=== PATIENT | female | born 1940 | race Caucasian/White ===

== ENCOUNTER 2018-05-20 06:10 | Day surgery (SDC) | payer OTHER, MEDICARE ==
[2018-05-19 15:10] VITALS: BMI 34.3
[2018-05-20] MEDS ORDERED: SUCCINYLCHOLINE CHLORIDE 200 MG/10 ML VIAL ONE (07:24)
[2018-05-20] MEDS ORDERED: PROPOFOL 20 ML ONE (07:24)
[2018-05-20] MEDS ORDERED: ceFAZolin SODIUM 1 GM VIAL ONE (07:25)
[2018-05-20] MEDS ORDERED: DEXAMETHASONE SOD PHOSPHATE 4 MG/1 ML VIAL ONE (07:25)
[2018-05-20] MEDS ORDERED: LIDOCAINE HCL/PF 2% SDV 5ML VIAL ONE (07:25)
[2018-05-20] MEDS ORDERED: SODIUM CHLORIDE 0.9% P/F 10 ML VIAL IJ ONE (07:25)
[2018-05-20] MEDS ORDERED: ROPIVACAINE HCL 0.5% 30ML VIAL ONE (07:29)
[2018-05-20] MEDS ORDERED: MIDAZOLAM HCL 2 MG/2 ML SINGLE DOSE VIAL ONE ×2 (07:31)
--- NOTE | 2018-05-20 08:10 | HP ---
Satellite [facility] - Chief Complaint Chief Complaint: left shoulder pain History of Present Illness: left shoulder impingement, RTC tear History Source: Patient Limitations to Obtaining History: No Limitations - Past Medical History Allergies/Adverse Reactions: Allergies Allergy/AdvReac Type Severity Reaction Status Date / Time No Known Allergies Allergy Verified 05/19/18 15:10 - Current Medications Current Medications: Home Medications Medication Instructions Recorded Amlodipine Besylate [Norvasc -] 10 mg PO DAILY 05/19/18 Aspirin [Aspirin EC] 81 mg PO DAILY 05/19/18 Azilsartan Medoxomil [Edarbi] 80 mg PO DAILY 05/19/18 Budesonide/Formeterol Fumarate 1 inh PO BID 05/19/18 [SYMBICORT 160/4.5mcg -] Chlorthalidone 25 mg PO DAILY 05/19/18 Ezetimibe [Zetia] 10 mg PO DAILY 05/19/18 Levothyroxine [Synthroid -] 88 mcg PO DAILY 05/19/18 Metformin HCl [Metformin HCl ER] 500 mg PO BID 05/19/18 Satellite Physical Exam - Physical Examination Vital Signs: Vital Signs Period Temp Pulse Resp BP Sys/Serrano Pulse Ox Last 24 Hr 98.5 F 78 18 143/63 99 General Appearance: Well Nourished ENT: Clear Lung: Clear to auscultation Heart: Regular rate & rhythm Breasts: Soft Abdomen: Soft Extremities: No edema Satellite Impression/Plan - Impression/Plan Impression: left shoulder pain, impingement, RTC tear Operative Procedure: left shoulder arthroscopy, subacromial decompression, RTC repair Date to be Performed: 05/20/18
[2018-05-20] MEDS ORDERED: ceFAZolin SODIUM 1 GM VIAL IVPB ONE (08:25)
[2018-05-20] MEDS ORDERED: ePHEDrine SULFATE 50 MG/1 ML AMPULE ONE (08:26)
[2018-05-20] MEDS ORDERED: KETOROLAC TROMETHAMINE 30 MG/1 ML VIAL ONE (08:38)
[2018-05-20] MEDS ORDERED: ONDANSETRON 4 MG/2 ML VIAL IVPUSH PRN (08:56)
[2018-05-20] MEDS ORDERED: PROMETHAZINE HCL 25 MG/1 ML VIAL IVPB PRN (08:56)
[2018-05-20] MEDS ORDERED: oxyCODONE HCL 5 MG TABLET PO PRN (08:56)
[2018-05-20] MEDS ORDERED: LACTATED RINGERS SOLUTION 1,000 ML IV SCH (09:00)
--- NOTE | 2018-05-20 09:10 | OP ---
Operative Note - Note: Operative Date: 05/20/18 Pre-Operative Diagnosis: left shoulder impingement, RTC tear, adhesive capsulitis Operation: left shoulder arthroscopy, subacromial decompression, distal clavicle excision, RTC debridement, manipulation under anesthesia Post-Operative Diagnosis: Same as Pre-op Surgeon: Nasir Sarmiento Md Allergy Immunology: Lincoln Mallory Anesthesiologist/CUSTOMS AGENT: Ayad Rodriguez Anesthesia: General, Local Specimens Removed: shavings Estimated Blood Loss (mls): 20 Drains, Volume Out (mls): 0 Blood Volume Replaced (mls): 0 Fluid Volume Replaced (mls): 700 Operative Report Dictated: Yes
--- NOTE | 2018-05-20 11:46 | OP ---
DATE OF OPERATION: DATE OF DICTATION: 05/20/2018 PREOPERATIVE DIAGNOSIS: Left shoulder impingement syndrome, adhesive capsulitis, and rotator cuff tear. POSTOPERATIVE DIAGNOSIS: Left shoulder impingement syndrome, adhesive capsulitis, and rotator cuff tear. PROCEDURE: Left shoulder arthroscopy, subacromial decompression, manipulation under anesthesia, and rotator cuff debridement. DRAINS: None. COMPLICATIONS: None. SPECIMEN: Shavings. BLOOD LOSS: Minimal. BLOOD GIVEN: None. FLUID REPLACEMENT: 700 mL. INDICATIONS: This patient is a 77-year-old female with a preoperative diagnosis of significant left shoulder pain, rotator cuff tear, impingement syndrome, and adhesive capsulitis. After extensive preoperative discussions, the patient has elected to undergo this procedure. She understands that the rotator cuff may not be fixable. PROCEDURE: The patient was brought to the operating room. Peripheral IV placed and IV sedation given. Two grams of IV Ancef was given. A left interscalene block was performed. LMA anesthesia was induced. The patient was placed in the beach-chair position with ample padding throughout. Manipulation under anesthesia was done. At one point, I was clearly able to pop through some constricting scar tissue and range of motion improved to full. The left upper extremity was then prepped and draped in a sterile fashion. The bony landmarks marked out with a marking pen. A posterior portal was established. A diagnostic glenohumeral arthroscopy was performed. The patient had no rotator cuff whatsoever. We searched for it extensively and there was none. The patient had a completely bald head. There was a lot of synovitis. The labrum looked frayed, but otherwise not torn. Next, our attention turned to the subacromial space. A lateral portal was established with a spinal needle under direct visualization. A Green cannula was introduced into the subacromial space and the ArthroCare wand used to do a bursectomy/extensive debridement/soft tissue subacromial decompression. Next, we photographed a very large, very sharp subacromial spur and a moderate-sized subclavicular spur. Using a combination of the 5.5-mm oval jerry in forward and then in reverse to fine tune it, as well as the shaver, a bony subacromial decompression was done. I then took off the distal clavicle. I then took off the subclavicular spur on the undersurface of the distal clavicle. It was then fine tuned in reverse and then finished with the shaver. The area was copiously irrigated and washed out. All instrumentation removed. Photographs taken. The top of the rotator cuff was directly visualized through full range of motion of the shoulder and there was no rotator cuff whatsoever; there was nothing to repair. The rotator cuff was debrided with a shaver. Its insertion off the humeral head had some frayed portions. This was debrided. All instrumentation, excess saline, and debris was removed. The arthroscopy portals were closed with 3-0 nylon sutures. The area was then washed, and dried, covered with Aquacel dressing, and the patient was placed into a regular sling. Extubated. Total operative time was about 45 minutes. Brought to the ambulatory recovery room in stable condition. NORIS TRENT M.D. [id number]
[2018-05-20 12:53] VITALS: BP 144/62; PULSE 80; TEMP 97.3
--- NOTE | 2018-05-22 18:25 | PATH ---
Surgical Pathology Report Patient Name: LINK HEATH [facility]. Rec. #: [id number] /Age/Gender: 1940 (Age: 77) / F Account: [id number] Location: [facility] SURGICAL Taken: 05/20/2018 Received: 05/20/2018 Reported: 05/22/2018 Physicians: Nasir Sarmiento M.D. Specimen(s) Received SHAVINGS LEFT SHOULDER Clinical History Left shoulder tear Final Diagnosis SHOULDER SHAVINGS, LEFT, ARTHROSCOPY: FRAGMENTS OF BENIGN CARTILAGE, DENSE FIBROCONNECTIVE TISSUE, ADIPOSE TISSUE, SKELETAL MUSCLE, FIBROSYNOVIAL TISSUE WITH PROMINENT LYMPHOPLASMACYTIC (CHRONIC) INFLAMMATORY INFILTRATE AND REACTIVE SYNOVIAL HYPERPLASIA. Comment: Although these findings are non-specific, dense lymphoplasmacytic infiltrate involving synovium with reactive synovial hyperplasia may be seen in association with rheumatoid arthritis. Correlation with clinical/radiologic and serologic findings is suggested Electronically Signed Avelina Correa M.D. Gross Description Received in formalin, labeled "left shoulder shaving," is a 5.5 x 4.0 x 0.6 cm. aggregate of branch-yellow soft tissue fragments. A account executive sales representative portion is submitted in one cassette. 05/21/201805/21/2018
== END 2018-05-20 12:40 | disposition home or self-care (01) ==
LOC: JASU-SURG 06:10
PROVIDERS: ATTEND Orthopaedic Surgery
PROC: 0LQ24ZZ Repair Left Shoulder Tendon, Percutaneous Endoscopic Approach (ICD-10-PCS; 2018-05-20)
PROC: 0RNK4ZZ Release Left Shoulder Joint, Percutaneous Endoscopic Approach (ICD-10-PCS; principal; 2018-05-20 08:00)
DX: M75.42 Impingement syndrome of left shoulder (principal); M65.812 Other synovitis and tenosynovitis, left shoulder; M75.02 Adhesive capsulitis of left shoulder; M75.102 Unspecified rotator cuff tear or rupture of left shoulder, not specified as traumatic; I10 Essential (primary) hypertension; E11.9 Type 2 diabetes mellitus without complications; Z79.84 Long term (current) use of oral hypoglycemic drugs
CPT/HCPCS: 82962; 88304-TC; 94760

== ENCOUNTER 2020-01-31 12:15 | Emergency (ER) | payer OTHER, MEDICARE ==
[2020-01-31 12:41] VITALS: PULSE 75; TEMP 98.1; BMI 34.5
[2020-01-31 12:59] VITALS: BP 146/44
--- OUTSIDE RECORDS SUMMARY | 2020-01-31 13:16 | XMS ---
:1940 Author Organization [facility] Care Team Providers Name Role Phone Francisco MENDEZ Unavailable Unavailable Reda, Anam F MD Unavailable Unavailable Reda, F MD Unavailable Unavailable Reda, F MD Unavailable Unavailable Reda, F MD Unavailable Unavailable Reda, F MD Unavailable Unavailable Reda, F MD Unavailable Unavailable Reda, F MD Unavailable Unavailable Reda, F MD Unavailable Unavailable Reda, F MD Unavailable Unavailable Reda, F MD Unavailable Unavailable Reda, F MD Unavailable Unavailable Reda, F MD Unavailable Unavailable Reda, F MD Unavailable Unavailable Reda, F MD Unavailable Unavailable Reda, F MD Unavailable Unavailable Reda, F MD Unavailable Unavailable Reda, F MD Unavailable Unavailable Reda, F MD Unavailable Unavailable Reda, F MD Unavailable Unavailable Reda, F MD Unavailable Unavailable Reda, F MD Unavailable Unavailable Reda, F MD Unavailable Unavailable Re-disclosure Warning The records that you are about to access may contain information from federally- assisted alcohol or drug abuse programs. If such information is present, then the following federally mandated warning applies: This information has been disclosed to you from records protected by federal confidentiality rules (42 CFR part 2). The federal rules prohibit you from making any further disclosure of this information unless further disclosure is expressly permitted by the written consent of the person to whom it pertains or as otherwise permitted by 42 CFR part 2. A general authorization for the release of medical or other information is NOT sufficient for this purpose. The Federal rules restrict any use of the information to criminally investigate or prosecute any alcohol or drug abuse patient.The records that you are about to access may contain highly sensitive health information, the redisclosure of which is protected by Article 27-F of the [facility] Public Health law. If you continue you may haveaccess to information: Regarding HIV / AIDS; Provided by facilities licensed or operated by the [facility] Office of Mental Health; or Provided by the [facility] Office for People With Developmental Disabilities. If such information is present, then the following [facility] mandated warning applies: This information has been disclosed to you from confidential records which are protected by state law. State law prohibits you from making any further disclosure of this information without the specific written consent of the person to whom it pertains, or as otherwise permitted by law. Any unauthorized further disclosure in violation of state law may result in a fine or alf sentence or both. A general authorization for the release of medical or other information is NOT sufficient authorization for further disclosure. Encounters Encounter Providers Location Date Indications Data Source(s ) Attender: Anam 01/27/2020 [facility] (Winnie Mendoza MD 12:00:00 AM [place] [facility] Office Attender: Anam Mendoza MD 01/27/2020 12:00:00 AM EDT [facility] ([facility]) Office Attender: Anam Mendoza MD 01/27/2020 12:00:00 AM EDT [facility] ([facility]) Office Attender: Anam Mendoza MD 01/27/2020 12:00:00 AM EDT [facility] ([facility]) Office Attender: Anam Mendoza MD 01/27/2020 12:00:00 AM EDT [facility] ([facility]) Office Attender: Anam Mendoza MD 01/27/2020 12:00:00 AM EDT [facility] ([facility]) Office Attender: Anam Mendoza MD 01/27/2020 12:00:00 AM EDT [facility] ([facility]) Office Attender: Anam Mendoza MD 01/27/2020 12:00:00 AM EDT [facility] ([facility]) Office Attender: Anam Mendoza MD 01/27/2020 12:00:00 AM EDT [facility] ([facility]) Office Attender: Anam Mendoza MD 01/27/2020 12:00:00 AM EDT [facility] ([facility]) Office Attender: Anam Mendoza MD 01/27/2020 12:00:00 AM EDT [facility] ([facility]) Office Attender: Anam Mendoza MD 01/27/2020 12:00:00 AM EDT [facility] ([facility]) Office Attender: Anam Mendoza MD 01/27/2020 12:00:00 AM EDT [facility] ([facility]) Office Attender: Anam Mendoza MD 01/27/2020 12:00:00 AM EDT [facility] ([facility]) Office Attender: Anam Mendoza MD 12/27/2019 12:00:00 AM EDT [facility] ([facility]) Office Attender: Anam Mendoza MD 12/27/2019 12:00:00 AM EDT [facility] ([facility]) Office Attender: Anam Mendoza MD 12/27/2019 12:00:00 AM EDT [facility] ([facility]) Office Attender: Anam Mendoza MD 12/27/2019 12:00:00 AM EDT [facility] ([facility]) Office Attender: nAam Mendoza MD 12/27/2019 12:00:00 AM EDT [facility] ([facility]) Office Attender: Anam Mendoza MD 12/27/2019 12:00:00 AM EDT [facility] ([facility]) Office Attender: Anam Mendoza MD 12/27/2019 12:00:00 AM EDT [facility] ([facility]) Office Attender: Anam Mendoza MD 10/07/2019 12:00:00 AM EDT [facility] ([facility]) Office Attender: Anam Mendoza MD 10/07/2019 12:00:00 AM EDT [facility] ([facility]) Office Attender: Anam Mendoza MD 10/07/2019 12:00:00 AM EDT [facility] ([facility]) Office Attender: Anam Mendoza MD 10/07/2019 12:00:00 AM EDT [facility] ([facility]) Office Attender: Anam Mendoza MD 10/07/2019 12:00:00 AM EDT [facility] ([facility]) Office Attender: Anam Mendoza MD 10/07/2019 12:00:00 AM EDT [facility] ([facility]) Office Attender: Anam Mendoza MD 10/07/2019 12:00:00 AM EDT [facility] ([facility]) Office Attender: Anam Mendoza MD 10/01/2019 12:00:00 AM EDT [facility] ([facility]) Office Attender: Anam Mendoza MD 10/01/2019 12:00:00 AM EDT MED[facility] ([facility]) Office Attender: Anam Mendoza MD 10/01/2019 12:00:00 AM EDT MED[facility] ([facility]) Office Attender: Anam Mendoza MD 10/01/2019 12:00:00 AM EDT [facility] ([facility]) Office Attender: Anam Mendoza MD 10/01/2019 12:00:00 AM EDT [facility] ([facility]) Office Attender: Anam Mendoza MD 10/01/2019 12:00:00 AM EDT [facility] ([facility]) Office Attender: Anam Mendoza MD 10/01/2019 12:00:00 AM EDT [facility] ([facility]) Office Attender: Anam Mendoza MD 09/16/2019 12:00:00 AM EDT MED[facility] ([facility]) Office Attender: Anam Mendoza MD 09/16/2019 12:00:00 AM EDT [facility] ([facility]) Office Attender: Anam Mendoza MD 09/16/2019 12:00:00 AM EDT [facility] ([facility] Office Attender: Anam Mendoza MD 09/16/2019 12:00:00 AM EDT [facility] ([facility] Office Attender: Anam Mendoza MD 09/16/2019 12:00:00 AM EDT [facility] ([facility] Office Attender: Anam Mendoza MD 09/16/2019 12:00:00 AM EDT [facility] ([facility] Office Attender: Anam Mendoza MD 09/16/2019 12:00:00 AM EDT [facility] ([facility] Office Attender: Anam Mendoza MD 09/16/2019 12:00:00 AM EDT [facility] ([facility] Office Outpatient Attender: Francisco Rodríguez 06/07/2019 10:53:00 AM [facility] MORALESRAdmitter: Francisco Lance [facility] CARMENRReferrer: Francisco TORRES Outpatient Attender: Anam Rodríguez 01/14/2019 01:07:00 PM [facility] MDAdmitter: Anam Mendoza [facility] MDReferrer: Anam Mendoza MD Immunizations Vaccine Date Status Description Data Source(s) IIV3. This is one of 01/27/2020 completed [facility] ([facility] two codes replacing 12:00:00 AM EDT [facility] CVX 15, which is being [facility]) retired. IIV3. This is one of 01/27/2020 completed [facility] ([facility] two codes replacing 12:00:00 AM EDT [facility] CVX 15, which is being [facility]) retired. Medications Medication Brand Start Product Dose Route Administrative Pharmacy [facility] Indications Reaction Description Data Name Date Form Instructions Instructions Source(s) ezetimibe EZETIM // TABLET 90 complet EZETIM ANGEL [facility] 10 MG Oral ANGEL:34 2019 ed (Felix diaz Tablet 9556 12:00: [facility] EZETIMIBE:3 00 AM r [id number] EDT [facility]) ezetimibe EZETIM // TABLET 90 complet EZETIM ANGEL [facility] 10 MG Oral ANGEL:34 2019 ed (Felix diaz Tablet 9556 12:00: [facility] EZETIMIBE:3 00 AM r [id number] EDT [facility]) ezetimibe EZETIM // TABLET 90 complet EZETIM ANGEL [facility] 10 MG Oral ANGEL:34 2019 ed (Felix diaz Tablet 9556 12:00: [facility] EZETIMIBE:3 00 AM r [id number] EDT [facility]) ezetimibe EZETIM 09/30/ TABLET 90 complet EZETIM ANGEL [facility] 10 MG Oral ANGEL:34 2019 ed (Felix diza Tablet 9556 12:00: [facility] EZETIMIBE:3 00 AM r [id number] EDT [facility]) ezetimibe EZETIM 09/30/ TABLET 90 complet EZETIM ANGEL [facility] 10 MG Oral ANGEL:34 2019 ed (Felix diaz Tablet 9556 12:00: [facility] EZETIMIBE:3 00 AM r [id number] EDT [facility]) ACCU-CHEK complet ACCU-CHEK [facility] ACTIVE IN 2020 ed ACTIVE IN ([place] VITRO 12:00: VITRO STRIP [facility] heste STRIP: 00 AM r EDT [facility]) ACCU-CHEK complet ACCU-CHEK [facility] ACTIVE IN 2020 ed ACTIVE IN ([place] VITRO 12:00: VITRO STRIP [facility]ste STRIP: 00 AM r EDT [facility]) ACCU-CHEK complet ACCU-CHEK [facility] FASTCLIX 2020 ed FASTCLIX (Felix rn LANCET KIT 12:00: LANCET KIT W [place] W/LANCET(S) 00 AM W/LANCET(S) r : EDT [facility] FLUTICASONE 08/18/ SPRAY 3 complet FLUTICA SONE [facility] NASAL:[id number] 2019 ed NASAL (Felix rn 07 12:00: [place] 00 AM r EDT [facility]) LANCETS complet LANCETS MEDG EN ULTRA FINE 2019 ed ULTRA FINE ([place] MISCELLANEO 12:00: MISCELLANEO U [facility] US SINGLE 00 AM S SINGLE r USE, EDT USE, [facility]) TRI-BEVELED TRI-BEVELED : LANCETS complet LANCETS MEDG EN ULTRA FINE 2019 ed ULTRA FINE ([place] MISCELLANEO 12:00: MISCELLANEO U [facility] SINGLE 00 AM S SINGLE r USE, EDT USE, [facility]) TRI-BEVELED TRI-BEVELED : ACCU-CHEK complet ACCU-CHEK MED[facility] ACTIVE IN 2019 ed ACTIVE IN ([place] VITRO 12:00: VITRO STRIP [facility] heste STRIP: 00 AM r EDT [facility]) ACCU-CHEK complet ACCU-CHEK MED[facility] FASTCLIX 2019 ed FASTCLIX (Felix LANCET KIT 12:00: LANCET KIT [place] W/LANCET(S) 00 AM W/LANCET(S) r : EDT [facility]) FLUTICASONE 08/18/ SPRAY 3 complet FLUTICA SONE [facility] NASAL:2019 ed NASAL (Felix rn 07 12:00: [place] 00 AM r EDT [facility]) ACCU-CHEK complet ACCU-CHEK [facility] FASTCLIX 2019 ed [facility] 12:00: LANCET KIT [place] W/LANCET(S) 00 AM W/LANCET(S) r : EDT [facility]ph[facility]) LANCETS complet LANCETS MEDG EN ULTRA FINE 2019 ed ULTRA FINE ([place] MISCELLANEO 12:00: MISCELLANEO U [facility] SINGLE 00 AM S SINGLE r USE, EDT USE, [facility]) TRI-BEVELED TRI-BEVELED : FLUTICASONE 08/18/ SPRAY 3 complet FLUTICA SONE [facility] NASAL:2019 ed NASAL (Felix rn 07 12:00: [place] 00 AM r EDT [facility]) ACCU-CHEK complet ACCU-CHEK MED[facility] FASTCLIX 2019 ed FASTCLIX (Felix diaz LANCET KIT 12:00: LANCET KIT [place] W/LANCET(S) 00 AM W/LANCET(S) r : EDT [facility]) ACCU-CHEK complet ACCU-CHEK MED[facility] ACTIVE IN 2019 ed ACTIVE IN ([place] VITRO 12:00: VITRO STRIP [facility] heste STRIP: 00 AM r EDT [facility]) FLUTICASONE 3 complet FLUTICA SONE [facility] NASAL:[id number] 2019 ed NASAL (Felix rn 07 12:00: [place] 00 AM r EDT [facility]) LANCETS complet LANCETS MEDG EN ULTRA FINE 2019 ed ULTRA FINE ([place] MISCELLANEO 12:00: [facility]O [facility] AM S SINGLE r USE, EDT USE, [facility]) TRI-BEVELED TRI-BEVELED : LANCETS complet LANCETS MEDG EN ULTRA FINE 2019 ed ULTRA FINE ([place] MISCELLANEO 12:00: MISCELLANEO U [place] US SINGLE 00 AM S SINGLE r USE, EDT USE, [facility]) TRI-BEVELED TRI-BEVELED : ACCU-CHEK complet ACCU-CHEK MED[facility] FASTCLIX 2019 ed FASTCLIX (Felix diaz LANCET KIT 12:00: LANCET KIT [place] W/LANCET(S) 00 AM W/LANCET(S) r : EDT [facility]) ACCU-CHEK complet ACCU-CHEK MED[facility] FASTCLIX 2019 ed FASTCLIX (Felix diaz LANCET KIT 12:00: LANCET KIT [place] W/LANCET(S) 00 AM W/LANCET(S) r : EDT [facility]ph[facility]) LANCETS complet LANCETS MEDG EN ULTRA FINE 2019 ed ULTRA FINE ([place] MISCELLANEO 12:00: [facility]O [facility] S SINGLE r USE, EDT USE, [facility]) TRI-BEVELED TRI-BEVELED : FLUTICASONE 08/18/ SPRAY 3 complet FLUTICA SONE [facility] NASAL:[id number] 2019 ed NASAL ([place] rn 07 12:00: [place] 00 AM r EDT [facility]) ACCU-CHEK complet ACCU-CHEK [facility] ACTIVE IN 2020 ed ACTIVE IN ([place] VITRO 12:00: VITRO STRIP [place] STRIP: 00 AM r EDT [facility]) FLUTICASONE 08/18/ SPRAY 3 complet FLUTICA SONE [facility] NASAL:[id number] 2019 ed NASAL ([place] rn 07 12:00: [place] 00 AM r EDT [facility]) ACCU-CHEK complet ACCU-CHEK [facility] ACTIVE IN 2019 ed ACTIVE IN ([place] VITRO 12:00: VITRO STRIP [place] STRIP: 00 AM r EDT [facility]) Cholecalcif VITAMI 10/25/ CAPSULE 30 complet VIT DEVI D3 MED[facility] pravin 1000 N 2019 ed ([facility] Oral D3:245 12:00: [place] enrique Capsule 500 00 AM r VITAMIN EDT Nephrology D3:[id number] [facility]) Cholecalcif VITAMI 10/25/ CAPSULE 30 complet VIT DEVI D3 MED[facility] pravin 1000 N 2019 ed ([facility] Oral D3:245 12:00: [place] en[place] Capsule 500 00 AM r VITAMIN EDT [facility] D3:[id number] [facility]) Cholecalcif VITAMI 10/25/ CAPSULE 30 complet VIT DEVI D3 MED[facility] pravin 1000 N 2019 ed ([facility] Oral D3:245 12:00: [place] Capsule 500 00 AM r VITAMIN EDT [facility] D3:[id number] [facility]) Cholecalcif VITAMI 10/25/ CAPSULE 30 complet VIT DEVI D3 MED[facility] pravin 1000 N 2019 ed ([facility] Oral D3:245 12:00: [place] Capsule 500 00 AM r VITAMIN EDT [facility] D3:[id number] [facility]) Cholecalcif VITAMI 10/25/ CAPSULE 30 complet VIT DEVI D3 MED[facility] pravin 1000 N 2019 ed ([facility] Oral D3:245 12:00: [place] en[place] Capsule 500 00 AM r VITAMIN EDT [facility] D3:[id number] PLL) Cholecalcif VITAMI 10// CAPSULE 30 complet VIT DEVI D3 [facility] pravin 1000 N 2019 ed ([facility] Oral D3:245 12:00: [place] enrique Capsule 500 00 AM r VITAMIN EDT [facility] D3:[id number] [facility]) Insurance Providers Payer name Policy type Policy ID Covered Covered green party's Policy P gilda / Coverage green party ID relationship to [place] Inf ormation type [place] [employer] [id number] [place] [id number] CARE [employer]IONS NEWR[place] [id number] SP [id number] HEALTHCARE ([place]ARE[place] [id number] PART B [facility] [id number] 1 [id number] [employer] NEWRY [id number] SP [id number] HEALTHCARE (MEDICARE) [facility] [id number] 01 [id number] [employer] [id number] SP [id number] CARE [employer] MEDICARE [id number] SP [id number] Problems, Conditions, and Diagnoses Code Display Name Description Problem Type Effective Dates Data Source(s) H93.12 Tinnitus, left TINNITUS, LEFT Problem 08/19/2019 [facility] ([facility] ear EAR 12:00:00 AM EDT [facility]) H93.12 Tinnitus, left TINNITUS, LEFT Problem 08/19/2019 [facility] ([facility] EAR 12:00:00 AM EDT [facility]) H93.12 Tinnitus, left TINNITUS, LEFT Problem 08/19/2019 [facility] ([facility] EAR 12:00:00 AM EDT [facility]) H93.12 Tinnitus, left TINNITUS, LEFT Problem 08/19/2019 [facility] ([facility] EAR 12:00:00 AM EDT [facility]) H93.12 Tinnitus, left TINNITUS, LEFT Problem 08/19/2019 [facility] ([facility] EAR 12:00:00 AM EDT [facility]) H93.12 Tinnitus, left TINNITUS, LEFT Problem 08/19/2019 [facility] ([facility] EAR 12:00:00 AM EDT [facility]) Z12.31 Encounter for ENCNTR SCREEN Diagnosis 06/07/2019 [facility] screening MAMMOGRAM FOR 10:53:00 AM EDT [facility] mammogram for MALIGNANT malignant NEOPLASM OF neoplasm of BREAST breast M19.90 Unspecified UNSPECIFIED Diagnosis 01/14/2019 [facility], OSTEOARTHRITIS, 01:07:00 PM EDT [facility] unspecified site UNSPECIFIED SITE Surgeries/Procedures Procedure Description Date Indications Data Source(s) Administration of 01/27/2020 [facility] ([place] influenza virus vaccine 12:00:00 AM EDT [facility] OFFICE OUTPATIENT VISIT 01/27/2020 [facility] EN ([facility] 25 MINUTES 12:00:00 AM [facility] ) IMADM PRQ ID SUBQ/IM [id number] 01/27/2020 ME DGEN ([facility] 1 VACCINE 12:00:00 AM [facility] ) COLLECTION VENOUS BLOOD 01/27/2020 [facility] EN ([facility] VENIPUNCTURE 12:00:00 AM [facility] ) COLLECTION VENOUS BLOOD 01/27/2020 MED[facility] EN ([facility] VENIPUNCTURE 12:00:00 AM [facility] ) OFFICE OUTPATIENT VISIT 12/27/2019 [facility] EN ([facility] 25 MINUTES 12:00:00 AM [facility] ) COLLECTION VENOUS BLOOD 12/27/2019 [facility] EN ([facility] VENIPUNCTURE 12:00:00 AM [facility] ) COLLECTION VENOUS BLOOD 12/27/2019 [facility] EN ([facility] VENIPUNCTURE 12:00:00 AM [facility] ) OFFICE OUTPATIENT VISIT 12/27/2019 [facility] EN ([facility] 25 MINUTES 12:00:00 AM [facility] ) COLLECTION VENOUS BLOOD 12/27/2019 [facility] EN ([facility] VENIPUNCTURE 12:00:00 AM [facility] ) OFFICE OUTPATIENT VISIT 10/07/2019 [facility] EN ([facility] 25 MINUTES 12:00:00 AM [facility] COLLECTION VENOUS BLOOD 10/07/2019 [facility] EN ([facility] VENIPUNCTURE 12:00:00 AM [facility] ) COLLECTION VENOUS BLOOD 10/07/2019 [facility] EN ([facility] VENIPUNCTURE 12:00:00 AM [facility] ) OFFICE OUTPATIENT VISIT 10/07/2019 [facility] EN ([facility] 25 MINUTES 12:00:00 AM [facility] ) COLLECTION VENOUS BLOOD 10/07/2019 [facility] EN ([facility] VENIPUNCTURE 12:00:00 AM [facility] ) OFFICE OUTPATIENT VISIT 10/07/2019 [facility] EN ([facility] 25 MINUTES 12:00:00 AM [facility] ) COLLECTION VENOUS BLOOD 10/07/2019 [facility] EN ([facility] VENIPUNCTURE 12:00:00 AM [facility] ) OFFICE OUTPATIENT VISIT 10/01/2019 [facility] EN ([facility] 25 MINUTES 12:00:00 AM [facility] ) COLLECTION VENOUS BLOOD 10/01/2019 [facility] EN ([facility] VENIPUNCTURE 12:00:00 AM [facility] ) COLLECTION VENOUS BLOOD 10/01/2019 [facility] EN ([facility] VENIPUNCTURE 12:00:00 AM [facility] ) OFFICE OUTPATIENT VISIT 10/01/2019 [facility] EN ([facility] 25 MINUTES 12:00:00 AM [facility] ) COLLECTION VENOUS BLOOD 10/01/2019 [facility] EN ([facility] VENIPUNCTURE 12:00:00 AM [facility] ) OFFICE OUTPATIENT VISIT 10/01/2019 [facility] EN ([facility] 25 MINUTES 12:00:00 AM [facility] ) COLLECTION VENOUS BLOOD 10/01/2019 [facility] EN ([facility] VENIPUN[facility]URE 12:00:00 AM [facility] ) OFFICE OUTPATIENT VISIT 10/01/2019 [facility] EN ([facility] 25 MINUTES 12:00:00 AM [facility] ) COLLECTION VENOUS BLOOD 10/01/2019 [facility] EN ([facility] VENIPUN[facility]URE 12:00:00 AM [facility] ) OFFICE OUTPATIENT VISIT 09/16/2019 [facility] EN ([facility] 15 MINUTES 12:00:00 AM [facility] ) COLLECTION VENOUS BLOOD 09/16/2019 [facility] EN ([facility] VENIPUN[facility]URE 12:00:00 AM [facility] ) COLLECTION VENOUS BLOOD 09/16/2019 [facility] EN ([facility]ENIP[facility] 12:00:00 AM [facility] ) OFFICE OUTPATIENT VISIT 09/16/2019 [facility] EN ([facility] 15 MINUTES 12:00:00 AM [facility] ) COLLECTION VENOUS BLOOD 09/16/2019 [facility] EN ([facility] VENIPUN[facility]URE 12:00:00 AM [facility] ) OFFICE OUTPATIENT VISIT 09/16/2019 [facility] ([facility] 15 MINUTES 12:00:00 AM [facility] ) COLLECTION VENOUS BLOOD 09/16/2019 [facility] EN ([facility] VENIP[facility]URE 12:00:00 AM [facility] ) OFFICE OUTPATIENT VISIT 09/16/2019 [facility] EN ([facility] 15 MINUTES 12:00:00 AM [facility] ) COLLECTION VENOUS BLOOD 09/16/2019 [facility] EN ([facility] VENIPUN[facility]URE 12:00:00 AM [facility] ) OFFICE OUTPATIENT VISIT 09/16/2019 [facility] EN ([facility] 15 MINUTES 12:00:00 AM [facility] ) COLLECTION VENOUS BLOOD 09/16/2019 [facility] EN ([facility] VENIPUNCTURE 12:00:00 AM [facility] ) OFFICE OUTPATIENT VISIT 08/19/2019 [facility] EN ([facility] 15 MINUTES 12:00:00 AM [facility] ) COLLECTION VENOUS BLOOD 08/19/2019 [facility] EN ([facility] VENIPUNCTURE 12:00:00 AM [facility] ) COLLECTION VENOUS BLOOD 08/19/2019 [facility] EN ([facility] VENIPUNCTURE 12:00:00 AM [facility] ) OFFICE OUTPATIENT VISIT 08/19/2019 [facility] EN ([facility] 15 MINUTES 12:00:00 AM [facility] ) COLLECTION VENOUS BLOOD 08/19/2019 [facility] EN ([facility] VENIPUNCTURE 12:00:00 AM [facility] ) OFFICE OUTPATIENT VISIT 08/19/2019 [facility] EN ([facility] 15 MINUTES 12:00:00 AM [facility] ) COLLECTION VENOUS BLOOD 08/19/2019 [facility] EN ([facility] VENIPUNCTURE 12:00:00 AM [facility] ) OFFICE OUTPATIENT VISIT 08/19/2019 [facility] EN ([facility] 15 MINUTES 12:00:00 AM [facility] ) COLLECTION VENOUS BLOOD 08/19/2019 [facility] EN ([facility] VENIPUN[facility]URE 12:00:00 AM [facility] ) OFFICE OUTPATIENT VISIT 08/19/2019 [facility] EN ([facility] 15 MINUTES 12:00:00 AM [facility] ) COLLECTION VENOUS BLOOD 08/19/2019 [facility] EN ([facility] VENIPUNCTURE 12:00:00 AM [facility] ) OFFICE OUTPATIENT VISIT 05/06/2019 [facility] EN ([facility] 15 MINUTES 12:00:00 AM [facility] ) COLLECTION VENOUS BLOOD 05/06/2019 MEDG EN ([facility] 12:00:00 AM [facility] ) COLLECTION VENOUS BLOOD 05/06/2019 MEDG EN ([facility] 12:00:00 AM [facility] ) OFFICE OUTPATIENT VISIT 05/06/2019 MEDG EN ([facility] 15 MINUTES 12:00:00 AM [facility] ) COLLECTION VENOUS BLOOD 05/06/2019 MEDG EN ([facility] 12:00:00 AM [facility] ) OFFICE OUTPATIENT VISIT 05/06/2019 MEDG EN ([facility] 15 MINUTES 12:00:00 AM [facility] ) COLLECTION VENOUS BLOOD 05/06/2019 MEDG EN ([facility] 12:00:00 AM [facility] ) OFFICE OUTPATIENT VISIT 05/06/2019 MEDG EN ([facility] 15 MINUTES 12:00:00 AM [facility] ) COLLECTION VENOUS BLOOD 05/06/2019 MEDG EN ([place] [facility] 12:00:00 AM [facility] ) OFFICE OUTPATIENT VISIT 05/06/2019 MEDG EN ([facility] 15 MINUTES 12:00:00 AM [facility] ) COLLECTION VENOUS BLOOD 05/06/2019 MEDG EN ([place] [facility] 12:00:00 AM [facility] ) OFFICE OUTPATIENT VISIT 03/10/2019 MEDG EN ([facility] 15 MINUTES 12:00:00 AM [facility] ) COLLECTION VENOUS BLOOD 03/10/2019 MEDG EN ([place] [facility] 12:00:00 AM [facility] ) COLLECTION VENOUS BLOOD 03/10/2019 MEDG EN ([place] [facility] 12:00:00 AM [facility] ) OFFICE OUTPATIENT VISIT 03/10/2019 MEDG EN ([facility] 15 MINUTES 12:00:00 AM [facility] ) COLLECTION VENOUS BLOOD 03/10/2019 MEDG EN ([place] [facility] 12:00:00 AM [facility] ) OFFICE OUTPATIENT VISIT 03/10/2019 MEDG EN ([facility] 15 MINUTES 12:00:00 AM [facility] ) COLLECTION VENOUS BLOOD 03/10/2019 MEDG EN ([place] [facility] 12:00:00 AM [facility] ) OFFICE OUTPATIENT VISIT 03/10/2019 MEDG EN ([facility] 15 MINUTES 12:00:00 AM [facility] ) COLLECTION VENOUS BLOOD 03/10/2019 MEDG EN ([place] [facility] 12:00:00 AM [facility] ) OFFICE OUTPATIENT VISIT 03/10/2019 MEDG EN ([place] 15 MINUTES 12:00:00 AM [facility] ) COLLECTION VENOUS BLOOD 03/10/2019 MEDG EN ([place] [facility] 12:00:00 AM [facility] ) OFFICE OUTPATIENT VISIT 02/08/2019 MEDG EN ([place] 15 MINUTES 12:00:00 AM [facility] ) OFFICE OUTPATIENT VISIT 02/08/2019 MEDG EN ([facility] 15 MINUTES 12:00:00 AM [facility] ) OFFICE OUTPATIENT VISIT 02/08/2019 MEDG EN ([facility] 15 MINUTES 12:00:00 AM [facility] ) OFFICE OUTPATIENT VISIT 02/08/2019 MEDG EN ([facility] 15 MINUTES 12:00:00 AM [facility] ) OFFICE OUTPATIENT VISIT 02/08/2019 MEDG EN ([facility] 15 MINUTES 12:00:00 AM [facility] ) OFFICE OUTPATIENT VISIT 01/22/2019 MEDG EN ([place] 15 MINUTES 12:00:00 AM [facility] ) COLLECTION VENOUS BLOOD 01/22/2019 MEDG EN ([place] [facility] 12:00:00 AM [facility] ) COLLECTION VENOUS BLOOD 01/22/2019 MEDG EN ([place] [facility] 12:00:00 AM [facility] ) OFFICE OUTPATIENT VISIT 01/22/2019 MEDG EN ([place] 15 MINUTES 12:00:00 AM [facility] ) COLLECTION VENOUS BLOOD 01/22/2019 MEDG EN ([place] [facility] 12:00:00 AM [facility] ) OFFICE OUTPATIENT VISIT 01/22/2019 MEDG EN ([place] 15 MINUTES 12:00:00 AM [facility] ) COLLECTION VENOUS BLOOD 01/22/2019 MEDG EN ([place] [facility] 12:00:00 AM [facility] ) OFFICE OUTPATIENT VISIT 01/22/2019 MEDG EN ([place] 15 MINUTES 12:00:00 AM [facility] ) COLLECTION VENOUS BLOOD 01/22/2019 MEDG EN ([place] [facility] 12:00:00 AM [facility] ) OFFICE OUTPATIENT VISIT 01/22/2019 MEDG EN ([place] 15 MINUTES 12:00:00 AM [facility] ) COLLECTION VENOUS BLOOD 01/22/2019 MEDG EN ([place] [facility] 12:00:00 AM [facility] ) OFFICE OUTPATIENT VISIT 12/10/2018 MEDG EN ([place] 15 MINUTES 12:00:00 AM [facility] ) COLLECTION VENOUS BLOOD 12/10/2018 MEDG EN ([place] [facility] 12:00:00 AM [facility] ) COLLECTION VENOUS BLOOD 12/10/2018 MEDG EN ([place] [facility] 12:00:00 AM [facility] ) OFFICE OUTPATIENT VISIT 12/10/2018 MEDG EN ([place] 15 MINUTES 12:00:00 AM [facility] ) COLLECTION VENOUS BLOOD 12/10/2018 MEDG EN ([place] [facility] 12:00:00 AM [facility] ) OFFICE OUTPATIENT VISIT 12/10/2018 MEDG EN ([place] 15 MINUTES 12:00:00 AM [facility] ) COLLECTION VENOUS BLOOD 12/10/2018 MEDG EN ([place] [facility] 12:00:00 AM EDT [place] [facility] ) OFFICE OUTPATIENT VISIT 12/10/2018 MEDG EN ([place] 15 MINUTES 12:00:00 AM [facility] [place] [facility] COLLECTION VENOUS BLOOD 12/10/2018 MEDG EN ([facility] OFF[facility] OUTPATIENT VISIT 12/10/2018 MEDG EN ([facility] 15 MINUTES 12:00:00 AM EDT [place] [facility] ) COLLECTION VENOUS BLOOD 12/10/2018 MEDG EN ([facility] VENIPUNCTURE 12:00:00 AM EDT [place] [facility] ) Results ID Date Data Source [id number] 12/27/2019 12:00:00 AM EDT MEDGEN ([facility]ph[facility]) Name Value Range Interpretation Description Data Source(s ) Supporting Code Document(s ) Structure of 6.0 Normal (applies MEDGEN plantar Thousand to non-numeric ([facility] digital artery /uL results) [place] (body Nephrology structure) [facility]) RED BLOOD CELL 3.75 Below low normal MEDGEN COUNT Million/ ([place] u[facility] [place] [facility]) Hemoglobin 10.0 Below low normal [facility] [Mass/volume] g/dL ([place] in Mixed [place] venous blood Nephrology by Oximetry [facility]) Hematocrit 31.3 % Below low normal MEDGEN [Pure volume ([place] fraction] of [place] Blood by Nephrology Automated [facility]) count MCV 83.5 fL Normal (applies MEDGEN to non-numeric ([facility] results) [place] [facility]) MCH 26.7 pg Below low normal MEDGEN ([facility] Nephrology [facility]) MCHC 31.9 Below low normal MEDGEN g/dL ([facility] Neph[facility]) RDW 13.2 % Normal (applies MEDGEN to non-numeric ([facility] results) [place] [facility]) PLATELET COUNT 176 Normal (applies MEDGEN Thousand to non-numeric ([facility] /uL results) [place] [facility]) MPV 8.6 fL Normal (applies MEDGEN to non-numeric ([facility] results) [place] [facility]) ABSOLUTE 3582 Normal (applies [facility]GEN NEUTROPHILS cells/uL to non-numeric ([facility] results) [place] [facility]) ABSOLUTE 1722 Normal (applies [facility] LYMPHOCYTES cells/uL to non-numeric ([facility] results) [place] [facility]) ABSOLUTE 546 Normal (applies [facility]GEN MONOCYTES cells/uL to non-numeric ([facility] results) [place] [facility]) ABSOLUTE 108 Normal (applies [facility]GEN EOSINOPHILS cells/uL to non-numeric ([facility] results) [place] [facility]) ABSOLUTE 42 Normal (applies [facility] BASOPHILS cells/uL to non-numeric ([facility] results) [place] [facility]) Neutrophils 59.7 % Normal (applies MEDGEN [#] in Body to non-numeric ([place] fluid by results) [place] Manual count Nephrology [facility]) Lymphocytes 28.7 % Normal (applies MEDGEN [#] in Body to non-numeric ([place] fluid by results) [place] Manual count Nephrology [facility]) Monocytes 9.1 % Normal (applies MEDGEN [#/volume] in to non-numeric ([facility] Cord blood results) [place] [facility]) Eosinophils 1.8 % Normal (applies MEDGEN [#] in Body to non-numeric ([place] fluid by results) [place] Manual count Nephrology [facility]) Basophils [#] 0.7 % Normal (applies MEDGEN in Body fluid to non-numeric ([place] by Manual results) [place] count [facility]ph[facility]) ID Date Data Source [id number] 12/27/2019 12:00:00 AM EDT [facility] ([place] [facility] [facility]) Name Value Range Interpretation Description Data Source(s ) Supporting Code Document(s ) Glucose 114 Above high normal MEDGEN [Mass/volume] mg/dL ([place] in Urine [place] collected for Nephrology unspecified [facility]) duration UREA NITROGEN 24 mg/dL Normal (applies MEDGEN (BUN) to non-numeric ([facility] results) [place] [facility]) Creatinine 1.14 Above high normal MEDGEN [Interpretation mg/dL ([facility] ] in Urine [place] [facility]) eGFR NON-AFR. 46 Below low normal MEDGEN TURKISH mL/min/1 ([place] .73m2 [place] [facility]) eGFR 54 Below low normal MEDGEN TURKISH mL/min/1 ([place] .73m2 [place] [facility]) BUN/CREATININE 21 Normal (applies [facility]GEN RATIO (calc) to non-numeric ([facility] results) [place] [facility]) Sodium 133 Below low normal MEDGEN [Moles/volume] mmol/L ([facility] in Serum, [place] Plasma or Blood Nephrology [facility]) Potassium 4.7 Normal (applies MEDGEN [Mass/volume] mmol/L to non-numeric ([facility] in Blood results) [place] [facility]) Chloride 99 Normal (applies MEDGEN [Moles/volume] mmol/L to non-numeric ([facility] in Serum, results) [place] Plasma or Blood Nephrology [facility]) Carbon dioxide 26 Normal (applies MEDGEN [VFr/PPres] in mmol/L to non-numeric ([facility] Gas delivery results) [place] system [facility]ph[facility]) Calcium 10.2 Normal (applies MEDGEN [Moles/volume] mg/dL to non-numeric ([facility] in Urine results) [place] collected for Nephrology unspecified [facility]) duration PROTEIN, TOTAL 7.3 g/dL Normal (applies MEDGEN to non-numeric ([facility] results) [place] [facility]) Microalbumin 4.4 g/dL Normal (applies MEDGEN [Mass/time] in to non-numeric ([facility] Urine collected results) [place] for unspecified Nephrology duration [facility]) Globulin 2.9 g/dL Normal (applies MEDGEN [Mass/time] in (calc) to non-numeric ([facility] 24 hour Urine results) [place] [facility]) ALBUMIN/GLOBULI 1.5 Normal (applies MEDGEN N RATIO (calc) to non-numeric ([facility] results) [place] [facility]) BILIRUBIN, 0.3 Normal (applies MEDGEN TOTAL mg/dL to non-numeric ([facility] results) [place] [facility]) Alkaline 87 U/L Normal (applies MEDGEN phosphatase to non-numeric ([facility] [Enzymatic results) [place] activity/volume Nephrology ] in Serum, [facility]) Plasma or Blood AST 13 U/L Normal (applies MEDGEN to non-numeric ([facility] results) [place] [facility]) ALT 11 U/L Normal (applies MEDGEN to non-numeric ([facility] results) [place] [facility]) ID Date Data Source [id number] 12/27/2019 12:00:00 AM EDT MEDGEN ([facility] Neph[facility]) Name Value Range Interpretation Description Data Source(s ) Supporting Code Document(s ) Structure of 6.0 Normal (applies MEDGEN plantar Thousand to non-numeric ([place] digital artery /uL results) [place] (body Nephrology structure) [facility]) RED BLOOD CELL 3.75 Below low normal MED[facility] COUNT Million/ ([place] u[facility] [place] [facility]) Hemoglobin 10.0 Below low normal [facility] [Mass/volume] g/dL ([place] in Mixed [place] venous blood Nephrology by Oximetry [facility]) Hematocrit 31.3 % Below low normal MEDGEN [Pure volume ([place] fraction] of [place] Blood by Nephrology Automated [facility]) count MCV 83.5 fL Normal (applies MEDGEN to non-numeric ([place] results) [place] [facility]) MCH 26.7 pg Below low normal MEDGEN ([facility] Nephrology [facility]) MCHC 31.9 Below low normal [facility]GEN g/dL ([facility] Neph[facility]) RDW 13.2 % Normal (applies [facility]GEN to non-numeric ([place] results) [place] [facility]) PLATELET COUNT 176 Normal (applies MEDGEN Thousand to non-numeric ([place] /uL results) [place] [facility]) MPV 8.6 fL Normal (applies [facility] to non-numeric ([place] results) [place] [facility]) ABSOLUTE 3582 Normal (applies [facility] NEUTROPHILS cells/uL to non-numeric ([place] results) [place] [facility]) ABSOLUTE 1722 Normal (applies [facility] LYMPHOCYTES cells/uL to non-numeric ([place] results) [place] [facility]) ABSOLUTE 546 Normal (applies [facility] MONOCYTES cells/uL to non-numeric ([place] results) [place] [facility]) ABSOLUTE 108 Normal (applies [facility] EOSINOPHILS cells/uL to non-numeric ([place] results) [place] [facility]) ABSOLUTE 42 Normal (applies [facility] BASOPHILS cells/uL to non-numeric ([place] results) [place] [facility]) Neutrophils 59.7 % Normal (applies MEDGEN [#] in Body to non-numeric ([place] fluid by results) [place] Manual count Nephrology [facility]) Lymphocytes 28.7 % Normal (applies MEDGEN [#] in Body to non-numeric ([facility] fluid by results) [place] Manual count Nephrology [facility]) Monocytes 9.1 % Normal (applies MEDGEN [#/volume] in to non-numeric ([facility] Cord blood results) [place] [facility]) Eosinophils 1.8 % Normal (applies MEDGEN [#] in Body to non-numeric ([facility] fluid by results) [place] Manual count Nephrology [facility]) Basophils [#] 0.7 % Normal (applies MEDGEN in Body fluid to non-numeric ([facility] by Manual results) [place] count [facility]phrology [facility]) ID Date Data Source [id number] 12/27/2019 12:00:00 AM EDT [facility] ([place] [facility]) Name Value Range Interpretation Description Data Source(s ) Supporting Code Document(s ) Glucose 114 Above high normal [facility]GEN [Mass/volume] mg/dL ([facility] in Urine [place] collected for Nephrology unspecified [facility]) duration UREA NITROGEN 24 mg/dL Normal (applies MEDGEN (BUN) to non-numeric ([facility] results) [place] [facility]) Creatinine 1.14 Above high normal MEDGEN [Interpretation mg/dL ([facility] ] in Urine [place] [facility]) eGFR NON-AFR. 46 Below low normal MEDGEN TURKISH mL/min/1 ([place] .73m2 [place] [facility]) eGFR 54 Below low normal MED[facility] TURK[place] mL/min/1 ([place] .73m2 [place] [facility]) BUN/CREATININE 21 Normal (applies MEDGEN RATIO (calc) to non-numeric ([facility] results) [place] [facility]) Sodium 133 Below low normal [facility] [Moles/volume] mmol/L ([facility] in Serum, [place] Plasma or Blood Nephrology [facility]) Potassium 4.7 Normal (applies [facility]GEN [Mass/volume] mmol/L to non-numeric ([facility] in Blood results) [place] [facility]) Chloride 99 Normal (applies [facility]GEN [Moles/volume] mmol/L to non-numeric ([facility] in Serum, results) [place] Plasma or Blood Nephrology [facility]) Carbon dioxide 26 Normal (applies MEDGEN [VFr/PPres] in mmol/L to non-numeric ([facility] Gas delivery results) [place] [facility]) Calcium 10.2 Normal (applies [facility]GEN [Moles/volume] mg/dL to non-numeric ([facility] in Urine results) [place] collected for Nephrology unspecified [facility]) duration PROTEIN, TOTAL 7.3 g/dL Normal (applies MEDGEN to non-numeric ([facility] results) [place] [facility]) Microalbumin 4.4 g/dL Normal (applies MEDGEN [Mass/time] in to non-numeric ([facility] Urine collected results) [place] for unspecified Nephrology duration [facility]) Globulin 2.9 g/dL Normal (applies MEDGEN [Mass/time] in (calc) to non-numeric ([facility] 24 hour Urine results) [place] [facility]) ALBUMIN/GLOBULI 1.5 Normal (applies MEDGEN N RATIO (calc) to non-numeric ([facility] results) [place] [facility]) BILIRUBIN, 0.3 Normal (applies MEDGEN TOTAL mg/dL to non-numeric ([facility] results) [place] [facility]) Alkaline 87 U/L Normal (applies MEDGEN phosphatase to non-numeric ([facility] [Enzymatic results) [place] activity/volume Nephrology ] in Serum, [facility]) Plasma or Blood AST 13 U/L Normal (applies MEDGEN to non-numeric ([facility] results) [place] [facility]) ALT 11 U/L Normal (applies MEDGEN to non-numeric ([facility] results) [place] [facility]) ID Date Data Source [id number] 10/07/2019 12:00:00 AM EDT [facility] Name Value Range Interpretation Description Data Source(s ) Supporting Code Document(s ) VITAMIN B12 1220 Above high normal MEDGEN pg/mL ([facility] FOLATE, 18.9 Normal (applies to MEDGEN SERUM ng/mL non-numeric ([facility] results) [place] [facility]) ID Date Data Source [id number] 10/07/2019 12:00:00 AM EDT [facility] ([facility]) Name Value Range Interpretation Description Data Source(s ) Supporting Code Document(s ) ZIYAD Normal (applies MEDGEN INTERPRETATION to non-numeric ([facility] results) [place] [facility]) ID Date Data Source [id number] 10/07/2019 12:00:00 AM EDT [facility] ([facility]) Name Value Range Interpretation Description Data Source(s ) Supporting Code Document(s ) ZIYAD Normal (applies [facility]GEN INTERPRETATION to non-numeric ([facility] results) [place] [facility]) ID Date Data Source [id number] 10/07/2019 12:00:00 AM EDT MEDGEN ([facility]ica [place] [facility]) Name Value Range Interpretation Description Data Source(s ) Supporting Code Document(s ) Structure of 5.1 Normal (applies MEDGEN plantar Thousand to non-numeric ([facility] digital artery /uL results) [place] (body Nephrology structure) [facility]) RED BLOOD CELL 3.62 Below low normal [facility] COUNT Million/ ([place] u[facility] [place] [facility]) Hemoglobin 9.6 g/dL Below low normal [facility] [Mass/volume] ([place] in Mixed [place] venous blood Nephrology by Oximetry [facility]) Hematocrit 31.1 % Below low normal MED[facility] [Pure volume ([place] fraction] of [place] Blood by Nephrology Automated [facility]) count MCV 85.9 fL Normal (applies MEDGEN to non-numeric ([facility] results) [place] [facility]) MCH 26.5 pg Below low normal MEDGEN ([facility] Nephrology [facility]) MCHC 30.9 Below low normal [facility] g/dL ([facility] Nephrology [facility]) RDW 13.0 % Normal (applies MEDGEN to non-numeric ([facility] results) [place] [facility]) PLATELET COUNT 158 Normal (applies MEDGEN Thousand to non-numeric ([place] /uL results) [place] [facility]) MPV 8.7 fL Normal (applies MEDGEN to non-numeric ([facility] results) [place] [facility]) ABSOLUTE 3070 Normal (applies [facility] NEUTROPHILS cells/uL to non-numeric ([place] results) [place] [facility]) ABSOLUTE 1454 Normal (applies [facility] LYMPHOCYTES cells/uL to non-numeric ([place] results) [place] [facility]) ABSOLUTE 454 Normal (applies [facility] MONOCYTES cells/uL to non-numeric ([facility] results) [place] [facility]) ABSOLUTE 92 Normal (applies [facility] EOSINOPHILS cells/uL to non-numeric ([place] results) [place] [facility]) ABSOLUTE 31 Normal (applies [facility] BASOPHILS cells/uL to non-numeric ([place] results) [place] [facility]) Neutrophils 60.2 % Normal (applies MEDGEN [#] in Body to non-numeric ([facility] fluid by results) [place] Manual count Nephrology [facility]) Lymphocytes 28.5 % Normal (applies MEDGEN [#] in Body to non-numeric ([facility] fluid by results) [place] Manual count Nephrology [facility]) Monocytes 8.9 % Normal (applies MEDGEN [#/volume] in to non-numeric ([facility] Cord blood results) [place] [facility]) Eosinophils 1.8 % Normal (applies MEDGEN [#] in Body to non-numeric ([facility] fluid by results) [place] Manual count Nephrology [facility]) Basophils [#] 0.6 % Normal (applies [facility]GEN in Body fluid to non-numeric ([facility] by Manual results) [place] count [facility]phrology [facility]) ID Date Data Source [id number] 10/07/2019 12:00:00 AM EDT MEDGEN ([facility] [place] [facility]) Name Value Range Interpretation Description Data Source(s ) Supporting Code Document(s ) Potassium 4.5 Normal (applies MEDGEN [Mass/volume] mmol/L to non-numeric ([facility] in Blood results) [place] [facility]) Chloride 106 Normal (applies [facility]GEN [Moles/volume] mmol/L to non-numeric ([facility] in Serum, results) [place] Plasma or Blood Nephrology [facility]) Carbon dioxide 24 Normal (applies [facility]GEN [VFr/PPres] in mmol/L to non-numeric ([facility] Gas delivery results) [place] [facility]) Urea nitrogen 29 mg/dL Above high normal MEDGEN [Moles/volume] ([facility] in Blood [place] [facility]) Creatinine 1.01 Above high normal MEDGEN [Interpretation mg/dL ([facility] ] in Urine [place] [facility]) BUN/CREATININE 29 Above high normal MEDGEN RATIO (calc) ([facility] Nephrology [facility]) Calcium 9.7 Normal (applies MEDGEN [Moles/volume] mg/dL to non-numeric ([facility] in Urine results) [place] collected for Nephrology unspecified [facility]) duration PROTEIN, TOTAL 7.4 g/dL Normal (applies MEDGEN to non-numeric ([facility] results) [place] [facility]) Microalbumin 4.3 g/dL Normal (applies MEDGEN [Mass/time] in to non-numeric ([facility] Urine collected results) [place] for unspecified Nephrology duration [facility]) Globulin 3.1 g/dL Normal (applies MEDGEN [Mass/time] in (calc) to non-numeric ([facility] 24 hour Urine results) [place] [facility] ALBUMIN/GLOBULI 1.4 Normal (applies MEDGEN N RATIO (calc) to non-numeric ([facility] results) [facility]) BILIRUBIN,TOTAL 0.2 Normal (applies MEDGEN mg/dL to non-numeric ([facility] results) [place] [facility] Alkaline 88 U/L Normal (applies MEDGEN phosphatase to non-numeric ([facility] [Enzymatic results) [place] activity/volume Nephrology ] in Serum, [facility]) Plasma or Blood AST 13 U/L Normal (applies MEDGEN to non-numeric ([facility] results) [place] [facility] ALT 12 U/L Normal (applies MEDGEN to non-numeric ([facility] results) [place] [facility] EGFR NON AFR 54 Below low normal MEDGEN TURKISH mL/min/1 ([facility] .73[facility]2 [place] [facility] EGFR 63 Normal (applies MEDGEN TURKISH mL/min/1 to non-numeric ([facility] .73m2 results) [facility]) RETICULOCYTE 1.4 % Normal (applies MEDGEN COUNT, to non-numeric ([facility] AUTOMATED results) [facility]) RETICULOCYTE, 52800 Normal (applies MEDGEN ABSOLUTE cells/uL to non-numeric ([facility] results) [facility]) ID Date Data Source [id number] 10/07/2019 12:00:00 AM EDT MEDGEN ([facility]) Name Value Range Interpretation Description Data Source(s ) Supporting Code Document(s ) VITAMIN B12 1220 Above high normal MEDGEN pg/mL ([facility]) FOLATE, 18.9 Normal (applies to MEDGEN SERUM ng/mL non-numeric ([facility] results) [facility]) ID Date Data Source [id number] 10/07/2019 12:00:00 AM EDT MEDGEN ([facility]) Name Value Range Interpretation Description Data Source(s ) Supporting Code Document(s ) ZIYAD Normal (applies MEDGEN INTERPRETATION to non-numeric ([facility] results) [facility]) ID Date Data Source [id number] 10/07/2019 12:00:00 AM EDT MEDGEN ([facility] Nephrology [facility]) Name Value Range Interpretation Description Data Source(s ) Supporting Code Document(s ) ZIYAD Normal (applies MEDGEN INTERPRETATION to non-numeric ([place] results) [place] [facility]) ID Date Data Source [id number] 10/07/2019 12:00:00 AM EDT MEDGEN ([facility]) Name Value Range Interpretation Description Data Source(s ) Supporting Code Document(s ) Structure of 5.1 Normal (applies MEDGEN plantar Thousand to non-numeric ([facility] digital artery /uL results) [place] (body Nephrology structure) [facility]) RED BLOOD CELL 3.62 Below low normal MEDGEN COUNT Million/ ([place] uL [place] [facility]) Hemoglobin 9.6 g/dL Below low normal MEDGEN [Mass/volume] ([place] in Mixed [place] venous blood Nephrology by Oximetry [facility]) Hematocrit 31.1 % Below low normal MEDGEN [Pure volume ([place] fraction] of [place] Blood by Nephrology Automated [facility]) count MCV 85.9 fL Normal (applies MEDGEN to non-numeric ([place] results) [place] [facility]) MCH 26.5 pg Below low normal MEDGEN ([place] [facility]) MCHC 30.9 Below low normal MEDGEN g/dL ([place] [facility]) RDW 13.0 % Normal (applies MEDGEN to non-numeric ([place] results) [place] [facility]) PLATELET COUNT 158 Normal (applies MEDGEN Thousand to non-numeric ([place] /uL results) [place] [facility]) MPV 8.7 fL Normal (applies MEDGEN to non-numeric ([place] results) [place] [facility]) ABSOLUTE 3070 Normal (applies MEDGEN NEUTROPHILS cells/uL to non-numeric ([place] results) [place] [facility]) ABSOLUTE 1454 Normal (applies MEDGEN LYMPHOCYTES cells/uL to non-numeric ([place] results) [place] [facility]) ABSOLUTE 454 Normal (applies MEDGEN MONOCYTES cells/uL to non-numeric ([place] results) [place] [facility]) ABSOLUTE 92 Normal (applies MEDGEN EOSINOPHILS cells/uL to non-numeric ([place] results) [place] [facility]) ABSOLUTE 31 Normal (applies MEDGEN BASOPHILS cells/uL to non-numeric ([place] results) [place] [facility]) Neutrophils 60.2 % Normal (applies MEDGEN [#] in Body to non-numeric ([facility] fluid by results) [place] Manual count Nephrology [facility]) Lymphocytes 28.5 % Normal (applies MEDGEN [#] in Body to non-numeric ([facility] fluid by results) [place] Manual count Neph[facility]) Monocytes 8.9 % Normal (applies MEDGEN [#/volume] in to non-numeric ([facility] Cord blood results) [place] [facility]) Eosinophils 1.8 % Normal (applies MEDGEN [#] in Body to non-numeric ([facility] fluid by results) [place] [facility] count Nephrology [facility]) Basophils [#] 0.6 % Normal (applies MEDGEN in Body fluid to non-numeric ([place] by Manual results) [place] count [facility]ph[facility]) ID Date Data Source [id number] 10/07/2019 12:00:00 AM EDT MEDGEN [facility] Name Value Range Interpretation Description Data Source(s ) Supporting Code Document(s ) RETICULOCYTE 1.4 % Normal (applies MEDGEN COUNT, to non-numeric ([facility] AUTOMATED results) [place] [facility]) RETICULOCYTE, 09079 Normal (applies MEDGEN ABSOLUTE cells/uL to non-numeric ([facility] results) [place] [facility]) ID Date Data Source [id number] 10/07/2019 12:00:00 AM EDT MEDGEN ([facility] Name Value Range Interpretation Description Data Source(s ) Supporting Code Document(s ) VITAMIN B12 1220 Above high normal MEDGEN pg/mL ([facility] Nephrology [facility]) FOLATE, 18.9 Normal (applies to MEDGEN SERUM ng/mL non-numeric ([facility] results) [place] [facility]) ID Date Data Source [id number] 10/07/2019 12:00:00 AM EDT MEDGEN ([facility]) Name Value Range Interpretation Description Data Source(s ) Supporting Code Document(s ) ZIYAD Normal (applies MEDGEN INTERPRETATION to non-numeric ([facility] results) [place] [facility]) ID Date Data Source [id number] 10/07/2019 12:00:00 AM EDT MEDGEN ([facility]) Name Value Range Interpretation Description Data Source(s ) Supporting Code Document(s ) ZIYAD Normal (applies MEDGEN INTERPRETATION to non-numeric ([facility] results) [place] [facility]) ID Date Data Source [id number] 10/07/2019 12:00:00 AM EDT MEDGEN ([facility]) Name Value Range Interpretation Description Data Source(s ) Supporting Code Document(s ) Structure of 5.1 Normal (applies MEDGEN plantar Thousand to non-numeric ([facility] digital artery /uL results) [place] (body Nephrology structure) [facility]) RED BLOOD CELL 3.62 Below low normal MEDGEN COUNT Million/ ([facility] uL [place] [facility]) Hemoglobin 9.6 g/dL Below low normal MEDGEN [Mass/volume] ([place] in Mixed [place] venous blood Nephrology by Oxim[facility]) Hematocrit 31.1 % Below low normal MEDGEN [Pure volume ([place] fraction] of [place] Blood by Nephrology Automated [facility]) count MCV 85.9 fL Normal (applies MEDGEN to non-numeric ([place] results) [place] [facility]) MCH 26.5 pg Below low normal MEDGEN ([facility] Nephrology [facility]) MCHC 30.9 Below low normal MEDGEN g/dL ([facility] Neph[facility]) RDW 13.0 % Normal (applies MEDGEN to non-numeric ([place] results) [place] [facility]) PLATELET COUNT 158 Normal (applies MEDGEN Thousand to non-numeric ([place] /uL results) [place] [facility]) MPV 8.7 fL Normal (applies MEDGEN to non-numeric ([place] results) [place] [facility]) ABSOLUTE 3070 Normal (applies MEDGEN NEUTROPHILS cells/uL to non-numeric ([place] results) [place] [facility]) ABSOLUTE 1454 Normal (applies MEDGEN LYMPHOCYTES cells/uL to non-numeric ([place] results) [place] [facility]) ABSOLUTE 454 Normal (applies MEDGEN MONOCYTES cells/uL to non-numeric ([place] results) [place] [facility]) ABSOLUTE 92 Normal (applies MEDGEN EOSINOPHILS cells/uL to non-numeric ([place] results) [place] [facility]) ABSOLUTE 31 Normal (applies MEDGEN BASOPHILS cells/uL to non-numeric ([facility] results) [place] [facility]) Neutrophils 60.2 % Normal (applies MEDGEN [#] in Body to non-numeric ([facility] fluid by results) [place] Manual count Nephrology [facility]) Lymphocytes 28.5 % Normal (applies MEDGEN [#] in Body to non-numeric ([place] fluid by results) [place] Manual [facility]) Monocytes 8.9 % Normal (applies MEDGEN [#/volume] in to non-numeric ([facility] Cord blood results) [place] [facility]) Eosinophils 1.8 % Normal (applies MEDGEN [#] in Body to non-numeric ([facility] fluid by results) [place] Manual count Nephrology [facility]) Basophils [#] 0.6 % Normal (applies MEDGEN in Body fluid to non-numeric ([place] by Manual results) [place] count [facility]phrology [facility]) ID Date Data Source [id number] 10/07/2019 12:00:00 AM EDT MEDGEN ([facility]) Name Value Range Interpretation Description Data Source(s ) Supporting Code Document(s ) RETICULOCYTE 1.4 % Normal (applies MEDGEN COUNT, to non-numeric ([facility] AUTOMATED results) [place] [facility]) RETICULOCYTE, 72774 Normal (applies MEDGEN ABSOLUTE cells/uL to non-numeric ([place] results) [place] [facility]) ID Date Data Source [id number] 10/01/2019 12:00:00 AM EDT MEDGEN ([facility]) Name Value Range Interpretation Description Data Source(s ) Supporting Code Document(s ) Structure of 5.6 Normal (applies MEDGEN plantar Thousand to non-numeric ([place] digital artery /uL results) [place] (body Nephrology structure) [facility]) RED BLOOD CELL 3.52 Below low normal MEDGEN COUNT Million/ ([place] uL [place] [facility]) Hemoglobin 9.5 g/dL Below low normal MEDGEN [Mass/volume] ([place] in Mixed [place] venous blood Nephrology by [facility]) Hematocrit 30.1 % Below low normal MEDGEN [Pure volume ([place] fraction] of [place] Blood by [facility]phrology [facility]) count MCV 85.5 fL Normal (applies MEDGEN to non-numeric ([place] results) [place] [facility]) MCH 27.0 pg Normal (applies MEDGEN to non-numeric ([place] results) [place] [facility]) MCHC 31.6 Below low normal MEDGEN g/dL ([facility]ph[facility]) RDW 13.2 % Normal (applies MEDGEN to non-numeric ([place] results) [place] [facility]) PLATELET COUNT 158 Normal (applies MEDGEN Thousand to non-numeric ([place] /uL results) [place] [facility]) MPV 8.5 fL Normal (applies MEDGEN to non-numeric ([place] results) [place] [facility]) ABSOLUTE 3214 Normal (applies MEDGEN NEUTROPHILS cells/uL to non-numeric ([facility] results) [place] [facility]) ABSOLUTE 1831 Normal (applies MEDGEN LYMPHOCYTES cells/uL to non-numeric ([facility] results) [place] [facility]) ABSOLUTE 403 Normal (applies MEDGEN MONOCYTES cells/uL to non-numeric ([facility] results) [place] [facility]) ABSOLUTE 112 Normal (applies MEDGEN EOSINOPHILS cells/uL to non-numeric ([facility] results) [place] [facility]) ABSOLUTE 39 Normal (applies MEDGEN BASOPHILS cells/uL to non-numeric ([facility] results) [place] [facility]) Neutrophils 57.4 % Normal (applies MEDGEN [#] in Body to non-numeric ([facility] fluid by results) [place] Manual count Nephrology [facility]) Lymphocytes 32.7 % Normal (applies MEDGEN [#] in Body to non-numeric ([facility] fluid by results) [place] [facility] count [facility]phrology [facility]) Monocytes 7.2 % Normal (applies MEDGEN [#/volume] in to non-numeric ([facility] Cord blood results) [place] [facility]) Eosinophils 2.0 % Normal (applies MEDGEN [#] in Body to non-numeric ([facility] fluid by results) [place] [facility]) Basophils [#] 0.7 % Normal (applies MEDGEN in Body fluid to non-numeric ([facility] by Manual results) [place] count [facility]phrology [facility]) ID Date Data Source [id number] 10/01/2019 12:00:00 AM EDT MEDGEN ([facility]) Name Value Range Interpretation Description Data Source(s ) Supporting Code Document(s ) Glucose 84 mg/dL Normal (applies MEDGEN [Mass/volume] to non-numeric ([facility] in Urine results) [place] collected for Nephrology unspecified [facility]) duration UREA NITROGEN 31 mg/dL Above high normal MEDGEN (BUN) ([facility] Creatinine 1.05 Above high normal MEDGEN [Interpretation mg/dL ([facility] ] in Urine [place] [facility]) eGFR NON-AFR. 51 Below low normal MEDGEN TURKISH mL/min/1 ([facility] .73m2 [place] [facility]) eGFR 59 Below low normal MEDGEN [place] mL/min/1 ([place] .73m2 [place] [facility]) BUN/CREATININE 30 Above high normal MEDGEN RATIO (calc) ([facility]) Sodium 134 Below low normal MEDGEN [Moles/volume] mmol/L ([facility] in Serum, [place] Plasma or Blood Nephrology [facility]) Potassium 5.0 Normal (applies MEDGEN [Mass/volume] mmol/L to non-numeric ([facility] in Blood results) [place] [facility]) Chloride 100 Normal (applies MEDGEN [Moles/volume] mmol/L to non-numeric ([facility] in Serum, results) [place] Plasma or Blood Nephrology [facility]) Carbon dioxide 25 Normal (applies MEDGEN [VFr/PPres] in mmol/L to non-numeric ([facility] Gas delivery results) [place] [facility]) Calcium 10.1 Normal (applies MEDGEN [Moles/volume] mg/dL to non-numeric ([facility] in Urine results) [place] collected for Nephrology unspecified [facility]) duration PROTEIN, TOTAL 7.2 g/dL Normal (applies MEDGEN to non-numeric ([facility] results) [place] [facility]) Microalbumin 4.3 g/dL Normal (applies MEDGEN [Mass/time] in to non-numeric ([facility] Urine collected results) [place] for unspecified Nephrology duration [facility]) Globulin 2.9 g/dL Normal (applies MEDGEN [Mass/time] in (calc) to non-numeric ([facility] 24 hour Urine results) [place] [facility]) ALBUMIN/GLOBULI 1.5 Normal (applies MEDGEN N RATIO (calc) to non-numeric ([facility] results) [place] [facility]) BILIRUBIN, 0.2 Normal (applies MEDGEN TOTAL mg/dL to non-numeric ([facility] results) [place] [facility]) Alkaline 86 U/L Normal (applies MEDGEN phosphatase to non-numeric ([facility] [Enzymatic results) [place] activity/volume Nephrology ] in Serum, [facility]) Plasma or Blood AST 12 U/L Normal (applies MEDGEN to non-numeric ([facility] results) [place] [facility]) ALT 11 U/L Normal (applies MEDGEN to non-numeric ([facility] results) [place] [facility]) ID Date Data Source [id number] 10/01/2019 12:00:00 AM EDT MEDGEN ([facility] Neph[facility]) Name Value Range Interpretation Description Data Source(s ) Supporting Code Document(s ) TSH 1.40 mIU/L Normal (applies to MEDGEN W/REFLEX non-numeric ([place] TO FT4 results) [place] [facility]) ID Date Data Source [id number] 10/01/2019 12:00:00 AM EDT MEDGEN ([facility]ph[facility]) Name Value Range Interpretation Description Data Source(s ) Supporting Code Document(s ) Structure of 5.6 Normal (applies MEDGEN plantar Thousand to non-numeric ([facility] digital artery /uL results) [place] (body Nephrology structure) [facility]) RED BLOOD CELL 3.52 Below low normal MEDGEN COUNT Million/ ([place] uL [place] [facility]) Hemoglobin 9.5 g/dL Below low normal MEDGEN [Mass/volume] ([place] in Mixed [place] venous blood Nephrology by [facility]xim[facility]) Hematocrit 30.1 % Below low normal MEDGEN [Pure volume ([place] fraction] of [place] Blood by Nephrology Automated [facility]) count MCV 85.5 fL Normal (applies MEDGEN to non-numeric ([place] results) [place] [facility]) MCH 27.0 pg Normal (applies MEDGEN to non-numeric ([facility] results) [place] [facility]) MCHC 31.6 Below low normal MEDGEN g/dL ([facility] Nephrology [facility]) RDW 13.2 % Normal (applies MEDGEN to non-numeric ([facility] results) [place] [facility]) PLATELET COUNT 158 Normal (applies MEDGEN Thousand to non-numeric ([place] /uL results) [place] [facility]) MPV 8.5 fL Normal (applies MEDGEN to non-numeric ([place] results) [place] [facility]) ABSOLUTE 3214 Normal (applies MEDGEN NEUTROPHILS cells/uL to non-numeric ([place] results) [place] [facility]) ABSOLUTE 1831 Normal (applies MEDGEN LYMPHOCYTES cells/uL to non-numeric ([place] results) [place] [facility]) ABSOLUTE 403 Normal (applies MEDGEN MONOCYTES cells/uL to non-numeric ([place] results) [place] [facility]) ABSOLUTE 112 Normal (applies MEDGEN EOSINOPHILS cells/uL to non-numeric ([place] results) [place] [facility]) ABSOLUTE 39 Normal (applies MEDGEN BASOPHILS cells/uL to non-numeric ([facility] results) [place] [facility]) Neutrophils 57.4 % Normal (applies MEDGEN [#] in Body to non-numeric ([facility] fluid by results) [place] Manual count Nephrology [facility]) Lymphocytes 32.7 % Normal (applies MEDGEN [#] in Body to non-numeric ([facility] fluid by results) [place] Manual count Nephrology [facility]) Monocytes 7.2 % Normal (applies MEDGEN [#/volume] in to non-numeric ([facility] Cord blood results) [place] [facility]) Eosinophils 2.0 % Normal (applies MEDGEN [#] in Body to non-numeric ([facility] fluid by results) [place] Manual count Nephrology [facility]) Basophils [#] 0.7 % Normal (applies MEDGEN in Body fluid to non-numeric ([place] by Manual results) [place] count Nephrology [facility]) ID Date Data Source [id number] 10/01/2019 12:00:00 AM EDT MEDGEN ([place] [facility]) Name Value Range Interpretation Description Data Source(s ) Supporting Code Document(s ) Glucose 84 mg/dL Normal (applies MEDGEN [Mass/volume] to non-numeric ([place] in Urine results) [place] collected for Nephrology unspecified [facility]) duration UREA NITROGEN 31 mg/dL Above high normal MEDGEN (BUN) ([facility] Nephrology [facility]) Creatinine 1.05 Above high normal MEDGEN [Interpretation mg/dL ([place] ] in Urine [place] [facility]) eGFR NON-AFR. 51 Below low normal MEDGEN [place] mL/min/1 ([place] .73m2 [place] [facility]) eGFR 59 Below low normal MEDGEN [place] mL/min/1 ([place] .73m2 [place] [facility]) BUN/CREATININE 30 Above high normal MEDGEN RATIO (calc) ([facility] Nephrology [facility]) Sodium 134 Below low normal MEDGEN [Moles/volume] mmol/L ([facility] in Serum, [place] Plasma or Blood Nephrology [facility]) Potassium 5.0 Normal (applies MEDGEN [Mass/volume] mmol/L to non-numeric ([facility] in Blood results) [place] [facility]) Chloride 100 Normal (applies MEDGEN [Moles/volume] mmol/L to non-numeric ([facility] in Serum, results) [place] Plasma or Blood Nephrology [facility]) Carbon dioxide 25 Normal (applies MEDGEN [VFr/PPres] in mmol/L to non-numeric ([facility] Gas delivery results) [place] [facility] Nephrology [facility]) Calcium 10.1 Normal (applies MEDGEN [Moles/volume] mg/dL to non-numeric ([facility] in Urine results) [place] collected for Nephrology unspecified [facility]) duration PROTEIN, TOTAL 7.2 g/dL Normal (applies MEDGEN to non-numeric ([facility] results) [place] [facility]) Microalbumin 4.3 g/dL Normal (applies MEDGEN [Mass/time] in to non-numeric ([facility] Urine collected results) [place] for unspecified Nephrology duration [facility]) Globulin 2.9 g/dL Normal (applies MEDGEN [Mass/time] in (calc) to non-numeric ([facility] 24 hour Urine results) [place] [facility]) ALBUMIN/GLOBULI 1.5 Normal (applies MEDGEN N RATIO (calc) to non-numeric ([facility] results) [place] [facility]) BILIRUBIN, 0.2 Normal (applies MEDGEN TOTAL mg/dL to non-numeric ([facility] results) [place] [facility]) Alkaline 86 U/L Normal (applies MEDGEN phosphatase to non-numeric ([facility] [Enzymatic results) [place] activity/volume Nephrology ] in Serum, [facility]) Plasma or Blood AST 12 U/L Normal (applies MEDGEN to non-numeric ([facility] results) [place] [facility]) ALT 11 U/L Normal (applies MEDGEN to non-numeric ([facility] results) [place] [facility]) ID Date Data Source [id number] 10/01/2019 12:00:00 AM EDT MEDGEN ([facility] Nephrology [facility]) Name Value Range Interpretation Description Data Source(s ) Supporting Code Document(s ) TSH 1.40 mIU/L Normal (applies to MEDGEN W/REFLEX non-numeric ([facility] TO FT4 results) [place] [facility]) ID Date Data Source [id number] 10/01/2019 12:00:00 AM EDT MEDGEN ([facility] Neph[facility]) Name Value Range Interpretation Description Data Source(s ) Supporting Code Document(s ) Structure of 5.6 Normal (applies MEDGEN plantar Thousand to non-numeric ([place] digital artery /uL results) [place] (body Nephrology structure) [facility]) RED BLOOD CELL 3.52 Below low normal MEDGEN COUNT Million/ ([place] uL [place] [facility]) Hemoglobin 9.5 g/dL Below low normal MEDGEN [Mass/volume] ([facility] in Mixed [place] venous blood Nephrology by Oximetry [facility]) Hematocrit 30.1 % Below low normal MEDGEN [Pure volume ([place] fraction] of [place] Blood by Nephrology Automated [facility]) count MCV 85.5 fL Normal (applies MEDGEN to non-numeric ([facility] results) [place] [facility]) MCH 27.0 pg Normal (applies MEDGEN to non-numeric ([facility] results) [place] [facility]) MCHC 31.6 Below low normal MEDGEN g/dL ([place] [facility]) RDW 13.2 % Normal (applies MEDGEN to non-numeric ([facility] results) [place] [facility]) PLATELET COUNT 158 Normal (applies MEDGEN Thousand to non-numeric ([facility] /uL results) [place] [facility]) MPV 8.5 fL Normal (applies MEDGEN to non-numeric ([facility] results) [place] [facility]) ABSOLUTE 3214 Normal (applies MEDGEN NEUTROPHILS cells/uL to non-numeric ([facility] results) [place] [facility]) ABSOLUTE 1831 Normal (applies MEDGEN LYMPHOCYTES cells/uL to non-numeric ([facility] results) [place] [facility]) ABSOLUTE 403 Normal (applies MEDGEN MONOCYTES cells/uL to non-numeric ([facility] results) [place] [facility]) ABSOLUTE 112 Normal (applies MEDGEN EOSINOPHILS cells/uL to non-numeric ([facility] results) [place] [facility]) ABSOLUTE 39 Normal (applies MEDGEN BASOPHILS cells/uL to non-numeric ([facility] results) [place] [facility]) Neutrophils 57.4 % Normal (applies MEDGEN [#] in Body to non-numeric ([place] fluid by results) [place] Manual count Nephrology [facility]) Lymphocytes 32.7 % Normal (applies MEDGEN [#] in Body to non-numeric ([facility] fluid by results) [place] Manual count [facility]ph[facility]) Monocytes 7.2 % Normal (applies MEDGEN [#/volume] in to non-numeric ([facility] Cord blood results) [place] [facility]) Eosinophils 2.0 % Normal (applies MEDGEN [#] in Body to non-numeric ([facility] fluid by results) [place] Manual count Neph[facility]) Basophils [#] 0.7 % Normal (applies MEDGEN in Body fluid to non-numeric ([place] by Manual results) [place] count [facility]) ID Date Data Source [id number] 10/01/2019 12:00:00 AM EDT MEDGEN ([facility] mónica [place] [facility]) Name Value Range Interpretation Description Data Source(s ) Supporting Code Document(s ) Glucose 84 mg/dL Normal (applies MEDGEN [Mass/volume] to non-numeric ([facility] in Urine results) [place] collected for Nephrology unspecified [facility]) duration UREA NITROGEN 31 mg/dL Above high normal MEDGEN (BUN) ([facility] Nephrology [facility]) Creatinine 1.05 Above high normal MEDGEN [Interpretation mg/dL ([facility] ] in Urine [place] [facility]) eGFR NON-AFR. 51 Below low normal MEDGEN TURKISH mL/min/1 ([facility] .73m2 [place] [facility]) eGFR 59 Below low normal MEDGEN TURKISH mL/min/1 ([facility] .73m2 [place] [facility]) BUN/CREATININE 30 Above high normal MEDGEN RATIO (calc) ([facility] Nephrology [facility]) Sodium 134 Below low normal MEDGEN [Moles/volume] mmol/L ([facility] in Serum, [place] Plasma or Blood Nephrology [facility]) Potassium 5.0 Normal (applies MEDGEN [Mass/volume] mmol/L to non-numeric ([facility] in Blood results) [place] [facility]) Chloride 100 Normal (applies MEDGEN [Moles/volume] mmol/L to non-numeric ([facility] in Serum, results) [place] Plasma or Blood Nephrology [facility]) Carbon dioxide 25 Normal (applies MEDGEN [VFr/PPres] in mmol/L to non-numeric ([facility] Gas delivery results) [place] [facility]) Calcium 10.1 Normal (applies MEDGEN [Moles/volume] mg/dL to non-numeric ([facility] in Urine results) [place] collected for Nephrology unspecified [facility]) duration PROTEIN, TOTAL 7.2 g/dL Normal (applies MEDGEN to non-numeric ([facility] results) [place] [facility]) Microalbumin 4.3 g/dL Normal (applies MEDGEN [Mass/time] in to non-numeric ([facility] Urine collected results) [place] for unspecified Nephrology duration [facility]) Globulin 2.9 g/dL Normal (applies MEDGEN [Mass/time] in (calc) to non-numeric ([facility] 24 hour Urine results) [place] [facility]) ALBUMIN/GLOBULI 1.5 Normal (applies MEDGEN N RATIO (calc) to non-numeric ([facility] results) [place] [facility]) BILIRUBIN, 0.2 Normal (applies MEDGEN TOTAL mg/dL to non-numeric ([facility] results) [place] [facility]) Alkaline 86 U/L Normal (applies MEDGEN phosphatase to non-numeric ([facility] [Enzymatic results) [place] activity/volume [facility]ph[facility] ] in Serum, [facility]) Plasma or Blood AST 12 U/L Normal (applies MEDGEN to non-numeric ([facility] results) [place] [facility]) ALT 11 U/L Normal (applies MEDGEN to non-numeric ([facility] results) [place] [facility]) ID Date Data Source [id number] 10/01/2019 12:00:00 AM EDT MEDGEN ([facility]) Name Value Range Interpretation Description Data Source(s ) Supporting Code Document(s ) TSH 1.40 mIU/L Normal (applies to MEDGEN W/REFLEX non-numeric ([facility] TO FT4 results) [place] [facility]) ID Date Data Source [id number] 10/01/2019 12:00:00 AM EDT MEDGEN ([facility]) Name Value Range Interpretation Description Data Source(s ) Supporting Code Document(s ) TSH 1.40 mIU/L Normal (applies to MEDGEN W/REFLEX non-numeric ([facility] TO FT4 results) [place] [facility]) ID Date Data Source [id number] 10/01/2019 12:00:00 AM EDT MEDGEN ([facility]) Name Value Range Interpretation Description Data Source(s ) Supporting Code Document(s ) Structure of 5.6 Normal (applies MEDGEN plantar Thousand to non-numeric ([place] digital artery /uL results) [place] (body Nephrology structure) [facility]) RED BLOOD CELL 3.52 Below low normal MEDGEN COUNT Million/ ([place] uL [place] [facility]) Hemoglobin 9.5 g/dL Below low normal MEDGEN [Mass/volume] ([place] in Mixed [place] venous blood Nephrology by Oximetry [facility]) Hematocrit 30.1 % Below low normal MEDGEN [Pure volume ([place] fraction] of [place] Blood by Nephrology Automated [facility]) count MCV 85.5 fL Normal (applies MEDGEN to non-numeric ([facility] results) [place] [facility]) MCH 27.0 pg Normal (applies MEDGEN to non-numeric ([facility] results) [place] [facility]) MCHC 31.6 Below low normal MEDGEN g/dL ([place] [facility]) RDW 13.2 % Normal (applies MEDGEN to non-numeric ([facility] results) [place] [facility]) PLATELET COUNT 158 Normal (applies MEDGEN Thousand to non-numeric ([facility] /uL results) [place] [facility]) MPV 8.5 fL Normal (applies MEDGEN to non-numeric ([facility] results) [place] [facility]) ABSOLUTE 3214 Normal (applies MEDGEN NEUTROPHILS cells/uL to non-numeric ([facility] results) [place] [facility]) ABSOLUTE 1831 Normal (applies MEDGEN LYMPHOCYTES cells/uL to non-numeric ([facility] results) [place] [facility]) ABSOLUTE 403 Normal (applies MEDGEN MONOCYTES cells/uL to non-numeric ([facility] results) [place] [facility]) ABSOLUTE 112 Normal (applies MEDGEN EOSINOPHILS cells/uL to non-numeric ([facility] results) [place] [facility]) ABSOLUTE 39 Normal (applies MEDGEN BASOPHILS cells/uL to non-numeric ([facility] results) [place] [facility]) Neutrophils 57.4 % Normal (applies MEDGEN [#] in Body to non-numeric ([place] fluid by results) [place] Manual count Nephrology [facility]) Lymphocytes 32.7 % Normal (applies MEDGEN [#] in Body to non-numeric ([facility] fluid by results) [place] Manual count Nephrology [facility]) Monocytes 7.2 % Normal (applies MEDGEN [#/volume] in to non-numeric ([facility] Cord blood results) [place] [facility]) Eosinophils 2.0 % Normal (applies MEDGEN [#] in Body to non-numeric ([facility] fluid by results) [place] Manual count Nephrology [facility]) Basophils [#] 0.7 % Normal (applies MEDGEN in Body fluid to non-numeric ([place] by Manual results) [place] count [facility]ph[facility]) ID Date Data Source [id number] 10/01/2019 12:00:00 AM EDT MEDGEN ([facility] mónica [place] [facility]) Name Value Range Interpretation Description Data Source(s ) Supporting Code Document(s ) Glucose 84 mg/dL Normal (applies MEDGEN [Mass/volume] to non-numeric ([facility] in Urine results) [place] collected for Nephrology unspecified [facility]) duration UREA NITROGEN 31 mg/dL Above high normal MEDGEN (BUN) ([facility] Nephrology [facility]) Creatinine 1.05 Above high normal MEDGEN [Interpretation mg/dL ([facility] ] in Urine [place] [facility]) eGFR NON-AFR. 51 Below low normal MEDGEN TURKISH mL/min/1 ([place] .73m2 [place] [facility]) eGFR 59 Below low normal MEDGEN TURKISH mL/min/1 ([place] .73m2 [place] [facility]) BUN/CREATININE 30 Above high normal MEDGEN RATIO (calc) ([facility] Nephrology [facility]) Sodium 134 Below low normal MEDGEN [Moles/volume] mmol/L ([place] in Serum, [place] Plasma or Blood Nephrology [facility]) Potassium 5.0 Normal (applies MEDGEN [Mass/volume] mmol/L to non-numeric ([facility] in Blood results) [place] [facility]) Chloride 100 Normal (applies MEDGEN [Moles/volume] mmol/L to non-numeric ([facility] in Serum, results) [place] Plasma or Blood Nephrology [facility]) Carbon dioxide 25 Normal (applies MEDGEN [VFr/PPres] in mmol/L to non-numeric ([facility] Gas delivery results) [place] [facility]) Calcium 10.1 Normal (applies MEDGEN [Moles/volume] mg/dL to non-numeric ([facility] in Urine results) [place] collected for Nephrology unspecified [facility]) duration PROTEIN, TOTAL 7.2 g/dL Normal (applies MEDGEN to non-numeric ([facility] results) [place] [facility]) Microalbumin 4.3 g/dL Normal (applies MEDGEN [Mass/time] in to non-numeric ([facility] Urine collected results) [place] for unspecified Nephrology duration [facility]) Globulin 2.9 g/dL Normal (applies MEDGEN [Mass/time] in (calc) to non-numeric ([facility] 24 hour Urine results) [place] [facility]) ALBUMIN/GLOBULI 1.5 Normal (applies MEDGEN N RATIO (calc) to non-numeric ([facility] results) [place] [facility]) BILIRUBIN, 0.2 Normal (applies MEDGEN TOTAL mg/dL to non-numeric ([facility] results) [place] [facility]) Alkaline 86 U/L Normal (applies MEDGEN phosphatase to non-numeric ([facility] [Enzymatic results) [place] activity/volume [facility]ph[facility] ] in Serum, [facility]) Plasma or Blood AST 12 U/L Normal (applies MEDGEN to non-numeric ([facility] results) [place] [facility]) ALT 11 U/L Normal (applies MEDGEN to non-numeric ([facility] results) [place] [facility]) ID Date Data Source [id number] 09/16/2019 12:00:00 AM EDT MEDGEN ([facility] Nephrology [facility]) Name Value Range Interpretation Description Data Source(s ) Supporting Code Document(s ) Ferritin 41 ng/mL Normal (applies to MEDGEN [Interpretat non-numeric ([facility] ion] in results) [place] Blood [facility]) ID Date Data Source [id number] 09/16/2019 12:00:00 AM EDT MEDGEN ([facility] Nephrology [facility]) Name Value Range Interpretation Description Data Source(s ) Supporting Code Document(s ) Structure of 5.1 Normal (applies MEDGEN plantar Thousand to non-numeric ([place] digital artery /uL results) [place] (body Nephrology structure) [facility]) RED BLOOD CELL 3.69 Below low normal MEDGEN COUNT Million/ ([place] u[facility] [place] [facility]) Hemoglobin 10.0 Below low normal MEDGEN [Mass/volume] g/dL ([place] in Mixed [place] venous blood Nephrology by Oximetry [facility]) Hematocrit 31.3 % Below low normal MEDGEN [Pure volume ([place] fraction] of [place] Blood by Nephrology [facility]) count MCV 84.8 fL Normal (applies MEDGEN to non-numeric ([facility] results) [place] [facility]) MCH 27.1 pg Normal (applies MEDGEN to non-numeric ([place] results) [place] [facility]) MCHC 31.9 Below low normal MEDGEN g/dL ([place] [facility]) RDW 13.2 % Normal (applies MEDGEN to non-numeric ([place] results) [place] [facility]) PLATELET COUNT 159 Normal (applies MEDGEN Thousand to non-numeric ([place] /uL results) [place] [facility]) MPV 8.6 fL Normal (applies MEDGEN to non-numeric ([place] results) [place] [facility]) ABSOLUTE 2933 Normal (applies MEDGEN NEUTROPHILS cells/uL to non-numeric ([place] results) [place] [facility]) ABSOLUTE 1571 Normal (applies MEDGEN LYMPHOCYTES cells/uL to non-numeric ([facility] results) [place] [facility]) ABSOLUTE 449 Normal (applies MEDGEN MONOCYTES cells/uL to non-numeric ([facility] results) [place] [facility]) ABSOLUTE 117 Normal (applies MEDGEN EOSINOPHILS cells/uL to non-numeric ([facility] results) [place] [facility]) ABSOLUTE 31 Normal (applies MEDGEN BASOPHILS cells/uL to non-numeric ([facility] results) [place] [facility]) Neutrophils 57.5 % Normal (applies MEDGEN [#] in Body to non-numeric ([place] fluid by results) [place] Manual count Nephrology [facility]) Lymphocytes 30.8 % Normal (applies MEDGEN [#] in Body to non-numeric ([facility] fluid by results) [place] Manual count Nephrology [facility]) Monocytes 8.8 % Normal (applies MEDGEN [#/volume] in to non-numeric ([facility] Cord blood results) [place] [facility]) Eosinophils 2.3 % Normal (applies MEDGEN [#] in Body to non-numeric ([facility] fluid by results) [place] Manual count Nephrology [facility]) Basophils [#] 0.6 % Normal (applies MEDGEN in Body fluid to non-numeric ([facility] by Manual results) [place] count [facility]phrology [facility]) ID Date Data Source [id number] 09/16/2019 12:00:00 AM EDT MEDGEN ([facility] Nephrology [facility]) Name Value Range Interpretation Description Data Source(s ) Supporting Code Document(s ) Glucose 98 mg/dL Normal (applies MEDGEN [Mass/volume] to non-numeric ([facility] in Urine results) [place] collected for Nephrology unspecified [facility]) duration UREA NITROGEN 30 mg/dL Above high normal MEDGEN (BUN) ([facility] Nephrology [facility]) Creatinine 1.04 Above high normal MEDGEN [Interpretatio mg/dL ([facility] n] in Urine [place] [facility]) eGFR NON-AFR. 52 Below low normal MEDGEN T[place] mL/min/1 ([place] .73m2 [place] [facility]) eGFR 60 Normal (applies MEDGEN [place] mL/min/1 to non-numeric ([place] .73m2 results) [place] [facility]) BUN/CREATININE 29 Above high normal MEDGEN RATIO (calc) ([facility] Nephrology [facility]) Sodium 132 Below low normal MEDGEN [Moles/volume] mmol/L ([facility] in Serum, [place] Plasma or Nephrology Blood [facility]) Potassium 5.0 Normal (applies MEDGEN [Mass/volume] mmol/L to non-numeric ([facility] in Blood results) [place] [facility]) Chloride 99 Normal (applies MEDGEN [Moles/volume] mmol/L to non-numeric ([facility] in Serum, results) [place] Plasma or Nephrology Blood [facility]) Carbon dioxide 24 Normal (applies MEDGEN [VFr/PPres] in mmol/L to non-numeric ([facility] Gas delivery results) [place] [facility]) Calcium 10.3 Normal (applies MEDGEN [Moles/volume] mg/dL to non-numeric ([facility] in Urine results) [place] collected for Nephrology unspecified [facility]) duration ID Date Data Source [id number] 09/16/2019 12:00:00 AM EDT MEDGEN ([facility] Nephrology [facility]) Name Value Range Interpretation Description Data Source(s ) Supporting Code Document(s ) IRON, TOTAL 76 Normal (applies MEDGEN mcg/dL to non-numeric ([place] [facility]) [place] [facility]) Iron binding 357 Normal (applies MEDGEN capacity [Mass mcg/dL to non-numeric ([facility] or (calc) results) [place] Moles/volume] Nephrology in Serum or [facility]) Plasma % SATURATION 21 % Normal (applies MEDGEN (calc) to non-numeric ([facility] results) [place] [facility]) ID Date Data Source [id number] 09/16/2019 12:00:00 AM EDT MEDGEN ([facility] Nephrology [facility]) Name Value Range Interpretation Description Data Source(s ) Supporting Code Document(s ) Ferritin 41 ng/mL Normal (applies to MEDGEN [Interpretat non-numeric ([place] ion] in results) [place] [facility]) ID Date Data Source [id number] 09/16/2019 12:00:00 AM EDT MEDGEN ([facility] Nephrology [facility]) Name Value Range Interpretation Description Data Source(s ) Supporting Code Document(s ) Structure of 5.1 Normal (applies MEDGEN plantar Thousand to non-numeric ([facility] digital artery /uL results) [place] (body Nephrology structure) [facility]) RED BLOOD CELL 3.69 Below low normal MEDGEN COUNT Million/ ([place] u[facility] [place] [facility]) Hemoglobin 10.0 Below low normal MEDGEN [Mass/volume] g/dL ([place] in Mixed [place] venous blood Nephrology by Oximetry [facility]) Hematocrit 31.3 % Below low normal MEDGEN [Pure volume ([place] fraction] of [place] Blood by Nephrology [facility]) count MCV 84.8 fL Normal (applies MEDGEN to non-numeric ([place] results) [place] [facility]) MCH 27.1 pg Normal (applies MEDGEN to non-numeric ([place] results) [place] [facility]) MCHC 31.9 Below low normal MEDGEN g/dL ([place] [facility]) RDW 13.2 % Normal (applies MEDGEN to non-numeric ([place] results) [place] [facility]) PLATELET COUNT 159 Normal (applies MEDGEN Thousand to non-numeric ([place] /uL results) [place] [facility]) MPV 8.6 fL Normal (applies MEDGEN to non-numeric ([place] results) [place] [facility]) ABSOLUTE 2933 Normal (applies MEDGEN NEUTROPHILS cells/uL to non-numeric ([place] results) [place] [facility]) ABSOLUTE 1571 Normal (applies MEDGEN LYMPHOCYTES cells/uL to non-numeric ([place] results) [place] [facility]) ABSOLUTE 449 Normal (applies MEDGEN MONOCYTES cells/uL to non-numeric ([place] results) [place] [facility]) ABSOLUTE 117 Normal (applies MEDGEN EOSINOPHILS cells/uL to non-numeric ([facility] results) [place] [facility]) ABSOLUTE 31 Normal (applies MEDGEN BASOPHILS cells/uL to non-numeric ([place] results) [place] [facility]) Neutrophils 57.5 % Normal (applies MEDGEN [#] in Body to non-numeric ([facility] fluid by results) [place] Manual count Nephrology [facility]) Lymphocytes 30.8 % Normal (applies MEDGEN [#] in Body to non-numeric ([facility] fluid by results) [place] Manual count Nephrology [facility]) Monocytes 8.8 % Normal (applies MEDGEN [#/volume] in to non-numeric ([facility] Cord blood results) [place] [facility]) Eosinophils 2.3 % Normal (applies MEDGEN [#] in Body to non-numeric ([facility] fluid by results) [place] Manual count Nephrology [facility]) Basophils [#] 0.6 % Normal (applies MEDGEN in Body fluid to non-numeric ([place] by Manual results) [place] count Nephrology [facility]) ID Date Data Source [id number] 09/16/2019 12:00:00 AM EDT MEDGEN ([facility] Nephrology [facility]) Name Value Range Interpretation Description Data Source(s ) Supporting Code Document(s ) Glucose 98 mg/dL Normal (applies MEDGEN [Mass/volume] to non-numeric ([place] in Urine results) [place] collected for Nephrology unspecified [facility]) duration UREA NITROGEN 30 mg/dL Above high normal MEDGEN (BUN) ([facility] Nephrology [facility]) Creatinine 1.04 Above high normal MEDGEN [Interpretatio mg/dL ([facility] n] in Urine [place] Neph[facility]) eGFR NON-AFR. 52 Below low normal MEDGEN TURKISH mL/min/1 ([place] .73m2 [place] Neph[facility]) eGFR 60 Normal (applies MEDGEN [place] mL/min/1 to non-numeric ([place] .73m2 results) [place] [facility]ph[facility]) BUN/CREATININE 29 Above high normal MEDGEN RATIO (calc) ([facility] Nephrology [facility]) Sodium 132 Below low normal MEDGEN [Moles/volume] mmol/L ([place] in Serum, [place] Plasma or Nephrology Blood [facility]) Potassium 5.0 Normal (applies MEDGEN [Mass/volume] mmol/L to non-numeric ([facility] in Blood results) [place] [facility] Chloride 99 Normal (applies MEDGEN [Moles/volume] mmol/L to non-numeric ([place] in Serum, results) [place] Plasma or Nephrology Blood [facility]) Carbon dioxide 24 Normal (applies MEDGEN [VFr/PPres] in mmol/L to non-numeric ([facility] Gas delivery results) [facility] Nephrology [facility]) Calcium 10.3 Normal (applies MEDGEN [Moles/volume] mg/dL to non-numeric ([place] in Urine results) [place] collected for Nephrology unspecified [facility]) duration ID Date Data Source [id number] 09/16/2019 12:00:00 AM EDT MEDGEN ([facility] Nephrology [facility]) Name Value Range Interpretation Description Data Source(s ) Supporting Code Document(s ) IRON, TOTAL 76 Normal (applies MEDGEN mcg/dL to non-numeric ([place] results) [place] [facility]) Iron binding 357 Normal (applies MEDGEN capacity [Mass mcg/dL to non-numeric ([facility] or (calc) results) [place] Moles/volume] Nephrology in Serum or [facility]) Plasma % SATURATION 21 % Normal (applies MEDGEN (calc) to non-numeric ([place] results) [place] [facility]ph[facility]) ID Date Data Source [id number] 09/16/2019 12:00:00 AM EDT MEDGEN ([facility] Nephrology [facility]) Name Value Range Interpretation Description Data Source(s ) Supporting Code Document(s ) Ferritin 41 ng/mL Normal (applies to MEDGEN [Interpretat non-numeric ([place] ion] in results) [place] Blood Nephrology [facility]) ID Date Data Source [id number] 09/16/2019 12:00:00 AM EDT MEDGEN ([place] Nephrology [facility]) Name Value Range Interpretation Description Data Source(s ) Supporting Code Document(s ) Structure of 5.1 Normal (applies MEDGEN plantar Thousand to non-numeric ([place] digital artery /uL results) [place] (body Nephrology structure) [facility]) RED BLOOD CELL 3.69 Below low normal MEDGEN COUNT Million/ ([place] uL [place] Nephrology [facility]) Hemoglobin 10.0 Below low normal MEDGEN [Mass/volume] g/dL ([place] in Mixed [place] venous blood Nephrology by Oximetry [facility]) Hematocrit 31.3 % Below low normal MEDGEN [Pure volume ([place] fraction] of [place] Blood by Nephrology Automated [facility]) count MCV 84.8 fL Normal (applies MEDGEN to non-numeric ([place] results) [place] [facility]ph[facility]) MCH 27.1 pg Normal (applies MEDGEN to non-numeric ([place] results) [place] [facility]) MCHC 31.9 Below low normal MEDGEN g/dL ([place] Neph[facility]) RDW 13.2 % Normal (applies MEDGEN to non-numeric ([place] results) [place] [facility]) PLATELET COUNT 159 Normal (applies MEDGEN Thousand to non-numeric ([place] /uL results) [place] Neph[facility]) MPV 8.6 fL Normal (applies MEDGEN to non-numeric ([place] results) [place] [facility]) ABSOLUTE 2933 Normal (applies MEDGEN NEUTROPHILS cells/uL to non-numeric ([place] results) [place] [facility]ph[facility]) ABSOLUTE 1571 Normal (applies MEDGEN LYMPHOCYTES cells/uL to non-numeric ([place] results) [place] [facility]) ABSOLUTE 449 Normal (applies MEDGEN MONOCYTES cells/uL to non-numeric ([place] results) [place] [facility]ph[facility]) ABSOLUTE 117 Normal (applies MEDGEN EOSINOPHILS cells/uL to non-numeric ([place] results) [place] [facility]) ABSOLUTE 31 Normal (applies MEDGEN BASOPHILS cells/uL to non-numeric ([place] results) [place] [facility]ph[facility]) Neutrophils 57.5 % Normal (applies MEDGEN [#] in Body to non-numeric ([place] fluid by results) [place] Manual count Nephrology [facility]) Lymphocytes 30.8 % Normal (applies MEDGEN [#] in Body to non-numeric ([facility] fluid by results) [place] Manual count Nephrology [facility]) Monocytes 8.8 % Normal (applies MEDGEN [#/volume] in to non-numeric ([facility] Cord blood results) [place] [facility]ph[facility]) Eosinophils 2.3 % Normal (applies MEDGEN [#] in Body to non-numeric ([facility] fluid by results) [place] Manual count Nephrology [facility]) Basophils [#] 0.6 % Normal (applies MEDGEN in Body fluid to non-numeric ([facility] by Manual results) [place] count Nephrology [facility]) ID Date Data Source [id number] 09/16/2019 12:00:00 AM EDT MEDGEN ([facility] Nephrology [facility]) Name Value Range Interpretation Description Data Source(s ) Supporting Code Document(s ) Glucose 98 mg/dL Normal (applies MEDGEN [Mass/volume] to non-numeric ([facility] in Urine results) [place] collected for Nephrology unspecified [facility]) duration UREA NITROGEN 30 mg/dL Above high normal MEDGEN (BUN) ([facility] Nephrology [facility]) Creatinine 1.04 Above high normal MEDGEN [Interpretatio mg/dL ([facility] n] in Urine [place] Nephrology [facility]) eGFR NON-AFR. 52 Below low normal MEDGEN T[place] mL/min/1 ([place] .73m2 [place] Neph[facility]) eGFR 60 Normal (applies MEDGEN [place] mL/min/1 to non-numeric ([place] .73m2 results) [place] [facility]ph[facility]) BUN/CREATININE 29 Above high normal MEDGEN RATIO (calc) ([facility] Nephrology [facility]) Sodium 132 Below low normal MEDGEN [Moles/volume] mmol/L ([facility] in Serum, [place] Plasma or Nephrology Blood [facility]) Potassium 5.0 Normal (applies MEDGEN [Mass/volume] mmol/L to non-numeric ([facility] in Blood results) [place] [facility]) Chloride 99 Normal (applies MEDGEN [Moles/volume] mmol/L to non-numeric ([facility] in Serum, results) [place] Plasma or Nephrology Blood [facility]) Carbon dioxide 24 Normal (applies MEDGEN [VFr/PPres] in mmol/L to non-numeric ([facility] Gas delivery results) [place] system Nephrology [facility]) Calcium 10.3 Normal (applies MEDGEN [Moles/volume] mg/dL to non-numeric ([place] in Urine results) [place] collected for Nephrology unspecified [facility]) duration ID Date Data Source [id number] 09/16/2019 12:00:00 AM EDT MEDGEN ([facility] Nephrology [facility]) Name Value Range Interpretation Description Data Source(s ) Supporting Code Document(s ) IRON, TOTAL 76 Normal (applies MEDGEN mcg/dL to non-numeric ([place] results) [place] [facility]ph[facility]) Iron binding 357 Normal (applies MEDGEN capacity [Mass mcg/dL to non-numeric ([place] or (calc) results) [place] Moles/volume] Nephrology in Serum or [facility]) Plasma % SATURATION 21 % Normal (applies MEDGEN (calc) to non-numeric ([facility] results) [place] Nephrology [facility]) ID Date Data Source [id number] 09/16/2019 12:00:00 AM EDT MEDGEN ([facility] Nephrology [facility]) Name Value Range Interpretation Description Data Source(s ) Supporting Code Document(s ) Ferritin 41 ng/mL Normal (applies to MEDGEN [Interpretat non-numeric ([place] ion] in results) [place] Blood Nephrology [facility]) ID Date Data Source [id number] 09/16/2019 12:00:00 AM EDT MEDGEN ([facility] Nephrology [facility]) Name Value Range Interpretation Description Data Source(s ) Supporting Code Document(s ) Structure of 5.1 Normal (applies MEDGEN plantar Thousand to non-numeric ([facility] digital artery /uL results) [place] (body Nephrology structure) [facility]) RED BLOOD CELL 3.69 Below low normal MEDGEN COUNT Million/ ([place] uL [place] Nephrology [facility]) Hemoglobin 10.0 Below low normal MEDGEN [Mass/volume] g/dL ([place] in Mixed [place] venous blood Nephrology by Oximetry [facility]) Hematocrit 31.3 % Below low normal MEDGEN [Pure volume ([place] fraction] of [place] Blood by Nephrology [facility]) count MCV 84.8 fL Normal (applies MEDGEN to non-numeric ([place] results) [place] [facility]ph[facility]) MCH 27.1 pg Normal (applies MEDGEN to non-numeric ([facility] results) [place] [facility] MCHC 31.9 Below low normal MEDGEN g/dL ([facility] Nephrology [facility]) RDW 13.2 % Normal (applies MEDGEN to non-numeric ([place] results) [place] [facility]ph[facility]) PLATELET COUNT 159 Normal (applies MEDGEN Thousand to non-numeric ([place] /uL results) [place] Neph[facility]) MPV 8.6 fL Normal (applies MEDGEN to non-numeric ([facility] results) [place] [facility]ph[facility]) ABSOLUTE 2933 Normal (applies MEDGEN NEUTROPHILS cells/uL to non-numeric ([facility] results) [place] [facility]ph[facility]) ABSOLUTE 1571 Normal (applies MEDGEN LYMPHOCYTES cells/uL to non-numeric ([facility] results) [place] Neph[facility]) ABSOLUTE 449 Normal (applies MEDGEN MONOCYTES cells/uL to non-numeric ([facility] results) [place] [facility]) ABSOLUTE 117 Normal (applies MEDGEN EOSINOPHILS cells/uL to non-numeric ([facility] results) [place] Neph[facility]) ABSOLUTE 31 Normal (applies MEDGEN BASOPHILS cells/uL to non-numeric ([facility] results) [place] Neph[facility]) Neutrophils 57.5 % Normal (applies MEDGEN [#] in Body to non-numeric ([facility] fluid by results) [place] Manual count Nephrology [facility]) Lymphocytes 30.8 % Normal (applies MEDGEN [#] in Body to non-numeric ([facility] fluid by results) [place] Manual count Nephrology [facility]) Monocytes 8.8 % Normal (applies MEDGEN [#/volume] in to non-numeric ([facility] Cord blood results) [place] Neph[facility]) Eosinophils 2.3 % Normal (applies MEDGEN [#] in Body to non-numeric ([facility] fluid by results) [place] Manual count Nephrology [facility]) Basophils [#] 0.6 % Normal (applies MEDGEN in Body fluid to non-numeric ([facility] by Manual results) [place] count Nephrology [facility]) ID Date Data Source [id number] 09/16/2019 12:00:00 AM EDT MEDGEN ([facility] Nephrology [facility]) Name Value Range Interpretation Description Data Source(s ) Supporting Code Document(s ) Glucose 98 mg/dL Normal (applies MEDGEN [Mass/volume] to non-numeric ([facility] in Urine results) [place] collected for Nephrology unspecified [facility]) duration UREA NITROGEN 30 mg/dL Above high normal MEDGEN (BUN) ([facility] Nephrology [facility]) Creatinine 1.04 Above high normal MEDGEN [Interpretatio mg/dL ([facility] n] [facility] [place] [facility] eGFR NON-AFR. 52 Below low normal MEDGEN T[place] mL/min/1 ([facility] .73m2 [place] Nephrology [facility]) eGFR 60 Normal (applies MEDGEN [place] mL/min/1 to non-numeric ([place] .73m2 results) [place] [facility] BUN/CREATININE 29 Above high normal MEDGEN RATIO (calc) ([facility] Sodium 132 Below low normal MEDGEN [Moles/volume] mmol/L ([facility] in Serum, [place] Plasma or Nephrology Blood [facility]) Potassium 5.0 Normal (applies MEDGEN [Mass/volume] mmol/L to non-numeric ([facility] in Blood results) [place] [facility] Chloride 99 Normal (applies MEDGEN [Moles/volume] mmol/L to non-numeric ([facility] in Serum, results) [place] Plasma or Nephrology Blood [facility]) Carbon dioxide 24 Normal (applies MEDGEN [VFr/PPres] in mmol/L to non-numeric ([facility] Gas delivery results) [facility] Nephrology [facility]) Calcium 10.3 Normal (applies MEDGEN [Moles/volume] mg/dL to non-numeric ([facility] in Urine results) [place] collected for Nephrology unspecified [facility]) duration ID Date Data Source [id number] 09/16/2019 12:00:00 AM EDT MEDGEN ([facility] Nephrology [facility]) Name Value Range Interpretation Description Data Source(s ) Supporting Code Document(s ) IRON, TOTAL 76 Normal (applies MEDGEN mcg/dL to non-numeric ([facility] results) [place] [facility]ph[facility]) Iron binding 357 Normal (applies MEDGEN capacity [Mass mcg/dL to non-numeric ([facility] or (calc) results) [place] Moles/volume] Nephrology in Serum or [facility]) Plasma % SATURATION 21 % Normal (applies MEDGEN (calc) to non-numeric ([facility] results) [place] Nephrology [facility]) ID Date Data Source [id number] 09/16/2019 12:00:00 AM EDT MEDGEN ([facility] Nephrology [facility]) Name Value Range Interpretation Description Data Source(s ) Supporting Code Document(s ) Ferritin 41 ng/mL Normal (applies to MEDGEN [Interpretat non-numeric ([place] ion] in results) [place] Blood Nephrology [facility]) ID Date Data Source [id number] 09/16/2019 12:00:00 AM EDT MEDGEN ([facility] Nephrology [facility]) Name Value Range Interpretation Description Data Source(s ) Supporting Code Document(s ) Structure of 5.1 Normal (applies MEDGEN plantar Thousand to non-numeric ([place] digital artery /uL results) [place] (body Nephrology structure) [facility]) RED BLOOD CELL 3.69 Below low normal MEDGEN COUNT Million/ ([place] uL [place] Nephrology [facility]) Hemoglobin 10.0 Below low normal MEDGEN [Mass/volume] g/dL ([place] in Mixed [place] venous blood Nephrology by Oximetry [facility]) Hematocrit 31.3 % Below low normal MEDGEN [Pure volume ([place] fraction] of [place] Blood by Nephrology [facility]) count MCV 84.8 fL Normal (applies MEDGEN to non-numeric ([place] results) [place] [facility]) MCH 27.1 pg Normal (applies MEDGEN to non-numeric ([place] results) [place] [facility]) MCHC 31.9 Below low normal MEDGEN g/dL ([place] Neph[facility]) RDW 13.2 % Normal (applies MEDGEN to non-numeric ([place] results) [place] [facility]) PLATELET COUNT 159 Normal (applies MEDGEN Thousand to non-numeric ([place] /uL results) [place] [facility]ph[facility]) MPV 8.6 fL Normal (applies MEDGEN to non-numeric ([place] results) [place] [facility]) ABSOLUTE 2933 Normal (applies MEDGEN NEUTROPHILS cells/uL to non-numeric ([place] results) [place] [facility]) ABSOLUTE 1571 Normal (applies MEDGEN LYMPHOCYTES cells/uL to non-numeric ([place] results) [place] [facility]ph[facility]) ABSOLUTE 449 Normal (applies MEDGEN MONOCYTES cells/uL to non-numeric ([place] results) [place] [facility]ph[facility]) ABSOLUTE 117 Normal (applies MEDGEN EOSINOPHILS cells/uL to non-numeric ([place] results) [place] [facility]) ABSOLUTE 31 Normal (applies MEDGEN BASOPHILS cells/uL to non-numeric ([place] results) [place] [facility]ph[facility]) Neutrophils 57.5 % Normal (applies MEDGEN [#] in Body to non-numeric ([place] fluid by results) [place] Manual count Nephrology [facility]) Lymphocytes 30.8 % Normal (applies MEDGEN [#] in Body to non-numeric ([place] fluid by results) [place] Manual count Nephrology [facility]) Monocytes 8.8 % Normal (applies MEDGEN [#/volume] in to non-numeric ([facility] Cord blood results) [place] [facility]ph[facility]) Eosinophils 2.3 % Normal (applies MEDGEN [#] in Body to non-numeric ([facility] fluid by results) [place] Manual count Nephrology [facility]) Basophils [#] 0.6 % Normal (applies MEDGEN in Body fluid to non-numeric ([place] by Manual results) [place] count Nephrology [facility]) ID Date Data Source [id number] 09/16/2019 12:00:00 AM EDT MEDGEN ([facility] mónica [place] Nephrology [facility]) Name Value Range Interpretation Description Data Source(s ) Supporting Code Document(s ) Glucose 98 mg/dL Normal (applies MEDGEN [Mass/volume] to non-numeric ([facility] in Urine results) [place] collected for Nephrology unspecified [facility]) duration UREA NITROGEN 30 mg/dL Above high normal MEDGEN (BUN) ([facility] Nephrology [facility]) Creatinine 1.04 Above high normal MEDGEN [Interpretatio mg/dL ([place] n] in Urine [place] [facility]ph[facility]) eGFR NON-AFR. 52 Below low normal MEDGEN [place] mL/min/1 ([place] .73m2 [place] Nephrology [facility]) eGFR 60 Normal (applies MEDGEN [place] mL/min/1 to non-numeric ([place] .73m2 results) [place] [facility]) BUN/CREATININE 29 Above high normal MEDGEN RATIO (calc) ([facility] Nephrology [facility]) Sodium 132 Below low normal MEDGEN [Moles/volume] mmol/L ([facility] in Serum, [place] Plasma or Nephrology Blood [facility]) Potassium 5.0 Normal (applies MEDGEN [Mass/volume] mmol/L to non-numeric ([facility] in Blood results) [place] [facility]) Chloride 99 Normal (applies MEDGEN [Moles/volume] mmol/L to non-numeric ([facility] in Serum, results) [place] Plasma or Nephrology Blood [facility]) Carbon dioxide 24 Normal (applies MEDGEN [VFr/PPres] in mmol/L to non-numeric ([facility] Gas delivery results) [place] system Nephrology [facility]) Calcium 10.3 Normal (applies MEDGEN [Moles/volume] mg/dL to non-numeric ([facility] in Urine results) [place] collected for Nephrology unspecified [facility]) duration ID Date Data Source [id number] 09/16/2019 12:00:00 AM EDT MEDGEN ([facility] Nephrology [facility]) Name Value Range Interpretation Description Data Source(s ) Supporting Code Document(s ) IRON, TOTAL 76 Normal (applies MEDGEN mcg/dL to non-numeric ([facility] results) [place] [facility]) Iron binding 357 Normal (applies MEDGEN capacity [Mass mcg/dL to non-numeric ([facility] or (calc) results) [place] Moles/volume] Nephrology in Serum or [facility]) Plasma % SATURATION 21 % Normal (applies MEDGEN (calc) to non-numeric ([facility] results) [place] [facility]) ID Date Data Source [id number] 08/19/2019 12:00:00 AM EDT MEDGEN ([facility] Nephrology [facility]) Name Value Range Interpretation Description Data Source(s ) Supporting Code Document(s ) Hemoglobin A1c 6.7 % of Above high normal MEDGEN in Blood total ([place] Hgb [place] [facility]ph[facility]) ID Date Data Source [id number] 08/19/2019 12:00:00 AM EDT MEDGEN ([facility] Nephrology [facility]) Name Value Range Interpretation Code Description Data Jyoti rce(s) Supporting Document(s ) TSH 1.66 mIU/L Normal (applies to MEDGEN (So uthern non-numeric [place] results) Nephrology [facility]) ID Date Data Source [id number] 08/19/2019 12:00:00 AM EDT MEDGEN ([facility] Nephrology [facility]) Name Value Range Interpretation Description Data Source(s ) Supporting Code Document(s ) T4, FREE 1.4 ng/dL Normal (applies to MEDGEN non-numeric ([place] results) [place] [facility]) ID Date Data Source [id number] 08/19/2019 12:00:00 AM EDT MEDGEN ([place] Neph[facility]) Name Value Range Interpretation Description Data Source(s ) Supporting Code Document(s ) Structure of 5.1 Normal (applies MEDGEN plantar Thousand to non-numeric ([place] digital artery /uL results) [place] (body Nephrology structure) [facility]) RED BLOOD CELL 3.58 Below low normal MEDGEN COUNT Million/ ([place] uL [place] Nephrology [facility]) Hemoglobin 10.0 Below low normal MEDGEN [Mass/volume] g/dL ([place] in Mixed [place] venous blood Nephrology by Oximetry [facility]) Hematocrit 30.2 % Below low normal MEDGEN [Pure volume ([place] fraction] of [place] Blood by Nephrology Automated [facility]) count MCV 84.4 fL Normal (applies MEDGEN to non-numeric ([place] results) [place] [facility]) MCH 27.9 pg Normal (applies MEDGEN to non-numeric ([place] results) [place] [facility]) MCHC 33.1 Normal (applies MEDGEN g/dL to non-numeric ([place] results) [place] [facility]) RDW 13.2 % Normal (applies MEDGEN to non-numeric ([place] results) [place] [facility]) PLATELET COUNT 150 Normal (applies MEDGEN Thousand to non-numeric ([place] /uL results) [place] [facility]) MPV 8.9 fL Normal (applies MEDGEN to non-numeric ([place] results) [place] [facility]) ABSOLUTE 3116 Normal (applies MEDGEN NEUTROPHILS cells/uL to non-numeric ([place] results) [place] Nephrology [facility]) ABSOLUTE 1484 Normal (applies [facility] LYMPHOCYTES cells/uL to non-numeric ([place] results) [place] [facility]) ABSOLUTE 398 Normal (applies [facility] MONOCYTES cells/uL to non-numeric ([place] results) [place] [facility]) ABSOLUTE 82 Normal (applies [facility] EOSINOPHILS cells/uL to non-numeric ([place] results) [place] [facility]) ABSOLUTE 20 Normal (applies [facility] BASOPHILS cells/uL to non-numeric ([place] results) [place] [facility]) Neutrophils 61.1 % Normal (applies MEDGEN [#] in Body to non-numeric ([facility] fluid by results) [place] Manual count Nephrology [facility]) Lymphocytes 29.1 % Normal (applies MEDGEN [#] in Body to non-numeric ([facility] fluid by results) [place] Manual count Nephrology [facility]) Monocytes 7.8 % Normal (applies MEDGEN [#/volume] in to non-numeric ([facility] Cord blood results) [place] [facility]) Eosinophils 1.6 % Normal (applies MEDGEN [#] in Body to non-numeric ([facility] fluid by results) [place] Manual count Nephrology [facility]) Basophils [#] 0.4 % Normal (applies MEDGEN in Body fluid to non-numeric ([facility] by Manual results) [place] count Nephrology [facility]) ID Date Data Source [id number] 08/19/2019 12:00:00 AM EDT MEDGEN ([facility] Nephrology [facility]) Name Value Range Interpretation Description Data Source(s ) Supporting Code Document(s ) Glucose 153 Above high normal MEDGEN [Mass/volume] mg/dL ([facility] in Urine [place] collected for Nephrology unspecified [facility]) duration UREA NITROGEN 28 mg/dL Above high normal MEDGEN (BUN) ([facility] Nephrology [facility]) Creatinine 1.07 Above high normal MEDGEN [Interpretation mg/dL ([facility] ] in Urine [place] [facility]) eGFR NON-AFR. 50 Below low normal MEDGEN TURKISH mL/min/1 ([place] .73m2 [place] [facility]) eGFR 58 Below low normal MEDGEN TURK[place] mL/min/1 ([place] .73m2 [place] [facility]) BUN/CREATININE 26 Above high normal MEDGEN RATIO (calc) ([facility] Nephrology [facility]) Sodium 136 Normal (applies MEDGEN [Moles/volume] mmol/L to non-numeric ([facility] in Serum, results) [place] Plasma or Blood Nephrology [facility]) Potassium 4.5 Normal (applies MEDGEN [Mass/volume] mmol/L to non-numeric ([facility] in Blood results) [place] [facility]) Chloride 103 Normal (applies MEDGEN [Moles/volume] mmol/L to non-numeric ([facility] in Serum, results) [place] Plasma or Blood Nephrology [facility]) Carbon dioxide 24 Normal (applies MEDGEN [VFr/PPres] in mmol/L to non-numeric ([facility] Gas delivery results) [place] [facility] Nephrology [facility]) Calcium 9.9 Normal (applies MEDGEN [Moles/volume] mg/dL to non-numeric ([facility] in Urine results) [place] collected for Nephrology unspecified [facility]) duration PROTEIN, TOTAL 7.2 g/dL Normal (applies MEDGEN to non-numeric ([facility] results) [place] [facility]) Microalbumin 4.3 g/dL Normal (applies MEDGEN [Mass/time] in to non-numeric ([facility] Urine collected results) [place] for unspecified Nephrology duration [facility]) Globulin 2.9 g/dL Normal (applies MEDGEN [Mass/time] in (calc) to non-numeric ([facility] 24 hour Urine results) [place] [facility]) ALBUMIN/GLOBULI 1.5 Normal (applies MEDGEN N RATIO (calc) to non-numeric ([facility] results) [place] [facility]) BILIRUBIN, 0.2 Normal (applies MEDGEN TOTAL mg/dL to non-numeric ([facility] results) [place] [facility]) Alkaline 86 U/L Normal (applies MEDGEN phosphatase to non-numeric ([facility] [Enzymatic results) [place] activity/volume Nephrology ] in Serum, [facility]) Plasma or Blood AST 13 U/L Normal (applies MEDGEN to non-numeric ([facility] results) [place] [facility]) ALT 12 U/L Normal (applies MEDGEN to non-numeric ([facility] results) [place] [facility]) ID Date Data Source [id number] 08/19/2019 12:00:00 AM EDT MEDGEN ([facility] Nephrology [facility]) Name Value Range Interpretation Description Data Source(s ) Supporting Code Document(s ) Hemoglobin A1c 6.7 % of Above high normal MEDGEN in Blood total ([facility] [place] [facility] ID Date Data Source [id number] 08/19/2019 12:00:00 AM EDT MEDGEN ([facility] Nephrology [facility]) Name Value Range Interpretation Code Description Data Jyoti rce(s) Supporting Document(s ) TSH 1.66 mIU/L Normal (applies to MEDGEN (So uthern non-numeric [place] results) Nephrology [facility]) ID Date Data Source [id number] 08/19/2019 12:00:00 AM EDT MEDGEN ([facility] Nephrology [facility]) Name Value Range Interpretation Description Data Source(s ) Supporting Code Document(s ) T4, FREE 1.4 ng/dL Normal (applies to [facility]GEN non-numeric ([place] [facility]) [place] [facility]) ID Date Data Source [id number] 08/19/2019 12:00:00 AM EDT MEDGEN ([facility] Nephrology [facility]) Name Value Range Interpretation Description Data Source(s ) Supporting Code Document(s ) Structure of 5.1 Normal (applies MEDGEN plantar Thousand to non-numeric ([place] digital artery /uL results) [place] (body Nephrology structure) [facility]) RED BLOOD CELL 3.58 Below low normal MEDGEN COUNT Million/ ([place] uL [place] [facility]) Hemoglobin 10.0 Below low normal [facility]GEN [Mass/volume] g/dL ([place] in Mixed [place] venous blood Nephrology by Oximetry [facility]) Hematocrit 30.2 % Below low normal MEDGEN [Pure volume ([place] fraction] of [place] Blood by [facility]) count MCV 84.4 fL Normal (applies MEDGEN to non-numeric ([place] results) [place] [facility]) MCH 27.9 pg Normal (applies MEDGEN to non-numeric ([place] results) [place] [facility]) MCHC 33.1 Normal (applies [facility]GEN g/dL to non-numeric ([place] results) [place] [facility]) RDW 13.2 % Normal (applies MEDGEN to non-numeric ([place] results) [place] [facility]) PLATELET COUNT 150 Normal (applies MEDGEN Thousand to non-numeric ([place] /uL results) [place] [facility]) MPV 8.9 fL Normal (applies MEDGEN to non-numeric ([place] results) [place] [facility]) ABSOLUTE 3116 Normal (applies MEDGEN NEUTROPHILS cells/uL to non-numeric ([place] results) [place] [facility]) ABSOLUTE 1484 Normal (applies [facility] LYMPHOCYTES cells/uL to non-numeric ([place] results) [place] [facility]) ABSOLUTE 398 Normal (applies [facility] MONOCYTES cells/uL to non-numeric ([place] results) [place] [facility]) ABSOLUTE 82 Normal (applies [facility]GEN EOSINOPHILS cells/uL to non-numeric ([place] results) [place] [facility]) ABSOLUTE 20 Normal (applies [facility]GEN BASOPHILS cells/uL to non-numeric ([facility] results) [place] [facility]) Neutrophils 61.1 % Normal (applies MEDGEN [#] in Body to non-numeric ([place] fluid by results) [place] Manual count Nephrology [facility]) Lymphocytes 29.1 % Normal (applies MEDGEN [#] in Body to non-numeric ([facility] fluid by results) [place] Manual count Nephrology [facility]) Monocytes 7.8 % Normal (applies MEDGEN [#/volume] in to non-numeric ([facility] Cord blood results) [place] [facility]) Eosinophils 1.6 % Normal (applies MEDGEN [#] in Body to non-numeric ([facility] fluid by results) [place] Manual count Nephrology [facility]) Basophils [#] 0.4 % Normal (applies MEDGEN in Body fluid to non-numeric ([place] by Manual results) [place] count Nephrology [facility]) ID Date Data Source [id number] 08/19/2019 12:00:00 AM EDT MEDGEN ([facility] mónica [place] Nephrology [facility]) Name Value Range Interpretation Description Data Source(s ) Supporting Code Document(s ) Glucose 153 Above high normal MEDGEN [Mass/volume] mg/dL ([facility] in Urine [place] collected for Nephrology unspecified [facility]) duration UREA NITROGEN 28 mg/dL Above high normal [facility] (BUN) [facility] Creatinine 1.07 Above high normal MEDGEN [Interpretation mg/dL ([facility] ] in Urine [place] Nephrology [facility]) eGFR NON-AFR. 50 Below low normal MEDGEN TURKISH mL/min/1 ([place] .73m2 [place] [facility]) eGFR 58 Below low normal MEDGEN TURKISH mL/min/1 ([place] .73m2 [place] [facility]) BUN/CREATININE 26 Above high normal MEDGEN RATIO (calc) ([facility] Nephrology [facility]) Sodium 136 Normal (applies MEDGEN [Moles/volume] mmol/L to non-numeric ([facility] in Serum, results) [place] Plasma or Blood Nephrology [facility]) Potassium 4.5 Normal (applies MEDGEN [Mass/volume] mmol/L to non-numeric ([facility] in Blood results) [place] [facility]) Chloride 103 Normal (applies MEDGEN [Moles/volume] mmol/L to non-numeric ([facility] in Serum, results) [place] Plasma or Blood Nephrology [facility]) Carbon dioxide 24 Normal (applies MEDGEN [VFr/PPres] in mmol/L to non-numeric ([facility] Gas delivery results) [place] Nephrology [facility]) Calcium 9.9 Normal (applies MEDGEN [Moles/volume] mg/dL to non-numeric ([facility] in Urine results) [place] collected for Nephrology unspecified [facility]) duration PROTEIN, TOTAL 7.2 g/dL Normal (applies MEDGEN to non-numeric ([facility] results) [place] [facility]) Microalbumin 4.3 g/dL Normal (applies MEDGEN [Mass/time] in to non-numeric ([facility] Urine collected results) [place] for unspecified Nephrology duration [facility]) Globulin 2.9 g/dL Normal (applies MEDGEN [Mass/time] in (calc) to non-numeric ([facility] 24 hour Urine results) [place] [facility]) ALBUMIN/GLOBULI 1.5 Normal (applies MEDGEN N RATIO (calc) to non-numeric ([facility] results) [place] [facility]) BILIRUBIN, 0.2 Normal (applies MEDGEN TOTAL mg/dL to non-numeric ([facility] results) [place] [facility]) Alkaline 86 U/L Normal (applies MEDGEN phosphatase to non-numeric ([facility] [Enzymatic results) [place] activity/volume Nephrology ] in Serum, [facility]) Plasma or Blood AST 13 U/L Normal (applies MEDGEN to non-numeric ([facility] results) [place] [facility]) ALT 12 U/L Normal (applies MEDGEN to non-numeric ([facility] results) [place] [facility]) ID Date Data Source [id number] 08/19/2019 12:00:00 AM EDT MEDGEN ([facility] Nephrology [facility]) Name Value Range Interpretation Description Data Source(s ) Supporting Code Document(s ) Hemoglobin A1c 6.7 % of Above high normal MEDGEN in Blood total ([facility] [place] [facility] ID Date Data Source [id number] 08/19/2019 12:00:00 AM EDT MEDGEN ([facility] Nephrology [facility]) Name Value Range Interpretation Code Description Data Jyoti rce(s) Supporting Document(s ) TSH 1.66 mIU/L Normal (applies to MEDGEN ([place] non-numeric [place] results) Nephrology [facility]) ID Date Data Source [id number] 08/19/2019 12:00:00 AM EDT MEDGEN ([facility] Nephrology [facility]) Name Value Range Interpretation Description Data Source(s ) Supporting Code Document(s ) T4, FREE 1.4 ng/dL Normal (applies to MEDGEN non-numeric ([place]) [place] [facility]) ID Date Data Source [id number] 08/19/2019 12:00:00 AM EDT MEDGEN ([facility] Nephrology [facility]) Name Value Range Interpretation Description Data Source(s ) Supporting Code Document(s ) Structure of 5.1 Normal (applies MEDGEN plantar Thousand to non-numeric ([place] digital artery /uL results) [place] (body Nephrology structure) [facility]) RED BLOOD CELL 3.58 Below low normal MEDGEN COUNT Million/ ([place] uL [place] [facility]ph[facility]) Hemoglobin 10.0 Below low normal MEDGEN [Mass/volume] g/dL ([place] in Mixed [place] venous blood Nephrology by Oximetry [facility]) Hematocrit 30.2 % Below low normal MEDGEN [Pure volume ([place] fraction] of [place] Blood by Nephrology Automated [facility]) count MCV 84.4 fL Normal (applies MEDGEN to non-numeric ([place] results) [place] [facility]) MCH 27.9 pg Normal (applies MEDGEN to non-numeric ([place] results) [place] [facility]) MCHC 33.1 Normal (applies MEDGEN g/dL to non-numeric ([place] results) [place] [facility]) RDW 13.2 % Normal (applies MEDGEN to non-numeric ([place] results) [place] [facility]) PLATELET COUNT 150 Normal (applies MEDGEN Thousand to non-numeric ([place] /uL results) [place] [facility]) MPV 8.9 fL Normal (applies MEDGEN to non-numeric ([place] results) [place] [facility]) ABSOLUTE 3116 Normal (applies MEDGEN NEUTROPHILS cells/uL to non-numeric ([place] results) [place] [facility]) ABSOLUTE 1484 Normal (applies [facility]GEN LYMPHOCYTES cells/uL to non-numeric ([place] results) [place] [facility]) ABSOLUTE 398 Normal (applies MEDGEN MONOCYTES cells/uL to non-numeric ([facility] results) [place] [facility]) ABSOLUTE 82 Normal (applies MEDGEN EOSINOPHILS cells/uL to non-numeric ([facility] results) [place] [facility]) ABSOLUTE 20 Normal (applies MEDGEN BASOPHILS cells/uL to non-numeric ([facility] results) [place] [facility]) Neutrophils 61.1 % Normal (applies MEDGEN [#] in Body to non-numeric ([facility] fluid by results) [place] Manual count Nephrology [facility]) Lymphocytes 29.1 % Normal (applies MEDGEN [#] in Body to non-numeric ([facility] fluid by results) [place] Manual count Nephrology [facility]) Monocytes 7.8 % Normal (applies MEDGEN [#/volume] in to non-numeric ([facility] Cord blood results) [place] [facility]) Eosinophils 1.6 % Normal (applies MEDGEN [#] in Body to non-numeric ([facility] fluid by results) [place] Manual count Nephrology [facility]) Basophils [#] 0.4 % Normal (applies MEDGEN in Body fluid to non-numeric ([facility] by Manual results) [place] count Nephrology [facility]) ID Date Data Source [id number] 08/19/2019 12:00:00 AM EDT MEDGEN ([facility] Nephrology [facility]) Name Value Range Interpretation Description Data Source(s ) Supporting Code Document(s ) Glucose 153 Above high normal MEDGEN [Mass/volume] mg/dL ([facility] in Urine [place] collected for Nephrology unspecified [facility]) duration UREA NITROGEN 28 mg/dL Above high normal [facility] (BUN) ([facility] Creatinine 1.07 Above high normal MEDGEN [Interpretation mg/dL ([facility] ] [facility]rine [place] [facility] eGFR NON-AFR. 50 Below low normal MEDGEN TURKISH mL/min/1 ([facility] .73m2 [place] [facility]) eGFR 58 Below low normal MEDGEN [place] mL/min/1 ([facility] [address] [facility] BUN/CREATININE 26 Above high normal MEDGEN RATIO (calc) ([facility] Sodium 136 Normal (applies MEDGEN [Moles/volume] mmol/L to non-numeric ([facility] in Serum, results) [place] Plasma or Blood Nephrology [facility]) Potassium 4.5 Normal (applies MEDGEN [Mass/volume] mmol/L to non-numeric ([facility] in Blood results) [place] [facility]) Chloride 103 Normal (applies MEDGEN [Moles/volume] mmol/L to non-numeric ([facility] in Serum, results) [place] Plasma or Blood Nephrology [facility]) Carbon dioxide 24 Normal (applies MEDGEN [VFr/PPres] in mmol/L to non-numeric ([facility] Gas delivery results) [place] Nephrology [facility]) Calcium 9.9 Normal (applies MEDGEN [Moles/volume] mg/dL to non-numeric ([facility] in Urine results) [place] collected for Nephrology unspecified [facility]) duration PROTEIN, TOTAL 7.2 g/dL Normal (applies MEDGEN to non-numeric ([facility] results) [place] [facility]) Microalbumin 4.3 g/dL Normal (applies MEDGEN [Mass/time] in to non-numeric ([facility] Urine collected results) [place] for unspecified Nephrology duration [facility]) Globulin 2.9 g/dL Normal (applies MEDGEN [Mass/time] in (calc) to non-numeric ([facility] 24 hour Urine results) [place] [facility]) ALBUMIN/GLOBULI 1.5 Normal (applies MEDGEN N RATIO (calc) to non-numeric ([facility] results) [place] [facility]) BILIRUBIN, 0.2 Normal (applies MEDGEN TOTAL mg/dL to non-numeric ([facility] results) [place] [facility]) Alkaline 86 U/L Normal (applies MEDGEN phosphatase to non-numeric ([facility] [Enzymatic results) [place] activity/volume Nephrology ] in Serum, [facility]) Plasma or Blood AST 13 U/L Normal (applies MEDGEN to non-numeric ([facility] results) [place] [facility]) ALT 12 U/L Normal (applies MEDGEN to non-numeric ([facility] results) [place] [facility]) ID Date Data Source [id number] 08/19/2019 12:00:00 AM EDT MEDGEN ([facility] Nephrology [facility]) Name Value Range Interpretation Description Data Source(s ) Supporting Code Document(s ) Hemoglobin A1c 6.7 % of Above high normal [facility]GEN in Blood total ([place] [facility] [place] [facility]) ID Date Data Source [id number] 08/19/2019 12:00:00 AM EDT MEDGEN ([facility] Nephrology [facility]) Name Value Range Interpretation Code Description Data Jyoti rce(s) Supporting Document(s ) TSH 1.66 mIU/L Normal (applies to MEDGEN ([place] non-numeric [place] results) Nephrology [facility]) ID Date Data Source [id number] 08/19/2019 12:00:00 AM EDT MEDGEN ([facility] Nephrology [facility]) Name Value Range Interpretation Description Data Source(s ) Supporting Code Document(s ) T4, FREE 1.4 ng/dL Normal (applies to MEDGEN non-numeric ([facility] results) [place] [facility]) ID Date Data Source [id number] 08/19/2019 12:00:00 AM EDT MEDGEN ([facility] Nephrology [facility]) Name Value Range Interpretation Description Data Source(s ) Supporting Code Document(s ) Structure of 5.1 Normal (applies MEDGEN plantar Thousand to non-numeric ([facility] digital artery /uL results) [place] (body Nephrology structure) [facility]) RED BLOOD CELL 3.58 Below low normal MEDGEN COUNT Million/ ([place] uL [place] [facility]ph[facility]) Hemoglobin 10.0 Below low normal MEDGEN [Mass/volume] g/dL ([place] in Mixed [place] venous blood Nephrology by Oximetry [facility]) Hematocrit 30.2 % Below low normal MEDGEN [Pure volume ([place] fraction] of [place] Blood by Nephrology Automated [facility]) count MCV 84.4 fL Normal (applies MEDGEN to non-numeric ([place] results) [place] [facility]) MCH 27.9 pg Normal (applies MEDGEN to non-numeric ([facility] results) [place] [facility]) MCHC 33.1 Normal (applies MEDGEN g/dL to non-numeric ([facility] results) [place] [facility]) RDW 13.2 % Normal (applies MEDGEN to non-numeric ([place] results) [place] [facility]) PLATELET COUNT 150 Normal (applies MEDGEN Thousand to non-numeric ([place] /uL results) [place] [facility]) MPV 8.9 fL Normal (applies MEDGEN to non-numeric ([place] results) [place] [facility]) ABSOLUTE 3116 Normal (applies MEDGEN NEUTROPHILS cells/uL to non-numeric ([place] results) [place] [facility]) ABSOLUTE 1484 Normal (applies MEDGEN LYMPHOCYTES cells/uL to non-numeric ([place] results) [place] [facility]) ABSOLUTE 398 Normal (applies MEDGEN MONOCYTES cells/uL to non-numeric ([place] results) [place] [facility]) ABSOLUTE 82 Normal (applies MEDGEN EOSINOPHILS cells/uL to non-numeric ([place] results) [place] [facility]) ABSOLUTE 20 Normal (applies MEDGEN BASOPHILS cells/uL to non-numeric ([facility] results) [place] [facility]) Neutrophils 61.1 % Normal (applies MEDGEN [#] in Body to non-numeric ([facility] fluid by results) [place] Manual count Nephrology [facility]) Lymphocytes 29.1 % Normal (applies MEDGEN [#] in Body to non-numeric ([facility] fluid by results) [place] Manual count Nephrology [facility]) Monocytes 7.8 % Normal (applies MEDGEN [#/volume] in to non-numeric ([facility] Cord blood results) [place] [facility]) Eosinophils 1.6 % Normal (applies MEDGEN [#] in Body to non-numeric ([facility] fluid by results) [place] Manual count Nephrology [facility]) Basophils [#] 0.4 % Normal (applies MEDGEN in Body fluid to non-numeric ([place] by Manual results) [place] count [facility]ph[facility]) ID Date Data Source [id number] 08/19/2019 12:00:00 AM EDT MEDGEN ([place] [facility]) Name Value Range Interpretation Description Data Source(s ) Supporting Code Document(s ) Glucose 153 Above high normal MEDGEN [Mass/volume] mg/dL ([place] in Urine [place] collected for Nephrology unspecified [facility]) duration UREA NITROGEN 28 mg/dL Above high normal MEDGEN (BUN) ([facility] Nephrology [facility]) Creatinine 1.07 Above high normal MEDGEN [Interpretation mg/dL ([facility] ] in Urine [place] [facility]) eGFR NON-AFR. 50 Below low normal MEDGEN T[place] mL/min/1 ([place] .73m2 [place] [facility]) eGFR 58 Below low normal MEDGEN [place] mL/min/1 ([place] .73m2 [place] [facility]) BUN/CREATININE 26 Above high normal MEDGEN RATIO (calc) ([facility] Nephrology [facility]) Sodium 136 Normal (applies MEDGEN [Moles/volume] mmol/L to non-numeric ([facility] in Serum, results) [place] Plasma or Blood Nephrology [facility]) Potassium 4.5 Normal (applies MEDGEN [Mass/volume] mmol/L to non-numeric ([facility] in Blood results) [place] [facility]) Chloride 103 Normal (applies MEDGEN [Moles/volume] mmol/L to non-numeric ([facility] in Serum, results) [place] Plasma or Blood Nephrology [facility]) Carbon dioxide 24 Normal (applies MEDGEN [VFr/PPres] in mmol/L to non-numeric ([facility] Gas delivery results) [place] system [facility]ph[facility]) Calcium 9.9 Normal (applies MEDGEN [Moles/volume] mg/dL to non-numeric ([facility] in Urine results) [place] collected for Nephrology unspecified [facility]) duration PROTEIN, TOTAL 7.2 g/dL Normal (applies MEDGEN to non-numeric ([facility] results) [place] [facility]) Microalbumin 4.3 g/dL Normal (applies MEDGEN [Mass/time] in to non-numeric ([facility] Urine collected results) [place] for unspecified Nephrology duration [facility]) Globulin 2.9 g/dL Normal (applies MEDGEN [Mass/time] in (calc) to non-numeric ([facility] 24 hour Urine results) [place] [facility]) ALBUMIN/GLOBULI 1.5 Normal (applies MEDGEN N RATIO (calc) to non-numeric ([facility] results) [place] [facility]) BILIRUBIN, 0.2 Normal (applies MEDGEN TOTAL mg/dL to non-numeric ([facility] results) [place] [facility]) Alkaline 86 U/L Normal (applies MEDGEN phosphatase to non-numeric ([facility] [Enzymatic results) [place] activity/volume Nephrology ] in Serum, [facility]) Plasma or Blood AST 13 U/L Normal (applies MEDGEN to non-numeric ([facility] results) [place] [facility]) ALT 12 U/L Normal (applies MEDGEN to non-numeric ([facility] results) [place] [facility]) ID Date Data Source [id number] 08/19/2019 12:00:00 AM EDT MEDGEN ([facility] Nephrology [facility]) Name Value Range Interpretation Description Data Source(s ) Supporting Code Document(s ) Hemoglobin A1c 6.7 % of Above high normal MEDGEN in Blood total ([place] Hgb [place] [facility]) ID Date Data Source [id number] 08/19/2019 12:00:00 AM EDT MEDGEN ([facility] Nephrology [facility]) Name Value Range Interpretation Code Description Data Jyoti rce(s) Supporting Document(s ) TSH 1.66 mIU/L Normal (applies to MEDGEN ([place]hern non-numeric [place] results) Nephrology [facility]) ID Date Data Source [id number] 08/19/2019 12:00:00 AM EDT MEDGEN ([facility] Nephrology [facility]) Name Value Range Interpretation Description Data Source(s ) Supporting Code Document(s ) T4, FREE 1.4 ng/dL Normal (applies to MEDGEN non-numeric ([facility] results) [place] [facility]) ID Date Data Source [id number] 08/19/2019 12:00:00 AM EDT MEDGEN ([facility] Nephrology [facility]) Name Value Range Interpretation Description Data Source(s ) Supporting Code Document(s ) Structure of 5.1 Normal (applies MEDGEN plantar Thousand to non-numeric ([facility] digital artery /uL results) [place] (body Nephrology structure) [facility]) RED BLOOD CELL 3.58 Below low normal MEDGEN COUNT Million/ ([place] uL [place] [facility]) Hemoglobin 10.0 Below low normal MEDGEN [Mass/volume] g/dL ([place] in Mixed [place] venous blood Nephrology by Oximetry [facility]) Hematocrit 30.2 % Below low normal MEDGEN [Pure volume ([facility] fraction] of [place] Blood by [facility]) count MCV 84.4 fL Normal (applies MEDGEN to non-numeric ([place] results) [place] [facility]) MCH 27.9 pg Normal (applies MEDGEN to non-numeric ([place] results) [place] [facility]) MCHC 33.1 Normal (applies MEDGEN g/dL to non-numeric ([place] results) [place] [facility]) RDW 13.2 % Normal (applies MEDGEN to non-numeric ([place] results) [place] [facility]) PLATELET COUNT 150 Normal (applies MEDGEN Thousand to non-numeric ([place] /uL results) [place] [facility]) MPV 8.9 fL Normal (applies MEDGEN to non-numeric ([place] results) [place] [facility]) ABSOLUTE 3116 Normal (applies MEDGEN NEUTROPHILS cells/uL to non-numeric ([place] results) [place] [facility]) ABSOLUTE 1484 Normal (applies [facility]GEN LYMPHOCYTES cells/uL to non-numeric ([place] results) [place] [facility]) ABSOLUTE 398 Normal (applies MEDGEN MONOCYTES cells/uL to non-numeric ([place] results) [place] [facility]) ABSOLUTE 82 Normal (applies MEDGEN EOSINOPHILS cells/uL to non-numeric ([place] results) [place] [facility]) ABSOLUTE 20 Normal (applies MEDGEN BASOPHILS cells/uL to non-numeric ([place] results) [place] [facility]) Neutrophils 61.1 % Normal (applies MEDGEN [#] in Body to non-numeric ([place] fluid by results) [place] [facility] count Nephrology [facility]) Lymphocytes 29.1 % Normal (applies MEDGEN [#] in Body to non-numeric ([facility] fluid by results) [place] [facility] count Nephrology [facility]) Monocytes 7.8 % Normal (applies MEDGEN [#/volume] in to non-numeric ([facility] Cord blood results) [place] [facility]) Eosinophils 1.6 % Normal (applies MEDGEN [#] in Body to non-numeric ([place] fluid by results) [place] [facility] count Nephrology [facility]) Basophils [#] 0.4 % Normal (applies MEDGEN in Body fluid to non-numeric ([place] by Manual results) [place] count [facility]phrology [facility]) ID Date Data Source [id number] 08/19/2019 12:00:00 AM EDT MEDGEN ([place] [facility]) Name Value Range Interpretation Description Data Source(s ) Supporting Code Document(s ) Glucose 153 Above high normal MEDGEN [Mass/volume] mg/dL ([place] in Urine [place] collected for Nephrology unspecified [facility]) duration UREA NITROGEN 28 mg/dL Above high normal MEDGEN (BUN) ([facility] Nephrology [facility]) Creatinine 1.07 Above high normal MEDGEN [Interpretation mg/dL ([facility] ] in Urine [place] [facility]) eGFR NON-AFR. 50 Below low normal MEDGEN [place] mL/min/1 ([place] .73m2 [place] [facility]) eGFR 58 Below low normal MEDGEN [place] mL/min/1 ([place] .73m2 [place] [facility]) BUN/CREATININE 26 Above high normal [facility] RATIO (calc) [facility] Sodium 136 Normal (applies MEDGEN [Moles/volume] mmol/L to non-numeric ([facility] in Serum, results) [place] Plasma or Blood Nephrology [facility]) Potassium 4.5 Normal (applies MEDGEN [Mass/volume] mmol/L to non-numeric ([facility] in Blood results) [place] [facility]) Chloride 103 Normal (applies MEDGEN [Moles/volume] mmol/L to non-numeric ([facility] in Serum, results) [place] Plasma or Blood Nephrology [facility]) Carbon dioxide 24 Normal (applies MEDGEN [VFr/PPres] in mmol/L to non-numeric ([facility] Gas delivery results) [place] system [facility]phrology [facility]) Calcium 9.9 Normal (applies MEDGEN [Moles/volume] mg/dL to non-numeric ([facility] in Urine results) [place] collected for Nephrology unspecified [facility]) duration PROTEIN, TOTAL 7.2 g/dL Normal (applies MEDGEN to non-numeric ([facility] results) [place] [facility]) Microalbumin 4.3 g/dL Normal (applies MEDGEN [Mass/time] in to non-numeric ([facility] Urine collected results) [place] for unspecified Nephrology duration [facility]) Globulin 2.9 g/dL Normal (applies MEDGEN [Mass/time] in (calc) to non-numeric ([facility] 24 hour Urine results) [place] [facility] ALBUMIN/GLOBULI 1.5 Normal (applies MEDGEN N RATIO (calc) to non-numeric ([facility] results) [place] [facility]) BILIRUBIN, 0.2 Normal (applies MEDGEN TOTAL mg/dL to non-numeric ([facility] results) [place] [facility]) Alkaline 86 U/L Normal (applies MEDGEN phosphatase to non-numeric ([facility] [Enzymatic results) [place] activity/volume Nephrology ] in Serum, [facility]) Plasma or Blood AST 13 U/L Normal (applies MEDGEN to non-numeric ([place] results) [place] [facility]) ALT 12 U/L Normal (applies MEDGEN to non-numeric ([facility] results) [place] [facility]) ID Date Data Source [id number] 08/19/2019 12:00:00 AM EDT MEDGEN ([facility] Nephrology [facility]) Name Value Range Interpretation Description Data Source(s ) Supporting Code Document(s ) Hemoglobin A1c 6.7 % of Above high normal MEDGEN in Blood total ([facility] Hgb [place] [facility]) ID Date Data Source [id number] 08/19/2019 12:00:00 AM EDT MEDGEN ([facility] Nephrology [facility]) Name Value Range Interpretation Code Description Data Jyoti rce(s) Supporting Document(s ) TSH 1.66 mIU/L Normal (applies to MEDGEN ([place] non-numeric [place] results) Nephrology [facility]) ID Date Data Source [id number] 08/19/2019 12:00:00 AM EDT MEDGEN ([facility] Nephrology [facility]) Name Value Range Interpretation Description Data Source(s ) Supporting Code Document(s ) T4, FREE 1.4 ng/dL Normal (applies to MEDGEN non-numeric ([facility] results) [place] [facility]) ID Date Data Source [id number] 08/19/2019 12:00:00 AM EDT MEDGEN ([facility] Nephrology [facility]) Name Value Range Interpretation Description Data Source(s ) Supporting Code Document(s ) Structure of 5.1 Normal (applies MEDGEN plantar Thousand to non-numeric ([facility] digital artery /uL results) [place] (body Nephrology structure) [facility]) RED BLOOD CELL 3.58 Below low normal MEDGEN COUNT Million/ ([place] uL [place] [facility]) Hemoglobin 10.0 Below low normal MEDGEN [Mass/volume] g/dL ([place] in Mixed [place] venous blood Nephrology by Oximetry [facility]) Hematocrit 30.2 % Below low normal MEDGEN [Pure volume ([place] fraction] of [place] Blood by Nephrology Automated [facility]) count MCV 84.4 fL Normal (applies MEDGEN to non-numeric ([place] results) [place] [facility]) MCH 27.9 pg Normal (applies MEDGEN to non-numeric ([facility] results) [place] [facility]) MCHC 33.1 Normal (applies MEDGEN g/dL to non-numeric ([place] results) [place] [facility]) RDW 13.2 % Normal (applies MEDGEN to non-numeric ([place] results) [place] [facility]) PLATELET COUNT 150 Normal (applies MEDGEN Thousand to non-numeric ([place] /uL results) [place] [facility]) MPV 8.9 fL Normal (applies MEDGEN to non-numeric ([place] results) [place] [facility]) ABSOLUTE 3116 Normal (applies MEDGEN NEUTROPHILS cells/uL to non-numeric ([place] results) [place] [facility]) ABSOLUTE 1484 Normal (applies MEDGEN LYMPHOCYTES cells/uL to non-numeric ([place] results) [place] [facility]) ABSOLUTE 398 Normal (applies MEDGEN MONOCYTES cells/uL to non-numeric ([place] results) [place] [facility]) ABSOLUTE 82 Normal (applies MEDGEN EOSINOPHILS cells/uL to non-numeric ([place] results) [place] [facility]) ABSOLUTE 20 Normal (applies MEDGEN BASOPHILS cells/uL to non-numeric ([place] results) [place] [facility]) Neutrophils 61.1 % Normal (applies MEDGEN [#] in Body to non-numeric ([place] fluid by results) [place] Manual count Nephrology [facility]) Lymphocytes 29.1 % Normal (applies MEDGEN [#] in Body to non-numeric ([place] fluid by results) [place] count Nephrology [facility]) Monocytes 7.8 % Normal (applies MEDGEN [#/volume] in to non-numeric ([place] Cord blood results) [place] [facility]) Eosinophils 1.6 % Normal (applies MEDGEN [#] in Body to non-numeric ([place] fluid by results) [place] [facility] count Nephrology [facility]) Basophils [#] 0.4 % Normal (applies MEDGEN in Body fluid to non-numeric ([place] by Manual results) [place] count Nephrology [facility]) ID Date Data Source [id number] 08/19/2019 12:00:00 AM EDT MEDGEN ([place] [facility]) Name Value Range Interpretation Description Data Source(s ) Supporting Code Document(s ) Glucose 153 Above high normal MEDGEN [Mass/volume] mg/dL ([place] in Urine [place] collected for Nephrology unspecified [facility]) duration UREA NITROGEN 28 mg/dL Above high normal [facility] (BUN) [facility] Creatinine 1.07 Above high normal MEDGEN [Interpretation mg/dL ([facility] ] [facility] [place] [facility] eGFR NON-AFR. 50 Below low normal MEDGEN [place] mL/min/1 ([facility] .73m2 [place] [facility]) eGFR 58 Below low normal MEDGEN [place] mL/min/1 ([facility] .73m2 [place] [facility] BUN/CREATININE 26 Above high normal MEDGEN RATIO (calc) ([facility] Sodium 136 Normal (applies MEDGEN [Moles/volume] mmol/L to non-numeric ([facility] in Serum, results) [place] Plasma or Blood Nephrology [facility]) Potassium 4.5 Normal (applies MEDGEN [Mass/volume] mmol/L to non-numeric ([facility] in Blood results) [place] [facility]) Chloride 103 Normal (applies MEDGEN [Moles/volume] mmol/L to non-numeric ([facility] in Serum, results) [place] Plasma or Blood Nephrology [facility]) Carbon dioxide 24 Normal (applies MEDGEN [VFr/PPres] in mmol/L to non-numeric ([facility] Gas delivery results) [place] [facility]ph[facility]) Calcium 9.9 Normal (applies MEDGEN [Moles/volume] mg/dL to non-numeric ([facility] in Urine results) [place] collected for Nephrology unspecified [facility]) duration PROTEIN, TOTAL 7.2 g/dL Normal (applies MEDGEN to non-numeric ([facility] results) [place] [facility]) Microalbumin 4.3 g/dL Normal (applies MEDGEN [Mass/time] in to non-numeric ([facility] Urine collected results) [place] for unspecified Nephrology duration [facility]) Globulin 2.9 g/dL Normal (applies MEDGEN [Mass/time] in (calc) to non-numeric ([facility] 24 hour Urine results) [place] [facility]) ALBUMIN/GLOBULI 1.5 Normal (applies MEDGEN N RATIO (calc) to non-numeric ([facility] results) [place] [facility]) BILIRUBIN, 0.2 Normal (applies MEDGEN TOTAL mg/dL to non-numeric ([facility] results) [place] [facility]) Alkaline 86 U/L Normal (applies MEDGEN phosphatase to non-numeric ([facility] [Enzymatic results) [place] activity/volume Nephrology ] in Serum, [facility]) Plasma or Blood AST 13 U/L Normal (applies MEDGEN to non-numeric ([facility] results) [place] [facility]) ALT 12 U/L Normal (applies MEDGEN to non-numeric ([facility] results) [place] [facility]) ID Date Data Source [id number] 05/06/2019 12:00:00 AM EST MEDGEN ([place] [facility]) Name Value Range Interpretation Description Data Source(s ) Supporting Code Document(s ) Glucose 153 Above high normal MEDGEN [Mass/volume] mg/dL ([place] in Urine [place] collected for Nephrology unspecified [facility]) duration Sodium 137 Normal (applies MEDGEN [Moles/volume] mmol/L to non-numeric ([facility] in Serum, results) [place] Plasma or Blood Nephrology [facility]) Potassium 5.2 Normal (applies MEDGEN [Mass/volume] mmol/L to non-numeric ([facility] in Blood results) [place] [facility]) Chloride 102 Normal (applies MEDGEN [Moles/volume] mmol/L to non-numeric ([facility] in Serum, results) [place] Plasma or Blood Nephrology [facility]) Carbon dioxide 26 Normal (applies MEDGEN [VFr/PPres] in mmol/L to non-numeric ([facility] Gas delivery results) [place] system [facility]phrology [facility]) Urea nitrogen 18 mg/dL Normal (applies MEDGEN [Moles/volume] to non-numeric ([facility] in Blood results) [place] [facility]) Creatinine 0.96 Above high normal MEDGEN [Interpretation mg/dL ([place] ] in Urine [place] [facility]) BUN/CREATININE 19 Normal (applies MEDGEN RATIO (calc) to non-numeric ([facility] results) [place] [facility]) Calcium 10.2 Normal (applies MEDGEN [Moles/volume] mg/dL to non-numeric ([facility] in Urine results) [place] collected for Nephrology unspecified [facility]) duration PROTEIN, TOTAL 7.4 g/dL Normal (applies MEDGEN to non-numeric ([facility] results) [place] [facility]) Microalbumin 4.3 g/dL Normal (applies MEDGEN [Mass/time] in to non-numeric ([facility] Urine collected results) [place] for unspecified Nephrology duration [facility]) Globulin 3.1 g/dL Normal (applies MEDGEN [Mass/time] in (calc) to non-numeric ([facility] 24 hour Urine results) [place] [facility]) ALBUMIN/GLOBULI 1.4 Normal (applies MEDGEN N RATIO (calc) to non-numeric ([facility] results) [place] [facility]) BILIRUBIN,TOTAL 0.2 Normal (applies MEDGEN mg/dL to non-numeric ([facility] results) [place] [facility]) Alkaline 93 U/L Normal (applies MEDGEN phosphatase to non-numeric ([facility] [Enzymatic results) [place] activity/volume Nephrology ] in Serum, [facility]) Plasma or Blood AST 12 U/L Normal (applies MEDGEN to non-numeric ([facility] results) [place] [facility]) ALT 12 U/L Normal (applies MEDGEN to non-numeric ([facility] results) [place] [facility]) EGFR NON AFR 57 Below low normal MEDGEN [place] mL/min/1 ([place] .73m2 [place] [facility]) EGFR 67 Normal (applies MEDGEN [place] mL/min/1 to non-numeric ([place] .73m2 results) [place] [facility]) ID Date Data Source [id number] 05/06/2019 12:00:00 AM EST MEDGEN ([facility] m[facility]ica [place] [facility]) Name Value Range Interpretation Description Data Source(s ) Supporting Code Document(s ) Glucose 153 Above high normal MEDGEN [Mass/volume] mg/dL ([place] in Urine [place] collected for Nephrology unspecified [facility]) duration Sodium 137 Normal (applies MEDGEN [Moles/volume] mmol/L to non-numeric ([facility] in Serum, results) [place] Plasma or Blood Nephrology [facility]) Potassium 5.2 Normal (applies MEDGEN [Mass/volume] mmol/L to non-numeric ([facility] in Blood results) [place] [facility]) Chloride 102 Normal (applies MEDGEN [Moles/volume] mmol/L to non-numeric ([facility] in Serum, results) [place] Plasma or Blood Nephrology [facility]) Carbon dioxide 26 Normal (applies MEDGEN [VFr/PPres] in mmol/L to non-numeric ([facility] Gas delivery results) [place] [facility]) Urea nitrogen 18 mg/dL Normal (applies MEDGEN [Moles/volume] to non-numeric ([facility] in Blood results) [place] [facility]) Creatinine 0.96 Above high normal MEDGEN [Interpretation mg/dL ([facility] ] in Urine [place] [facility]) BUN/CREATININE 19 Normal (applies MEDGEN RATIO (calc) to non-numeric ([facility] results) [place] [facility]) Calcium 10.2 Normal (applies MEDGEN [Moles/volume] mg/dL to non-numeric ([facility] in Urine results) [place] collected for Nephrology unspecified [facility]) duration PROTEIN, TOTAL 7.4 g/dL Normal (applies MEDGEN to non-numeric ([facility] results) [place] [facility]) Microalbumin 4.3 g/dL Normal (applies MEDGEN [Mass/time] in to non-numeric ([facility] Urine collected results) [place] for unspecified Nephrology duration [facility]) Globulin 3.1 g/dL Normal (applies MEDGEN [Mass/time] in (calc) to non-numeric ([facility] 24 hour Urine results) [place] [facility]) ALBUMIN/GLOBULI 1.4 Normal (applies MEDGEN N RATIO (calc) to non-numeric ([facility] results) [place] [facility]) BILIRUBIN,TOTAL 0.2 Normal (applies MEDGEN mg/dL to non-numeric ([facility] results) [place] [facility]) Alkaline 93 U/L Normal (applies MEDGEN phosphatase to non-numeric ([facility] [Enzymatic results) [place] activity/volume Nephrology ] in Serum, [facility]) Plasma or Blood AST 12 U/L Normal (applies MEDGEN to non-numeric ([facility] results) [place] [facility]) ALT 12 U/L Normal (applies MEDGEN to non-numeric ([facility] results) [place] [facility]) EGFR NON AFR 57 Below low normal MEDGEN [place] mL/min/1 ([place] .73m2 [place] [facility]) EGFR 67 Normal (applies MEDGEN [place] mL/min/1 to non-numeric ([facility] .73m2 results) [place] [facility]) ID Date Data Source [id number] 05/06/2019 12:00:00 AM EST MEDGEN ([facility] mónica [place] [facility]) Name Value Range Interpretation Description Data Source(s ) Supporting Code Document(s ) Glucose 153 Above high normal MEDGEN [Mass/volume] mg/dL ([place] in Urine [place] for Nephrology unspecified [facility]) duration Sodium 137 Normal (applies MEDGEN [Moles/volume] mmol/L to non-numeric ([facility] in Serum, results) [place] Plasma or Blood Nephrology [facility]) Potassium 5.2 Normal (applies MEDGEN [Mass/volume] mmol/L to non-numeric ([facility] in Blood results) [place] [facility]) Chloride 102 Normal (applies MEDGEN [Moles/volume] mmol/L to non-numeric ([facility] in Serum, results) [place] Plasma or Blood Nephrology [facility]) Carbon dioxide 26 Normal (applies MEDGEN [VFr/PPres] in mmol/L to non-numeric ([facility] Gas delivery results) [place] [facility]) Urea nitrogen 18 mg/dL Normal (applies MEDGEN [Moles/volume] to non-numeric ([facility] in Blood results) [place] [facility]) Creatinine 0.96 Above high normal MEDGEN [Interpretation mg/dL ([facility] ] [facility] [place] [facility] BUN/CREATININE 19 Normal (applies MEDGEN RATIO (calc) to non-numeric ([facility] results) [place] [facility]) Calcium 10.2 Normal (applies MEDGEN [Moles/volume] mg/dL to non-numeric ([facility] in Urine results) [place] for Nephrology unspecified [facility]) duration PROTEIN, TOTAL 7.4 g/dL Normal (applies MEDGEN to non-numeric ([facility] results) [place] [facility]) Microalbumin 4.3 g/dL Normal (applies MEDGEN [Mass/time] in to non-numeric ([facility] Urine collected results) [place] [facility] duration [facility]) Globulin 3.1 g/dL Normal (applies MEDGEN [Mass/time] in (calc) to non-numeric ([facility] 24 hour Urine results) [place] [facility]) ALBUMIN/GLOBULI 1.4 Normal (applies MEDGEN N RATIO (calc) to non-numeric ([facility] results) [place] [facility]) BILIRUBIN,TOTAL 0.2 Normal (applies MEDGEN mg/dL to non-numeric ([facility] results) [place] [facility]) Alkaline 93 U/L Normal (applies MEDGEN phosphatase to non-numeric ([facility] [Enzymatic results) [place] activity[facility] ] in Serum, [facility]) Plasma or Blood AST 12 U/L Normal (applies MEDGEN to non-numeric ([facility] results) [place] [facility]) ALT 12 U/L Normal (applies MEDGEN to non-numeric ([facility] results) [place] [facility]) EGFR NON AFR 57 Below low normal MED[facility] [place] mL/min/1 ([place] .73m2 [place] [facility]) EGFR 67 Normal (applies MEDGEN [place] mL/min/1 to non-numeric ([place] .73m2 results) [place] [facility]) ID Date Data Source [id number] 05/06/2019 12:00:00 AM EST MEDGEN ([facility] mónica [place] [facility]) Name Value Range Interpretation Description Data Source(s ) Supporting Code Document(s ) Glucose 153 Above high normal MEDGEN [Mass/volume] mg/dL ([facility] in Urine [place] collected for Nephrology unspecified [facility]) duration Sodium 137 Normal (applies MEDGEN [Moles/volume] mmol/L to non-numeric ([facility] in Serum, results) [place] Plasma or Blood Nephrology [facility]) Potassium 5.2 Normal (applies MEDGEN [Mass/volume] mmol/L to non-numeric ([facility] in Blood results) [place] [facility]) Chloride 102 Normal (applies MEDGEN [Moles/volume] mmol/L to non-numeric ([facility] in Serum, results) [place] Plasma or Blood Nephrology [facility]) Carbon dioxide 26 Normal (applies MEDGEN [VFr/PPres] in mmol/L to non-numeric ([facility] Gas delivery results) [place] [facility]) Urea nitrogen 18 mg/dL Normal (applies MEDGEN [Moles/volume] to non-numeric ([facility] in Blood results) [place] [facility]) Creatinine 0.96 Above high normal MEDGEN [Interpretation mg/dL ([facility] ] in Urine [place] [facility]) BUN/CREATININE 19 Normal (applies MEDGEN RATIO (calc) to non-numeric ([facility] results) [place] [facility]) Calcium 10.2 Normal (applies MEDGEN [Moles/volume] mg/dL to non-numeric ([facility] in Urine results) [place] collected for Nephrology unspecified [facility]) duration PROTEIN, TOTAL 7.4 g/dL Normal (applies MEDGEN to non-numeric ([facility] results) [place] [facility]) Microalbumin 4.3 g/dL Normal (applies MEDGEN [Mass/time] in to non-numeric ([facility] Urine collected results) [place] Nephrology duration [facility]) Globulin 3.1 g/dL Normal (applies MEDGEN [Mass/time] in (calc) to non-numeric ([facility] 24 hour Urine results) [place] [facility] ALBUMIN/GLOBULI 1.4 Normal (applies MEDGEN N RATIO (calc) to non-numeric ([facility] results) [place] [facility]) BILIRUBIN,TOTAL 0.2 Normal (applies MEDGEN mg/dL to non-numeric ([facility] results) [place] [facility]) Alkaline 93 U/L Normal (applies MEDGEN phosphatase to non-numeric ([facility] [Enzymatic results) [place] activity[facility] ] in Serum, [facility]) Plasma or Blood AST 12 U/L Normal (applies MEDGEN to non-numeric ([facility] results) [place] [facility]) ALT 12 U/L Normal (applies MEDGEN to non-numeric ([facility] results) [place] [facility]) EGFR NON AFR 57 Below low normal MED[facility] [place] mL/min/1 ([place] .73m2 [place] [facility]) EGFR 67 Normal (applies MEDGEN [place] mL/min/1 to non-numeric ([place] .73[facility]2 results) [place] [facility] ID Date Data Source [id number] 05/06/2019 12:00:00 AM EST MEDGEN ([facility] mónica [place] [facility]) Name Value Range Interpretation Description Data Source(s ) Supporting Code Document(s ) Glucose 153 Above high normal MEDGEN [Mass/volume] mg/dL ([facility] in Urine [place] collected for Nephrology unspecified [facility]) duration Sodium 137 Normal (applies MEDGEN [Moles/volume] mmol/L to non-numeric ([facility] in Serum, results) [place] Plasma or Blood Nephrology [facility]) Potassium 5.2 Normal (applies MEDGEN [Mass/volume] mmol/L to non-numeric ([facility] in Blood results) [place] [facility]) Chloride 102 Normal (applies MEDGEN [Moles/volume] mmol/L to non-numeric ([facility] in Serum, results) [place] Plasma or Blood Nephrology [facility]) Carbon dioxide 26 Normal (applies MEDGEN [VFr/PPres] in mmol/L to non-numeric ([facility] Gas delivery results) [place] [facility]) Urea nitrogen 18 mg/dL Normal (applies MEDGEN [Moles/volume] to non-numeric ([facility] in Blood results) [place] [facility]) Creatinine 0.96 Above high normal MEDGEN [Interpretation mg/dL ([facility] ] [facility]rine [place] [facility] BUN/CREATININE 19 Normal (applies MEDGEN RATIO (calc) to non-numeric ([facility] results) [place] [facility]) Calcium 10.2 Normal (applies MEDGEN [Moles/volume] mg/dL to non-numeric ([facility] in Urine results) [place] collected for Nephrology unspecified [facility]) duration PROTEIN, TOTAL 7.4 g/dL Normal (applies MEDGEN to non-numeric ([facility] results) [place] [facility]) Microalbumin 4.3 g/dL Normal (applies MEDGEN [Mass/time] in to non-numeric ([facility] Urine collected results) [place] Nephrology duration [facility]) Globulin 3.1 g/dL Normal (applies MEDGEN [Mass/time] in (calc) to non-numeric ([facility] 24 hour Urine results) [place] [facility]) ALBUMIN/GLOBULI 1.4 Normal (applies MEDGEN N RATIO (calc) to non-numeric ([facility] results) [place] [facility]) BILIRUBIN,TOTAL 0.2 Normal (applies MEDGEN mg/dL to non-numeric ([facility] results) [place] [facility]) Alkaline 93 U/L Normal (applies MEDGEN phosphatase to non-numeric ([facility] [Enzymatic results) [place] activity/volume [facility] ] in Serum, [facility]) Plasma or Blood AST 12 U/L Normal (applies MEDGEN to non-numeric ([facility] results) [place] [facility]) ALT 12 U/L Normal (applies MEDGEN to non-numeric ([facility] results) [place] [facility]) EGFR NON AFR 57 Below low normal [facility] [place] mL/min/1 ([place] [facility] EGFR 67 Normal (applies MEDGEN [place] mL/min/1 to non-numeric ([place] .73m2 results) [place] [facility]) ID Date Data Source [id number] 05/06/2019 12:00:00 AM EST MEDGEN ([place] [facility]) Name Value Range Interpretation Description Data Source(s ) Supporting Code Document(s ) Glucose 97 mg/dL Normal (applies MEDGEN [Mass/volume] to non-numeric ([facility] in Urine results) [place] for Nephrology unspecified [facility]) duration Sodium 137 Normal (applies MEDGEN [Moles/volume] mmol/L to non-numeric ([facility] in Serum, results) [place] Plasma or Blood Nephrology [facility]) Potassium 5.2 Normal (applies MEDGEN [Mass/volume] mmol/L to non-numeric ([facility] in Blood results) [place] [facility] Chloride 102 Normal (applies MEDGEN [Moles/volume] mmol/L to non-numeric ([facility] in Serum, results) [place] Plasma or Blood Nephrology [facility]) Carbon dioxide 24 Normal (applies MEDGEN [VFr/PPres] in mmol/L to non-numeric ([facility] Gas delivery results) [facility] Nephrology [facility]) Urea nitrogen 22 mg/dL Normal (applies MEDGEN [Moles/volume] to non-numeric ([facility] in Blood results) [place] [facility] Creatinine 1.04 Above high normal MEDGEN [Interpretation mg/dL ([facility] ] [facility]rine [place] [facility] BUN/CREATININE 21 Normal (applies MEDGEN RATIO (calc) to non-numeric ([facility] results) [place] [facility]) Calcium 10.4 Normal (applies MEDGEN [Moles/volume] mg/dL to non-numeric ([facility] in Urine results) [place] collected for Nephrology unspecified [facility]) duration PROTEIN, TOTAL 8.0 g/dL Normal (applies MEDGEN to non-numeric ([facility] results) [place] [facility]) Microalbumin 4.6 g/dL Normal (applies MEDGEN [Mass/time] in to non-numeric ([facility] Urine collected results) [place] Nephrology duration [facility]) Globulin 3.4 g/dL Normal (applies MEDGEN [Mass/time] in (calc) to non-numeric ([facility] 24 hour Urine results) [place] [facility] ALBUMIN/GLOBULI 1.4 Normal (applies MEDGEN N RATIO (calc) to non-numeric ([facility] results) [place] [facility] BILIRUBIN,TOTAL 0.2 Normal (applies MEDGEN mg/dL to non-numeric ([facility] results) [place] [facility]) Alkaline 85 U/L Normal (applies MEDGEN phosphatase to non-numeric ([facility] [Enzymatic results) [place] activity/volume [facility]ph[facility] ] in Serum, [facility]) Plasma or Blood AST 19 U/L Normal (applies MEDGEN to non-numeric ([facility] results) [place] [facility]) ALT 20 U/L Normal (applies MEDGEN to non-numeric ([facility] results) [place] [facility] EGFR NON AFR 53 Below low normal [facility] [place] mL/min/1 ([place] .73m2 [place] [facility]) EGFR 61 Normal (applies MEDGEN [place] mL/min/1 to non-numeric ([facility] .73m2 results) [place] [facility] Glucose 92 mg/dL Normal (applies MEDGEN [Mass/volume] to non-numeric ([facility] in Urine results) [place] for Nephrology unspecified [facility]) duration Sodium 139 Normal (applies MEDGEN [Moles/volume] mmol/L to non-numeric ([facility] in Serum, results) [place] Plasma or Blood Nephrology [facility]) Potassium 4.5 Normal (applies MEDGEN [Mass/volume] mmol/L to non-numeric ([facility] in Blood results) [place] [facility] Chloride 104 Normal (applies MEDGEN [Moles/volume] mmol/L to non-numeric ([facility] in Serum, results) [place] Plasma or Blood Nephrology [facility]) Carbon dioxide 22 Normal (applies MEDGEN [VFr/PPres] in mmol/L to non-numeric ([facility] Gas delivery results) [place] [facility]) Urea nitrogen 11 mg/dL Normal (applies MEDGEN [Moles/volume] to non-numeric ([facility] in Blood results) [place] [facility] Creatinine 0.47 Below low normal MEDGEN [Interpretation mg/dL ([facility] ] [facility] [place] [facility] BUN/CREATININE 23 Above high normal MEDGEN RATIO (calc) ([facility] Nephrology [facility]) Calcium 9.7 Normal (applies MEDGEN [Moles/volume] mg/dL to non-numeric ([facility] in Urine results) [place] for Nephrology unspecified [facility]) duration PROTEIN, TOTAL 6.7 g/dL Normal (applies MEDGEN to non-numeric ([facility] results) [place] [facility] [facility]) Microalbumin 4.4 g/dL Normal (applies MEDGEN [Mass/time] in to non-numeric ([facility] Urine collected results) [place] Nephrology duration [facility]) Globulin 2.3 g/dL Normal (applies MEDGEN [Mass/time] in (calc) to non-numeric ([facility] 24 hour Urine results) [place] [facility] ALBUMIN/GLOBULI 1.9 Normal (applies MEDGEN N RATIO (calc) to non-numeric ([facility] results) [place] [facility]) BILIRUBIN,TOTAL 0.3 Normal (applies MEDGEN mg/dL to non-numeric ([facility] results) [place] [facility]) Alkaline 74 U/L Normal (applies MEDGEN phosphatase to non-numeric ([facility] [Enzymatic results) [place] activity/volume [facility]ph[facility] ] in Serum, [facility]) Plasma or Blood AST 21 U/L Normal (applies MEDGEN to non-numeric ([facility] results) [place] [facility]) ALT 16 U/L Normal (applies MEDGEN to non-numeric ([facility] results) [place] [facility]) EGFR NON AFR 97 Normal (applies [facility]GEN [place] mL/min/1 to non-numeric ([place] .73[place]2 results) [place] [facility]) EGFR 113 Normal (applies [facility]GEN [place] mL/min/1 to non-numeric ([facility] .73m2 results) [place] [facility]) Glucose 133 Normal (applies MEDGEN [Mass/volume] mg/dL to non-numeric ([facility] in Urine results) [place] collected for Nephrology unspecified [facility]) duration Sodium 131 Below low normal MEDGEN [Moles/volume] mmol/L ([facility] in Serum, [place] Plasma or Blood Nephrology [facility]) Potassium 5.1 Normal (applies MEDGEN [Mass/volume] mmol/L to non-numeric ([facility] in Blood results) [place] [facility] [facility]) Chloride 96 Below low normal MEDGEN [Moles/volume] mmol/L ([facility] in Serum, [place] Plasma or Blood Nephrology [facility]) Carbon dioxide 26 Normal (applies MEDGEN [VFr/PPres] in mmol/L to non-numeric ([facility] Gas delivery results) [place] [facility]) Urea nitrogen 28 mg/dL Above high normal MEDGEN [Moles/volume] ([facility] in Blood [place] [facility]) Creatinine 1.21 Above high normal MEDGEN [Interpretation mg/dL ([facility] ] in Urine [place] [facility]) BUN/CREATININE 23 Above high normal MEDGEN RATIO (calc) ([facility] Nephrology [facility]) Calcium 9.4 Normal (applies MEDGEN [Moles/volume] mg/dL to non-numeric ([facility] in Urine results) [place] collected for Nephrology unspecified [facility]) duration PROTEIN, TOTAL 7.0 g/dL Normal (applies MEDGEN to non-numeric ([facility] results) [place] [facility] [facility]) Microalbumin 3.9 g/dL Normal (applies MEDGEN [Mass/time] in to non-numeric ([facility] Urine collected results) [place] Nephrology duration [facility]) Globulin 3.1 g/dL Normal (applies MEDGEN [Mass/time] in (calc) to non-numeric ([facility] 24 hour Urine results) [place] [facility] [facility]) ALBUMIN/GLOBULI 1.3 Normal (applies MEDGEN N RATIO (calc) to non-numeric ([facility] results) [place] [facility]) BILIRUBIN,TOTAL 0.2 Normal (applies MEDGEN mg/dL to non-numeric ([facility] results) [place] [facility]) Alkaline 73 U/L Normal (applies MEDGEN phosphatase to non-numeric ([facility] [Enzymatic results) [place] activity/volume [facility]phrology ] in Serum, [facility]) Plasma or Blood AST 20 U/L Normal (applies MEDGEN to non-numeric ([facility] results) [place] [facility]) ALT 15 U/L Normal (applies MEDGEN to non-numeric ([facility] results) [place] [facility]) EGFR NON AFR 44 Below low normal [facility] [place] mL/min/1 ([place] .73m2 [place] [facility]) EGFR 51 Below low normal [facility] [place] mL/min/1 ([facility] .73m2 [place] [facility]) Glucose 150 Above high normal MEDGEN [Mass/volume] mg/dL ([facility] in Urine [place] for Nephrology unspecified [facility]) duration Sodium 132 Below low normal MEDGEN [Moles/volume] mmol/L ([facility] in Serum, [place] Plasma or Blood Nephrology [facility]) Potassium 4.7 Normal (applies MEDGEN [Mass/volume] mmol/L to non-numeric ([facility] in Blood results) [place] [facility]) Chloride 99 Normal (applies MEDGEN [Moles/volume] mmol/L to non-numeric ([facility] in Serum, results) [place] Plasma or Blood Nephrology [facility]) Carbon dioxide 24 Normal (applies MEDGEN [VFr/PPres] in mmol/L to non-numeric ([facility] Gas delivery results) [place] [facility]) Urea nitrogen 21 mg/dL Normal (applies MEDGEN [Moles/volume] to non-numeric ([facility] in Blood results) [place] [facility]) Creatinine 0.95 Above high normal MEDGEN [Interpretation mg/dL ([facility] ] in Urine [place] [facility]) BUN/CREATININE 22 Normal (applies MEDGEN RATIO (calc) to non-numeric ([facility] results) [place] [facility]) Calcium 10.2 Normal (applies MEDGEN [Moles/volume] mg/dL to non-numeric ([facility] in Urine results) [place] collected for Nephrology unspecified [facility]) duration PROTEIN, TOTAL 7.4 g/dL Normal (applies MEDGEN to non-numeric ([facility] results) [place] [facility]) Microalbumin 4.3 g/dL Normal (applies MEDGEN [Mass/time] in to non-numeric ([facility] Urine collected results) [place] for unspecified Nephrology duration [facility]) Globulin 3.1 g/dL Normal (applies MEDGEN [Mass/time] in (calc) to non-numeric ([facility] 24 hour Urine results) [place] [facility]) ALBUMIN/GLOBULI 1.4 Normal (applies MEDGEN N RATIO (calc) to non-numeric ([facility] results) [facility] [facility]) BILIRUBIN,TOTAL 0.3 Normal (applies MEDGEN mg/dL to non-numeric ([facility] results) [place] [facility]) Alkaline 75 U/L Normal (applies MEDGEN phosphatase to non-numeric ([facility] [Enzym[facility] results) [place] [facility] ] in Serum, [facility]) Plasma or Blood AST 16 U/L Normal (applies MEDGEN to non-numeric ([facility] results) [place] [facility]) ALT 18 U/L Normal (applies MEDGEN to non-numeric ([facility] results) [place] [facility]) EGFR NON AFR 59 Below low normal MEDGEN [place] mL/min/1 ([facility] .73m2 [facility] [facility]) EGFR 68 Normal (applies MEDGEN [place] mL/min/1 to non-numeric ([facility] .73m2 results) [facility] [facility]) Glucose 80 mg/dL Normal (applies MEDGEN [Mass/volume] to non-numeric ([facility] in Urine results) [place] [facility] unspecified [facility]) duration Sodium 138 Normal (applies MEDGEN [Moles/volume] mmol/L to non-numeric ([facility] in Serum, results) [place] [facility] Blood [facility]) Potassium 5.0 Normal (applies MEDGEN [Mass/volume] mmol/L to non-numeric ([facility] in Blood results) [place] [facility]) Chloride 104 Normal (applies MEDGEN [Moles/volume] mmol/L to non-numeric ([facility] in Serum, results) [place] [facility] Blood [facility]) Carbon dioxide 25 Normal (applies MEDGEN [VFr/PPres] in mmol/L to non-numeric ([facility] Gas delivery results) [place] [facility]) Urea nitrogen 28 mg/dL Above high normal MEDGEN [Moles/volume] ([facility] in Blood [facility] [facility]) Creatinine 1.01 Above high normal MEDGEN [Interpretation mg/dL ([facility] ] in Urine [facility] [facility]) BUN/CREATININE 28 Above high normal MEDGEN RATIO (calc) ([facility] Neph[facility]) Calcium 9.9 Normal (applies MEDGEN [Moles/volume] mg/dL to non-numeric ([facility] in Urine results) [place] [facility]) duration PROTEIN, TOTAL 7.2 g/dL Normal (applies MEDGEN to non-numeric ([facility] results) [place] [facility]) Microalbumin 4.2 g/dL Normal (applies MEDGEN [Mass/time] in to non-numeric ([facility] Urine collected results) [place] [facility]) Globulin 3.0 g/dL Normal (applies MEDGEN [Mass/time] in (calc) to non-numeric ([facility] 24 hour Urine results) [place] [facility]) ALBUMIN/GLOBULI 1.4 Normal (applies MEDGEN N RATIO (calc) to non-numeric ([facility] results) [place] [facility]) BILIRUBIN,TOTAL 0.2 Normal (applies MEDGEN mg/dL to non-numeric ([facility] results) [place] [facility]) Alkaline 82 U/L Normal (applies MEDGEN phosphatase to non-numeric ([facility] [Enzymatic results) [place] [facility] ] in Serum, [facility]) Plasma or Blood AST 14 U/L Normal (applies MEDGEN to non-numeric ([facility] results) [place] [facility]) ALT 14 U/L Normal (applies MEDGEN to non-numeric ([facility] results) [place] [facility]) EGFR NON AFR 55 Below low normal [facility] [place] mL/min/1 ([facility] .73m2 [place] [facility]) EGFR 64 Normal (applies [facility]GEN [place] mL/min/1 to non-numeric ([facility] .73m2 results) [place] [facility]) Glucose 187 Above high normal MEDGEN [Mass/volume] mg/dL ([facility] in Urine [place] [facility]) duration Sodium 138 Normal (applies MEDGEN [Moles/volume] mmol/L to non-numeric ([facility] in Serum, results) [place] [facility]) Potassium 4.5 Normal (applies MEDGEN [Mass/volume] mmol/L to non-numeric ([facility] in Blood results) [place] [facility]) Chloride 104 Normal (applies MEDGEN [Moles/volume] mmol/L to non-numeric ([facility] in Serum, results) [place] [facility]) Carbon dioxide 23 Normal (applies MEDGEN [VFr/PPres] in mmol/L to non-numeric ([facility] Gas delivery results) [place] [facility]) Urea nitrogen 30 mg/dL Above high normal MEDGEN [Moles/volume] ([facility] in Blood [place] [facility]) Creatinine 1.19 Above high normal MEDGEN [Interpretation mg/dL ([facility] ] in Urine [place] [facility]) BUN/CREATININE 25 Above high normal MEDGEN RATIO (calc) ([facility]ph[facility]) Calcium 10.0 Normal (applies MEDGEN [Moles/volume] mg/dL to non-numeric ([facility] in Urine results) [place] [facility]) duration PROTEIN, TOTAL 7.2 g/dL Normal (applies MEDGEN to non-numeric ([facility] results) [place] [facility]) Microalbumin 4.2 g/dL Normal (applies MEDGEN [Mass/time] in to non-numeric ([facility] Urine collected results) [place] [facility]) Globulin 3.0 g/dL Normal (applies MEDGEN [Mass/time] in (calc) to non-numeric ([facility] 24 hour Urine results) [facility] ALBUMIN/GLOBULI 1.4 Normal (applies MEDGEN N RATIO (calc) to non-numeric ([facility] results) [place] [facility]) BILIRUBIN,TOTAL 0.3 Normal (applies MEDGEN mg/dL to non-numeric ([facility] results) [place] [facility]) Alkaline 90 U/L Normal (applies MEDGEN phosphatase to non-numeric ([facility] [Enzymatic results) [place] [facility] ] in Serum, [facility]) Plasma or Blood AST 13 U/L Normal (applies MEDGEN to non-numeric ([facility] results) [place] [facility]) ALT 12 U/L Normal (applies MEDGEN to non-numeric ([facility] results) [place] [facility]) EGFR NON AFR 45 Below low normal [facility] [place] mL/min/1 ([facility] .73m2 [place] [facility]) EGFR 52 Below low normal [facility] [place] mL/min/1 ([facility] Glucose 149 Above high normal MEDGEN [Mass/volume] mg/dL ([facility] in Urine [place] [facility]) duration Sodium 138 Normal (applies MEDGEN [Moles/volume] mmol/L to non-numeric ([facility] in Serum, results) [place] [facility]) Potassium 4.7 Normal (applies MEDGEN [Mass/volume] mmol/L to non-numeric ([facility] in Blood results) [place] [facility]) Chloride 104 Normal (applies MEDGEN [Moles/volume] mmol/L to non-numeric ([facility] in Serum, results) [place] [facility]) Carbon dioxide 22 Normal (applies MEDGEN [VFr/PPres] in mmol/L to non-numeric ([facility] Gas delivery results) [place] [facility]) Urea nitrogen 30 mg/dL Above high normal MEDGEN [Moles/volume] ([facility] in Blood [place] [facility]) Creatinine 1.12 Above high normal MEDGEN [Interpretation mg/dL ([facility] ] in Urine [place] [facility]) BUN/CREATININE 27 Above high normal MEDGEN RATIO (calc) ([facility]) Calcium 10.1 Normal (applies MEDGEN [Moles/volume] mg/dL to non-numeric ([facility] in Urine results) [place] [facility]) duration PROTEIN, TOTAL 7.0 g/dL Normal (applies MEDGEN to non-numeric ([facility] results) [place] [facility]) Microalbumin 4.2 g/dL Normal (applies MEDGEN [Mass/time] in to non-numeric ([facility] Urine collected results) [place] [facility]) Globulin 2.8 g/dL Normal (applies MEDGEN [Mass/time] in (calc) to non-numeric ([facility] 24 hour Urine results) [place] [facility]) ALBUMIN/GLOBULI 1.5 Normal (applies MEDGEN N RATIO (calc) to non-numeric ([facility] results) [place] [facility]) BILIRUBIN,TOTAL 0.2 Normal (applies MEDGEN mg/dL to non-numeric ([facility] results) [place] [facility]) Alkaline 90 U/L Normal (applies MEDGEN phosphatase to non-numeric ([facility] [Enzymatic results) [place] [facility] ] in Serum, [facility]) Plasma or Blood AST 16 U/L Normal (applies MEDGEN to non-numeric ([facility] results) [place] [facility]) ALT 13 U/L Normal (applies MEDGEN to non-numeric ([facility] results) [place] [facility]) EGFR NON AFR 48 Below low normal MEDGEN [place] mL/min/1 ([facility] .73m2 [place] [facility]) EGFR 56 Below low normal [facility] [place] mL/min/1 ([facility] .73m2 [place] [facility]) Glucose 152 Above high normal MEDGEN [Mass/volume] mg/dL ([facility] in Urine [place] [facility]) duration Sodium 132 Below low normal MEDGEN [Moles/volume] mmol/L ([facility] in Serum, [place] [facility]) Potassium 5.0 Normal (applies MEDGEN [Mass/volume] mmol/L to non-numeric ([facility] in Blood results) [place] [facility]) Chloride 97 Below low normal MEDGEN [Moles/volume] mmol/L ([facility] in Serum, [place] [facility]) Carbon dioxide 24 Normal (applies MEDGEN [VFr/PPres] in mmol/L to non-numeric ([facility] Gas delivery results) [place] [facility]) Urea nitrogen 23 mg/dL Normal (applies MEDGEN [Moles/volume] to non-numeric ([facility] in Blood results) [place] [facility]) Creatinine 0.94 Above high normal MEDGEN [Interpretation mg/dL ([facility] ] in Urine [place] [facility]) BUN/CREATININE 24 Above high normal MEDGEN RATIO (calc) ([facility]) Calcium 10.0 Normal (applies MEDGEN [Moles/volume] mg/dL to non-numeric ([facility] in Urine results) [place] [facility]) duration PROTEIN, TOTAL 7.2 g/dL Normal (applies MEDGEN to non-numeric ([facility] results) [place] [facility]) Microalbumin 4.2 g/dL Normal (applies MEDGEN [Mass/time] in to non-numeric ([facility] Urine collected results) [place] [facility]) Globulin 3.0 g/dL Normal (applies MEDGEN [Mass/time] in (calc) to non-numeric ([facility] 24 hour Urine results) [place] [facility]) ALBUMIN/GLOBULI 1.4 Normal (applies MEDGEN N RATIO (calc) to non-numeric ([facility] results) [place] [facility]) BILIRUBIN,TOTAL 0.2 Normal (applies MEDGEN mg/dL to non-numeric ([facility] results) [place] [facility]) Alkaline 88 U/L Normal (applies MEDGEN phosphatase to non-numeric ([facility] [En[facility] results) [place] [facility] ] in Serum, [facility]) Plasma or Blood AST 14 U/L Normal (applies MEDGEN to non-numeric ([facility]) [place] [facility]) ALT 13 U/L Normal (applies MEDGEN to non-numeric ([facility]) [place] [facility]) EGFR NON AFR 59 Below low normal [facility] [place] mL/min/1 ([facility] .73m2 [place] [facility]) EGFR 69 Normal (applies MEDGEN [place] mL/min/1 to non-numeric ([facility] .73m2 results) [place] [facility]) Glucose 158 Above high normal MEDGEN [Mass/volume] mg/dL ([facility] in Urine [place] [facility]) duration Sodium 136 Normal (applies MEDGEN [Moles/volume] mmol/L to non-numeric ([facility] in Serum, results) [place] [facility]) Potassium 5.0 Normal (applies MEDGEN [Mass/volume] mmol/L to non-numeric ([facility] in Blood results) [place] [facility]) Chloride 103 Normal (applies MEDGEN [Moles/volume] mmol/L to non-numeric ([facility] in Serum, results) [place] [facility]) Carbon dioxide 24 Normal (applies MEDGEN [VFr/PPres] in mmol/L to non-numeric ([facility] Gas delivery results) [place] [facility]) Urea nitrogen 24 mg/dL Normal (applies MEDGEN [Moles/volume] to non-numeric ([facility] in Blood results) [place] [facility]) Creatinine 1.01 Above high normal MEDGEN [Interpretation mg/dL ([facility] ] in Urine [place] [facility]) BUN/CREATININE 24 Above high normal [facility] RATIO (calc) [facility] Calcium 10.0 Normal (applies MEDGEN [Moles/volume] mg/dL to non-numeric ([facility] in Urine results) [place] [facility]) duration PROTEIN, TOTAL 7.3 g/dL Normal (applies MEDGEN to non-numeric ([facility] results) [place] [facility]) Microalbumin 4.2 g/dL Normal (applies MEDGEN [Mass/time] in to non-numeric ([facility] Urine collected results) [place] [facility]) Globulin 3.1 g/dL Normal (applies MEDGEN [Mass/time] in (calc) to non-numeric ([facility] 24 hour Urine results) [place] [facility]) ALBUMIN/GLOBULI 1.4 Normal (applies MEDGEN N RATIO (calc) to non-numeric ([facility] results) [place] [facility]) BILIRUBIN,TOTAL 0.2 Normal (applies [facility]GEN mg/dL to non-numeric ([facility]) [place] [facility]) Alkaline 83 U/L Normal (applies MEDGEN phosphatase to non-numeric ([facility] [Enzymatic results) [place] [facility] ] in Serum, [facility]) Plasma or Blood AST 14 U/L Normal (applies MEDGEN to non-numeric ([facility] results) [place] [facility]) ALT 14 U/L Normal (applies MEDGEN to non-numeric ([facility] results) [place] [facility]) EGFR NON AFR 54 Below low normal [facility] [place] mL/min/1 ([facility] .73m2 [place] [facility]) EGFR 63 Normal (applies [facility] [place] mL/min/1 to non-numeric ([facility] .73m2 results) [place] [facility]) Glucose 120 Normal (applies MEDGEN [Mass/volume] mg/dL to non-numeric ([facility] in Urine results) [place] [facility]) duration Sodium 136 Normal (applies [facility]GEN [Moles/volume] mmol/L to non-numeric ([facility] in Serum, results) [place] [facility]) Potassium 4.9 Normal (applies MEDGEN [Mass/volume] mmol/L to non-numeric ([facility] in Blood results) [place] [facility]) Chloride 102 Normal (applies MEDGEN [Moles/volume] mmol/L to non-numeric ([facility] in Serum, results) [place] [facility]) Carbon dioxide 24 Normal (applies [facility]GEN [VFr/PPres] in mmol/L to non-numeric ([facility] Gas delivery results) [place] [facility]) Urea nitrogen 21 mg/dL Normal (applies [facility]GEN [Moles/volume] to non-numeric ([facility] in Blood results) [place] [facility]) Creatinine 1.09 Above high normal MEDGEN [Interpretation mg/dL ([facility] ] in [place] [facility]) BUN/CREATININE 19 Normal (applies MEDGEN RATIO (calc) to non-numeric ([facility] results) [place] [facility]) Calcium 9.9 Normal (applies [facility]GEN [Moles/volume] mg/dL to non-numeric ([facility] in Urine results) [place] [facility]) duration PROTEIN, TOTAL 7.3 g/dL Normal (applies MEDGEN to non-numeric ([facility] results) [place] [facility]) Microalbumin 4.2 g/dL Normal (applies MEDGEN [Mass/time] in to non-numeric ([facility] Urine collected results) [place] [facility]) Globulin 3.1 g/dL Normal (applies MEDGEN [Mass/time] in (calc) to non-numeric ([facility] 24 hour Urine results) [facility] ALBUMIN/GLOBULI 1.4 Normal (applies MEDGEN N RATIO (calc) to non-numeric ([facility] results) [facility] BILIRUBIN,TOTAL 0.2 Normal (applies MEDGEN mg/dL to non-numeric ([facility] results) [place] [facility]) Alkaline 81 U/L Normal (applies MEDGEN phosphatase to non-numeric ([facility] [Enzymatic results) [place] [facility] ] in Serum, [facility]) Plasma or Blood AST 14 U/L Normal (applies MEDGEN to non-numeric ([facility] results) [place] [facility]) ALT 11 U/L Normal (applies MEDGEN to non-numeric ([facility] results) [place] [facility]) EGFR NON AFR 49 Below low normal [facility] [place] mL/min/1 ([facility] .73m2 [place] [facility]) EGFR 57 Below low normal [facility] [place] mL/min/1 ([facility] .73m2 [place] [facility]) Glucose 93 mg/dL Normal (applies MEDGEN [Mass/volume] to non-numeric ([facility] in Urine results) [place] [facility]) duration Sodium 136 Normal (applies [facility]GEN [Moles/volume] mmol/L to non-numeric ([facility] in Serum, results) [place] [facility]) Potassium 4.5 Normal (applies [facility]GEN [Mass/volume] mmol/L to non-numeric ([facility] in Blood results) [place] [facility]) Chloride 101 Normal (applies [facility]GEN [Moles/volume] mmol/L to non-numeric ([facility] in Serum, results) [place] [facility]) Carbon dioxide 22 Normal (applies [facility]GEN [VFr/PPres] in mmol/L to non-numeric ([facility] Gas delivery results) [place] [facility]) Urea nitrogen 29 mg/dL Above high normal MEDGEN [Moles/volume] ([facility] in Blood [place] [facility]) Creatinine 0.93 Normal (applies MEDGEN [Interpretation mg/dL to non-numeric ([facility] ] in Urine results) [place] [facility]) BUN/CREATININE 31 Above high normal MEDGEN RATIO (calc) ([facility] Neph[facility]) Calcium 9.7 Normal (applies [facility]GEN [Moles/volume] mg/dL to non-numeric ([facility] in Urine results) [place] [facility] for [facility] unspecified [facility]) duration PROTEIN, TOTAL 7.4 g/dL Normal (applies MEDGEN to non-numeric ([facility] results) [place] [facility]) Microalbumin 4.4 g/dL Normal (applies [facility]GEN [Mass/time] in to non-numeric ([facility] Urine collected results) [place] [facility]) Globulin 3.0 g/dL Normal (applies MEDGEN [Mass/time] in (calc) to non-numeric ([facility] 24 hour Urine results) [facility] [facility] ALBUMIN/GLOBULI 1.5 Normal (applies MEDGEN N RATIO (calc) to non-numeric ([facility] results) [place] [facility]) BILIRUBIN,TOTAL 0.2 Normal (applies MEDGEN mg/dL to non-numeric ([facility] results) [place] [facility]) Alkaline 83 U/L Normal (applies MEDGEN phosphatase to non-numeric ([facility] [Enzymatic results) [place] [facility] ] in Serum, [facility]) Plasma or Blood AST 15 U/L Normal (applies MEDGEN to non-numeric ([facility] results) [place] [facility]) ALT 14 U/L Normal (applies MEDGEN to non-numeric ([facility] results) [place] [facility]) EGFR NON AFR 61 Normal (applies [facility] [place] mL/min/1 to non-numeric ([facility] .73[facility]2 results) [place] [facility]) EGFR 70 Normal (applies [facility] [place] mL/min/1 to non-numeric ([facility] .73m2 results) [place] [facility]) Glucose 83 mg/dL Normal (applies [facility] [Mass/volume] to non-numeric ([facility] in Urine results) [place] [facility] for [facility] unspecified [facility]) duration Sodium 136 Normal (applies [facility]GEN [Moles/volume] mmol/L to non-numeric ([facility] in Serum, results) [place] [facility] Blood [facility]) Potassium 5.2 Normal (applies MEDGEN [Mass/volume] mmol/L to non-numeric ([facility] in Blood results) [place] [facility]) Chloride 100 Normal (applies MEDGEN [Moles/volume] mmol/L to non-numeric ([facility] in Serum, results) [place] [facility] or Blood [facility]ph[facility]) Carbon dioxide 24 Normal (applies MEDGEN [VFr/PPres] in mmol/L to non-numeric ([facility] Gas delivery results) [place] [facility]) Urea nitrogen 27 mg/dL Above high normal MEDGEN [Moles/volume] ([facility] Blood [facility] Creatinine 1.01 Above high normal MEDGEN [Interpretation mg/dL ([facility] ] [facility] Urine [facility] [facility] BUN/CREATININE 27 Above high normal MEDGEN RATIO (calc) ([facility] Calcium 9.9 Normal (applies MEDGEN [Moles/volume] mg/dL to non-numeric ([facility] in Urine results) [place] [facility] for Nephrology unspecified [facility]) duration PROTEIN, TOTAL 7.5 g/dL Normal (applies MEDGEN to non-numeric ([facility] results) [place] [facility]) Microalbumin 4.8 g/dL Normal (applies MEDGEN [Mass/time] in to non-numeric ([facility] Urine collected results) [place] [facility] Neph[facility] duration [facility]) Globulin 2.7 g/dL Normal (applies MEDGEN [Mass/time] in (calc) to non-numeric ([facility] 24 hour Urine results) [place] [facility] ALBUMIN/GLOBULI 1.8 Normal (applies MEDGEN N RATIO (calc) to non-numeric ([facility] results) [place] [facility] BILIRUBIN,TOTAL 0.2 Normal (applies MEDGEN mg/dL to non-numeric ([place] results) [place] [facility]) Alkaline 84 U/L Normal (applies MEDGEN phosphatase to non-numeric ([facility] [Enzymatic results) [place] activity/volume [facility]phrology ] in Serum, [facility]) Plasma or Blood AST 17 U/L Normal (applies MEDGEN to non-numeric ([facility] results) [place] [facility]) ALT 17 U/L Normal (applies MEDGEN to non-numeric ([facility] results) [place] [facility] EGFR NON AFR 55 Below low normal MEDGEN [place] mL/min/1 ([place] .73m2 [place] [facility]) EGFR 64 Normal (applies MEDGEN [place] mL/min/1 to non-numeric ([facility] .73m2 results) [place] [facility]) Glucose 183 Above high normal MEDGEN [Mass/volume] mg/dL ([facility] in Urine [place] for Nephrology unspecified [facility]) duration Sodium 133 Below low normal MEDGEN [Moles/volume] mmol/L ([facility] in Serum, [place] [facility]) Potassium 4.8 Normal (applies MEDGEN [Mass/volume] mmol/L to non-numeric ([facility] in Blood results) [place] [facility] Chloride 98 Normal (applies MEDGEN [Moles/volume] mmol/L to non-numeric ([facility] in Serum, results) [place] [facility]) Carbon dioxide 26 Normal (applies MEDGEN [VFr/PPres] in mmol/L to non-numeric ([facility] Gas delivery results) [place] [facility]) Urea nitrogen 20 mg/dL Normal (applies MEDGEN [Moles/volume] to non-numeric ([facility] in Blood results) [place] [facility] Creatinine 1.05 Above high normal MEDGEN [Interpretation mg/dL ([facility] ] [facility] Urine [place] [facility]) BUN/CREATININE 19 Normal (applies MEDGEN RATIO (calc) to non-numeric ([facility] results) [place] [facility]) Calcium 10.0 Normal (applies MEDGEN [Moles/volume] mg/dL to non-numeric ([facility] in Urine results) [place] [facility] for [facility]phrology unspecified [facility]) duration PROTEIN, TOTAL 7.4 g/dL Normal (applies MEDGEN to non-numeric ([place] [facility]) [place] [facility]) Microalbumin 4.2 g/dL Normal (applies MEDGEN [Mass/time] in to non-numeric ([facility] Urine collected results) [place] [facility] Neph[facility] duration [facility]) Globulin 3.2 g/dL Normal (applies MEDGEN [Mass/time] in (calc) to non-numeric ([facility] 24 hour Urine results) [place] [facility]) ALBUMIN/GLOBULI 1.3 Normal (applies MEDGEN N RATIO (calc) to non-numeric ([facility] results) [place] [facility]) BILIRUBIN,TOTAL 0.2 Normal (applies MEDGEN mg/dL to non-numeric ([facility] results) [place] [facility]) Alkaline 79 U/L Normal (applies MEDGEN phosphatase to non-numeric ([facility] [Enzymatic results) [place] [facility] ] in Serum, [facility]) Plasma or Blood AST 20 U/L Normal (applies MEDGEN to non-numeric ([facility] results) [place] [facility]) ALT 20 U/L Normal (applies MEDGEN to non-numeric ([facility] results) [place] [facility]) EGFR NON AFR 52 Below low normal MEDGEN [place] mL/min/1 ([place] .73m2 [place] [facility]) EGFR 60 Normal (applies MEDGEN [place] mL/min/1 to non-numeric ([place] .73m2 results) [place] [facility]) Glucose 82 mg/dL Normal (applies MEDGEN [Mass/volume] to non-numeric ([facility] in Urine results) [place] [facility] for [facility]ph[facility] unspecified [facility]) duration Sodium 134 Below low normal MEDGEN [Moles/volume] mmol/L ([facility] in Serum, [place] [facility]) Potassium 4.4 Normal (applies MEDGEN [Mass/volume] mmol/L to non-numeric ([facility] in Blood results) [place] [facility]) Chloride 101 Normal (applies MEDGEN [Moles/volume] mmol/L to non-numeric ([facility] in Serum, results) [place] [facility]) Carbon dioxide 25 Normal (applies MEDGEN [VFr/PPres] in mmol/L to non-numeric ([facility] Gas delivery results) [place] [facility]) Urea nitrogen 26 mg/dL Above high normal MEDGEN [Moles/volume] ([facility] in Blood [place] [facility]) Creatinine 1.20 Above high normal MEDGEN [Interpretation mg/dL ([facility] ] in Urine [place] [facility]) BUN/CREATININE 22 Normal (applies MEDGEN RATIO (calc) to non-numeric ([facility] results) [place] [facility]) Calcium 10.3 Normal (applies MEDGEN [Moles/volume] mg/dL to non-numeric ([facility] in Urine results) [place] [facility] for [facility] unspecified [facility]) duration PROTEIN, TOTAL 7.8 g/dL Normal (applies MEDGEN to non-numeric ([facility] results) [place] [facility]) Microalbumin 4.5 g/dL Normal (applies MEDGEN [Mass/time] in to non-numeric ([facility] Urine collected results) [place] [facility] duration [facility]) Globulin 3.3 g/dL Normal (applies MEDGEN [Mass/time] in (calc) to non-numeric ([facility] 24 hour Urine results) [place] [facility]) ALBUMIN/GLOBULI 1.4 Normal (applies MEDGEN N RATIO (calc) to non-numeric ([facility] results) [place] [facility]) BILIRUBIN,TOTAL 0.3 Normal (applies MEDGEN mg/dL to non-numeric ([facility] results) [place] [facility]) Alkaline 86 U/L Normal (applies MEDGEN phosphatase to non-numeric ([facility] [Enzymatic results) [place] [facility] ] in Serum, [facility]) Plasma or Blood AST 13 U/L Normal (applies MEDGEN to non-numeric ([facility] results) [place] [facility]) ALT 12 U/L Normal (applies MEDGEN to non-numeric ([facility] results) [place] [facility]) EGFR NON AFR 44 Below low normal MEDGEN [place] mL/min/1 ([facility] .73m2 [place] [facility]) EGFR 51 Below low normal MEDGEN [place] mL/min/1 ([facility] .73m2 [place] [facility]) Glucose 153 Above high normal MEDGEN [Mass/volume] mg/dL ([facility] in Urine [place] for Nephrology unspecified [facility]) duration Sodium 137 Normal (applies MEDGEN [Moles/volume] mmol/L to non-numeric ([facility] in Serum, results) [place] [facility]) Potassium 5.2 Normal (applies MEDGEN [Mass/volume] mmol/L to non-numeric ([facility] in Blood results) [place] [facility]) Chloride 102 Normal (applies MEDGEN [Moles/volume] mmol/L to non-numeric ([facility] in Serum, results) [place] [facility]) Carbon dioxide 26 Normal (applies MEDGEN [VFr/PPres] in mmol/L to non-numeric ([facility] Gas delivery results) [place] [facility]) Urea nitrogen 18 mg/dL Normal (applies MEDGEN [Moles/volume] to non-numeric ([facility] in Blood results) [place] [facility]) Creatinine 0.96 Above high normal MEDGEN [Interpretation mg/dL ([facility] ] in Urine [place] [facility]) BUN/CREATININE 19 Normal (applies MEDGEN RATIO (calc) to non-numeric ([facility] results) [place] [facility]) Calcium 10.2 Normal (applies MEDGEN [Moles/volume] mg/dL to non-numeric ([facility] in Urine results) [place] [facility] for [facility] unspecified [facility]) duration PROTEIN, TOTAL 7.4 g/dL Normal (applies MEDGEN to non-numeric ([facility] results) [place] [facility]) Microalbumin 4.3 g/dL Normal (applies MEDGEN [Mass/time] in to non-numeric ([facility] Urine collected results) [place] [facility] Neph[facility] duration [facility]) Globulin 3.1 g/dL Normal (applies MEDGEN [Mass/time] in (calc) to non-numeric ([facility] 24 hour Urine results) [place] [facility]) ALBUMIN/GLOBULI 1.4 Normal (applies MEDGEN N RATIO (calc) to non-numeric ([facility] results) [place] [facility]) BILIRUBIN,TOTAL 0.2 Normal (applies MEDGEN mg/dL to non-numeric ([facility] results) [place] [facility]) Alkaline 93 U/L Normal (applies MEDGEN phosphatase to non-numeric ([facility] [Enzymatic results) [place] activity[facility] ] in Serum, [facility]) Plasma or Blood AST 12 U/L Normal (applies MEDGEN to non-numeric ([facility] results) [place] [facility]) ALT 12 U/L Normal (applies MEDGEN to non-numeric ([facility] results) [place] [facility]) EGFR NON AFR 57 Below low normal MEDGEN [place] mL/min/1 ([place] .73m2 [place] [facility]) EGFR 67 Normal (applies MEDGEN [place] mL/min/1 to non-numeric ([facility] .73m2 results) [place] [facility]) Glucose 76 mg/dL Normal (applies MEDGEN [Mass/volume] to non-numeric ([facility] in Urine results) [place] for [facility] unspecified [facility]) duration Sodium 138 Normal (applies MEDGEN [Moles/volume] mmol/L to non-numeric ([facility] in Serum, results) [place] [facility]) Potassium 4.5 Normal (applies MEDGEN [Mass/volume] mmol/L to non-numeric ([facility] in Blood results) [place] [facility]) Chloride 106 Normal (applies MEDGEN [Moles/volume] mmol/L to non-numeric ([facility] in Serum, results) [place] [facility]) Carbon dioxide 24 Normal (applies MEDGEN [VFr/PPres] in mmol/L to non-numeric ([facility] Gas delivery results) [place] [facility]) Urea nitrogen 29 mg/dL Above high normal MEDGEN [Moles/volume] ([facility] in Blood [place] [facility]) Creatinine 1.01 Above high normal MEDGEN [Interpretation mg/dL ([facility] ] [facility] [place] [facility] BUN/CREATININE 29 Above high normal MEDGEN RATIO (calc) ([facility] Neph[facility]) Calcium 9.7 Normal (applies MEDGEN [Moles/volume] mg/dL to non-numeric ([facility] in Urine results) [place] for [facility]phrology unspecified [facility]) duration PROTEIN, TOTAL 7.4 g/dL Normal (applies MEDGEN to non-numeric ([facility] results) [place] [facility]) Microalbumin 4.3 g/dL Normal (applies MEDGEN [Mass/time] in to non-numeric ([facility] Urine collected results) [place] [facility] duration [facility]) Globulin 3.1 g/dL Normal (applies MEDGEN [Mass/time] in (calc) to non-numeric ([facility] 24 hour Urine results) [place] [facility]) ALBUMIN/GLOBULI 1.4 Normal (applies MEDGEN N RATIO (calc) to non-numeric ([place]) [place] [facility]) BILIRUBIN,TOTAL 0.2 Normal (applies MEDGEN mg/dL to non-numeric ([place] results) [place] [facility]) Alkaline 88 U/L Normal (applies MEDGEN phosphatase to non-numeric ([place] [Enzymatic results) [place] [facility] ] in Serum, [facility]) Plasma or Blood AST 13 U/L Normal (applies MEDGEN to non-numeric ([place] results) [place] [facility]) ALT 12 U/L Normal (applies MEDGEN to non-numeric ([place] results) [place] [facility]) EGFR NON AFR 54 Below low normal MEDGEN [place] mL/min/1 ([place] .73m2 [place] [facility]) EGFR 63 Normal (applies MEDGEN [place] mL/min/1 to non-numeric ([place] .73m2 results) [place] [facility] Glucose 85 mg/dL Normal (applies MEDGEN [Mass/volume] to non-numeric ([facility] in Urine results) [place] for Nephrology unspecified [facility]) duration Sodium 138 Normal (applies MEDGEN [Moles/volume] mmol/L to non-numeric ([facility] in Serum, results) [place] [facility] [place] Blood [facility]) Potassium 4.5 Normal (applies MEDGEN [Mass/volume] mmol/L to non-numeric ([facility] in Blood results) [place] [facility]) Chloride 103 Normal (applies MEDGEN [Moles/volume] mmol/L to non-numeric ([facility] in Serum, results) [place] [facility]) Carbon dioxide 25 Normal (applies MEDGEN [VFr/PPres] in mmol/L to non-numeric ([facility] Gas delivery results) [place] [facility]) Urea nitrogen 22 mg/dL Normal (applies MEDGEN [Moles/volume] to non-numeric ([facility] in Blood results) [place] [facility]) Creatinine 1.02 Above high normal MEDGEN [Interpretation mg/dL ([facility] ] [facility] [place] [facility] BUN/CREATININE 22 Normal (applies MEDGEN RATIO (calc) to non-numeric ([place] results) [place] [facility]) Calcium 10.5 Above high normal MEDGEN [Moles/volume] mg/dL ([facility] in Urine [place] for Nephrology unspecified [facility]) duration PROTEIN, TOTAL 7.8 g/dL Normal (applies MEDGEN to non-numeric ([facility] results) [place] [facility]) Microalbumin 4.5 g/dL Normal (applies MEDGEN [Mass/time] in to non-numeric ([facility] Urine collected results) [place] [facility] Nephrology duration [facility]) Globulin 3.3 g/dL Normal (applies MEDGEN [Mass/time] in (calc) to non-numeric ([facility] 24 hour Urine results) [place] [facility]) ALBUMIN/GLOBULI 1.4 Normal (applies MEDGEN N RATIO (calc) to non-numeric ([facility] results) [place] [facility]) BILIRUBIN,TOTAL 0.2 Normal (applies MEDGEN mg/dL to non-numeric ([facility] results) [place] [facility]) Alkaline 91 U/L Normal (applies MEDGEN phosphatase to non-numeric ([facility] [Enzymatic results) [place] [facility] ] in Serum, [facility]) Plasma or Blood AST 14 U/L Normal (applies MEDGEN to non-numeric ([facility] results) [place] [facility]) ALT 12 U/L Normal (applies MEDGEN to non-numeric ([facility] results) [place] [facility]) EGFR NON AFR 53 Below low normal MEDGEN [place] mL/min/1 ([place] .73m2 [place] [facility]) EGFR 62 Normal (applies MEDGEN [place] mL/min/1 to non-numeric ([place] .73m2 results) [place] [facility]) ID Date Data Source [id number] 03/10/2019 12:00:00 AM EST MEDGEN ([facility] mónica [place] [facility]) Name Value Range Interpretation Description Data Source(s ) Supporting Code Document(s ) WBC 6.4 Normal (applies MEDGEN Thousand to non-numeric ([facility] /uL results) [place] [facility]) RBC 3.89 Normal (applies MEDGEN Million/ to non-numeric ([facility] uL results) [place] [facility]) Hemoglobin 10.9 Below low normal MEDGEN [Mass/volume] g/dL ([facility] in Mixed venous [place] by Nephrology Oximetry [facility]) Hematocrit 33.1 % Below low normal MEDGEN [Pure volume ([place] fraction] of [place] [facility] by Nephrology Automated count [facility]) MCV 85.1 fL Normal (applies MEDGEN to non-numeric ([place] results) [place] [facility]) MCH 28.0 pg Normal (applies MEDGEN to non-numeric ([place] results) [place] [facility]) MCHC 32.9 Normal (applies MEDGEN g/dL to non-numeric ([place] results) [place] [facility] RDW 13.0 % Normal (applies MEDGEN to non-numeric ([place] results) [place] [facility]) PLATELET COUNT 190 Normal (applies MEDGEN Thousand to non-numeric ([place] /uL results) [place] [facility] MPV 9.1 fL Normal (applies MEDGEN to non-numeric ([place] results) [place] [facility]) TOTAL 56.9 % Normal (applies MEDGEN NEUTROPHILS,% to non-numeric ([place] results) [place] [facility] TOTAL 32.7 % Normal (applies MEDGEN LYMPHOCYTES,% to non-numeric ([place] results) [place] [facility] MONOCYTES,% 7.3 % Normal (applies MEDGEN to non-numeric ([place] results) [place] [facility] EOSINOPHILS,% 2.3 % Normal (applies MEDGEN to non-numeric ([place] results) [place] [facility] BASOPHILS,% 0.8 % Normal (applies MEDGEN to non-numeric ([place] results) [place] [facility] NEUTROPHILS,ABS 3642 Normal (applies MEDGEN OLUTE cells/uL to non-numeric ([place] results) [place] [facility] LYMPHOCYTES,ABS 2093 Normal (applies MEDGEN [place] cells/uL to non-numeric ([place] results) [place] [facility] MONOCYTES,ABSOL 467 Normal (applies MEDGEN [place]ER [place] cells/uL to non-numeric ([place] results) [place] [facility] EOSINOPHILS,ABS 147 Normal (applies MEDGEN OLUTE cells/uL to non-numeric ([place] results) [place] [facility] BASOPHILS,ABSOL 51 Normal (applies MEDGEN U[place]ER [place] cells/uL to non-numeric ([place] results) [place] [facility] DIFFERENTIAL Normal (applies MEDGEN to non-numeric ([place] results) [facility] ID Date Data Source [id number] 03/10/2019 12:00:00 AM EST MEDGEN ([facility] Nephrology [facility]) Name Value Range Interpretation Code Description Data Jyoti rce(s) Supporting Document(s ) T4,FREE 1.4 ng/dL Normal (applies to MEDGEN non-numeric ([place] results) [place] [facility]) ID Date Data Source [id number] 03/10/2019 12:00:00 AM EST MEDGEN ([facility] Nephrology [facility]) Name Value Range Interpretation Code Description Data Jyoti rce(s) Supporting Document(s ) TSH 1.34 mIU/L Normal (applies to MEDGEN ([place] [facility] non-numeric [place]) Nephrology [facility]) ID Date Data Source [id number] 03/10/2019 12:00:00 AM EST MEDGEN ([facility] Nephrology [facility]) Name Value Range Interpretation Description Data Source(s ) Supporting Code Document(s ) Glucose 85 mg/dL Normal (applies MEDGEN [Mass/volume] to non-numeric ([place] in Urine results) [place] [facility] for Nephrology unspecified [facility]) duration Sodium 138 Normal (applies MEDGEN [Moles/volume] mmol/L to non-numeric ([facility] in Serum, results) [place] Plasma [facility] Blood Nephrology [facility]) Potassium 4.5 Normal (applies MEDGEN [Mass/volume] mmol/L to non-numeric ([facility] in Blood results) [place] [facility]) Chloride 103 Normal (applies MEDGEN [Moles/volume] mmol/L to non-numeric ([facility] in Serum, results) [place] [facility] Blood Nephrology [facility]) Carbon dioxide 25 Normal (applies MEDGEN [VFr/PPres] in mmol/L to non-numeric ([facility] Gas delivery results) [place] [facility]) Urea nitrogen 22 mg/dL Normal (applies MEDGEN [Moles/volume] to non-numeric ([facility] in Blood results) [place] [facility]) Creatinine 1.02 Above high normal MEDGEN [Interpretation mg/dL ([place] ] in Urine [place] [facility] BUN/CREATININE 22 Normal (applies MEDGEN RATIO (calc) to non-numeric ([place] results) [place] [facility]) Calcium 10.5 Above high normal MEDGEN [Moles/volume] mg/dL ([facility] in Urine [place] collected for Nephrology unspecified [facility]) duration PROTEIN, TOTAL 7.8 g/dL Normal (applies MEDGEN to non-numeric ([facility] results) [place] [facility]) Microalbumin 4.5 g/dL Normal (applies MEDGEN [Mass/time] in to non-numeric ([facility] Urine collected results) [place] for [place] Nephrology duration [facility]) Globulin 3.3 g/dL Normal (applies MEDGEN [Mass/time] in (calc) to non-numeric ([facility] 24 hour Urine results) [place] [facility]) ALBUMIN/GLOBULI 1.4 Normal (applies MEDGEN N RATIO (calc) to non-numeric ([facility] results) [place] [facility]) BILIRUBIN,TOTAL 0.2 Normal (applies MEDGEN mg/dL to non-numeric ([facility] results) [place] [facility]) Alkaline 91 U/L Normal (applies MEDGEN phosphatase to non-numeric ([facility] [Enzymatic results) [place] activity/volume Nephrology ] in Serum, [facility]) Plasma or Blood AST 14 U/L Normal (applies MEDGEN to non-numeric ([facility] results) [place] [facility]) ALT 12 U/L Normal (applies MEDGEN to non-numeric ([facility] results) [place] [facility]) EGFR NON AFR 53 Below low normal MEDGEN [place] mL/min/1 ([place] .73m2 [place] [facility]) EGFR 62 Normal (applies MEDGEN [place] mL/min/1 to non-numeric ([place] .73m2 results) [place] [facility]) ID Date Data Source [id number] 03/10/2019 12:00:00 AM EST MEDGEN ([facility] mónica [place] [facility]) Name Value Range Interpretation Description Data Source(s ) Supporting Code Document(s ) WBC 6.4 Normal (applies MEDGEN Thousand to non-numeric ([facility] /uL results) [place] [facility]) RBC 3.89 Normal (applies MEDGEN Million/ to non-numeric ([facility] uL results) [place] [facility]) Hemoglobin 10.9 Below low normal MEDGEN [Mass/volume] g/dL ([facility] in Mixed venous [place] blood by Nephrology Oxim[facility]) Hematocrit 33.1 % Below low normal MEDGEN [Pure volume ([place] fraction] of [place] Blood by Nephrology Automated count [facility]) MCV 85.1 fL Normal (applies MEDGEN to non-numeric ([place] results) [place] [facility]) MCH 28.0 pg Normal (applies MEDGEN to non-numeric ([place] results) [place] [facility]) MCHC 32.9 Normal (applies MEDGEN g/dL to non-numeric ([place] results) [place] [facility] RDW 13.0 % Normal (applies MEDGEN to non-numeric ([place] results) [place] [facility] PLATELET COUNT 190 Normal (applies MEDGEN Thousand to non-numeric ([place] /uL results) [place] [facility] MPV 9.1 fL Normal (applies MEDGEN to non-numeric ([place] results) [place] [facility] TOTAL 56.9 % Normal (applies MEDGEN NEUTROPHILS,% to non-numeric ([place] results) [place] [facility] TOTAL 32.7 % Normal (applies MEDGEN LYMPHOCYTES,% to non-numeric ([place] results) [place] [facility] MONOCYTES,% 7.3 % Normal (applies MEDGEN to non-numeric ([place] results) [facility]) EOSINOPHILS,% 2.3 % Normal (applies MEDGEN to non-numeric ([place] results) [place] [facility] BASOPHILS,% 0.8 % Normal (applies MEDGEN to non-numeric ([place] results) [place] [facility] NEUTROPHILS,ABS 3642 Normal (applies MEDGEN OLUTE cells/uL to non-numeric ([place] results) [place] [facility] LYMPHOCYTES,ABS 2093 Normal (applies MEDGEN OLUTE cells/uL to non-numeric ([place] results) [place] [facility] MONOCYTES,ABSOL 467 Normal (applies MEDGEN [place] cells/uL to non-numeric ([place] results) [place] [facility] EOSINOPHILS,ABS 147 Normal (applies MEDGEN OLUTE cells/uL to non-numeric ([place] results) [place] [facility] BASOPHILS,ABSOL 51 Normal (applies MEDGEN U[place]ER [place] cells/uL to non-numeric ([place] results) [place] [facility] DIFFERENTIAL Normal (applies MEDGEN to non-numeric ([place] results) [place] [facility]) ID Date Data Source [id number] 03/10/2019 12:00:00 AM EST MEDGEN ([facility]ph[facility]) Name Value Range Interpretation Code Description Data Jyoti rce(s) Supporting Document(s ) T4,FREE 1.4 ng/dL Normal (applies to MEDGEN non-numeric ([place]) [place] [facility]) ID Date Data Source [id number] 03/10/2019 12:00:00 AM EST MEDGEN ([facility] Nephrology [facility]) Name Value Range Interpretation Code Description Data Jyoti rce(s) Supporting Document(s ) TSH 1.34 mIU/L Normal (applies to MEDGEN ([place] non-numeric [place] results) Nephrology [facility]) ID Date Data Source [id number] 03/10/2019 12:00:00 AM EST MEDGEN ([facility] Nephrology [facility]) Name Value Range Interpretation Description Data Source(s ) Supporting Code Document(s ) Glucose 85 mg/dL Normal (applies MEDGEN [Mass/volume] to non-numeric ([facility] in Urine results) [place] collected for Nephrology unspecified [facility]) duration Sodium 138 Normal (applies MEDGEN [Moles/volume] mmol/L to non-numeric ([facility] in Serum, results) [place] Plasma or Blood Nephrology [facility]) Potassium 4.5 Normal (applies MEDGEN [Mass/volume] mmol/L to non-numeric ([facility] in Blood results) [place] [facility]) Chloride 103 Normal (applies MEDGEN [Moles/volume] mmol/L to non-numeric ([facility] in Serum, results) [place] Plasma or Blood Nephrology [facility]) Carbon dioxide 25 Normal (applies MEDGEN [VFr/PPres] in mmol/L to non-numeric ([facility] Gas delivery results) [place] [facility]) Urea nitrogen 22 mg/dL Normal (applies MEDGEN [Moles/volume] to non-numeric ([facility] in Blood results) [place] [facility]) Creatinine 1.02 Above high normal MEDGEN [Interpretation mg/dL ([place] ] [facility] [place] [facility] BUN/CREATININE 22 Normal (applies MEDGEN RATIO (calc) to non-numeric ([place] results) [place] [facility]) Calcium 10.5 Above high normal MEDGEN [Moles/volume] mg/dL ([facility] in Urine [place] collected for Nephrology unspecified [facility]) duration PROTEIN, TOTAL 7.8 g/dL Normal (applies MEDGEN to non-numeric ([facility] results) [place] [facility]) Microalbumin 4.5 g/dL Normal (applies MEDGEN [Mass/time] in to non-numeric ([facility] Urine collected results) [place] for [place] Nephrology duration [facility]) Globulin 3.3 g/dL Normal (applies MEDGEN [Mass/time] in (calc) to non-numeric ([facility] 24 hour Urine results) [place] [facility]) ALBUMIN/GLOBULI 1.4 Normal (applies MEDGEN N RATIO (calc) to non-numeric ([facility] results) [place] [facility]) BILIRUBIN,TOTAL 0.2 Normal (applies MEDGEN mg/dL to non-numeric ([facility] results) [place] [facility]) Alkaline 91 U/L Normal (applies MEDGEN phosphatase to non-numeric ([facility] [Enzymatic results) [place] activity/volume Nephrology ] in Serum, [facility]) Plasma or Blood AST 14 U/L Normal (applies MEDGEN to non-numeric ([facility] results) [place] [facility]) ALT 12 U/L Normal (applies MEDGEN to non-numeric ([facility] results) [place] [facility]) EGFR NON AFR 53 Below low normal MEDGEN [place] mL/min/1 ([facility] .73m2 [place] [facility]) EGFR 62 Normal (applies MEDGEN [place] mL/min/1 to non-numeric ([place] .73m2 results) [place] [facility]) ID Date Data Source [id number] 03/10/2019 12:00:00 AM EST MEDGEN ([facility] mónica [place] [facility]) Name Value Range Interpretation Description Data Source(s ) Supporting Code Document(s ) WBC 6.4 Normal (applies MEDGEN Thousand to non-numeric ([facility] /uL results) [place] [facility]) RBC 3.89 Normal (applies MEDGEN Million/ to non-numeric ([facility] uL results) [place] [facility]) Hemoglobin 10.9 Below low normal MEDGEN [Mass/volume] g/dL ([facility] in [facility] venous blood Nephrology by Oxim[facility]) Hematocrit 33.1 % Below low normal MEDGEN [Pure volume ([place] fraction] of [place] Blood by [facility]) count MCV 85.1 fL Normal (applies MEDGEN to non-numeric ([place] results) [place] [facility] MCH 28.0 pg Normal (applies MEDGEN to non-numeric ([place] results) [place] [facility] MCHC 32.9 Normal (applies MEDGEN g/dL to non-numeric ([place] results) [place] [facility]) RDW 13.0 % Normal (applies MEDGEN to non-numeric ([place] results) [place] [facility]) PLATELET COUNT 190 Normal (applies MEDGEN Thousand to non-numeric ([place] /uL results) [place] [facility] MPV 9.1 fL Normal (applies MEDGEN to non-numeric ([place] results) [place] [facility]) TOTAL 56.9 % Normal (applies MEDGEN NEUTROPHILS,% to non-numeric ([place] results) [place] [facility] TOTAL 32.7 % Normal (applies MEDGEN LYMPHOCYTES,% to non-numeric ([place] results) [place] [facility] MONOCYTES,% 7.3 % Normal (applies MEDGEN to non-numeric ([place] results) [place] [facility] EOSINOPHILS,% 2.3 % Normal (applies MEDGEN to non-numeric ([place] results) [place] [facility] BASOPHILS,% 0.8 % Normal (applies MEDGEN to non-numeric ([place] results) [place] [facility] NEUTROPHILS,AB 3642 Normal (applies MEDGEN SOLUTE cells/uL to non-numeric ([place] results) [place] [facility] LYMPHOCYTES,AB 2093 Normal (applies MEDGEN SOLUTE cells/uL to non-numeric ([place] results) [place] [facility] MONOCYTES,ABSO 467 Normal (applies MEDGEN LUTE cells/uL to non-numeric ([place] results) [place] [facility] EOSINOPHILS,AB 147 Normal (applies MEDGEN SOLUTE cells/uL to non-numeric ([place] results) [place] [facility] BASOPHILS,ABSO 51 Normal (applies MEDGEN LUTE cells/uL to non-numeric ([place] results) [place] [facility]) ID Date Data Source [id number] 03/10/2019 12:00:00 AM EST MEDGEN ([place] [facility]) Name Value Range Interpretation Code Description Data Jyoti rce(s) Supporting Document(s ) T4,FREE 1.4 ng/dL Normal (applies to MEDGEN non-numeric ([place]) [place] [facility]) ID Date Data Source [id number] 03/10/2019 12:00:00 AM EST MEDGEN ([facility]phrology [facility]) Name Value Range Interpretation Code Description Data Jyoti rce(s) Supporting Document(s ) TSH 1.34 mIU/L Normal (applies to MEDGEN ([place] non-numeric [place] results) Nephrology [facility]) ID Date Data Source [id number] 03/10/2019 12:00:00 AM EST MEDGEN ([facility]phrology [facility]) Name Value Range Interpretation Description Data Source(s ) Supporting Code Document(s ) Glucose 85 mg/dL Normal (applies MEDGEN [Mass/volume] to non-numeric ([facility] in Urine results) [place] for Nephrology unspecified [facility]) duration Sodium 138 Normal (applies MEDGEN [Moles/volume] mmol/L to non-numeric ([facility] in Serum, results) [place] Plasma or Blood Nephrology [facility]) Potassium 4.5 Normal (applies MEDGEN [Mass/volume] mmol/L to non-numeric ([facility] in Blood results) [place] [facility]) Chloride 103 Normal (applies MEDGEN [Moles/volume] mmol/L to non-numeric ([facility] in Serum, results) [place] Plasma or Blood Nephrology [facility]) Carbon dioxide 25 Normal (applies MEDGEN [VFr/PPres] in mmol/L to non-numeric ([facility] Gas delivery results) [place] [facility]) Urea nitrogen 22 mg/dL Normal (applies MEDGEN [Moles/volume] to non-numeric ([facility] in Blood results) [place] [facility]) Creatinine 1.02 Above high normal MEDGEN [Interpretation mg/dL ([place] ] in Urine [place] [facility]) BUN/CREATININE 22 Normal (applies MEDGEN RATIO (calc) to non-numeric ([place] results) [place] [facility]) Calcium 10.5 Above high normal MEDGEN [Moles/volume] mg/dL ([place] in Urine [place] collected for Nephrology unspecified [facility]) duration PROTEIN, TOTAL 7.8 g/dL Normal (applies MEDGEN to non-numeric ([facility] results) [place] [facility]) Microalbumin 4.5 g/dL Normal (applies MEDGEN [Mass/time] in to non-numeric ([facility] Urine collected results) [place] for unspecified Nephrology duration [facility]) Globulin 3.3 g/dL Normal (applies MEDGEN [Mass/time] in (calc) to non-numeric ([facility] 24 hour Urine results) [place] [facility]) ALBUMIN/GLOBULI 1.4 Normal (applies MEDGEN N RATIO (calc) to non-numeric ([facility] results) [place] [facility]) BILIRUBIN,TOTAL 0.2 Normal (applies MEDGEN mg/dL to non-numeric ([facility] results) [place] [facility]) Alkaline 91 U/L Normal (applies MEDGEN phosphatase to non-numeric ([facility] [Enzymatic results) [place] activity/volume Nephrology ] in Serum, [facility]) Plasma or Blood AST 14 U/L Normal (applies MEDGEN to non-numeric ([facility] results) [place] [facility]) ALT 12 U/L Normal (applies MEDGEN to non-numeric ([facility] results) [place] [facility]) EGFR NON AFR 53 Below low normal MEDGEN [place] mL/min/1 ([place] .73m2 [place] [facility]) EGFR 62 Normal (applies MEDGEN [place] mL/min/1 to non-numeric ([place] .73m2 results) [place] [facility]) ID Date Data Source [id number] 03/10/2019 12:00:00 AM EST MEDGEN ([place] [facility]) Name Value Range Interpretation Description Data Source(s ) Supporting Code Document(s ) WBC 6.4 Normal (applies MEDGEN Thousand to non-numeric ([place] /uL results) [place] [facility]) RBC 3.89 Normal (applies MEDGEN Million/ to non-numeric ([place] uL results) [place] [facility]) Hemoglobin 10.9 Below low normal MEDGEN [Mass/volume] g/dL ([place] in Mixed [place] blood Nephrology by Oximetry [facility]) Hematocrit 33.1 % Below low normal MEDGEN [Pure volume ([place] fraction] of [place] Blood by Nephrology Automated [facility]) count MCV 85.1 fL Normal (applies MEDGEN to non-numeric ([facility] results) [place] [facility] MCH 28.0 pg Normal (applies MEDGEN to non-numeric ([facility] results) [facility]) MCHC 32.9 Normal (applies MEDGEN g/dL to non-numeric ([facility] results) [place] [facility] RDW 13.0 % Normal (applies MEDGEN to non-numeric ([place] results) [facility]) PLATELET COUNT 190 Normal (applies MEDGEN Thousand to non-numeric ([place] /uL results) [facility]) MPV 9.1 fL Normal (applies MEDGEN to non-numeric ([facility] results) [facility]) TOTAL 56.9 % Normal (applies MEDGEN NEUTROPHILS,% to non-numeric ([facility] results) [facility]) TOTAL 32.7 % Normal (applies MEDGEN LYMPHOCYTES,% to non-numeric ([facility] results) [facility]) MONOCYTES,% 7.3 % Normal (applies MEDGEN to non-numeric ([facility] results) [facility]) EOSINOPHILS,% 2.3 % Normal (applies MEDGEN to non-numeric ([facility] results) [facility]) BASOPHILS,% 0.8 % Normal (applies MEDGEN to non-numeric ([facility] results) [facility]) NEUTROPHILS,AB 3642 Normal (applies MEDGEN SOLUTE cells/uL to non-numeric ([facility] results) [facility]) LYMPHOCYTES,AB 2093 Normal (applies MEDGEN SOLUTE cells/uL to non-numeric ([facility] results) [facility]) MONOCYTES,ABSO 467 Normal (applies MEDGEN LUTE cells/uL to non-numeric ([facility] results) [facility]) EOSINOPHILS,AB 147 Normal (applies MEDGEN SOLUTE cells/uL to non-numeric ([facility] results) [facility]) BASOPHILS,ABSO 51 Normal (applies MEDGEN LUTE cells/uL to non-numeric ([facility] results) [facility]) ID Date Data Source [id number] 03/10/2019 12:00:00 AM EST [facility]GEN ([place] [facility]) Name Value Range Interpretation Code Description Data Jyoti rce(s) Supporting Document(s ) T4,FREE 1.4 ng/dL Normal (applies to MEDGEN non-numeric ([place]) [place] [facility]) ID Date Data Source [id number] 03/10/2019 12:00:00 AM EST MEDGEN ([facility] Nephrology [facility]) Name Value Range Interpretation Code Description Data Jyoti rce(s) Supporting Document(s ) TSH 1.34 mIU/L Normal (applies to MEDGEN ([place] non-numeric [place] results) Nephrology [facility]) ID Date Data Source [id number] 03/10/2019 12:00:00 AM EST MEDGEN ([facility] Nephrology [facility]) Name Value Range Interpretation Description Data Source(s ) Supporting Code Document(s ) Glucose 85 mg/dL Normal (applies MEDGEN [Mass/volume] to non-numeric ([facility] in Urine results) [place] collected for Nephrology unspecified [facility]) duration Sodium 138 Normal (applies MEDGEN [Moles/volume] mmol/L to non-numeric ([facility] in Serum, results) [place] Plasma or Blood Nephrology [facility]) Potassium 4.5 Normal (applies MEDGEN [Mass/volume] mmol/L to non-numeric ([facility] in Blood results) [place] [facility]) Chloride 103 Normal (applies MEDGEN [Moles/volume] mmol/L to non-numeric ([facility] in Serum, results) [place] Plasma or Blood Nephrology [facility]) Carbon dioxide 25 Normal (applies MEDGEN [VFr/PPres] in mmol/L to non-numeric ([facility] Gas delivery results) [facility] Nephrology [facility]) Urea nitrogen 22 mg/dL Normal (applies MEDGEN [Moles/volume] to non-numeric ([facility] in Blood results) [place] [facility]) Creatinine 1.02 Above high normal MEDGEN [Interpretation mg/dL ([place] ] [facility] [place] [facility] BUN/CREATININE 22 Normal (applies MEDGEN RATIO (calc) to non-numeric ([facility] results) [place] [facility]) Calcium 10.5 Above high normal MEDGEN [Moles/volume] mg/dL ([place] in Urine [place] collected for Nephrology unspecified [facility]) duration PROTEIN, TOTAL 7.8 g/dL Normal (applies MEDGEN to non-numeric ([place] results) [place] [facility]) Microalbumin 4.5 g/dL Normal (applies MEDGEN [Mass/time] in to non-numeric ([facility] Urine collected results) [place] for unspecified Nephrology duration [facility]) Globulin 3.3 g/dL Normal (applies MEDGEN [Mass/time] in (calc) to non-numeric ([facility] 24 hour Urine results) [place] [facility]) ALBUMIN/GLOBULI 1.4 Normal (applies MEDGEN N RATIO (calc) to non-numeric ([facility] results) [place] [facility]) BILIRUBIN,TOTAL 0.2 Normal (applies MEDGEN mg/dL to non-numeric ([place] results) [place] [facility]) Alkaline 91 U/L Normal (applies MEDGEN phosphatase to non-numeric ([facility] [Enzymatic results) [place] activity/volume Nephrology ] in Serum, [facility]) Plasma or Blood AST 14 U/L Normal (applies MEDGEN to non-numeric ([facility] results) [place] [facility]) ALT 12 U/L Normal (applies MEDGEN to non-numeric ([facility] results) [place] [facility]) EGFR NON AFR 53 Below low normal MEDGEN [place] mL/min/1 ([place] .73m2 [place] [facility]) EGFR 62 Normal (applies MEDGEN [place] mL/min/1 to non-numeric ([place] .73m2 results) [place] [facility]) ID Date Data Source [id number] 03/10/2019 12:00:00 AM EST MEDGEN ([place] [facility]) Name Value Range Interpretation Description Data Source(s ) Supporting Code Document(s ) WBC 6.4 Normal (applies MEDGEN Thousand to non-numeric ([place] /uL results) [place] [facility]) RBC 3.89 Normal (applies MEDGEN Million/ to non-numeric ([place] uL results) [place] [facility]) Hemoglobin 10.9 Below low normal MEDGEN [Mass/volume] g/dL ([place] in Mixed venous [place] blood by Nephrology Oximetry [facility]) Hematocrit 33.1 % Below low normal MEDGEN [Pure volume ([place] fraction] of [place] Blood by Nephrology Automated count [facility]) MCV 85.1 fL Normal (applies MEDGEN to non-numeric ([facility] results) [place] [facility]) MCH 28.0 pg Normal (applies MEDGEN to non-numeric ([place] results) [facility]) MCHC 32.9 Normal (applies MEDGEN g/dL to non-numeric ([facility] results) [facility]) RDW 13.0 % Normal (applies MEDGEN to non-numeric ([facility] results) [facility]) PLATELET COUNT 190 Normal (applies MEDGEN Thousand to non-numeric ([facility] /uL results) [facility]) MPV 9.1 fL Normal (applies MEDGEN to non-numeric ([facility] results) [facility]) TOTAL 56.9 % Normal (applies MEDGEN NEUTROPHILS,% to non-numeric ([facility] results) [facility]) TOTAL 32.7 % Normal (applies MEDGEN LYMPHOCYTES,% to non-numeric ([facility] results) [facility]) MONOCYTES,% 7.3 % Normal (applies MEDGEN to non-numeric ([facility] results) [facility]) EOSINOPHILS,% 2.3 % Normal (applies MEDGEN to non-numeric ([facility] results) [facility]) BASOPHILS,% 0.8 % Normal (applies MEDGEN to non-numeric ([facility] results) [facility]) NEUTROPHILS,ABS 3642 Normal (applies MEDGEN OLUTE cells/uL to non-numeric ([facility] results) [facility]) LYMPHOCYTES,ABS 2093 Normal (applies MEDGEN OLUTE cells/uL to non-numeric ([facility] results) [facility]) MONOCYTES,ABSOL 467 Normal (applies MEDGEN UPPER [place] cells/uL to non-numeric ([facility] results) [facility]) EOSINOPHILS,ABS 147 Normal (applies MEDGEN OLUTE cells/uL to non-numeric ([facility] results) [facility]) BASOPHILS,ABSOL 51 Normal (applies MEDGEN UPPER [place] cells/uL to non-numeric ([facility] results) [facility]) DIFFERENTIAL Normal (applies MEDGEN to non-numeric ([facility] results) [facility]) ID Date Data Source [id number] 03/10/2019 12:00:00 AM EST MEDGEN ([facility]) Name Value Range Interpretation Code Description Data Jyoti rce(s) Supporting Document(s ) T4,FREE 1.4 ng/dL Normal (applies to MEDGEN non-numeric ([facility]) [place] [facility]) ID Date Data Source [id number] 03/10/2019 12:00:00 AM EST MEDGEN ([facility]) Name Value Range Interpretation Code Description Data Jyoti rce(s) Supporting Document(s ) TSH 1.34 mIU/L Normal (applies to MEDGEN ([place] [facility] non-numeric [place] results) Nephrology [facility]) ID Date Data Source [id number] 03/10/2019 12:00:00 AM EST MEDGEN ([facility]) Name Value Range Interpretation Description Data Source(s ) Supporting Code Document(s ) Glucose 85 mg/dL Normal (applies MEDGEN [Mass/volume] to non-numeric ([facility] in Urine results) [place] collected for Nephrology unspecified [facility]) duration Sodium 138 Normal (applies MEDGEN [Moles/volume] mmol/L to non-numeric ([facility] in Serum, results) [place] Plasma or Blood Nephrology [facility]) Potassium 4.5 Normal (applies MEDGEN [Mass/volume] mmol/L to non-numeric ([facility] in Blood results) [place] [facility]) Chloride 103 Normal (applies MEDGEN [Moles/volume] mmol/L to non-numeric ([facility] in Serum, results) [place] Plasma or Blood Neph[facility]) Carbon dioxide 25 Normal (applies MEDGEN [VFr/PPres] in mmol/L to non-numeric ([facility] Gas delivery results) [facility] Neph[facility]) Urea nitrogen 22 mg/dL Normal (applies MEDGEN [Moles/volume] to non-numeric ([facility] in Blood results) [place] [facility]) Creatinine 1.02 Above high normal MEDGEN [Interpretation mg/dL ([facility] ] [facility] [place] [facility] BUN/CREATININE 22 Normal (applies MEDGEN RATIO (calc) to non-numeric ([facility] results) [place] [facility]) Calcium 10.5 Above high normal MEDGEN [Moles/volume] mg/dL ([facility] in Urine [place] collected for Nephrology unspecified [facility]) duration PROTEIN, TOTAL 7.8 g/dL Normal (applies MEDGEN to non-numeric ([facility] results) [place] [facility]) Microalbumin 4.5 g/dL Normal (applies MEDGEN [Mass/time] in to non-numeric ([facility] Urine collected results) [place] for unspecified Nephrology duration [facility]) Globulin 3.3 g/dL Normal (applies MEDGEN [Mass/time] in (calc) to non-numeric ([facility] 24 hour Urine results) [place] [facility]) ALBUMIN/GLOBULI 1.4 Normal (applies MEDGEN N RATIO (calc) to non-numeric ([facility] results) [place] [facility]) BILIRUBIN,TOTAL 0.2 Normal (applies MEDGEN mg/dL to non-numeric ([facility] results) [place] [facility]) Alkaline 91 U/L Normal (applies MEDGEN phosphatase to non-numeric ([facility] [Enzymatic results) [place] activity/volume Nephrology ] in Serum, [facility]) Plasma or Blood AST 14 U/L Normal (applies MEDGEN to non-numeric ([facility] results) [place] [facility]) ALT 12 U/L Normal (applies MEDGEN to non-numeric ([facility] results) [place] [facility]) EGFR NON AFR 53 Below low normal MEDGEN [place] mL/min/1 ([facility] .73m2 [place] [facility]) EGFR 62 Normal (applies MEDGEN [place] mL/min/1 to non-numeric ([facility] .73m2 results) [place] [facility]) ID Date Data Source [id number] 03/10/2019 12:00:00 AM EST MEDGEN ([facility] mónica [place] [facility]) Name Value Range Interpretation Description Data Source(s ) Supporting Code Document(s ) WBC 5.7 Normal (applies MEDGEN Thous/mc to non-numeric ([facility] L results) [place] [facility]) RBC 3.80 Normal (applies MEDGEN Mill/mcL to non-numeric ([facility] results) [place] [facility]) Hemoglobin 10.2 Below low normal MEDGEN [Mass/volume] g/dL ([facility] in Mixed [place] venous blood Nephrology by [facility]) Hematocrit 30.7 % Below low normal MEDGEN [Pure volume ([facility] fraction] of [place] Blood by Nephrology Automated [facility]) count MCV 80.8 fL Normal (applies MEDGEN to non-numeric ([facility] results) [place] [facility]) MCH 26.8 pg Below low normal MEDGEN ([facility] Nephrology [facility]) MCHC 33.2 Normal (applies MEDGEN g/dL to non-numeric ([facility] results) [place] [facility] RDW 15.1 % Above high normal MEDGEN ([facility]) PLATELET COUNT 185 Normal (applies MEDGEN Thous/mc to non-numeric ([facility] L results) [place] [facility]) MPV 6.2 fL Below low normal MEDGEN ([facility]) TOTAL 63.5 % Normal (applies MEDGEN NEUTROPHILS,% to non-numeric ([facility] results) [place] [facility]) TOTAL 27.9 % Normal (applies MEDGEN LYMPHOCYTES,% to non-numeric ([facility] results) [place] [facility]) MONOCYTES,% 6.3 % Normal (applies MEDGEN to non-numeric ([facility] results) [place] [facility]) EOSINOPHILS,% 1.8 % Normal (applies MEDGEN to non-numeric ([facility]) [place] [facility] BASOPHILS,% 0.5 % Normal (applies MEDGEN to non-numeric ([facility] results) [place] [facility]) NEUTROPHILS,AB 3620 Normal (applies MEDGEN SOLUTE Cells/mc to non-numeric ([facility] results) [place] [facility]) LYMPHOCYTES,AB 1590 Normal (applies MEDGEN SOLUTE Cells/mc to non-numeric ([facility] L results) [place] [facility]) MONOCYTES,ABSO 359 Normal (applies MEDGEN LUTE Cells/mc to non-numeric ([facility] results) [place] [facility]) EOSINOPHILS,AB 103 Normal (applies MEDGEN SOLUTE Cells/mc to non-numeric ([facility] L results) [place] [facility] BASOPHILS,ABSO 29 Normal (applies MEDGEN LUTE Cells/mc to non-numeric ([facility] L results) [place] [facility]) WBC 6.0 Normal (applies MEDGEN Thous/mc to non-numeric ([facility] L results) [place] [facility]) RBC 3.93 Normal (applies MEDGEN Mill/mcL to non-numeric ([facility] results) [place] [facility]) Hemoglobin 10.8 Below low normal MEDGEN [Mass/volume] g/dL ([facility] in [facility] venous blood Nephrology by Oximetry [facility]) Hematocrit 32.5 % Below low normal MEDGEN [Pure volume ([facility] fraction] of [place] Blood by Nephrology Automated [facility]) count MCV 82.9 fL Normal (applies MEDGEN to non-numeric ([facility]) [place] [facility] MCH 27.6 pg Normal (applies MEDGEN to non-numeric ([facility]) [place] [facility]) MCHC 33.3 Normal (applies MEDGEN g/dL to non-numeric ([facility]) [place] [facility]) RDW 14.6 % Normal (applies MEDGEN to non-numeric ([facility]) [place] [facility]) PLATELET COUNT 198 Normal (applies MEDGEN Thous/mc to non-numeric ([facility] L results) [place] [facility]) MPV 6.7 fL Below low normal MEDGEN ([facility] [place] [facility]) TOTAL 58.2 % Normal (applies MEDGEN NEUTROPHILS,% to non-numeric ([facility] results) [place] [facility]) TOTAL 31.7 % Normal (applies MEDGEN LYMPHOCYTES,% to non-numeric ([facility]) [place] [facility]) MONOCYTES,% 7.0 % Normal (applies MEDGEN to non-numeric ([facility] results) [facility]) EOSINOPHILS,% 2.5 % Normal (applies MEDGEN to non-numeric ([facility] results) [facility]) BASOPHILS,% 0.6 % Normal (applies MEDGEN to non-numeric ([facility] results) [place] [facility] NEUTROPHILS,AB 3492 Normal (applies MEDGEN SOLUTE Cells/mc to non-numeric ([facility] L results) [place] [facility]) LYMPHOCYTES,AB 1902 Normal (applies MEDGEN SOLUTE Cells/mc to non-numeric ([facility] L results) [place] [facility] MONOCYTES,ABSO 420 Normal (applies MEDGEN LUTE Cells/mc to non-numeric ([facility] L results) [place] [facility] EOSINOPHILS,AB 150 Normal (applies MEDGEN SOLUTE Cells/mc to non-numeric ([facility] L results) [facility]) BASOPHILS,ABSO 36 Normal (applies MEDGEN LUTE Cells/mc to non-numeric ([facility] L results) [place] [facility] WBC 4.0 Normal (applies MEDGEN Thous/mc to non-numeric ([facility] L results) [place] [facility]) RBC 4.21 Normal (applies MEDGEN Mill/mcL to non-numeric ([facility] results) [place] [facility]) Hemoglobin 14.1 Normal (applies MEDGEN [Mass/volume] g/dL to non-numeric ([facility] in Mixed results) [place] venous blood Nephrology by Oxim[facility]) Hematocrit 43.0 % Normal (applies MEDGEN [Pure volume to non-numeric ([facility] fraction] of results) [place] Blood by [facility]) count MCV 102.0 fL Above high normal MEDGEN ([facility] Nephrology [facility]) MCH 33.4 pg Above high normal MEDGEN ([facility]ph[facility]) MCHC 32.8 Normal (applies MEDGEN g/dL to non-numeric ([facility] results) [place] [facility]) RDW 13.4 % Normal (applies MEDGEN to non-numeric ([facility] results) [place] [facility]) PLATELET COUNT 190 Normal (applies MEDGEN Thous/mc to non-numeric ([facility] L results) [place] [facility]) MPV 8.0 fL Normal (applies MEDGEN to non-numeric ([facility] results) [place] [facility]) TOTAL 53.7 % Normal (applies MEDGEN NEUTROPHILS,% to non-numeric ([facility] results) [place] [facility]) TOTAL 34.0 % Normal (applies MEDGEN LYMPHOCYTES,% to non-numeric ([facility]) [place] [facility]) MONOCYTES,% 9.4 % Normal (applies MEDGEN to non-numeric ([facility] results) [place] [facility]) EOSINOPHILS,% 2.5 % Normal (applies MEDGEN to non-numeric ([facility]) [place] [facility]) BASOPHILS,% 0.4 % Normal (applies MEDGEN to non-numeric ([facility]) [place] [facility]) NEUTROPHILS,AB 2148 Normal (applies MEDGEN SOLUTE Cells/mc to non-numeric ([facility] L results) [place] [facility]) LYMPHOCYTES,AB 1360 Normal (applies MEDGEN SOLUTE Cells/mc to non-numeric ([facility] L results) [place] [facility]) MONOCYTES,ABSO 376 Normal (applies MEDGEN LUTE Cells/mc to non-numeric ([facility] L results) [place] [facility]) EOSINOPHILS,AB 100 Normal (applies MEDGEN SOLUTE Cells/mc to non-numeric ([facility] results) [place] [facility]) BASOPHILS,ABSO 16 Normal (applies MEDGEN LUTE Cells/mc to non-numeric ([facility] results) [place] [facility]) WBC 2.4 Below low normal MEDGEN Thous/mc [facility] RBC 3.74 Below low normal MEDGEN Mill/mcL ([facility] Hemoglobin 10.2 Below low normal MEDGEN [Mass/volume] g/dL ([facility] in Mixed [place] venous blood Nephrology by [facility]xim[facility]) Hematocrit 30.3 % Below low normal MEDGEN [Pure volume ([facility] fraction] of [place] Blood by Nephrology Automated [facility]) count MCV 81.0 fL Normal (applies MEDGEN to non-numeric ([facility] results) [place] [facility]) MCH 27.3 pg Normal (applies MEDGEN to non-numeric ([facility] results) [place] [facility] MCHC 33.7 Normal (applies MEDGEN g/dL to non-numeric ([facility] results) [place] [facility]) RDW 14.2 % Normal (applies MEDGEN to non-numeric ([facility] results) [place] [facility]) PLATELET COUNT 122 Below low normal MEDGEN Thous/mc ([facility] MPV 7.1 fL Below low normal MEDGEN ([facility] TOTAL 51.5 % Normal (applies MEDGEN NEUTROPHILS,% to non-numeric ([facility] results) [place] [facility]) TOTAL 34.2 % Normal (applies MEDGEN LYMPHOCYTES,% to non-numeric ([facility] results) [place] [facility] MONOCYTES,% 10.3 % Normal (applies MEDGEN to non-numeric ([facility] results) [place] [facility] EOSINOPHILS,% 3.5 % Normal (applies MEDGEN to non-numeric ([facility] results) [place] [facility] BASOPHILS,% 0.5 % Normal (applies MEDGEN to non-numeric ([facility] results) [place] [facility] NEUTROPHILS,AB 1236 Below low normal MEDGEN SOLUTE Cells/mc ([facility] LYMPHOCYTES,AB 821 Below low normal MEDGEN SOLUTE Cells/mc ([facility] [place] [facility]) MONOCYTES,ABSO 247 Normal (applies MEDGEN LUTE Cells/mc to non-numeric ([facility] L results) [place] [facility]) EOSINOPHILS,AB 84 Normal (applies MEDGEN SOLUTE Cells/mc to non-numeric ([facility] L results) [place] [facility]) BASOPHILS,ABSO 12 Normal (applies MEDGEN LUTE Cells/mc to non-numeric ([facility] L results) [place] [facility]) WBC 5.2 Normal (applies MEDGEN Thous/mc to non-numeric ([facility] L results) [place] [facility]) RBC 4.04 Normal (applies MEDGEN Mill/mcL to non-numeric ([facility]) [place] [facility]) Hemoglobin 10.9 Below low normal MEDGEN [Mass/volume] g/dL ([facility] in Mixed [place] venous blood Nephrology by Oxim[facility]) Hematocrit 32.8 % Below low normal MEDGEN [Pure volume ([place] fraction] of [place] Blood by [facility]rology [facility]) count MCV 81.3 fL Normal (applies MEDGEN to non-numeric ([facility] results) [place] [facility]) MCH 27.0 pg Normal (applies MEDGEN to non-numeric ([facility]) [place] [facility]) MCHC 33.3 Normal (applies MEDGEN g/dL to non-numeric ([facility] results) [place] [facility]) RDW 13.6 % Normal (applies MEDGEN to non-numeric ([facility]) [place] [facility] PLATELET COUNT 252 Normal (applies MEDGEN Thous/mc to non-numeric ([facility] L results) [place] [facility]) MPV 6.2 fL Below low normal MEDGEN ([place] [facility]) TOTAL 69.4 % Normal (applies MEDGEN NEUTROPHILS,% to non-numeric ([facility]) [place] [facility]) TOTAL 22.2 % Normal (applies MEDGEN LYMPHOCYTES,% to non-numeric ([facility]) [place] [facility]) MONOCYTES,% 6.7 % Normal (applies MEDGEN to non-numeric ([facility]) [place] [facility]) EOSINOPHILS,% 1.3 % Normal (applies MEDGEN to non-numeric ([facility] results) [place] [facility]) BASOPHILS,% 0.4 % Normal (applies MEDGEN to non-numeric ([facility]) [place] [facility]) NEUTROPHILS,AB 3609 Normal (applies MEDGEN SOLUTE Cells/mc to non-numeric ([facility] L results) [place] [facility]) LYMPHOCYTES,AB 1154 Normal (applies MEDGEN SOLUTE Cells/mc to non-numeric ([facility] L results) [place] [facility]) MONOCYTES,ABSO 348 Normal (applies MEDGEN LUTE Cells/mc to non-numeric ([facility] L results) [place] [facility]) EOSINOPHILS,AB 68 Normal (applies MEDGEN SOLUTE Cells/mc to non-numeric ([facility] L results) [place] [facility]) BASOPHILS,ABSO 21 Normal (applies MEDGEN LUTE Cells/mc to non-numeric ([facility] L results) [place] [facility]) WBC 5.5 Normal (applies MEDGEN Thous/mc to non-numeric ([facility] L results) [place] [facility]) RBC 3.85 Normal (applies MEDGEN Mill/mcL to non-numeric ([facility] results) [place] [facility]) Hemoglobin 10.5 Below low normal MEDGEN [Mass/volume] g/dL ([place] in [place] blood Nephrology by [facility]xim[facility]) Hematocrit 32.3 % Below low normal MEDGEN [Pure volume ([place] fraction] of [place] Blood by Nephrology Automated [facility]) count MCV 83.8 fL Normal (applies MEDGEN to non-numeric ([facility]) [place] [facility]) MCH 27.4 pg Normal (applies MEDGEN to non-numeric ([facility] results) [place] [facility]) MCHC 32.7 Normal (applies MEDGEN g/dL to non-numeric ([facility]) [place] [facility]) RDW 14.9 % Normal (applies MEDGEN to non-numeric ([facility]) [place] [facility]) PLATELET COUNT 210 Normal (applies MEDGEN Thous/mc to non-numeric ([place] L results) [place] [facility]) MPV 6.7 fL Below low normal MEDGEN ([place] [facility]) TOTAL 59.5 % Normal (applies MEDGEN NEUTROPHILS,% to non-numeric ([facility]) [place] [facility]) TOTAL 30.0 % Normal (applies MEDGEN LYMPHOCYTES,% to non-numeric ([facility]) [place] [facility]) MONOCYTES,% 8.0 % Normal (applies MEDGEN to non-numeric ([place] [facility]) [place] [facility]) EOSINOPHILS,% 1.8 % Normal (applies MEDGEN to non-numeric ([facility]) [place] [facility]) BASOPHILS,% 0.7 % Normal (applies MEDGEN to non-numeric ([place] [facility]) [place] [facility]) NEUTROPHILS,AB 3273 Normal (applies MEDGEN SOLUTE Cells/mc to non-numeric ([facility] L results) [place] [facility]) LYMPHOCYTES,AB 1650 Normal (applies MEDGEN SOLUTE Cells/mc to non-numeric ([facility] L results) [place] [facility]) MONOCYTES,ABSO 440 Normal (applies MEDGEN LUTE Cells/mc to non-numeric ([facility] L results) [place] [facility]) EOSINOPHILS,AB 99 Normal (applies MEDGEN SOLUTE Cells/mc to non-numeric ([place] L results) [place] [facility]) BASOPHILS,ABSO 39 Normal (applies MEDGEN LUTE Cells/mc to non-numeric ([facility] L results) [place] [facility]) WBC 5.1 Normal (applies MEDGEN Thous/mc to non-numeric ([place] L results) [place] [facility]) RBC 3.74 Below low normal MEDGEN Mill/mcL ([place] [facility]) Hemoglobin 10.2 Below low normal MEDGEN [Mass/volume] g/dL ([facility] in [place] blood Nephrology by Oxim[facility]) Hematocrit 31.4 % Below low normal MEDGEN [Pure volume ([place] fraction] of [place] Blood by Nephrology [facility]) count MCV 83.8 fL Normal (applies MEDGEN to non-numeric ([place] [facility]) [place] [facility]) MCH 27.2 pg Normal (applies MEDGEN to non-numeric ([place] [facility]) [place] [facility]) MCHC 32.5 Normal (applies MEDGEN g/dL to non-numeric ([place] [facility]) [place] [facility]) RDW 14.3 % Normal (applies MEDGEN to non-numeric ([place] [facility]) [place] [facility]) PLATELET COUNT 195 Normal (applies MEDGEN Thous/mc to non-numeric ([place] L results) [place] [facility]) MPV 6.2 fL Below low normal MEDGEN ([facility] Nephrology [facility]) TOTAL 59.7 % Normal (applies MEDGEN NEUTROPHILS,% to non-numeric ([facility] results) [place] [facility]) TOTAL 31.1 % Normal (applies MEDGEN LYMPHOCYTES,% to non-numeric ([facility] results) [place] [facility]) MONOCYTES,% 7.0 % Normal (applies MEDGEN to non-numeric ([facility] results) [place] [facility]) EOSINOPHILS,% 1.7 % Normal (applies MEDGEN to non-numeric ([facility] results) [place] [facility]) BASOPHILS,% 0.5 % Normal (applies MEDGEN to non-numeric ([facility] results) [place] [facility]) NEUTROPHILS,AB 3045 Normal (applies MEDGEN SOLUTE Cells/mc to non-numeric ([facility] L results) [place] [facility]) LYMPHOCYTES,AB 1586 Normal (applies MEDGEN SOLUTE Cells/mc to non-numeric ([facility] results) [facility] MONOCYTES,ABSO 357 Normal (applies MEDGEN LUTE Cells/mc to non-numeric ([facility]) [facility] EOSINOPHILS,AB 87 Normal (applies MEDGEN SOLUTE Cells/mc to non-numeric ([facility] L results) [facility] BASOPHILS,ABSO 26 Normal (applies MEDGEN LUTE Cells/mc to non-numeric ([facility] results) [place] [facility]) WBC 5.3 Normal (applies MEDGEN Thous/mc to non-numeric ([facility] L results) [place] [facility]) RBC 3.72 Below low normal MEDGEN Mill/mcL ([facility]) Hemoglobin 10.1 Below low normal MEDGEN [Mass/volume] g/dL ([place] [facility] [place] [facility] by [facility]xim[facility]) Hematocrit 30.7 % Below low normal MEDGEN [Pure volume ([place] fraction] of [place] [facility]) count MCV 82.6 fL Normal (applies MEDGEN to non-numeric ([facility]) [place] [facility]) MCH 27.3 pg Normal (applies MEDGEN to non-numeric ([facility] results) [place] [facility]) MCHC 33.1 Normal (applies MEDGEN g/dL to non-numeric ([facility]) [place] [facility]) RDW 14.2 % Normal (applies MEDGEN to non-numeric ([facility]) [place] [facility]) PLATELET COUNT 189 Normal (applies MEDGEN Thous/mc to non-numeric ([facility]) [facility] [facility] MPV 6.5 fL Below low normal [facility]GEN ([facility] [place] [facility] TOTAL 60.7 % Normal (applies MEDGEN NEUTROPHILS,% to non-numeric ([facility]) [place] [facility]) TOTAL 30.6 % Normal (applies MEDGEN LYMPHOCYTES,% to non-numeric ( results) [facility] MONOCYTES,% 7.1 % Normal (applies MEDGEN to non-numeric ( results) [facility] EOSINOPHILS,% 1.4 % Normal (applies MEDGEN to non-numeric ([facility]) [facility] [facility] BASOPHILS,% 0.2 % Normal (applies MEDGEN to non-numeric ( results) [facility] [facility] NEUTROPHILS,AB 3217 Normal (applies MEDGEN SOLUTE Cells/mc to non-numeric ([facility] results) [facility] [facility] LYMPHOCYTES,AB 1622 Normal (applies MEDGEN SOLUTE Cells/mc to non-numeric ([facility] results) [place] [facility] MONOCYTES,ABSO 376 Normal (applies MEDGEN LUTE Cells/mc to non-numeric ([facility] L results) [place] [facility] EOSINOPHILS,AB 74 Normal (applies MEDGEN SOLUTE Cells/mc to non-numeric ([facility] results) [place] [facility] BASOPHILS,ABSO 11 Normal (applies MEDGEN LUTE Cells/mc to non-numeric ([facility] results) [place] [facility]) WBC 5.4 Normal (applies MEDGEN Thous/mc to non-numeric ([facility] results) [place] [facility]) RBC 3.91 Normal (applies MEDGEN Mill/mcL to non-numeric ([facility]) [place] [facility]) Hemoglobin 10.7 Below low normal MEDGEN [Mass/volume] g/dL ([place] [facility] [place] [facility] by [facility]) Hematocrit 32.9 % Below low normal MEDGEN [Pure volume ([place] fraction] of [place] [facility] by Neph[facility] Automated [facility]) count MCV 84.2 fL Normal (applies MEDGEN to non-numeric ([facility] results) [place] [facility] MCH 27.4 pg Normal (applies MEDGEN to non-numeric ([facility] results) [place] [facility] MCHC 32.5 Normal (applies MEDGEN g/dL to non-numeric ([facility] results) [place] [facility] RDW 14.2 % Normal (applies MEDGEN to non-numeric ([facility] results) [place] [facility] PLATELET COUNT 219 Normal (applies MEDGEN Thous/mc to non-numeric ([facility] L results) [place] [facility] MPV 6.9 fL Below low normal [facility]GEN [facility] TOTAL 60.8 % Normal (applies MEDGEN NEUTROPHILS,% to non-numeric ([facility] results) [place] [facility] TOTAL 29.9 % Normal (applies MEDGEN LYMPHOCYTES,% to non-numeric ([facility] results) [place] [facility] MONOCYTES,% 6.1 % Normal (applies MEDGEN to non-numeric ([facility] results) [place] [facility] EOSINOPHILS,% 2.8 % Normal (applies MEDGEN to non-numeric ([facility] results) [facility]) BASOPHILS,% 0.4 % Normal (applies MEDGEN to non-numeric ([facility] results) [facility]) NEUTROPHILS,AB 3283 Normal (applies MEDGEN SOLUTE Cells/mc to non-numeric ([facility] L results) [facility]) LYMPHOCYTES,AB 1615 Normal (applies MEDGEN SOLUTE Cells/mc to non-numeric ([facility]) [place] [facility] MONOCYTES,ABSO 329 Normal (applies MEDGEN LUTE Cells/mc to non-numeric ([facility] L results) [facility]) EOSINOPHILS,AB 151 Normal (applies MEDGEN SOLUTE Cells/mc to non-numeric ([facility] L results) [facility]) BASOPHILS,ABSO 22 Normal (applies MEDGEN LUTE Cells/mc to non-numeric ([facility] L results) [place] [facility] WBC 6.5 Normal (applies MEDGEN Thous/mc to non-numeric ([facility] results) [place] [facility] RBC 3.72 Below low normal MEDGEN Mill/mcL ([facility]) Hemoglobin 10.0 Below low normal MEDGEN [Mass/volume] g/dL ([place] [facility] [place] [facility] by [facility]) Hematocrit 30.6 % Below low normal MEDGEN [Pure volume ([place] fraction] of [place] [facility]) count MCV 82.3 fL Normal (applies MEDGEN to non-numeric ([facility] results) [place] [facility]) MCH 27.0 pg Normal (applies MEDGEN to non-numeric ([facility] results) [place] [facility] MCHC 32.7 Normal (applies MEDGEN g/dL to non-numeric ([facility] results) [place] [facility] RDW 15.4 % Above high normal MEDGEN ([facility] PLATELET COUNT 183 Normal (applies MEDGEN Thous/mc to non-numeric ([facility] L results) [place] [facility] MPV 6.8 fL Below low normal MEDGEN ([facility] TOTAL 65.3 % Normal (applies MEDGEN NEUTROPHILS,% to non-numeric ([facility] results) [place] [facility] TOTAL 25.9 % Normal (applies MEDGEN LYMPHOCYTES,% to non-numeric ([facility] results) [place] [facility] MONOCYTES,% 6.9 % Normal (applies MEDGEN to non-numeric ([facility] results) [place] [facility] EOSINOPHILS,% 1.3 % Normal (applies MEDGEN to non-numeric ([facility] results) [place] [facility] BASOPHILS,% 0.6 % Normal (applies MEDGEN to non-numeric ([facility] results) [place] [facility] NEUTROPHILS,AB 4245 Normal (applies MEDGEN SOLUTE Cells/mc to non-numeric ([facility] L results) [place] [facility] LYMPHOCYTES,AB 1684 Normal (applies MEDGEN SOLUTE Cells/mc to non-numeric ([facility] L results) [place] [facility] MONOCYTES,ABSO 449 Normal (applies MEDGEN LUTE Cells/mc to non-numeric ([facility] L results) [place] [facility] EOSINOPHILS,AB 85 Normal (applies MEDGEN SOLUTE Cells/mc to non-numeric ([facility] L results) [place] [facility] BASOPHILS,ABSO 39 Normal (applies MEDGEN LUTE Cells/mc to non-numeric ([facility]) [place] [facility] WBC 5.7 Normal (applies MEDGEN Thousand to non-numeric ([facility] /uL results) [place] [facility] RBC 3.83 Normal (applies MEDGEN Million/ to non-numeric ([facility] uL results) [place] [facility] Hemoglobin 10.0 Below low normal MEDGEN [Mass/volume] g/dL ([place] [facility] [place] [facility] by [facility]) Hematocrit 31.4 % Below low normal MEDGEN [Pure volume ([place] fraction] of [place] [facility] by Neph[facility] Automated [facility]) count MCV 82.0 fL Normal (applies MEDGEN to non-numeric ([facility] results) [place] [facility] MCH 26.1 pg Below low normal MEDGEN [facility] MCHC 31.8 Below low normal MEDGEN g/dL ([facility] RDW 13.6 % Normal (applies MEDGEN to non-numeric ([facility] results) [place] [facility] PLATELET COUNT 189 Normal (applies MEDGEN Thousand to non-numeric ([facility] /uL results) [place] [facility] MPV 8.6 fL Normal (applies MEDGEN to non-numeric ([facility] results) [place] [facility] TOTAL 67.2 % Normal (applies MEDGEN NEUTROPHILS,% to non-numeric ([facility] results) [place] [facility] TOTAL 23.0 % Normal (applies MEDGEN LYMPHOCYTES,% to non-numeric ([facility] results) [place] [facility]) MONOCYTES,% 8.1 % Normal (applies MEDGEN to non-numeric ([facility] results) [place] [facility] EOSINOPHILS,% 1.2 % Normal (applies MEDGEN to non-numeric ([facility] results) [place] [facility] BASOPHILS,% 0.5 % Normal (applies MEDGEN to non-numeric ([facility] results) [place] [facility] NEUTROPHILS,AB 3830 Normal (applies MEDGEN SOLUTE cells/uL to non-numeric ([facility] results) [place] [facility] LYMPHOCYTES,AB 1311 Normal (applies MEDGEN SOLUTE cells/uL to non-numeric ([facility] results) [place] [facility]) MONOCYTES,ABSO 462 Normal (applies MEDGEN LUTE cells/uL to non-numeric ([facility]) [place] [facility]) EOSINOPHILS,AB 68 Normal (applies MEDGEN SOLUTE cells/uL to non-numeric ([facility] results) [place] [facility]) BASOPHILS,ABSO 29 Normal (applies MEDGEN LUTE cells/uL to non-numeric ([facility] results) [place] [facility]) WBC 5.9 Normal (applies MEDGEN Thousand to non-numeric ([place] /uL results) [place] [facility] RBC 3.69 Below low normal MEDGEN Million/ ([place] u[facility] [place] [facility] Hemoglobin 10.1 Below low normal MEDGEN [Mass/volume] g/dL ([place] in [place] [facility] by [facility]) Hematocrit 29.6 % Below low normal MEDGEN [Pure volume ([place] fraction] of [place] [facility] by [facility] Automated [facility]) count MCV 80.2 fL Normal (applies MEDGEN to non-numeric ([place] [facility]) [place] [facility] MCH 27.4 pg Normal (applies MEDGEN to non-numeric ([place] results) [place] [facility]) MCHC 34.1 Normal (applies MEDGEN g/dL to non-numeric ([facility]) [place] [facility] RDW 13.6 % Normal (applies MEDGEN to non-numeric ([place] results) [place] [facility] PLATELET COUNT 202 Normal (applies MEDGEN Thousand to non-numeric ([place] /uL results) [place] [facility] MPV 8.5 fL Normal (applies MEDGEN to non-numeric ([facility]) [place] [facility] TOTAL 62.2 % Normal (applies MEDGEN NEUTROPHILS,% to non-numeric ([facility]) [place] [facility]) TOTAL 27.5 % Normal (applies MEDGEN LYMPHOCYTES,% to non-numeric ([facility]) [place] [facility]) MONOCYTES,% 7.8 % Normal (applies MEDGEN to non-numeric ([place] [facility]) [place] [facility] EOSINOPHILS,% 2.0 % Normal (applies MEDGEN to non-numeric ([place] [facility]) [place] [facility] BASOPHILS,% 0.5 % Normal (applies MEDGEN to non-numeric ([place] [facility]) [place] [facility]) NEUTROPHILS,AB 3670 Normal (applies MEDGEN SOLUTE cells/uL to non-numeric ([facility] results) [place] [facility]) LYMPHOCYTES,AB 1623 Normal (applies MEDGEN SOLUTE cells/uL to non-numeric ([facility]) [place] [facility]) MONOCYTES,ABSO 460 Normal (applies MEDGEN LUTE cells/uL to non-numeric ([place] results) [place] [facility]) EOSINOPHILS,AB 118 Normal (applies MEDGEN SOLUTE cells/uL to non-numeric ([place] [facility]) [place] [facility]) BASOPHILS,ABSO 30 Normal (applies MEDGEN LUTE cells/uL to non-numeric ([facility] results) [place] [facility]) WBC 7.3 Normal (applies MEDGEN Thousand to non-numeric ([place] /uL results) [place] [facility]) RBC 3.92 Normal (applies MEDGEN Million/ to non-numeric ([place] [facility] results) [place] [facility] Hemoglobin 10.3 Below low normal MEDGEN [Mass/volume] g/dL ([place] in [place] [facility] by [facility]) Hematocrit 32.6 % Below low normal MEDGEN [Pure volume ([place] fraction] of [place] [facility]) count MCV 83.2 fL Normal (applies MEDGEN to non-numeric ([place] [facility]) [place] [facility]) MCH 26.3 pg Below low normal MEDGEN ([facility]) MCHC 31.6 Below low normal MEDGEN g/dL ([facility]) RDW 13.6 % Normal (applies MEDGEN to non-numeric ([place] [facility]) [place] [facility]) PLATELET COUNT 188 Normal (applies MEDGEN Thousand to non-numeric ([place] /uL results) [place] [facility]) MPV 8.5 fL Normal (applies MEDGEN to non-numeric ([place] [facility]) [place] [facility]) TOTAL 76.6 % Normal (applies MEDGEN NEUTROPHILS,% to non-numeric ([place] [facility]) [place] [facility]) TOTAL 16.4 % Normal (applies MEDGEN LYMPHOCYTES,% to non-numeric ([place] [facility]) [place] [facility]) MONOCYTES,% 5.2 % Normal (applies MEDGEN to non-numeric ([place] [facility]) [place] [facility]) EOSINOPHILS,% 1.1 % Normal (applies MEDGEN to non-numeric ([place] [facility]) [place] [facility]) BASOPHILS,% 0.7 % Normal (applies MEDGEN to non-numeric ([place] results) [place] [facility]) NEUTROPHILS,AB 5592 Normal (applies MEDGEN SOLUTE cells/uL to non-numeric ([place] [facility]) [place] [facility]) LYMPHOCYTES,AB 1197 Normal (applies MEDGEN SOLUTE cells/uL to non-numeric ([place] results) [place] [facility]) MONOCYTES,ABSO 380 Normal (applies MEDGEN LUTE cells/uL to non-numeric ([place] results) [place] [facility]) EOSINOPHILS,AB 80 Normal (applies MEDGEN SOLUTE cells/uL to non-numeric ([place] results) [place] [facility]) BASOPHILS,ABSO 51 Normal (applies MEDGEN LUTE cells/uL to non-numeric ([place] results) [place] [facility]) WBC 5.9 Normal (applies MEDGEN Thousand to non-numeric ([place] /uL results) [place] [facility]) RBC 3.88 Normal (applies MEDGEN Million/ to non-numeric ([place] u[facility] results) [place] [facility] Hemoglobin 10.6 Below low normal MEDGEN [Mass/volume] g/dL ([place] in [place] [facility] by Oxim[facility]) Hematocrit 32.7 % Below low normal MEDGEN [Pure volume ([place] fraction] of [place] [facility] by Ne[facility] Automated [facility]) count MCV 84.3 fL Normal (applies MEDGEN to non-numeric ([place] [facility]) [place] [facility]) MCH 27.3 pg Normal (applies MEDGEN to non-numeric ([place] [facility]) [place] [facility]) MCHC 32.4 Normal (applies MEDGEN g/dL to non-numeric ([place] [facility]) [place] [facility]) RDW 14.1 % Normal (applies MEDGEN to non-numeric ([place] [facility]) [place] [facility]) PLATELET COUNT 176 Normal (applies MEDGEN Thousand to non-numeric ([place] /uL results) [place] [facility]) MPV 8.6 fL Normal (applies MEDGEN to non-numeric ([place] [facility]) [place] [facility]) TOTAL 69.1 % Normal (applies MEDGEN NEUTROPHILS,% to non-numeric ([place] [facility]) [place] [facility]) TOTAL 19.9 % Normal (applies MEDGEN LYMPHOCYTES,% to non-numeric ([place] [facility]) [place] [facility]) MONOCYTES,% 7.5 % Normal (applies MEDGEN to non-numeric ([place] [facility]) [place] [facility]) EOSINOPHILS,% 2.6 % Normal (applies MEDGEN to non-numeric ([place] [facility]) [place] [facility]) BASOPHILS,% 0.9 % Normal (applies MEDGEN to non-numeric ([place] [facility]) [place] [facility]) NEUTROPHILS,AB 4077 Normal (applies MEDGEN SOLUTE cells/uL to non-numeric ([place] results) [place] [facility]) LYMPHOCYTES,AB 1174 Normal (applies MEDGEN SOLUTE cells/uL to non-numeric ([place] results) [place] [facility]) MONOCYTES,ABSO 443 Normal (applies MEDGEN LUTE cells/uL to non-numeric ([place] results) [place] [facility]) EOSINOPHILS,AB 153 Normal (applies MEDGEN SOLUTE cells/uL to non-numeric ([place] [facility]) [place] [facility]) BASOPHILS,ABSO 53 Normal (applies MEDGEN LUTE cells/uL to non-numeric ([place] results) [place] [facility]) WBC 6.3 Normal (applies MEDGEN Thous/mc to non-numeric ([place] [facility]) [place] [facility] RBC 3.84 Normal (applies MEDGEN Mill/mcL to non-numeric ([place] [facility]) [place] [facility]) Hemoglobin 10.3 Below low normal MEDGEN [Mass/volume] g/dL ([place] in [place] [facility] by O[facility]) Hematocrit 31.5 % Below low normal MEDGEN [Pure volume ([place] fraction] of [place] [facility] by Nephrology Automated [facility]) count MCV 82.2 fL Normal (applies MEDGEN to non-numeric ([place] [facility]) [place] [facility]) MCH 26.8 pg Below low normal MEDGEN ([facility]) MCHC 32.6 Normal (applies MEDGEN g/dL to non-numeric ([place] [facility]) [place] [facility]) RDW 14.5 % Normal (applies MEDGEN to non-numeric ([place] [facility]) [place] [facility]) PLATELET COUNT 179 Normal (applies MEDGEN Thous/mc to non-numeric ([place] L results) [place] [facility] MPV 6.6 fL Below low normal [facility] ([place] [facility]) TOTAL 61.9 % Normal (applies MEDGEN NEUTROPHILS,% to non-numeric ([place] [facility]) [place] [facility]) TOTAL 28.6 % Normal (applies MEDGEN LYMPHOCYTES,% to non-numeric ([place] [facility]) [place] [facility]) MONOCYTES,% 7.5 % Normal (applies MEDGEN to non-numeric ( results) [place] [facility] EOSINOPHILS,% 1.5 % Normal (applies MEDGEN to non-numeric ( results) [place] [facility] BASOPHILS,% 0.5 % Normal (applies MEDGEN to non-numeric ([place] [facility]) [place] [facility]) NEUTROPHILS,AB 3900 Normal (applies MEDGEN SOLUTE Cells/mc to non-numeric ( L results) [place] [facility] LYMPHOCYTES,AB 1802 Normal (applies MEDGEN SOLUTE Cells/mc to non-numeric ([place] L results) [place] [facility] MONOCYTES,ABSO 473 Normal (applies MEDGEN LUTE Cells/mc to non-numeric ([place] L results) [place] [facility] EOSINOPHILS,AB 95 Normal (applies MEDGEN SOLUTE Cells/mc to non-numeric ([place] L results) [place] [facility]) BASOPHILS,ABSO 32 Normal (applies MEDGEN LUTE Cells/mc to non-numeric ( L results) [place] [facility]) WBC 6.4 Normal (applies MEDGEN Thous/mc to non-numeric ([place] L results) [place] [facility]) RBC 4.21 Normal (applies MEDGEN Mill/mcL to non-numeric ([place] [facility]) [place] [facility]) Hemoglobin 11.3 Below low normal MEDGEN [Mass/volume] g/dL ([place] in [place] [facility]rology by Oxim[facility]) Hematocrit 33.8 % Below low normal MEDGEN [Pure volume ([place] fraction] of [place] [facility]) count MCV 80.4 fL Normal (applies MEDGEN to non-numeric ([place] [facility]) [place] [facility] MCH 26.9 pg Below low normal [facility] MCHC 33.5 Normal (applies MEDGEN g/dL to non-numeric ([facility] results) [facility]) RDW 14.3 % Normal (applies MEDGEN to non-numeric ([facility] results) [place] [facility] PLATELET COUNT 197 Normal (applies MEDGEN Thous/mc to non-numeric ([facility] L results) [place] [facility] MPV 6.7 fL Below low normal MED[facility] TOTAL 64.1 % Normal (applies MEDGEN NEUTROPHILS,% to non-numeric ([facility] results) [facility]) TOTAL 28.7 % Normal (applies MEDGEN LYMPHOCYTES,% to non-numeric ([facility] results) [facility]) MONOCYTES,% 5.0 % Normal (applies MEDGEN to non-numeric ([facility] results) [facility]) EOSINOPHILS,% 1.8 % Normal (applies MEDGEN to non-numeric ([facility] results) [facility]) BASOPHILS,% 0.4 % Normal (applies MEDGEN to non-numeric ([facility] results) [facility]) NEUTROPHILS,AB 4102 Normal (applies MEDGEN SOLUTE Cells/mc to non-numeric ([facility] [facility]) LYMPHOCYTES,AB 1837 Normal (applies MEDGEN SOLUTE Cells/mc to non-numeric ([facility] L results) [facility]) MONOCYTES,ABSO 320 Normal (applies MEDGEN LUTE Cells/mc to non-numeric ([facility] L results) [facility]) EOSINOPHILS,AB 115 Normal (applies MEDGEN SOLUTE Cells/mc to non-numeric ([facility] L results) [facility]) BASOPHILS,ABSO 26 Normal (applies MEDGEN LUTE Cells/mc to non-numeric ([facility] L results) [facility]) WBC 4.9 Normal (applies MEDGEN Thous/mc to non-numeric ([facility] L results) [facility]) RBC 3.91 Normal (applies MEDGEN Mill/mcL to non-numeric ([facility] results) [facility]) Hemoglobin 10.7 Below low normal MEDGEN [Mass/volume] g/dL ([facility] [place] [facility] Nephrology by [facility]) Hematocrit 32.4 % Below low normal MEDGEN [Pure volume ([facility] fraction] of [place] Blood by [facility]) count MCV 83.0 fL Normal (applies MEDGEN to non-numeric ([facility] results) [place] [facility]) MCH 27.3 pg Normal (applies MEDGEN to non-numeric ([facility] results) [place] [facility]) MCHC 32.9 Normal (applies MEDGEN g/dL to non-numeric ([facility] results) [place] [facility]) RDW 14.3 % Normal (applies MEDGEN to non-numeric ([facility] results) [place] [facility]) PLATELET COUNT 166 Normal (applies MEDGEN Thous/mc to non-numeric ([facility] L results) [place] [facility]) MPV 6.3 fL Below low normal [facility]GEN ([place] [facility]) TOTAL 59.9 % Normal (applies MEDGEN NEUTROPHILS,% to non-numeric ([facility] results) [place] [facility]) TOTAL 30.3 % Normal (applies MEDGEN LYMPHOCYTES,% to non-numeric ([facility] results) [place] [facility]) MONOCYTES,% 7.7 % Normal (applies MEDGEN to non-numeric ([facility] results) [place] [facility]) EOSINOPHILS,% 1.6 % Normal (applies MEDGEN to non-numeric ([facility] results) [place] [facility]) BASOPHILS,% 0.5 % Normal (applies MEDGEN to non-numeric ([facility] results) [place] [facility]) NEUTROPHILS,AB 2935 Normal (applies MEDGEN SOLUTE Cells/mc to non-numeric ([facility] L results) [facility]) LYMPHOCYTES,AB 1485 Normal (applies MEDGEN SOLUTE Cells/mc to non-numeric ([facility] results) [facility]) MONOCYTES,ABSO 377 Normal (applies MEDGEN LUTE Cells/mc to non-numeric ([facility] L results) [place] [facility]) EOSINOPHILS,AB 78 Normal (applies MEDGEN SOLUTE Cells/mc to non-numeric ([facility] results) [place] [facility]) BASOPHILS,ABSO 25 Normal (applies MEDGEN LUTE Cells/mc to non-numeric ([facility] L results) [place] [facility]) WBC 5.4 Normal (applies MEDGEN Thousand to non-numeric ([facility] /uL results) [facility] RBC 3.89 Normal (applies MEDGEN Million/ to non-numeric ([facility] uL results) [place] [facility]) Hemoglobin 10.6 Below low normal MEDGEN [Mass/volume] g/dL ([facility] [place] venous blood Nephrology by [facility]) Hematocrit 32.1 % Below low normal MEDGEN [Pure volume ([place] fraction] of [place] [facility]) count MCV 82.5 fL Normal (applies MEDGEN to non-numeric ([facility] results) [facility]) MCH 27.2 pg Normal (applies MEDGEN to non-numeric ([facility] results) [facility]) MCHC 33.0 Normal (applies MEDGEN g/dL to non-numeric ([facility] results) [place] [facility]) RDW 13.4 % Normal (applies MEDGEN to non-numeric ([facility] results) [facility]) PLATELET COUNT 160 Normal (applies MEDGEN Thousand to non-numeric ([facility] /uL results) [facility]) MPV 8.5 fL Normal (applies MEDGEN to non-numeric ([facility] results) [facility]) TOTAL 57.1 % Normal (applies MEDGEN NEUTROPHILS,% to non-numeric ([facility] results) [place] [facility]) TOTAL 31.3 % Normal (applies MEDGEN LYMPHOCYTES,% to non-numeric ([facility] results) [facility]) MONOCYTES,% 8.4 % Normal (applies MEDGEN to non-numeric ([facility] results) [place] [facility]) EOSINOPHILS,% 2.6 % Normal (applies MEDGEN to non-numeric ([facility] results) [facility]) BASOPHILS,% 0.6 % Normal (applies MEDGEN to non-numeric ([facility] results) [facility]) NEUTROPHILS,AB 3083 Normal (applies MEDGEN SOLUTE cells/uL to non-numeric ([facility] results) [place] [facility]) LYMPHOCYTES,AB 1690 Normal (applies MEDGEN SOLUTE cells/uL to non-numeric ([facility] results) [place] [facility]) MONOCYTES,ABSO 454 Normal (applies MEDGEN LUTE cells/uL to non-numeric ([facility] results) [place] [facility]) EOSINOPHILS,AB 140 Normal (applies MEDGEN SOLUTE cells/uL to non-numeric ([facility] results) [place] [facility]) BASOPHILS,ABSO 32 Normal (applies MEDGEN LUTE cells/uL to non-numeric ([facility] results) [place] [facility]) WBC 5.4 Normal (applies MEDGEN Thousand to non-numeric ([facility] /uL results) [place] [facility]) RBC 3.80 Normal (applies MEDGEN Million/ to non-numeric ([facility] uL results) [place] [facility]) Hemoglobin 10.4 Below low normal MEDGEN [Mass/volume] g/dL ([place] venous blood Nephrology by [facility]xim[facility]) Hematocrit 32.2 % Below low normal MEDGEN [Pure volume ([place] fraction] of [place] Blood by Nephrology Automated [facility]) count MCV 84.7 fL Normal (applies MEDGEN to non-numeric ([facility] results) [place] [facility]) MCH 27.4 pg Normal (applies MEDGEN to non-numeric ([facility] results) [place] [facility]) MCHC 32.3 Normal (applies MEDGEN g/dL to non-numeric ([facility] results) [place] [facility] RDW 13.2 % Normal (applies MEDGEN to non-numeric ([facility] results) [place] [facility]) PLATELET COUNT 166 Normal (applies MEDGEN Thousand to non-numeric ([facility] /uL results) [place] [facility]) MPV 8.9 fL Normal (applies MEDGEN to non-numeric ([facility] results) [place] [facility]) TOTAL 58.5 % Normal (applies MEDGEN NEUTROPHILS,% to non-numeric ([facility] results) [place] [facility]) TOTAL 30.2 % Normal (applies MEDGEN LYMPHOCYTES,% to non-numeric ([facility] results) [place] [facility]) MONOCYTES,% 7.9 % Normal (applies MEDGEN to non-numeric ([facility] results) [place] [facility]) EOSINOPHILS,% 2.8 % Normal (applies MEDGEN to non-numeric ([facility] results) [place] [facility] BASOPHILS,% 0.6 % Normal (applies MEDGEN to non-numeric ([facility] results) [place] [facility]) NEUTROPHILS,AB 3159 Normal (applies MEDGEN SOLUTE cells/uL to non-numeric ([facility] results) [place] [facility]) LYMPHOCYTES,AB 1631 Normal (applies MEDGEN SOLUTE cells/uL to non-numeric ([facility] results) [place] [facility]) MONOCYTES,ABSO 427 Normal (applies MEDGEN LUTE cells/uL to non-numeric ([facility] results) [place] [facility]) EOSINOPHILS,AB 151 Normal (applies MEDGEN SOLUTE cells/uL to non-numeric ([facility] results) [place] [facility]) BASOPHILS,ABSO 32 Normal (applies MEDGEN LUTE cells/uL to non-numeric ([facility] results) [place] [facility]) WBC 6.4 Normal (applies MEDGEN Thousand to non-numeric ([facility] /uL results) [place] [facility]) RBC 3.89 Normal (applies MEDGEN Million/ to non-numeric ([place] uL results) [place] [facility]) Hemoglobin 10.9 Below low normal MEDGEN [Mass/volume] g/dL ([place] venous blood Nephrology by [facility]xim[facility]) Hematocrit 33.1 % Below low normal MEDGEN [Pure volume ([place] fraction] of [place] [facility] by Nephrology Automated [facility]) count MCV 85.1 fL Normal (applies MEDGEN to non-numeric ([place] results) [place] [facility]) MCH 28.0 pg Normal (applies MEDGEN to non-numeric ([facility] results) [place] [facility]) MCHC 32.9 Normal (applies MEDGEN g/dL to non-numeric ([facility] results) [place] [facility]) RDW 13.0 % Normal (applies MEDGEN to non-numeric ([place] results) [place] [facility]) PLATELET COUNT 190 Normal (applies MEDGEN Thousand to non-numeric ([facility] /uL results) [place] [facility]) MPV 9.1 fL Normal (applies MEDGEN to non-numeric ([facility] results) [place] [facility]) TOTAL 56.9 % Normal (applies MEDGEN NEUTROPHILS,% to non-numeric ([facility] results) [place] [facility]) TOTAL 32.7 % Normal (applies MEDGEN LYMPHOCYTES,% to non-numeric ([facility] results) [place] [facility]) MONOCYTES,% 7.3 % Normal (applies MEDGEN to non-numeric ([facility] results) [place] [facility] EOSINOPHILS,% 2.3 % Normal (applies MEDGEN to non-numeric ([facility] results) [place] [facility] BASOPHILS,% 0.8 % Normal (applies MEDGEN to non-numeric ([facility] results) [place] [facility] NEUTROPHILS,AB 3642 Normal (applies MEDGEN SOLUTE cells/uL to non-numeric ([facility] results) [place] [facility]) LYMPHOCYTES,AB 2093 Normal (applies MEDGEN SOLUTE cells/uL to non-numeric ([facility] results) [place] [facility]) MONOCYTES,ABSO 467 Normal (applies MEDGEN LUTE cells/uL to non-numeric ([facility] results) [place] [facility]) EOSINOPHILS,AB 147 Normal (applies MEDGEN SOLUTE cells/uL to non-numeric ([facility] results) [place] [facility] BASOPHILS,ABSO 51 Normal (applies MEDGEN LUTE cells/uL to non-numeric ([facility] results) [place] [facility]) ID Date Data Source [id number] 03/10/2019 12:00:00 AM EST MEDGEN ([place] [facility]) Name Value Range Interpretation Code Description Data Jyoti rce(s) Supporting Document(s ) T4,FREE 1.6 ng/dL Normal (applies to MEDGEN non-numeric ([facility]) [place] [facility] T4,FREE 1.3 ng/dL Normal (applies to MEDGEN non-numeric ([facility] results) [facility]) T4,FREE 1.3 ng/dL Normal (applies to MEDGEN non-numeric ([place] results) [place] [facility] T4,FREE 1.4 ng/dL Normal (applies to MEDGEN non-numeric ([place] results) [facility]) T4,FREE 1.4 ng/dL Normal (applies to MEDGEN non-numeric ([place] results) [place] [facility] T4,FREE 1.3 ng/dL Normal (applies to MEDGEN non-numeric ([facility] results) [place] [facility]) T4,FREE 1.3 ng/dL Normal (applies to MEDGEN non-numeric ([place] results) [place] [facility] T4,FREE 1.5 ng/dL Normal (applies to MEDGEN non-numeric ([facility] results) [facility] T4,FREE 1.2 ng/dL Normal (applies to MEDGEN non-numeric ([facility]) [place] [facility]) T4,FREE 1.4 ng/dL Normal (applies to MEDGEN non-numeric ([facility]) [place] [facility]) T4,FREE 1.3 ng/dL Normal (applies to MEDGEN non-numeric ([facility]) [place] [facility]) T4,FREE 1.4 ng/dL Normal (applies to MEDGEN non-numeric ([facility]) [place] [facility]) ID Date Data Source [id number] 03/10/2019 12:00:00 AM EST MEDGEN ([facility] Nephrology [facility]) Name Value Range Interpretation Code Description Data Jyoti rce(s) Supporting Document(s ) TSH 0.28 mIU/L Below low normal MEDGEN ([facility] Nephrology [facility]) TSH 3.66 mIU/L Normal (applies to MEDGEN ([place] non-numeric [place] results) Nephrology [facility]) TSH 6.43 mIU/L Above high normal MEDGEN ([facility] Nephrology [facility]) TSH 6.18 mIU/L Above high normal MEDGEN ([facility] Nephrology [facility]) TSH 2.56 mIU/L Normal (applies to MEDGEN ([place] non-numeric [place] results) Nephrology [facility]) TSH 3.74 mIU/L Normal (applies to MEDGEN ([place] non-numeric [place] results) Nephrology [facility]) TSH 3.35 mIU/L Normal (applies to MEDGEN ([place] non-numeric [place] results) Nephrology [facility]) TSH 5.51 mIU/L Above high normal MEDGEN ([facility] Nephrology [facility]) TSH 0.27 mIU/L Below low normal MEDGEN ([facility] Nephrology [facility]) TSH 5.62 mIU/L Above high normal MEDGEN ([facility] Nephrology [facility]) TSH 3.18 mIU/L Normal (applies to MEDGEN ([place] non-numeric [place] results) Nephrology [facility]) TSH 1.34 mIU/L Normal (applies to MEDGEN ([place] non-numeric [place] results) Nephrology [facility]) ID Date Data Source [id number] 03/10/2019 12:00:00 AM EST MEDGEN ([facility]ica [place] [facility]) Name Value Range Interpretation Description Data Source(s ) Supporting Code Document(s ) Glucose 97 mg/dL Normal (applies MEDGEN [Mass/volume] to non-numeric ([facility] in Urine results) [place] collected for Nephrology unspecified [facility]) duration Sodium 137 Normal (applies MEDGEN [Moles/volume] mmol/L to non-numeric ([facility] in Serum, results) [place] Plasma or Blood Nephrology [facility]) Potassium 5.2 Normal (applies MEDGEN [Mass/volume] mmol/L to non-numeric ([facility] in Blood results) [place] [facility]) Chloride 102 Normal (applies MEDGEN [Moles/volume] mmol/L to non-numeric ([facility] in Serum, results) [place] Plasma or Blood Nephrology [facility]) Carbon dioxide 24 Normal (applies MEDGEN [VFr/PPres] in mmol/L to non-numeric ([facility] Gas delivery results) [place] Nephrology [facility]) Urea nitrogen 22 mg/dL Normal (applies MEDGEN [Moles/volume] to non-numeric ([facility] in Blood results) [place] [facility]) Creatinine 1.04 Above high normal MEDGEN [Interpretation mg/dL ([facility] ] in Urine [place] [facility]) BUN/CREATININE 21 Normal (applies MEDGEN RATIO (calc) to non-numeric ([facility] results) [place] [facility]) Calcium 10.4 Normal (applies MEDGEN [Moles/volume] mg/dL to non-numeric ([facility] in Urine results) [place] collected for Nephrology unspecified [facility]) duration PROTEIN, TOTAL 8.0 g/dL Normal (applies MEDGEN to non-numeric ([facility] results) [place] [facility]) Microalbumin 4.6 g/dL Normal (applies MEDGEN [Mass/time] in to non-numeric ([facility] Urine collected results) [place] for unspecified Nephrology duration [facility]) Globulin 3.4 g/dL Normal (applies MEDGEN [Mass/time] in (calc) to non-numeric ([facility] 24 hour Urine results) [place] [facility]) ALBUMIN/GLOBULI 1.4 Normal (applies MEDGEN N RATIO (calc) to non-numeric ([facility] results) [place] [facility]) BILIRUBIN,TOTAL 0.2 Normal (applies MEDGEN mg/dL to non-numeric ([place] [facility]) [place] [facility]) Alkaline 85 U/L Normal (applies MEDGEN phosphatase to non-numeric ([facility] [Enzymatic results) [place] activity/volume Nephrology ] in Serum, [facility]) Plasma or Blood AST 19 U/L Normal (applies MEDGEN to non-numeric ([place] results) [place] [facility]) ALT 20 U/L Normal (applies MEDGEN to non-numeric ([facility] results) [place] [facility]) EGFR NON AFR 53 Below low normal MEDGEN [place] mL/min/1 ([place] .73m2 [place] [facility]) EGFR 61 Normal (applies MEDGEN [place] mL/min/1 to non-numeric ([facility] .73m2 results) [place] [facility]) Glucose 92 mg/dL Normal (applies MEDGEN [Mass/volume] to non-numeric ([facility] in Urine results) [place] collected for Nephrology unspecified [facility]) duration Sodium 139 Normal (applies MEDGEN [Moles/volume] mmol/L to non-numeric ([facility] in Serum, results) [place] Plasma or Blood Nephrology [facility]) Potassium 4.5 Normal (applies MEDGEN [Mass/volume] mmol/L to non-numeric ([facility] in Blood results) [place] [facility]) Chloride 104 Normal (applies MEDGEN [Moles/volume] mmol/L to non-numeric ([facility] in Serum, results) [place] Plasma or Blood Nephrology [facility]) Carbon dioxide 22 Normal (applies MEDGEN [VFr/PPres] in mmol/L to non-numeric ([facility] Gas delivery results) [place] [facility]ph[facility]) Urea nitrogen 11 mg/dL Normal (applies MEDGEN [Moles/volume] to non-numeric ([facility] in Blood results) [place] [facility]) Creatinine 0.47 Below low normal MEDGEN [Interpretation mg/dL ([facility] ] [facility] [place] [facility] BUN/CREATININE 23 Above high normal MEDGEN RATIO (calc) ([facility] Calcium 9.7 Normal (applies MEDGEN [Moles/volume] mg/dL to non-numeric ([facility] in Urine results) [place] collected for Nephrology unspecified [facility]) duration PROTEIN, TOTAL 6.7 g/dL Normal (applies MEDGEN to non-numeric ([facility] results) [place] [facility]) Microalbumin 4.4 g/dL Normal (applies MEDGEN [Mass/time] in to non-numeric ([facility] Urine collected results) [place] for unspecified Nephrology duration [facility]) Globulin 2.3 g/dL Normal (applies MEDGEN [Mass/time] in (calc) to non-numeric ([facility] 24 hour Urine results) [place] [facility]) ALBUMIN/GLOBULI 1.9 Normal (applies MEDGEN N RATIO (calc) to non-numeric ([facility] results) [place] [facility]) BILIRUBIN,TOTAL 0.3 Normal (applies MEDGEN mg/dL to non-numeric ([facility] results) [place] [facility]) Alkaline 74 U/L Normal (applies MEDGEN phosphatase to non-numeric ([facility] [Enzymatic results) [place] activity/volume Nephrology ] in Serum, [facility]) Plasma or Blood AST 21 U/L Normal (applies MEDGEN to non-numeric ([facility] results) [place] [facility]) ALT 16 U/L Normal (applies MEDGEN to non-numeric ([facility] results) [place] [facility]) EGFR NON AFR 97 Normal (applies MEDGEN [place] mL/min/1 to non-numeric ([place] .73m2 results) [place] [facility]) EGFR 113 Normal (applies MEDGEN [place] mL/min/1 to non-numeric ([place] .73m2 results) [place] [facility]) Glucose 133 Normal (applies MEDGEN [Mass/volume] mg/dL to non-numeric ([facility] in Urine results) [place] collected for Nephrology unspecified [facility]) duration Sodium 131 Below low normal MEDGEN [Moles/volume] mmol/L ([facility] in Serum, [place] Plasma or Blood Nephrology [facility]) Potassium 5.1 Normal (applies MEDGEN [Mass/volume] mmol/L to non-numeric ([facility] in Blood results) [place] [facility]) Chloride 96 Below low normal MEDGEN [Moles/volume] mmol/L ([facility] in Serum, [place] Plasma or Blood Nephrology [facility]) Carbon dioxide 26 Normal (applies MEDGEN [VFr/PPres] in mmol/L to non-numeric ([facility] Gas delivery results) [place] [facility]ph[facility]) Urea nitrogen 28 mg/dL Above high normal MEDGEN [Moles/volume] ([facility] in Blood [place] [facility]) Creatinine 1.21 Above high normal MEDGEN [Interpretation mg/dL ([facility] ] in Urine [place] [facility]) BUN/CREATININE 23 Above high normal MEDGEN RATIO (calc) ([facility] Nephrology [facility]) Calcium 9.4 Normal (applies MEDGEN [Moles/volume] mg/dL to non-numeric ([facility] in Urine results) [place] collected for Nephrology unspecified [facility]) duration PROTEIN, TOTAL 7.0 g/dL Normal (applies MEDGEN to non-numeric ([facility] results) [place] [facility]) Microalbumin 3.9 g/dL Normal (applies MEDGEN [Mass/time] in to non-numeric ([facility] Urine collected results) [place] for unspecified Nephrology duration [facility]) Globulin 3.1 g/dL Normal (applies MEDGEN [Mass/time] in (calc) to non-numeric ([facility] 24 hour Urine results) [place] [facility]) ALBUMIN/GLOBULI 1.3 Normal (applies MEDGEN N RATIO (calc) to non-numeric ([facility] results) [place] [facility]) BILIRUBIN,TOTAL 0.2 Normal (applies MEDGEN mg/dL to non-numeric ([facility] results) [place] [facility]) Alkaline 73 U/L Normal (applies MEDGEN phosphatase to non-numeric ([facility] [Enzymatic results) [place] activity/volume Nephrology ] in Serum, [facility]) Plasma or Blood AST 20 U/L Normal (applies MEDGEN to non-numeric ([facility] results) [place] [facility]) ALT 15 U/L Normal (applies MEDGEN to non-numeric ([facility] results) [place] [facility]) EGFR NON AFR 44 Below low normal MEDGEN [place] mL/min/1 ([facility] .73m2 [place] [facility]) EGFR 51 Below low normal [facility] [place] mL/min/1 ([facility] .73m[facility] [place] [facility]) Glucose 150 Above high normal [facility] [Mass/volume] mg/dL ([facility] in Urine [place] [facility] for Nephrology unspecified [facility]) duration Sodium 132 Below low normal [facility] [Moles/volume] mmol/L ([facility] in Serum, [place] [facility] or Blood Neph[facility]) Potassium 4.7 Normal (applies [facility] [Mass/volume] mmol/L to non-numeric ([facility] in Blood results) [place] [facility]) Chloride 99 Normal (applies [facility] [Moles/volume] mmol/L to non-numeric ([facility] in Serum, results) [place] [facility] Blood [facility]ph[facility]) Carbon dioxide 24 Normal (applies [facility] [VFr/PPres] in mmol/L to non-numeric ([facility] Gas delivery results) [place] [facility]) Urea nitrogen 21 mg/dL Normal (applies [facility] [Moles/volume] to non-numeric ([facility] in Blood results) [place] [facility]) Creatinine 0.95 Above high normal [facility] [Interpretation mg/dL ([facility] ] in Urine [place] [facility]) BUN/CREATININE 22 Normal (applies [facility] RATIO (calc) to non-numeric ([facility] results) [place] [facility]) Calcium 10.2 Normal (applies [facility] [Moles/volume] mg/dL to non-numeric ([facility] in Urine results) [place] [facility] unspecified [facility]) duration PROTEIN, TOTAL 7.4 g/dL Normal (applies [facility] to non-numeric ([facility] results) [place] [facility]) Microalbumin 4.3 g/dL Normal (applies [facility] [Mass/time] in to non-numeric ([facility] Urine collected results) [place] [facility] duration [facility]) Globulin 3.1 g/dL Normal (applies [facility] [Mass/time] in (calc) to non-numeric ([facility] 24 hour Urine results) [place] [facility]) ALBUMIN/GLOBULI 1.4 Normal (applies [facility] N RATIO (calc) to non-numeric ([facility] results) [place] [facility]) BILIRUBIN,TOTAL 0.3 Normal (applies [facility] mg/dL to non-numeric ([facility] results) [place] [facility]) Alkaline 75 U/L Normal (applies [facility] phosphatase to non-numeric ([facility] [Enzymatic results) [place] [facility] ] in Serum, [facility]) Plasma or Blood AST 16 U/L Normal (applies [facility] to non-numeric ([facility] results) [place] [facility]) ALT 18 U/L Normal (applies [facility] to non-numeric ([facility] results) [place] [facility]) EGFR NON AFR 59 Below low normal [facility] [place] mL/min/1 ([facility] [place] [facility]) EGFR 68 Normal (applies [facility] [place] mL/min/1 to non-numeric ([facility] .73m2 results) [place] [facility]) Glucose 80 mg/dL Normal (applies [facility] [Mass/volume] to non-numeric ([facility] in Urine results) [place] [facility] for [facility] unspecified [facility]) duration Sodium 138 Normal (applies [facility] [Moles/volume] mmol/L to non-numeric ([facility] in Serum, results) [place] [facility] Blood [facility]) Potassium 5.0 Normal (applies [facility] [Mass/volume] mmol/L to non-numeric ([facility] in Blood results) [place] [facility]) Chloride 104 Normal (applies [facility] [Moles/volume] mmol/L to non-numeric ([facility] in Serum, results) [place] [facility]) Carbon dioxide 25 Normal (applies [facility] [VFr/PPres] in mmol/L to non-numeric ([facility] Gas delivery results) [facility] Neph[facility]) Urea nitrogen 28 mg/dL Above high normal [facility] [Moles/volume] ([facility] Creatinine 1.01 Above high normal [facility] [Interpretation mg/dL ([facility] ] [facility] BUN/CREATININE 28 Above high normal [facility] RATIO (calc) ([facility] Nephrology [facility]) Calcium 9.9 Normal (applies [facility] [Moles/volume] mg/dL to non-numeric ([facility] in Urine results) [place] [facility] for [facility] unspecified [facility]) duration PROTEIN, TOTAL 7.2 g/dL Normal (applies [facility] to non-numeric ([facility] results) [place] [facility]) Microalbumin 4.2 g/dL Normal (applies [facility] [Mass/time] in to non-numeric ([facility] Urine collected results) [place] [facility] duration [facility]) Globulin 3.0 g/dL Normal (applies [facility] [Mass/time] in (calc) to non-numeric ([facility] 24 hour Urine results) [place] [facility]) ALBUMIN/GLOBULI 1.4 Normal (applies [facility] N RATIO (calc) to non-numeric ([facility] results) [place] [facility]) BILIRUBIN,TOTAL 0.2 Normal (applies [facility] mg/dL to non-numeric ([facility] results) [place] [facility]) Alkaline 82 U/L Normal (applies [facility] phosphatase to non-numeric ([facility] [Enzymatic results) [place] [facility] ] in Serum, [facility]) Plasma or Blood AST 14 U/L Normal (applies [facility] to non-numeric ([facility] results) [place] [facility]) ALT 14 U/L Normal (applies [facility] to non-numeric ([facility] results) [place] [facility]) EGFR NON AFR 55 Below low normal [facility] [place] mL/min/1 ([facility] [place] [facility] EGFR 64 Normal (applies [facility] [place] mL/min/1 to non-numeric ([facility] .73m2 results) [place] [facility]) Glucose 187 Above high normal [facility] [Mass/volume] mg/dL ([facility] in Urine [place] [facility] for Nephrology unspecified [facility]) duration Sodium 138 Normal (applies [facility] [Moles/volume] mmol/L to non-numeric ([facility] in Serum, results) [place] [facility]) Potassium 4.5 Normal (applies [facility] [Mass/volume] mmol/L to non-numeric ([facility] Blood results) [facility] Chloride 104 Normal (applies [facility] [Moles/volume] mmol/L to non-numeric ([facility] in Serum, results) [place] [facility]) Carbon dioxide 23 Normal (applies [facility] [VFr/PPres] in mmol/L to non-numeric ([facility] Gas delivery results) [place] [facility]) Urea nitrogen 30 mg/dL Above high normal [facility] [Moles/volume] ([facility] [facility] Creatinine 1.19 Above high normal [facility] [Interpretation mg/dL ([facility] ] [facility] [place] [facility] BUN/CREATININE 25 Above high normal [facility] RATIO (calc) ([facility] Nephrology [facility]) Calcium 10.0 Normal (applies [facility] [Moles/volume] mg/dL to non-numeric ([facility] in Urine results) [place] [facility] for [facility] unspecified [facility]) duration PROTEIN, TOTAL 7.2 g/dL Normal (applies [facility] to non-numeric ([facility] results) [place] [facility]) Microalbumin 4.2 g/dL Normal (applies [facility] [Mass/time] in to non-numeric ([facility] Urine collected results) [place] [facility] duration [facility]) Globulin 3.0 g/dL Normal (applies [facility] [Mass/time] in (calc) to non-numeric ([facility] 24 hour Urine results) [place] [facility]) ALBUMIN/GLOBULI 1.4 Normal (applies [facility] N RATIO (calc) to non-numeric ([facility] results) [place] [facility]) BILIRUBIN,TOTAL 0.3 Normal (applies [facility] mg/dL to non-numeric ([facility] results) [place] [facility]) Alkaline 90 U/L Normal (applies [facility] phosphatase to non-numeric ([facility] [Enzymatic results) [place] [facility] ] in Serum, [facility]) Plasma or Blood AST 13 U/L Normal (applies [facility] to non-numeric ([facility] results) [place] [facility]) ALT 12 U/L Normal (applies [facility] to non-numeric ([facility] results) [place] [facility]) EGFR NON AFR 45 Below low normal [facility] [place] mL/min/1 ([facility] [place] [facility]) EGFR 52 Below low normal [facility] [place] mL/min/1 ([facility] .73m[facility] [place] [facility]) Glucose 149 Above high normal [facility] [Mass/volume] mg/dL ([facility] in Urine [place] for Nephrology unspecified [facility]) duration Sodium 138 Normal (applies [facility] [Moles/volume] mmol/L to non-numeric ([facility] in Serum, results) [place] [facility]) Potassium 4.7 Normal (applies [facility] [Mass/volume] mmol/L to non-numeric ([facility] in Blood results) [place] [facility]) Chloride 104 Normal (applies [facility] [Moles/volume] mmol/L to non-numeric ([facility] in Serum, results) [place] [facility]) Carbon dioxide 22 Normal (applies [facility] [VFr/PPres] in mmol/L to non-numeric ([facility] Gas delivery results) [place] [facility]) Urea nitrogen 30 mg/dL Above high normal [facility] [Moles/volume] ([facility] in Blood [place] [facility]) Creatinine 1.12 Above high normal [facility] [Interpretation mg/dL ([facility] ] in Urine [place] [facility]) BUN/CREATININE 27 Above high normal [facility] RATIO (calc) ([facility] Neph[facility]) Calcium 10.1 Normal (applies [facility] [Moles/volume] mg/dL to non-numeric ([facility] in Urine results) [place] [facility] for [facility] unspecified [facility]) duration PROTEIN, TOTAL 7.0 g/dL Normal (applies [facility] to non-numeric ([facility] results) [place] [facility]) Microalbumin 4.2 g/dL Normal (applies [facility] [Mass/time] in to non-numeric ([facility] Urine collected results) [place] [facility]) Globulin 2.8 g/dL Normal (applies [facility] [Mass/time] in (calc) to non-numeric ([facility] 24 hour Urine results) [place] [facility]) ALBUMIN/GLOBULI 1.5 Normal (applies [facility] N RATIO (calc) to non-numeric ([facility] results) [place] [facility]) BILIRUBIN,TOTAL 0.2 Normal (applies [facility] mg/dL to non-numeric ([facility] results) [place] [facility]) Alkaline 90 U/L Normal (applies [facility] phosphatase to non-numeric ([facility] [Enzymatic results) [place] [facility] ] in Serum, [facility]) Plasma or Blood AST 16 U/L Normal (applies [facility] to non-numeric ([facility] results) [place] [facility]) ALT 13 U/L Normal (applies [facility] to non-numeric ([facility] results) [place] [facility]) EGFR NON AFR 48 Below low normal [facility] [place] mL/min/1 ([facility] .73m[address] [place] [facility]) EGFR 56 Below low normal [facility] [place] mL/min/1 ([facility] .73m2 [place] [facility]) Glucose 152 Above high normal [facility] [Mass/volume] mg/dL ([facility] in Urine [place] for [facility]rology unspecified [facility]) duration Sodium 132 Below low normal [facility] [Moles/volume] mmol/L ([facility] in Serum, [place] [facility]) Potassium 5.0 Normal (applies [facility] [Mass/volume] mmol/L to non-numeric ([facility] in Blood results) [place] [facility]) Chloride 97 Below low normal [facility] [Moles/volume] mmol/L ([facility] in Serum, [place] [facility]) Carbon dioxide 24 Normal (applies [facility] [VFr/PPres] in mmol/L to non-numeric ([facility] Gas delivery results) [place] [facility]) Urea nitrogen 23 mg/dL Normal (applies [facility] [Moles/volume] to non-numeric ([facility] in Blood results) [place] [facility]) Creatinine 0.94 Above high normal [facility] [Interpretation mg/dL ([facility] ] [facility] [place] [facility] BUN/CREATININE 24 Above high normal [facility] RATIO (calc) ([facility] Neph[facility]) Calcium 10.0 Normal (applies [facility] [Moles/volume] mg/dL to non-numeric ([facility] in Urine results) [place] [facility] for [facility] unspecified [facility]) duration PROTEIN, TOTAL 7.2 g/dL Normal (applies [facility] to non-numeric ([facility] results) [place] [facility]) Microalbumin 4.2 g/dL Normal (applies [facility] [Mass/time] in to non-numeric ([facility] Urine collected results) [place] [facility] duration [facility]) Globulin 3.0 g/dL Normal (applies [facility] [Mass/time] in (calc) to non-numeric ([facility] 24 hour Urine results) [place] [facility]) ALBUMIN/GLOBULI 1.4 Normal (applies [facility] N RATIO (calc) to non-numeric ([facility] results) [place] [facility] BILIRUBIN,TOTAL 0.2 Normal (applies [facility] mg/dL to non-numeric ([facility] results) [place] [facility]) Alkaline 88 U/L Normal (applies [facility] phosphatase to non-numeric ([facility] [Enzymatic results) [place] [facility] ] in Serum, [facility]) Plasma or Blood AST 14 U/L Normal (applies [facility] to non-numeric ([facility] results) [place] [facility]) ALT 13 U/L Normal (applies [facility] to non-numeric ([facility] results) [place] [facility]) EGFR NON AFR 59 Below low normal [facility] [place] mL/min/1 ([facility]73[facility] [place] [facility]) EGFR 69 Normal (applies [facility] [place] mL/min/1 to non-numeric ([facility] .73m2 results) [place] [facility]) Glucose 158 Above high normal [facility] [Mass/volume] mg/dL ([facility] in Urine [place] [facility] for Nephrology unspecified [facility]) duration Sodium 136 Normal (applies [facility] [Moles/volume] mmol/L to non-numeric ([facility] in Serum, results) [place] [facility]) Potassium 5.0 Normal (applies [facility] [Mass/volume] mmol/L to non-numeric ([facility] in Blood results) [place] [facility]) Chloride 103 Normal (applies [facility] [Moles/volume] mmol/L to non-numeric ([facility] in Serum, results) [place] [facility]) Carbon dioxide 24 Normal (applies [facility] [VFr/PPres] in mmol/L to non-numeric ([facility] Gas delivery results) [place] [facility]) Urea nitrogen 24 mg/dL Normal (applies [facility] [Moles/volume] to non-numeric ([facility] in Blood results) [place] [facility]) Creatinine 1.01 Above high normal [facility] [Interpretation mg/dL ([facility] ] [facility] [place] [facility] BUN/CREATININE 24 Above high normal [facility] RATIO (calc) ([facility] Nephrology [facility]) Calcium 10.0 Normal (applies [facility] [Moles/volume] mg/dL to non-numeric ([facility] in Urine results) [place] [facility] for [facility] unspecified [facility]) duration PROTEIN, TOTAL 7.3 g/dL Normal (applies [facility] to non-numeric ([facility] results) [place] [facility]) Microalbumin 4.2 g/dL Normal (applies [facility] [Mass/time] in to non-numeric ([facility] Urine collected results) [place] [facility]) Globulin 3.1 g/dL Normal (applies [facility] [Mass/time] in (calc) to non-numeric ([facility] 24 hour Urine results) [place] [facility]) ALBUMIN/GLOBULI 1.4 Normal (applies [facility] N RATIO (calc) to non-numeric ([facility] results) [place] [facility]) BILIRUBIN,TOTAL 0.2 Normal (applies [facility] mg/dL to non-numeric ([facility] results) [place] [facility]) Alkaline 83 U/L Normal (applies [facility] phosphatase to non-numeric ([facility] [Enzymatic results) [place] [facility] ] in Serum, [facility]) Plasma or Blood AST 14 U/L Normal (applies [facility] to non-numeric ([facility] results) [place] [facility]) ALT 14 U/L Normal (applies [facility] to non-numeric ([facility] results) [place] [facility]) EGFR NON AFR 54 Below low normal [facility] [place] mL/min/1 ([facility]73[facility] [place] [facility]) EGFR 63 Normal (applies [facility] [place] mL/min/1 to non-numeric ([facility] .73m2 results) [place] [facility]) Glucose 120 Normal (applies [facility] [Mass/volume] mg/dL to non-numeric ([facility] in Urine results) [place] [facility] for [facility] unspecified [facility]) duration Sodium 136 Normal (applies [facility] [Moles/volume] mmol/L to non-numeric ([facility] in Serum, results) [place] [facility]) Potassium 4.9 Normal (applies [facility] [Mass/volume] mmol/L to non-numeric ([facility] in Blood results) [place] [facility]) Chloride 102 Normal (applies [facility] [Moles/volume] mmol/L to non-numeric ([facility] in Serum, results) [place] [facility]) Carbon dioxide 24 Normal (applies [facility] [VFr/PPres] in mmol/L to non-numeric ([facility] Gas delivery results) [place] [facility]) Urea nitrogen 21 mg/dL Normal (applies [facility] [Moles/volume] to non-numeric ([facility] in Blood results) [place] [facility]) Creatinine 1.09 Above high normal [facility] [Interpretation mg/dL ([facility] ] [facility] [facility] BUN/CREATININE 19 Normal (applies [facility] RATIO (calc) to non-numeric ([facility] results) [place] [facility]) Calcium 9.9 Normal (applies [facility] [Moles/volume] mg/dL to non-numeric ([facility] in Urine results) [place] [facility] for [facility] unspecified [facility]) duration PROTEIN, TOTAL 7.3 g/dL Normal (applies [facility] to non-numeric ([facility]) [place] [facility]) Microalbumin 4.2 g/dL Normal (applies [facility] [Mass/time] in to non-numeric ([facility] Urine collected results) [place] [facility]) Globulin 3.1 g/dL Normal (applies [facility] [Mass/time] in (calc) to non-numeric ([facility] 24 hour Urine results) [place] [facility] ALBUMIN/GLOBULI 1.4 Normal (applies [facility] N RATIO (calc) to non-numeric ([facility] results) [place] [facility]) BILIRUBIN,TOTAL 0.2 Normal (applies [facility] mg/dL to non-numeric ([facility]) [place] [facility]) Alkaline 81 U/L Normal (applies [facility] phosphatase to non-numeric ([facility] [Enzymatic results) [place] [facility] ] in Serum, [facility]) Plasma or Blood AST 14 U/L Normal (applies [facility] to non-numeric ([facility]) [place] [facility]) ALT 11 U/L Normal (applies [facility] to non-numeric ([facility] results) [place] [facility]) EGFR NON AFR 49 Below low normal [facility] [place] mL/min/1 ([place] .73m2 [place] [facility]) EGFR 57 Below low normal [facility] [place] mL/min/1 ([facility] .73m2 [place] [facility]) Glucose 93 mg/dL Normal (applies [facility] [Mass/volume] to non-numeric ([facility] in Urine results) [place] [facility] for Nephrology unspecified [facility]) duration Sodium 136 Normal (applies [facility] [Moles/volume] mmol/L to non-numeric ([facility] in Serum, results) [place] [facility] Blood [facility]ph[facility]) Potassium 4.5 Normal (applies [facility] [Mass/volume] mmol/L to non-numeric ([facility] in Blood results) [place] [facility]) Chloride 101 Normal (applies [facility] [Moles/volume] mmol/L to non-numeric ([facility] in Serum, results) [place] [facility] Blood [facility]) Carbon dioxide 22 Normal (applies [facility] [VFr/PPres] in mmol/L to non-numeric ([facility] Gas delivery results) [place] [facility]) Urea nitrogen 29 mg/dL Above high normal [facility] [Moles/volume] ([facility] in Blood [place] [facility]) Creatinine 0.93 Normal (applies [facility] [Interpretation mg/dL to non-numeric ([facility] ] in Urine results) [place] [facility]) BUN/CREATININE 31 Above high normal MEDGEN RATIO (calc) ([facility] Neph[facility]) Calcium 9.7 Normal (applies MEDGEN [Moles/volume] mg/dL to non-numeric ([facility] in Urine results) [place] [facility] for Neph[facility] unspecified [facility]) duration PROTEIN, TOTAL 7.4 g/dL Normal (applies MEDGEN to non-numeric ([facility] results) [place] [facility]) Microalbumin 4.4 g/dL Normal (applies [facility] [Mass/time] in to non-numeric ([facility] Urine collected results) [place] [facility] duration [facility]) Globulin 3.0 g/dL Normal (applies [facility]GEN [Mass/time] in (calc) to non-numeric ([facility] 24 hour Urine results) [place] [facility]) ALBUMIN/GLOBULI 1.5 Normal (applies MEDGEN N RATIO (calc) to non-numeric ([facility] results) [place] [facility]) BILIRUBIN,TOTAL 0.2 Normal (applies [facility]GEN mg/dL to non-numeric ([facility] results) [place] [facility]) Alkaline 83 U/L Normal (applies MEDGEN phosphatase to non-numeric ([facility] [Enzymatic results) [place] activity[facility]volume [facility]ph[facility] ] in Serum, [facility]) Plasma or Blood AST 15 U/L Normal (applies MEDGEN to non-numeric ([facility] results) [place] [facility]) ALT 14 U/L Normal (applies MEDGEN to non-numeric ([facility] results) [place] [facility]) EGFR NON AFR 61 Normal (applies [facility]GEN [place] mL/min/1 to non-numeric ([facility] .73m2 results) [place] [facility]) EGFR 70 Normal (applies [facility] [place] mL/min/1 to non-numeric ([facility] .73m2 results) [place] [facility]) Glucose 83 mg/dL Normal (applies [facility] [Mass/volume] to non-numeric ([facility] in Urine results) [place] [facility] for [facility] unspecified [facility]) duration Sodium 136 Normal (applies [facility]GEN [Moles/volume] mmol/L to non-numeric ([facility] in Serum, results) [place] Plasma [facility] Blood Nephrology [facility]) Potassium 5.2 Normal (applies [facility] [Mass/volume] mmol/L to non-numeric ([facility] in Blood results) [place] [facility]) Chloride 100 Normal (applies [facility]GEN [Moles/volume] mmol/L to non-numeric ([facility] in Serum, results) [place] [facility] Blood [facility]ph[facility]) Carbon dioxide 24 Normal (applies [facility]GEN [VFr/PPres] in mmol/L to non-numeric ([facility] Gas delivery results) [place] [facility]) Urea nitrogen 27 mg/dL Above high normal MEDGEN [Moles/volume] ([facility] in Blood [place] [facility]) Creatinine 1.01 Above high normal MEDGEN [Interpretation mg/dL ([facility] ] [facility] BUN/CREATININE 27 Above high normal [facility] RATIO (calc) [facility] Calcium 9.9 Normal (applies MEDGEN [Moles/volume] mg/dL to non-numeric ([facility] in Urine results) [place] [facility] for [facility] unspecified [facility]) duration PROTEIN, TOTAL 7.5 g/dL Normal (applies MEDGEN to non-numeric ([facility] results) [place] [facility]) Microalbumin 4.8 g/dL Normal (applies [facility]GEN [Mass/time] in to non-numeric ([facility] Urine collected results) [place] [facility] duration [facility]) Globulin 2.7 g/dL Normal (applies [facility]GEN [Mass/time] in (calc) to non-numeric ([facility] 24 hour Urine results) [place] [facility]) ALBUMIN/GLOBULI 1.8 Normal (applies MEDGEN N RATIO (calc) to non-numeric ([facility] results) [place] [facility]) BILIRUBIN,TOTAL 0.2 Normal (applies [facility]GEN mg/dL to non-numeric ([facility] results) [place] [facility]) Alkaline 84 U/L Normal (applies MEDGEN phosphatase to non-numeric ([facility] [Enzymatic results) [place] [facility] ] in Serum, [facility]) Plasma or Blood AST 17 U/L Normal (applies [facility] to non-numeric ([place]) [place] [facility]) ALT 17 U/L Normal (applies [facility]GEN to non-numeric ([facility] results) [facility] [facility] EGFR NON AFR 55 Below low normal [facility] [place] mL/min/1 ([place] .73m2 [place] [facility]) EGFR 64 Normal (applies [facility] [place] mL/min/1 to non-numeric ([place] .73m2 results) [place] [facility] Glucose 183 Above high normal [facility]GEN [Mass/volume] mg/dL ([facility] in Urine [place] [facility]ph[facility] unspecified [facility]) duration Sodium 133 Below low normal [facility] [Moles/volume] mmol/L ([facility] in Serum, [place] [facility] Blood [facility]ph[facility]) Potassium 4.8 Normal (applies [facility]GEN [Mass/volume] mmol/L to non-numeric ([facility] in Blood results) [place] [facility]) Chloride 98 Normal (applies [facility]GEN [Moles/volume] mmol/L to non-numeric ([facility] in Serum, results) [place] [facility] Blood [facility]) Carbon dioxide 26 Normal (applies [facility]GEN [VFr/PPres] in mmol/L to non-numeric ([facility] Gas delivery results) [place] [facility]) Urea nitrogen 20 mg/dL Normal (applies [facility]GEN [Moles/volume] to non-numeric ([facility] in Blood results) [place] [facility]) Creatinine 1.05 Above high normal [facility] [Interpretation mg/dL ([facility] ] [facility] [facility] BUN/CREATININE 19 Normal (applies [facility]GEN RATIO (calc) to non-numeric ([facility] results) [place] [facility] Calcium 10.0 Normal (applies [facility]GEN [Moles/volume] mg/dL to non-numeric ([facility] in Urine results) [place] [facility] for [facility] unspecified [facility]) duration PROTEIN, TOTAL 7.4 g/dL Normal (applies MEDGEN to non-numeric ([facility] results) [place] [facility]) Microalbumin 4.2 g/dL Normal (applies [facility]GEN [Mass/time] in to non-numeric ([facility] Urine collected results) [place] [facility] duration [facility]) Globulin 3.2 g/dL Normal (applies [facility]GEN [Mass/time] in (calc) to non-numeric ([facility] 24 hour Urine results) [place] [facility]) ALBUMIN/GLOBULI 1.3 Normal (applies MEDGEN N RATIO (calc) to non-numeric ([facility] results) [place] [facility]) BILIRUBIN,TOTAL 0.2 Normal (applies [facility]GEN mg/dL to non-numeric ([place]) [place] [facility]) Alkaline 79 U/L Normal (applies MEDGEN phosphatase to non-numeric ([facility] [Enzymatic results) [place] [facility] ] in Serum, [facility]) Plasma or Blood AST 20 U/L Normal (applies MEDGEN to non-numeric ([facility] results) [place] [facility]) ALT 20 U/L Normal (applies MEDGEN to non-numeric ([facility] results) [place] [facility]) EGFR NON AFR 52 Below low normal [facility] [place] mL/min/1 ([place] .73m2 [place] [facility]) EGFR 60 Normal (applies [facility] [place] mL/min/1 to non-numeric ([place] .73m2 results) [place] [facility]) Glucose 82 mg/dL Normal (applies [facility]GEN [Mass/volume] to non-numeric ([facility] in Urine results) [place] [facility] for [facility] unspecified [facility]) duration Sodium 134 Below low normal [facility] [Moles/volume] mmol/L ([facility] in Serum, [place] [facility] Blood [facility]) Potassium 4.4 Normal (applies [facility] [Mass/volume] mmol/L to non-numeric ([facility] in Blood results) [place] [facility]) Chloride 101 Normal (applies [facility]GEN [Moles/volume] mmol/L to non-numeric ([facility] in Serum, results) [place] [facility]) Carbon dioxide 25 Normal (applies [facility]GEN [VFr/PPres] in mmol/L to non-numeric ([facility] Gas delivery results) [place] [facility]) Urea nitrogen 26 mg/dL Above high normal [facility]GEN [Moles/volume] ([facility] in Blood [place] [facility]) Creatinine 1.20 Above high normal [facility]GEN [Interpretation mg/dL ([facility] ] [facility] [facility] BUN/CREATININE 22 Normal (applies [facility]GEN RATIO (calc) to non-numeric ([facility] results) [place] [facility]) Calcium 10.3 Normal (applies [facility]GEN [Moles/volume] mg/dL to non-numeric ([facility] in Urine results) [place] [facility] for [facility] unspecified [facility]) duration PROTEIN, TOTAL 7.8 g/dL Normal (applies [facility]GEN to non-numeric ([place]) [place] [facility]) Microalbumin 4.5 g/dL Normal (applies [facility]GEN [Mass/time] in to non-numeric ([facility] Urine collected results) [place] [facility] duration [facility]) Globulin 3.3 g/dL Normal (applies [facility]GEN [Mass/time] in (calc) to non-numeric ([facility] 24 hour Urine results) [place] [facility] ALBUMIN/GLOBULI 1.4 Normal (applies MEDGEN N RATIO (calc) to non-numeric ([facility] results) [place] [facility]) BILIRUBIN,TOTAL 0.3 Normal (applies [facility]GEN mg/dL to non-numeric ([facility] results) [place] [facility]) Alkaline 86 U/L Normal (applies MEDGEN phosphatase to non-numeric ([facility] [Enzymatic results) [place] [facility] ] in Serum, [facility]) Plasma or Blood AST 13 U/L Normal (applies MEDGEN to non-numeric ([facility] results) [place] [facility]) ALT 12 U/L Normal (applies MEDGEN to non-numeric ([facility] results) [place] [facility]) EGFR NON AFR 44 Below low normal [facility] [place] mL/min/1 ([place] .73m2 [place] [facility]) EGFR 51 Below low normal [facility] [place] mL/min/1 ([place] .73m2 [place] [facility]) Glucose 153 Above high normal [facility]GEN [Mass/volume] mg/dL ([facility] in Urine [place] [facility] unspecified [facility]) duration Sodium 137 Normal (applies [facility]GEN [Moles/volume] mmol/L to non-numeric ([facility] in Serum, results) [place] [facility]) Potassium 5.2 Normal (applies [facility]GEN [Mass/volume] mmol/L to non-numeric ([facility] in Blood results) [place] [facility]) Chloride 102 Normal (applies [facility]GEN [Moles/volume] mmol/L to non-numeric ([facility] in Serum, results) [place] [facility]) Carbon dioxide 26 Normal (applies [facility]GEN [VFr/PPres] in mmol/L to non-numeric ([facility] Gas delivery results) [place] [facility]) Urea nitrogen 18 mg/dL Normal (applies [facility]GEN [Moles/volume] to non-numeric ([facility] in Blood results) [place] [facility]) Creatinine 0.96 Above high normal [facility]GEN [Interpretation mg/dL ([facility] ] in Urine [place] [facility]) BUN/CREATININE 19 Normal (applies [facility]GEN RATIO (calc) to non-numeric ([facility] results) [place] [facility]) Calcium 10.2 Normal (applies [facility]GEN [Moles/volume] mg/dL to non-numeric ([facility] in Urine results) [place] [facility] for [facility] unspecified [facility]) duration PROTEIN, TOTAL 7.4 g/dL Normal (applies MEDGEN to non-numeric ([facility] results) [place] [facility]) Microalbumin 4.3 g/dL Normal (applies [facility]GEN [Mass/time] in to non-numeric ([facility] Urine collected results) [place] [facility] duration [facility]) Globulin 3.1 g/dL Normal (applies [facility]GEN [Mass/time] in (calc) to non-numeric ([facility] 24 hour Urine results) [place] [facility]) ALBUMIN/GLOBULI 1.4 Normal (applies MEDGEN N RATIO (calc) to non-numeric ([facility] results) [place] [facility]) BILIRUBIN,TOTAL 0.2 Normal (applies [facility]GEN mg/dL to non-numeric ([facility] results) [place] [facility]) Alkaline 93 U/L Normal (applies MEDGEN phosphatase to non-numeric ([facility] [Enzymatic results) [place] [facility] ] in Serum, [facility]) Plasma or Blood AST 12 U/L Normal (applies MEDGEN to non-numeric ([facility] results) [place] [facility]) ALT 12 U/L Normal (applies MEDGEN to non-numeric ([facility] results) [place] [facility]) EGFR NON AFR 57 Below low normal [facility] [place] mL/min/1 ([place] .73m2 [place] [facility]) EGFR 67 Normal (applies [facility] [place] mL/min/1 to non-numeric ([facility] .73m2 results) [place] [facility]) Glucose 76 mg/dL Normal (applies [facility] [Mass/volume] to non-numeric ([facility] in Urine results) [place] [facility] for [facility] unspecified [facility]) duration Sodium 138 Normal (applies [facility] [Moles/volume] mmol/L to non-numeric ([facility] in Serum, results) [place] [facility]) Potassium 4.5 Normal (applies [facility] [Mass/volume] mmol/L to non-numeric ([facility] in Blood results) [place] [facility]) Chloride 106 Normal (applies [facility] [Moles/volume] mmol/L to non-numeric ([facility] in Serum, results) [place] [facility] Blood [facility]) Carbon dioxide 24 Normal (applies [facility] [VFr/PPres] in mmol/L to non-numeric ([facility] Gas delivery results) [facility]) Urea nitrogen 29 mg/dL Above high normal [facility] [Moles/volume] ([facility] [place] [facility] Creatinine 1.01 Above high normal [facility] [Interpretation mg/dL ([facility] ] [facility] [place] [facility] BUN/CREATININE 29 Above high normal [facility] RATIO (calc) ([facility] Calcium 9.7 Normal (applies [facility] [Moles/volume] mg/dL to non-numeric ([facility] in Urine results) [place] [facility] for Nephrology unspecified [facility]) duration PROTEIN, TOTAL 7.4 g/dL Normal (applies MEDGEN to non-numeric ([facility] results) [place] [facility]) Microalbumin 4.3 g/dL Normal (applies [facility]GEN [Mass/time] in to non-numeric ([facility] Urine collected results) [place] [facility]ph[facility] duration [facility]) Globulin 3.1 g/dL Normal (applies [facility] [Mass/time] in (calc) to non-numeric ([facility] 24 hour Urine results) [place] [facility]) ALBUMIN/GLOBULI 1.4 Normal (applies [facility] N RATIO (calc) to non-numeric ([place]) [place] [facility]) BILIRUBIN,TOTAL 0.2 Normal (applies [facility] mg/dL to non-numeric ([place]) [place] [facility]) Alkaline 88 U/L Normal (applies [facility]GEN phosphatase to non-numeric ([place] [Enzymatic results) [place] [facility] ] in Serum, [facility]) Plasma or Blood AST 13 U/L Normal (applies [facility] to non-numeric ([place] results) [place] [facility]) ALT 12 U/L Normal (applies [facility] to non-numeric ([place] [facility]) [place] [facility]) EGFR NON AFR 54 Below low normal [facility] [place] mL/min/1 ([place] .73m2 [place] [facility]) EGFR 63 Normal (applies [facility] [place] mL/min/1 to non-numeric ([place] .73m2 results) [place] [facility]) Glucose 85 mg/dL Normal (applies [facility] [Mass/volume] to non-numeric ([facility] in Urine results) [place] [facility] for Nephrology unspecified [facility]) duration Sodium 138 Normal (applies [facility] [Moles/volume] mmol/L to non-numeric ([facility] in Serum, results) [place] [facility] Blood [facility]) Potassium 4.5 Normal (applies [facility] [Mass/volume] mmol/L to non-numeric ([facility] in Blood results) [place] [facility]) Chloride 103 Normal (applies [facility] [Moles/volume] mmol/L to non-numeric ([facility] in Serum, results) [place] [facility] Blood [facility]) Carbon dioxide 25 Normal (applies [facility] [VFr/PPres] in mmol/L to non-numeric ([facility] Gas delivery results) [place] [facility]) Urea nitrogen 22 mg/dL Normal (applies [facility] [Moles/volume] to non-numeric ([facility] in Blood results) [place] [facility]) Creatinine 1.02 Above high normal [facility] [Interpretation mg/dL ([place] ] in Urine [place] [facility]) BUN/CREATININE 22 Normal (applies [facility]GEN RATIO (calc) to non-numeric ([place] results) [place] [facility]) Calcium 10.5 Above high normal [facility] [Moles/volume] mg/dL ([place] in Urine [place] for Nephrology unspecified [facility]) duration PROTEIN, TOTAL 7.8 g/dL Normal (applies [facility] to non-numeric ([place] results) [place] [facility]) Microalbumin 4.5 g/dL Normal (applies [facility] [Mass/time] in to non-numeric ([facility] Urine collected results) [place] [facility] Nephrology duration [facility]) Globulin 3.3 g/dL Normal (applies [facility] [Mass/time] in (calc) to non-numeric ([facility] 24 hour Urine results) [place] [facility]) ALBUMIN/GLOBULI 1.4 Normal (applies MEDGEN N RATIO (calc) to non-numeric ([facility] results) [place] [facility]) BILIRUBIN,TOTAL 0.2 Normal (applies [facility] mg/dL to non-numeric ([place]) [place] [facility]) Alkaline 91 U/L Normal (applies [facility]GEN phosphatase to non-numeric ([facility] [Enzymatic results) [place] activity[facility] ] in Serum, [facility]) Plasma or Blood AST 14 U/L Normal (applies [facility] to non-numeric ([place]) [place] [facility]) ALT 12 U/L Normal (applies [facility] to non-numeric ([place] results) [place] [facility]) EGFR NON AFR 53 Below low normal [facility] [place] mL/min/1 ([place] .73m2 [place] [facility]) EGFR 62 Normal (applies [facility] [place] mL/min/1 to non-numeric ([place] .73m2 results) [place] [facility]) ID Date Data Source [id number] 01/22/2019 12:00:00 AM EDT [facility] ([place] [facility]) Name Value Range Interpretation Description Data Source(s ) Supporting Code Document(s ) WBC 5.4 Normal (applies MEDGEN Thousand to non-numeric ([place] /uL results) [place] [facility]) RBC 3.80 Normal (applies [facility] Million/ to non-numeric ([place] uL results) [place] [facility]) Hemoglobin 10.4 Below low normal [facility] [Mass/volume] g/dL ([place] in Mixed venous [place] [facility] Neph[facility] Oximetry [facility]) Hematocrit 32.2 % Below low normal [facility] [Pure volume ([place] fraction] of [place] [facility] Automated count [facility]) MCV 84.7 fL Normal (applies [facility]GEN to non-numeric ([place] results) [place] [facility]) MCH 27.4 pg Normal (applies [facility] to non-numeric ([place] results) [place] [facility]) MCHC 32.3 Normal (applies [facility] g/dL to non-numeric ([place] results) [place] [facility]) RDW 13.2 % Normal (applies [facility] to non-numeric ([place] results) [place] [facility] PLATELET COUNT 166 Normal (applies MEDGEN Thousand to non-numeric ([place] /uL results) [place] [facility] MPV 8.9 fL Normal (applies [facility] to non-numeric ([place] results) [place] [facility] TOTAL 58.5 % Normal (applies [facility] NEUTROPHILS,% to non-numeric ([place] results) [place] [facility] TOTAL 30.2 % Normal (applies [facility] LYMPHOCYTES,% to non-numeric ([place] results) [place] [facility] MONOCYTES,% 7.9 % Normal (applies [facility] to non-numeric ([place] results) [place] [facility] EOSINOPHILS,% 2.8 % Normal (applies [facility] to non-numeric ([place] results) [place] [facility] BASOPHILS,% 0.6 % Normal (applies [facility] to non-numeric ([place] results) [place] [facility] NEUTROPHILS,ABS 3159 Normal (applies MEDGEN [place] cells/uL to non-numeric ([place] results) [place] [facility] LYMPHOCYTES,ABS 1631 Normal (applies [facility] [place] cells/uL to non-numeric ([place] results) [place] [facility] MONOCYTES,ABSOL 427 Normal (applies MED[facility] [place] cells/uL to non-numeric ([place] results) [place] [facility] EOSINOPHILS,ABS 151 Normal (applies [facility] [place] cells/uL to non-numeric ([place] results) [place] [facility] BASOPHILS,ABSOL 32 Normal (applies [facility] U[place]ER [place] cells/uL to non-numeric ([place] results) [place] [facility] DIFFERENTIAL Normal (applies [facility] to non-numeric ([place] results) [place] [facility] [facility]) ID Date Data Source [id number] 01/22/2019 12:00:00 AM EDT [facility] ([place] [facility]) Name Value Range Interpretation Description Data Source(s ) Supporting Code Document(s ) WBC 5.4 Normal (applies MEDGEN Thousand to non-numeric ([place] /uL results) [place] [facility]) RBC 3.80 Normal (applies [facility] Million/ to non-numeric ([place] uL results) [place] [facility] Hemoglobin 10.4 Below low normal MEDGEN [Mass/volume] g/dL ([place] in Mixed venous [place] by Nephrology Oximetry [facility]) Hematocrit 32.2 % Below low normal MEDGEN [Pure volume ([place] fraction] of [place] [facility]phrology Automated count [facility]) MCV 84.7 fL Normal (applies MEDGEN to non-numeric ([place] results) [place] [facility]) MCH 27.4 pg Normal (applies MEDGEN to non-numeric ([place] results) [place] [facility]) MCHC 32.3 Normal (applies MEDGEN g/dL to non-numeric ([place] results) [place] [facility]) RDW 13.2 % Normal (applies [facility] to non-numeric ([place] results) [place] [facility] PLATELET COUNT 166 Normal (applies MEDGEN Thousand to non-numeric ([place] /uL results) [place] [facility] MPV 8.9 fL Normal (applies MEDGEN to non-numeric ([place] results) [place] [facility]) TOTAL 58.5 % Normal (applies [facility] NEUTROPHILS,% to non-numeric ([place] results) [place] [facility]) TOTAL 30.2 % Normal (applies [facility]GEN LYMPHOCYTES,% to non-numeric ([place] results) [place] [facility]) MONOCYTES,% 7.9 % Normal (applies [facility]GEN to non-numeric ([place] results) [place] [facility]) EOSINOPHILS,% 2.8 % Normal (applies MEDGEN to non-numeric ([place] results) [place] [facility]) BASOPHILS,% 0.6 % Normal (applies [facility] to non-numeric ([place] results) [place] [facility]) NEUTROPHILS,ABS 3159 Normal (applies MEDGEN OLUTE cells/uL to non-numeric ([place] results) [place] [facility]) LYMPHOCYTES,ABS 1631 Normal (applies MEDGEN OLUTE cells/uL to non-numeric ([facility] results) [place] [facility] MONOCYTES,ABSOL 427 Normal (applies MEDGEN [place] cells/uL to non-numeric ([facility] results) [place] [facility]) EOSINOPHILS,ABS 151 Normal (applies MEDGEN OLUTE cells/uL to non-numeric ([facility] results) [place] [facility]) BASOPHILS,ABSOL 32 Normal (applies MEDGEN [place] cells/uL to non-numeric ([facility] results) [place] [facility] DIFFERENTIAL Normal (applies MEDGEN to non-numeric ([facility] results) [place] [facility]) ID Date Data Source [id number] 01/22/2019 12:00:00 AM EDT MEDGEN ([facility] [place] [facility] Name Value Range Interpretation Description Data Source(s ) Supporting Code Document(s ) Glucose 76 mg/dL Normal (applies MEDGEN [Mass/volume] to non-numeric ([facility] in Urine results) [place] for Nephrology unspecified [facility]) duration Sodium 138 Normal (applies MEDGEN [Moles/volume] mmol/L to non-numeric ([facility] in Serum, results) [place] Plasma or Blood Nephrology [facility]) Potassium 4.5 Normal (applies MEDGEN [Mass/volume] mmol/L to non-numeric ([facility] in Blood results) [place] [facility] Chloride 106 Normal (applies MEDGEN [Moles/volume] mmol/L to non-numeric ([facility] in Serum, results) [place] Plasma [facility] Blood Neph[facility]) Carbon dioxide 24 Normal (applies MEDGEN [VFr/PPres] in mmol/L to non-numeric ([facility] Gas delivery results) [facility]) Urea nitrogen 29 mg/dL Above high normal MEDGEN [Moles/volume] ([facility] in Blood [place] [facility] Creatinine 1.01 Above high normal MEDGEN [Interpretation mg/dL ([facility] ] in Urine [place] [facility] BUN/CREATININE 29 Above high normal MEDGEN RATIO (calc) ([facility] Calcium 9.7 Normal (applies MEDGEN [Moles/volume] mg/dL to non-numeric ([facility] in Urine results) [place] for Nephrology unspecified [facility]) duration PROTEIN, TOTAL 7.4 g/dL Normal (applies MEDGEN to non-numeric ([place] results) [place] [facility]) Microalbumin 4.3 g/dL Normal (applies MEDGEN [Mass/time] in to non-numeric ([facility] Urine collected results) [place] for unspecified Nephrology duration [facility]) Globulin 3.1 g/dL Normal (applies MEDGEN [Mass/time] in (calc) to non-numeric ([facility] 24 hour Urine results) [place] [facility]) ALBUMIN/GLOBULI 1.4 Normal (applies MEDGEN N RATIO (calc) to non-numeric ([facility] results) [place] [facility]) BILIRUBIN,TOTAL 0.2 Normal (applies MEDGEN mg/dL to non-numeric ([facility] results) [place] [facility]) Alkaline 88 U/L Normal (applies MEDGEN phosphatase to non-numeric ([facility] [Enzymatic results) [place] activity/volume [facility]phrology ] in Serum, [facility]) Plasma or Blood AST 13 U/L Normal (applies MEDGEN to non-numeric ([facility] results) [place] [facility]) ALT 12 U/L Normal (applies MEDGEN to non-numeric ([facility] results) [place] [facility]) EGFR NON AFR 54 Below low normal MEDGEN [place] mL/min/1 ([place] .73m2 [place] [facility]) EGFR 63 Normal (applies MEDGEN [place] mL/min/1 to non-numeric ([place] .73m2 results) [place] [facility]) ID Date Data Source [id number] 01/22/2019 12:00:00 AM EDT MEDGEN ([facility] [place] [facility]) Name Value Range Interpretation Description Data Source(s ) Supporting Code Document(s ) WBC 5.4 Normal (applies MEDGEN Thousand to non-numeric ([facility] /uL results) [place] [facility]) RBC 3.80 Normal (applies MEDGEN Million/ to non-numeric ([facility] uL results) [place] [facility]) Hemoglobin 10.4 Below low normal MEDGEN [Mass/volume] g/dL ([place] in Mixed [place] venous blood Nephrology by Oximetry [facility]) Hematocrit 32.2 % Below low normal MEDGEN [Pure volume ([facility] fraction] of [place] [facility] by Nephrology Automated [facility]) count MCV 84.7 fL Normal (applies MEDGEN to non-numeric ([facility] results) [place] [facility] MCH 27.4 pg Normal (applies MEDGEN to non-numeric ([facility] results) [place] [facility] MCHC 32.3 Normal (applies MEDGEN g/dL to non-numeric ([facility] results) [facility]) RDW 13.2 % Normal (applies MEDGEN to non-numeric ([place] results) [place] [facility] PLATELET COUNT 166 Normal (applies MEDGEN Thousand to non-numeric ([place] /uL results) [facility]) MPV 8.9 fL Normal (applies MEDGEN to non-numeric ([facility] results) [facility]) TOTAL 58.5 % Normal (applies MEDGEN NEUTROPHILS,% to non-numeric ([facility] results) [facility]) TOTAL 30.2 % Normal (applies MEDGEN LYMPHOCYTES,% to non-numeric ([facility] results) [facility]) MONOCYTES,% 7.9 % Normal (applies MEDGEN to non-numeric ([facility] results) [facility]) EOSINOPHILS,% 2.8 % Normal (applies MEDGEN to non-numeric ([facility] results) [facility]) BASOPHILS,% 0.6 % Normal (applies MEDGEN to non-numeric ([facility] results) [facility]) NEUTROPHILS,AB 3159 Normal (applies MEDGEN SOLUTE cells/uL to non-numeric ([facility] results) [facility]) LYMPHOCYTES,AB 1631 Normal (applies MEDGEN SOLUTE cells/uL to non-numeric ([facility] results) [facility]) MONOCYTES,ABSO 427 Normal (applies MEDGEN LUTE cells/uL to non-numeric ([facility] results) [facility]) EOSINOPHILS,AB 151 Normal (applies MEDGEN SOLUTE cells/uL to non-numeric ([facility] results) [facility]) BASOPHILS,ABSO 32 Normal (applies MEDGEN LUTE cells/uL to non-numeric ([facility] results) [facility]) ID Date Data Source [id number] 01/22/2019 12:00:00 AM EDT [facility] Name Value Range Interpretation Description Data Source(s ) Supporting Code Document(s ) Glucose 76 mg/dL Normal (applies MEDGEN [Mass/volume] to non-numeric ([facility] in Urine results) [place] for Nephrology unspecified [facility]) duration Sodium 138 Normal (applies MEDGEN [Moles/volume] mmol/L to non-numeric ([facility] in Serum, results) [place] Plasma or Blood Nephrology [facility]) Potassium 4.5 Normal (applies MEDGEN [Mass/volume] mmol/L to non-numeric ([facility] in Blood results) [place] [facility]) Chloride 106 Normal (applies MEDGEN [Moles/volume] mmol/L to non-numeric ([facility] in Serum, results) [place] Plasma [facility] Blood Neph[facility]) Carbon dioxide 24 Normal (applies MEDGEN [VFr/PPres] in mmol/L to non-numeric ([facility] Gas delivery results) [place] [facility]) Urea nitrogen 29 mg/dL Above high normal MEDGEN [Moles/volume] ([facility] in Blood [place] [facility]) Creatinine 1.01 Above high normal MEDGEN [Interpretation mg/dL ([facility] ] [facility] Urine [place] [facility] BUN/CREATININE 29 Above high normal MEDGEN RATIO (calc) ([facility] Nephrology [facility]) Calcium 9.7 Normal (applies MEDGEN [Moles/volume] mg/dL to non-numeric ([facility] in Urine results) [place] collected for Nephrology unspecified [facility]) duration PROTEIN, TOTAL 7.4 g/dL Normal (applies MEDGEN to non-numeric ([facility] results) [place] [facility]) Microalbumin 4.3 g/dL Normal (applies MEDGEN [Mass/time] in to non-numeric ([facility] Urine collected results) [place] for unspecified Nephrology duration [facility]) Globulin 3.1 g/dL Normal (applies MEDGEN [Mass/time] in (calc) to non-numeric ([facility] 24 hour Urine results) [place] [facility]) ALBUMIN/GLOBULI 1.4 Normal (applies MEDGEN N RATIO (calc) to non-numeric ([facility] results) [place] [facility]) BILIRUBIN,TOTAL 0.2 Normal (applies MEDGEN mg/dL to non-numeric ([facility] results) [place] [facility]) Alkaline 88 U/L Normal (applies MEDGEN phosphatase to non-numeric ([facility] [Enzymatic results) [place] activity/volume [facility]phrology ] in Serum, [facility]) Plasma or Blood AST 13 U/L Normal (applies MEDGEN to non-numeric ([place] results) [place] [facility]) ALT 12 U/L Normal (applies MEDGEN to non-numeric ([place] results) [place] [facility]) EGFR NON AFR 54 Below low normal MEDGEN [place] mL/min/1 ([place] .73m2 [place] [facility]) EGFR 63 Normal (applies MEDGEN [place] mL/min/1 to non-numeric ([place] .73m2 results) [place] [facility]) ID Date Data Source [id number] 01/22/2019 12:00:00 AM EDT [facility] ([place] [facility]) Name Value Range Interpretation Description Data Source(s ) Supporting Code Document(s ) WBC 5.4 Normal (applies MEDGEN Thousand to non-numeric ([place] /uL results) [place] [facility]) RBC 3.80 Normal (applies MEDGEN Million/ to non-numeric ([place] uL results) [place] [facility]) Hemoglobin 10.4 Below low normal MEDGEN [Mass/volume] g/dL ([place] in Mixed [place] venous blood Nephrology by Oximetry [facility]) Hematocrit 32.2 % Below low normal MEDGEN [Pure volume ([place] fraction] of [place] by Nephrology Automated [facility]) count MCV 84.7 fL Normal (applies MEDGEN to non-numeric ([place] results) [place] [facility]) MCH 27.4 pg Normal (applies MEDGEN to non-numeric ([place] results) [place] [facility]) MCHC 32.3 Normal (applies MEDGEN g/dL to non-numeric ([place] results) [place] [facility]) RDW 13.2 % Normal (applies MEDGEN to non-numeric ([place] results) [place] [facility]) PLATELET COUNT 166 Normal (applies MEDGEN Thousand to non-numeric ([place] /uL results) [place] [facility]) MPV 8.9 fL Normal (applies MEDGEN to non-numeric ([place] results) [place] [facility]) TOTAL 58.5 % Normal (applies MEDGEN NEUTROPHILS,% to non-numeric ([place] results) [place] [facility]) TOTAL 30.2 % Normal (applies [facility]GEN LYMPHOCYTES,% to non-numeric ([place] results) [place] [facility]) MONOCYTES,% 7.9 % Normal (applies MEDGEN to non-numeric ([place] results) [place] [facility]) EOSINOPHILS,% 2.8 % Normal (applies MEDGEN to non-numeric ([place] results) [place] [facility]) BASOPHILS,% 0.6 % Normal (applies MEDGEN to non-numeric ([place] results) [place] [facility]) NEUTROPHILS,AB 3159 Normal (applies MEDGEN SOLUTE cells/uL to non-numeric ([place] results) [place] [facility]) LYMPHOCYTES,AB 1631 Normal (applies MEDGEN SOLUTE cells/uL to non-numeric ([place] results) [place] [facility]) MONOCYTES,ABSO 427 Normal (applies MEDGEN LUTE cells/uL to non-numeric ([place] results) [place] [facility]) EOSINOPHILS,AB 151 Normal (applies MEDGEN SOLUTE cells/uL to non-numeric ([place] results) [place] [facility]) BASOPHILS,ABSO 32 Normal (applies MEDGEN LUTE cells/uL to non-numeric ([place] results) [place] [facility]) ID Date Data Source [id number] 01/22/2019 12:00:00 AM EDT MEDGEN ([facility]) Name Value Range Interpretation Description Data Source(s ) Supporting Code Document(s ) Glucose 76 mg/dL Normal (applies MEDGEN [Mass/volume] to non-numeric ([place] in Urine results) [place] collected for Nephrology unspecified [facility]) duration Sodium 138 Normal (applies MEDGEN [Moles/volume] mmol/L to non-numeric ([place] in Serum, results) [place] Plasma or Blood Nephrology [facility]) Potassium 4.5 Normal (applies MEDGEN [Mass/volume] mmol/L to non-numeric ([place] in Blood results) [place] [facility]) Chloride 106 Normal (applies MEDGEN [Moles/volume] mmol/L to non-numeric ([place] in Serum, results) [place] Plasma or Blood Nephrology [facility]) Carbon dioxide 24 Normal (applies MEDGEN [VFr/PPres] in mmol/L to non-numeric ([place] Gas delivery results) [place] [facility]) Urea nitrogen 29 mg/dL Above high normal MEDGEN [Moles/volume] ([place] in Blood [place] [facility]) Creatinine 1.01 Above high normal MEDGEN [Interpretation mg/dL ([facility] ] [facility] [place] [facility] BUN/CREATININE 29 Above high normal MEDGEN RATIO (calc) ([facility] Calcium 9.7 Normal (applies MEDGEN [Moles/volume] mg/dL to non-numeric ([facility] in Urine results) [place] collected for Nephrology unspecified [facility]) duration PROTEIN, TOTAL 7.4 g/dL Normal (applies MEDGEN to non-numeric ([facility] results) [place] [facility]) Microalbumin 4.3 g/dL Normal (applies MEDGEN [Mass/time] in to non-numeric ([facility] Urine collected results) [place] for unspecified Nephrology duration [facility]) Globulin 3.1 g/dL Normal (applies MEDGEN [Mass/time] in (calc) to non-numeric ([facility] 24 hour Urine results) [place] [facility] ALBUMIN/GLOBULI 1.4 Normal (applies MEDGEN N RATIO (calc) to non-numeric ([facility] results) [place] [facility]) BILIRUBIN,TOTAL 0.2 Normal (applies MEDGEN mg/dL to non-numeric ([facility] results) [place] [facility]) Alkaline 88 U/L Normal (applies MEDGEN phosphatase to non-numeric ([facility] [Enzymatic results) [place] activity/volume [facility]ph[facility] ] in Serum, [facility]) Plasma or Blood AST 13 U/L Normal (applies MEDGEN to non-numeric ([facility] results) [place] [facility]) ALT 12 U/L Normal (applies MEDGEN to non-numeric ([facility] results) [place] [facility]) EGFR NON AFR 54 Below low normal [facility] [place] mL/min/1 ([place] .73m2 [place] [facility] EGFR 63 Normal (applies MEDGEN [place] mL/min/1 to non-numeric ([facility] .73m2 results) [place] [facility] ID Date Data Source [id number] 01/22/2019 12:00:00 AM EDT MEDGEN ([facility] [place] [facility]) Name Value Range Interpretation Description Data Source(s ) Supporting Code Document(s ) WBC 5.4 Normal (applies MEDGEN Thousand to non-numeric ([facility] /uL results) [place] [facility]) RBC 3.80 Normal (applies MEDGEN Million/ to non-numeric ([place] uL results) [place] [facility]) Hemoglobin 10.4 Below low normal [facility] [Mass/volume] g/dL ([place] in Mixed venous [place] blood by Nephrology Oximetry [facility]) Hematocrit 32.2 % Below low normal MEDGEN [Pure volume ([place] fraction] of [place] Blood by Nephrology Automated count [facility]) MCV 84.7 fL Normal (applies MEDGEN to non-numeric ([place] results) [place] [facility]) MCH 27.4 pg Normal (applies MEDGEN to non-numeric ([place] results) [place] [facility]) MCHC 32.3 Normal (applies MEDGEN g/dL to non-numeric ([place] results) [place] [facility]) RDW 13.2 % Normal (applies [facility] to non-numeric ([place] results) [place] [facility] PLATELET COUNT 166 Normal (applies MEDGEN Thousand to non-numeric ([place] /uL results) [place] [facility]) MPV 8.9 fL Normal (applies MEDGEN to non-numeric ([place] results) [place] [facility]) TOTAL 58.5 % Normal (applies MEDGEN NEUTROPHILS,% to non-numeric ([place] results) [place] [facility]) TOTAL 30.2 % Normal (applies [facility]GEN LYMPHOCYTES,% to non-numeric ([place] results) [place] [facility]) MONOCYTES,% 7.9 % Normal (applies MEDGEN to non-numeric ([place] results) [place] [facility]) EOSINOPHILS,% 2.8 % Normal (applies MEDGEN to non-numeric ([place] results) [place] [facility]) BASOPHILS,% 0.6 % Normal (applies MEDGEN to non-numeric ([place] results) [place] [facility]) NEUTROPHILS,ABS 3159 Normal (applies MEDGEN OLUTE cells/uL to non-numeric ([place] results) [place] [facility] LYMPHOCYTES,ABS 1631 Normal (applies MEDGEN [place] cells/uL to non-numeric ([place] results) [place] [facility]) MONOCYTES,ABSOL 427 Normal (applies MEDGEN [place] cells/uL to non-numeric ([facility] results) [place] [facility]) EOSINOPHILS,ABS 151 Normal (applies MEDGEN OLUTE cells/uL to non-numeric ([facility] results) [place] [facility]) BASOPHILS,ABSOL 32 Normal (applies MEDGEN [place] cells/uL to non-numeric ([facility] results) [place] [facility]) DIFFERENTIAL Normal (applies MEDGEN to non-numeric ([facility] results) [place] [facility]) ID Date Data Source [id number] 01/22/2019 12:00:00 AM EDT MEDGEN ([facility] [place] [facility]) Name Value Range Interpretation Description Data Source(s ) Supporting Code Document(s ) Glucose 76 mg/dL Normal (applies MEDGEN [Mass/volume] to non-numeric ([facility] in Urine results) [place] collected for Nephrology unspecified [facility]) duration Sodium 138 Normal (applies MEDGEN [Moles/volume] mmol/L to non-numeric ([facility] in Serum, results) [place] Plasma or Blood Nephrology [facility]) Potassium 4.5 Normal (applies MEDGEN [Mass/volume] mmol/L to non-numeric ([facility] in Blood results) [place] [facility]) Chloride 106 Normal (applies MEDGEN [Moles/volume] mmol/L to non-numeric ([facility] in Serum, results) [place] Plasma or Blood Nephrology [facility]) Carbon dioxide 24 Normal (applies MEDGEN [VFr/PPres] in mmol/L to non-numeric ([facility] Gas delivery results) [place] [facility]) Urea nitrogen 29 mg/dL Above high normal MEDGEN [Moles/volume] ([facility] in Blood [place] [facility]) Creatinine 1.01 Above high normal MEDGEN [Interpretation mg/dL ([facility] ] in Urine [place] [facility]) BUN/CREATININE 29 Above high normal MEDGEN RATIO (calc) ([facility] Calcium 9.7 Normal (applies MEDGEN [Moles/volume] mg/dL to non-numeric ([facility] in Urine results) [place] collected for Nephrology unspecified [facility]) duration PROTEIN, TOTAL 7.4 g/dL Normal (applies MEDGEN to non-numeric ([facility] results) [place] [facility] [facility]) Microalbumin 4.3 g/dL Normal (applies MEDGEN [Mass/time] in to non-numeric ([facility] Urine collected results) [place] for unspecified Nephrology duration [facility]) Globulin 3.1 g/dL Normal (applies MEDGEN [Mass/time] in (calc) to non-numeric ([facility] 24 hour Urine results) [place] [facility]) ALBUMIN/GLOBULI 1.4 Normal (applies MEDGEN N RATIO (calc) to non-numeric ([facility] results) [place] [facility]) BILIRUBIN,TOTAL 0.2 Normal (applies MEDGEN mg/dL to non-numeric ([place] results) [place] [facility]) Alkaline 88 U/L Normal (applies MEDGEN phosphatase to non-numeric ([facility] [Enzymatic results) [place] activity/volume Nephrology ] in Serum, [facility]) Plasma or Blood AST 13 U/L Normal (applies MEDGEN to non-numeric ([facility] results) [place] [facility]) ALT 12 U/L Normal (applies MEDGEN to non-numeric ([facility] results) [place] [facility]) EGFR NON AFR 54 Below low normal MEDGEN TURK[place] mL/min/1 ([place] .73m2 [place] [facility]) EGFR 63 Normal (applies MEDGEN [place] mL/min/1 to non-numeric ([place] .73m2 results) [place] [facility]) ID Date Data Source [id number] 01/22/2019 12:00:00 AM EDT MEDGEN ([facility] mónica [place] [facility]) Name Value Range Interpretation Description Data Source(s ) Supporting Code Document(s ) WBC 5.7 Normal (applies MEDGEN Thous/mc to non-numeric ([facility] L results) [place] [facility]) RBC 3.80 Normal (applies MEDGEN Mill/mcL to non-numeric ([facility] results) [place] [facility]) Hemoglobin 10.2 Below low normal MEDGEN [Mass/volume] g/dL ([place] in [place] venous blood Nephrology by [facility]xim[facility]) Hematocrit 30.7 % Below low normal MEDGEN [Pure volume ([facility] fraction] of [place] Blood by Nephrology Automated [facility]) count MCV 80.8 fL Normal (applies MEDGEN to non-numeric ([facility] results) [place] [facility]) MCH 26.8 pg Below low normal MEDGEN ([facility] Nephrology [facility]) MCHC 33.2 Normal (applies MEDGEN g/dL to non-numeric ([facility] results) [place] [facility] RDW 15.1 % Above high normal MEDGEN ([facility] Nephrology [facility]) PLATELET COUNT 185 Normal (applies MEDGEN Thous/mc to non-numeric ([facility] L results) [place] [facility] MPV 6.2 fL Below low normal MEDGEN [facility] TOTAL 63.5 % Normal (applies MEDGEN NEUTROPHILS,% to non-numeric ([facility] results) [place] [facility] TOTAL 27.9 % Normal (applies MEDGEN LYMPHOCYTES,% to non-numeric ([facility] results) [place] [facility] MONOCYTES,% 6.3 % Normal (applies MEDGEN to non-numeric ([facility] results) [place] [facility] EOSINOPHILS,% 1.8 % Normal (applies MEDGEN to non-numeric ([facility] results) [place] [facility] BASOPHILS,% 0.5 % Normal (applies MEDGEN to non-numeric ([facility] results) [place] [facility] NEUTROPHILS,AB 3620 Normal (applies MEDGEN SOLUTE Cells/mc to non-numeric ([place] L results) [place] [facility] LYMPHOCYTES,AB 1590 Normal (applies MEDGEN SOLUTE Cells/mc to non-numeric ([place] L results) [place] [facility] MONOCYTES,ABSO 359 Normal (applies MEDGEN LUTE Cells/mc to non-numeric ([place] L results) [place] [facility] EOSINOPHILS,AB 103 Normal (applies MEDGEN SOLUTE Cells/mc to non-numeric ([place] L results) [place] [facility] BASOPHILS,ABSO 29 Normal (applies MEDGEN LUTE Cells/mc to non-numeric ([place] L results) [place] [facility]) WBC 6.0 Normal (applies MEDGEN Thous/mc to non-numeric ([place] L results) [place] [facility] RBC 3.93 Normal (applies MEDGEN Mill/mcL to non-numeric ([facility] results) [place] [facility] Hemoglobin 10.8 Below low normal MEDGEN [Mass/volume] g/dL ([place] in [place] venous blood Nephrology by [employer]) Hematocrit 32.5 % Below low normal MEDGEN [Pure volume ([place] fraction] of [place] Blood by [facility]phrology [facility]) count MCV 82.9 fL Normal (applies MEDGEN to non-numeric ([place] results) [place] [facility] MCH 27.6 pg Normal (applies MEDGEN to non-numeric ([facility] results) [facility]) MCHC 33.3 Normal (applies MEDGEN g/dL to non-numeric ([facility] results) [place] [facility] RDW 14.6 % Normal (applies MEDGEN to non-numeric ([facility] results) [place] [facility] PLATELET COUNT 198 Normal (applies MEDGEN Thous/mc to non-numeric ([place] L results) [facility]) MPV 6.7 fL Below low normal MEDGEN ([facility]) TOTAL 58.2 % Normal (applies MEDGEN NEUTROPHILS,% to non-numeric ([facility] results) [facility]) TOTAL 31.7 % Normal (applies MEDGEN LYMPHOCYTES,% to non-numeric ([facility] results) [facility]) MONOCYTES,% 7.0 % Normal (applies MEDGEN to non-numeric ([facility] results) [facility]) EOSINOPHILS,% 2.5 % Normal (applies MEDGEN to non-numeric ([facility] results) [facility]) BASOPHILS,% 0.6 % Normal (applies MEDGEN to non-numeric ([facility] results) [facility]) NEUTROPHILS,AB 3492 Normal (applies MEDGEN SOLUTE Cells/mc to non-numeric ([place] L results) [facility]) LYMPHOCYTES,AB 1902 Normal (applies MEDGEN SOLUTE Cells/mc to non-numeric ([place] L results) [facility]) MONOCYTES,ABSO 420 Normal (applies MEDGEN LUTE Cells/mc to non-numeric ([place] L results) [facility]) EOSINOPHILS,AB 150 Normal (applies MEDGEN SOLUTE Cells/mc to non-numeric ([place] L results) [facility]) BASOPHILS,ABSO 36 Normal (applies MEDGEN LUTE Cells/mc to non-numeric ([place] L results) [facility]) WBC 4.0 Normal (applies MEDGEN Thous/mc to non-numeric ([place] L results) [facility]) RBC 4.21 Normal (applies MEDGEN Mill/mcL to non-numeric ([facility] results) [facility]) Hemoglobin 14.1 Normal (applies MEDGEN [Mass/volume] g/dL to non-numeric ([place] results) [place] venous blood Nephrology by Oxim[facility]) Hematocrit 43.0 % Normal (applies MEDGEN [Pure volume to non-numeric ([place] fraction] of results) [place] Blood by Nephrology Automated [facility]) count MCV 102.0 fL Above high normal MEDGEN ([facility] Nephrology [facility]) MCH 33.4 pg Above high normal MEDGEN ([facility] Nephrology [facility]) MCHC 32.8 Normal (applies MEDGEN g/dL to non-numeric ([place] results) [place] [facility] [facility]) RDW 13.4 % Normal (applies MEDGEN to non-numeric ([place] results) [place] [facility]) PLATELET COUNT 190 Normal (applies MEDGEN Thous/mc to non-numeric ([place] L results) [place] [facility]) MPV 8.0 fL Normal (applies MEDGEN to non-numeric ([place] results) [place] [facility]) TOTAL 53.7 % Normal (applies MEDGEN NEUTROPHILS,% to non-numeric ([place] results) [place] [facility]) TOTAL 34.0 % Normal (applies MEDGEN LYMPHOCYTES,% to non-numeric ([place] results) [place] [facility]) MONOCYTES,% 9.4 % Normal (applies MEDGEN to non-numeric ([place] results) [place] [facility]) EOSINOPHILS,% 2.5 % Normal (applies MEDGEN to non-numeric ([place] results) [place] [facility]) BASOPHILS,% 0.4 % Normal (applies MEDGEN to non-numeric ([place] results) [place] [facility]) NEUTROPHILS,AB 2148 Normal (applies MEDGEN SOLUTE Cells/mc to non-numeric ([place] L results) [place] [facility] LYMPHOCYTES,AB 1360 Normal (applies MEDGEN SOLUTE Cells/mc to non-numeric ([place] L results) [place] [facility]) MONOCYTES,ABSO 376 Normal (applies MEDGEN LUTE Cells/mc to non-numeric ([place] L results) [place] [facility]) EOSINOPHILS,AB 100 Normal (applies MEDGEN SOLUTE Cells/mc to non-numeric ([place] L results) [place] [facility]) BASOPHILS,ABSO 16 Normal (applies MEDGEN LUTE Cells/mc to non-numeric ([facility] results) [place] [facility] WBC 2.4 Below low normal MEDGEN Thous/mc [facility] RBC 3.74 Below low normal MEDGEN Mill/mcL ([facility] Hemoglobin 10.2 Below low normal MEDGEN [Mass/volume] g/dL ([facility] in Mixed [place] venous blood Nephrology by Oxim[facility]) Hematocrit 30.3 % Below low normal MEDGEN [Pure volume ([place] fraction] of [place] Blood by Nephrology [facility]) count MCV 81.0 fL Normal (applies MEDGEN to non-numeric ([facility] results) [place] [facility] MCH 27.3 pg Normal (applies MEDGEN to non-numeric ([facility] results) [place] [facility] MCHC 33.7 Normal (applies MEDGEN g/dL to non-numeric ([facility] results) [place] [facility] RDW 14.2 % Normal (applies MEDGEN to non-numeric ([facility] results) [place] [facility]) PLATELET COUNT 122 Below low normal MEDGEN Thous/mc ([facility] MPV 7.1 fL Below low normal MEDGEN ([facility] TOTAL 51.5 % Normal (applies MEDGEN NEUTROPHILS,% to non-numeric ([facility] results) [place] [facility] TOTAL 34.2 % Normal (applies MEDGEN LYMPHOCYTES,% to non-numeric ([facility] results) [place] [facility] MONOCYTES,% 10.3 % Normal (applies MEDGEN to non-numeric ([facility] results) [place] [facility] EOSINOPHILS,% 3.5 % Normal (applies MEDGEN to non-numeric ([facility] results) [place] [facility] BASOPHILS,% 0.5 % Normal (applies MEDGEN to non-numeric ([facility]) [place] [facility] NEUTROPHILS,AB 1236 Below low normal MEDGEN SOLUTE Cells/mc ([facility] LYMPHOCYTES,AB 821 Below low normal MEDGEN SOLUTE Cells/mc ([facility] MONOCYTES,ABSO 247 Normal (applies MEDGEN LUTE Cells/mc to non-numeric ([facility] results) [place] [facility]) EOSINOPHILS,AB 84 Normal (applies MEDGEN SOLUTE Cells/mc to non-numeric ([place] L results) [place] [facility]) BASOPHILS,ABSO 12 Normal (applies MEDGEN LUTE Cells/mc to non-numeric ([place] L results) [place] [facility]) WBC 5.2 Normal (applies MEDGEN Thous/mc to non-numeric ([place] L results) [place] [facility]) RBC 4.04 Normal (applies MEDGEN Mill/mcL to non-numeric ([place] results) [place] [facility]) Hemoglobin 10.9 Below low normal MEDGEN [Mass/volume] g/dL ([place] in [place] blood Nephrology by Oximetry [facility]) Hematocrit 32.8 % Below low normal MEDGEN [Pure volume ([place] fraction] of [place] Blood by Nephrology Automated [facility]) count MCV 81.3 fL Normal (applies MEDGEN to non-numeric ([facility] results) [place] [facility]) MCH 27.0 pg Normal (applies MEDGEN to non-numeric ([place] results) [place] [facility]) MCHC 33.3 Normal (applies MEDGEN g/dL to non-numeric ([place] results) [place] [facility] RDW 13.6 % Normal (applies MEDGEN to non-numeric ([place] results) [place] [facility]) PLATELET COUNT 252 Normal (applies MEDGEN Thous/mc to non-numeric ([facility] L results) [place] [facility] MPV 6.2 fL Below low normal MEDGEN ([place] [facility]) TOTAL 69.4 % Normal (applies MEDGEN NEUTROPHILS,% to non-numeric ([place] results) [place] [facility]) TOTAL 22.2 % Normal (applies MEDGEN LYMPHOCYTES,% to non-numeric ([place] results) [place] [facility]) MONOCYTES,% 6.7 % Normal (applies MEDGEN to non-numeric ([place] results) [place] [facility]) EOSINOPHILS,% 1.3 % Normal (applies MEDGEN to non-numeric ([place] results) [place] [facility]) BASOPHILS,% 0.4 % Normal (applies MEDGEN to non-numeric ([place] results) [place] [facility]) NEUTROPHILS,AB 3609 Normal (applies MEDGEN SOLUTE Cells/mc to non-numeric ([place] L results) [place] [facility]) LYMPHOCYTES,AB 1154 Normal (applies MEDGEN SOLUTE Cells/mc to non-numeric ([place] L results) [place] [facility]) MONOCYTES,ABSO 348 Normal (applies MEDGEN LUTE Cells/mc to non-numeric ([place] L results) [place] [facility]) EOSINOPHILS,AB 68 Normal (applies MEDGEN SOLUTE Cells/mc to non-numeric ([place] L results) [place] [facility]) BASOPHILS,ABSO 21 Normal (applies MEDGEN LUTE Cells/mc to non-numeric ([place] L results) [place] [facility]) WBC 5.5 Normal (applies MEDGEN Thous/mc to non-numeric ([place] L results) [place] [facility]) RBC 3.85 Normal (applies MEDGEN Mill/mcL to non-numeric ([place] results) [place] [facility]) Hemoglobin 10.5 Below low normal MEDGEN [Mass/volume] g/dL ([place] in [place] venous blood Nephrology by Oxim[facility]) Hematocrit 32.3 % Below low normal MEDGEN [Pure volume ([place] fraction] of [place] Blood by Nephrology [facility]) count MCV 83.8 fL Normal (applies MEDGEN to non-numeric ([place] results) [place] [facility]) MCH 27.4 pg Normal (applies MEDGEN to non-numeric ([place] results) [place] [facility]) MCHC 32.7 Normal (applies MEDGEN g/dL to non-numeric ([place] results) [place] [facility]) RDW 14.9 % Normal (applies MEDGEN to non-numeric ([place] results) [place] [facility]) PLATELET COUNT 210 Normal (applies MEDGEN Thous/mc to non-numeric ([place] L results) [place] [facility] MPV 6.7 fL Below low normal MEDGEN ([place] [facility]) TOTAL 59.5 % Normal (applies MEDGEN NEUTROPHILS,% to non-numeric ([place] results) [place] [facility]) TOTAL 30.0 % Normal (applies MEDGEN LYMPHOCYTES,% to non-numeric ([place] results) [place] [facility]) MONOCYTES,% 8.0 % Normal (applies MEDGEN to non-numeric ([place] results) [place] [facility]) EOSINOPHILS,% 1.8 % Normal (applies MEDGEN to non-numeric ([facility] results) [place] [facility]) BASOPHILS,% 0.7 % Normal (applies MEDGEN to non-numeric ([facility] results) [place] [facility]) NEUTROPHILS,AB 3273 Normal (applies MEDGEN SOLUTE Cells/mc to non-numeric ([place] L results) [place] [facility]) LYMPHOCYTES,AB 1650 Normal (applies MEDGEN SOLUTE Cells/mc to non-numeric ([place] L results) [place] [facility]) MONOCYTES,ABSO 440 Normal (applies MEDGEN LUTE Cells/mc to non-numeric ([facility] L results) [place] [facility]) EOSINOPHILS,AB 99 Normal (applies MEDGEN SOLUTE Cells/mc to non-numeric ([facility] L results) [place] [facility]) BASOPHILS,ABSO 39 Normal (applies MEDGEN LUTE Cells/mc to non-numeric ([facility] L results) [place] [facility] WBC 5.1 Normal (applies MEDGEN Thous/mc to non-numeric ([facility] L results) [place] [facility] RBC 3.74 Below low normal MEDGEN Mill/mcL ([facility] Nephrology [facility]) Hemoglobin 10.2 Below low normal MEDGEN [Mass/volume] g/dL ([place] in [place] venous blood Nephrology by Oxim[facility]) Hematocrit 31.4 % Below low normal MEDGEN [Pure volume ([place] fraction] of [place] Blood by Nephrology Automated [facility]) count MCV 83.8 fL Normal (applies MEDGEN to non-numeric ([facility] results) [place] [facility]) MCH 27.2 pg Normal (applies MEDGEN to non-numeric ([place] results) [place] [facility]) MCHC 32.5 Normal (applies MEDGEN g/dL to non-numeric ([facility] results) [place] [facility]) RDW 14.3 % Normal (applies MEDGEN to non-numeric ([facility] results) [place] [facility]) PLATELET COUNT 195 Normal (applies MEDGEN Thous/mc to non-numeric ([facility] L results) [place] [facility]) MPV 6.2 fL Below low normal MEDGEN ([facility] Nephrology [facility]) TOTAL 59.7 % Normal (applies MEDGEN NEUTROPHILS,% to non-numeric ([place] results) [place] [facility]) TOTAL 31.1 % Normal (applies MEDGEN LYMPHOCYTES,% to non-numeric ([place] results) [place] [facility]) MONOCYTES,% 7.0 % Normal (applies MEDGEN to non-numeric ([place] results) [place] [facility]) EOSINOPHILS,% 1.7 % Normal (applies MEDGEN to non-numeric ([place] results) [place] [facility]) BASOPHILS,% 0.5 % Normal (applies MEDGEN to non-numeric ([place] results) [place] [facility]) NEUTROPHILS,AB 3045 Normal (applies MEDGEN SOLUTE Cells/mc to non-numeric ([place] L results) [place] [facility]) LYMPHOCYTES,AB 1586 Normal (applies MEDGEN SOLUTE Cells/mc to non-numeric ([place] L results) [place] [facility]) MONOCYTES,ABSO 357 Normal (applies MEDGEN LUTE Cells/mc to non-numeric ([place] L results) [place] [facility] EOSINOPHILS,AB 87 Normal (applies MEDGEN SOLUTE Cells/mc to non-numeric ([place] L results) [place] [facility]) BASOPHILS,ABSO 26 Normal (applies MEDGEN LUTE Cells/mc to non-numeric ([place] L results) [place] [facility]) WBC 5.3 Normal (applies MEDGEN Thous/mc to non-numeric ([place] L results) [place] [facility]) RBC 3.72 Below low normal MEDGEN Mill/mcL ([place] [facility]) Hemoglobin 10.1 Below low normal MEDGEN [Mass/volume] g/dL ([place] in [place] blood Nephrology by Oxim[facility]) Hematocrit 30.7 % Below low normal MEDGEN [Pure volume ([place] fraction] of [place] Blood by Nephrology Automated [facility]) count MCV 82.6 fL Normal (applies MEDGEN to non-numeric ([place] results) [place] [facility]) MCH 27.3 pg Normal (applies MEDGEN to non-numeric ([place] results) [place] [facility]) MCHC 33.1 Normal (applies MEDGEN g/dL to non-numeric ([place] results) [place] [facility]) RDW 14.2 % Normal (applies MEDGEN to non-numeric ([place] results) [place] [facility]) PLATELET COUNT 189 Normal (applies MEDGEN Thous/mc to non-numeric ( L results) [place] [facility] MPV 6.5 fL Below low normal MEDGEN ([facility] Nephrology [facility]) TOTAL 60.7 % Normal (applies MEDGEN NEUTROPHILS,% to non-numeric ( results) [place] [facility]) TOTAL 30.6 % Normal (applies MEDGEN LYMPHOCYTES,% to non-numeric ([facility] results) [place] [facility] MONOCYTES,% 7.1 % Normal (applies MEDGEN to non-numeric ([facility] results) [place] [facility] EOSINOPHILS,% 1.4 % Normal (applies MEDGEN to non-numeric ([facility] results) [place] [facility] BASOPHILS,% 0.2 % Normal (applies MEDGEN to non-numeric ([facility] results) [place] [facility]) NEUTROPHILS,AB 3217 Normal (applies MEDGEN SOLUTE Cells/mc to non-numeric ([facility] L results) [place] [facility] LYMPHOCYTES,AB 1622 Normal (applies MEDGEN SOLUTE Cells/mc to non-numeric ( L results) [place] [facility] MONOCYTES,ABSO 376 Normal (applies MEDGEN LUTE Cells/mc to non-numeric ([facility] L results) [place] [facility] EOSINOPHILS,AB 74 Normal (applies MEDGEN SOLUTE Cells/mc to non-numeric ( L results) [place] [facility] BASOPHILS,ABSO 11 Normal (applies MEDGEN LUTE Cells/mc to non-numeric ( L results) [place] [facility]) WBC 5.4 Normal (applies MEDGEN Thous/mc to non-numeric ( L results) [place] [facility]) RBC 3.91 Normal (applies MEDGEN Mill/mcL to non-numeric ([facility] results) [place] [facility] Hemoglobin 10.7 Below low normal MEDGEN [Mass/volume] g/dL ([place] in [place] blood Nephrology by Oxim[facility]) Hematocrit 32.9 % Below low normal MEDGEN [Pure volume ([place] fraction] of [place] Blood by Nephrology [facility]) count MCV 84.2 fL Normal (applies MEDGEN to non-numeric ([facility] results) [place] [facility]) MCH 27.4 pg Normal (applies MEDGEN to non-numeric ([facility] results) [place] [facility] MCHC 32.5 Normal (applies MEDGEN g/dL to non-numeric ([facility] results) [place] [facility] RDW 14.2 % Normal (applies MEDGEN to non-numeric ([facility] results) [place] [facility] PLATELET COUNT 219 Normal (applies MEDGEN Thous/mc to non-numeric ([facility] [facility] L results) [place] [facility] MPV 6.9 fL Below low normal MEDGEN ([facility]) TOTAL 60.8 % Normal (applies MEDGEN NEUTROPHILS,% to non-numeric ([facility] results) [place] [facility]) TOTAL 29.9 % Normal (applies [facility]GEN LYMPHOCYTES,% to non-numeric ([facility] results) [place] [facility]) MONOCYTES,% 6.1 % Normal (applies MEDGEN to non-numeric ([facility] results) [place] [facility]) EOSINOPHILS,% 2.8 % Normal (applies MEDGEN to non-numeric ([facility] results) [place] [facility]) BASOPHILS,% 0.4 % Normal (applies MEDGEN to non-numeric ([facility] results) [place] [facility]) NEUTROPHILS,AB 3283 Normal (applies MEDGEN SOLUTE Cells/mc to non-numeric ([facility] L results) [facility]) LYMPHOCYTES,AB 1615 Normal (applies MEDGEN SOLUTE Cells/mc to non-numeric ([facility] results) [place] [facility]) MONOCYTES,ABSO 329 Normal (applies MEDGEN LUTE Cells/mc to non-numeric ([facility] results) [place] [facility]) EOSINOPHILS,AB 151 Normal (applies MEDGEN SOLUTE Cells/mc to non-numeric ([facility] results) [place] [facility]) BASOPHILS,ABSO 22 Normal (applies MEDGEN LUTE Cells/mc to non-numeric ([facility] results) [place] [facility]) WBC 6.5 Normal (applies MEDGEN Thous/mc to non-numeric ([facility] results) [place] [facility]) RBC 3.72 Below low normal MEDGEN Mill/mcL ([facility]) Hemoglobin 10.0 Below low normal MEDGEN [Mass/volume] g/dL ([facility] in [facility] venous blood Nephrology by [facility]) Hematocrit 30.6 % Below low normal MEDGEN [Pure volume ([place] fraction] of [place] [facility]) count MCV 82.3 fL Normal (applies MEDGEN to non-numeric ([place] [facility]) [place] [facility]) MCH 27.0 pg Normal (applies MEDGEN to non-numeric ([place] results) [place] [facility]) MCHC 32.7 Normal (applies MEDGEN g/dL to non-numeric ([place] [facility]) [place] [facility]) RDW 15.4 % Above high normal [facility] ([facility]) PLATELET COUNT 183 Normal (applies MEDGEN Thous/mc to non-numeric ([facility] results) [place] [facility]) MPV 6.8 fL Below low normal MEDGEN ([facility]) TOTAL 65.3 % Normal (applies MEDGEN NEUTROPHILS,% to non-numeric ([facility] results) [place] [facility]) TOTAL 25.9 % Normal (applies MEDGEN LYMPHOCYTES,% to non-numeric ([facility] results) [place] [facility]) MONOCYTES,% 6.9 % Normal (applies MEDGEN to non-numeric ([facility] results) [place] [facility]) EOSINOPHILS,% 1.3 % Normal (applies MEDGEN to non-numeric ([facility] results) [place] [facility]) BASOPHILS,% 0.6 % Normal (applies MEDGEN to non-numeric ([facility] results) [place] [facility]) NEUTROPHILS,AB 4245 Normal (applies MEDGEN SOLUTE Cells/mc to non-numeric ([facility] results) [place] [facility]) LYMPHOCYTES,AB 1684 Normal (applies [facility]GEN SOLUTE Cells/mc to non-numeric ([facility] results) [place] [facility] MONOCYTES,ABSO 449 Normal (applies MEDGEN LUTE Cells/mc to non-numeric ([facility] results) [place] [facility]) EOSINOPHILS,AB 85 Normal (applies [facility]GEN SOLUTE Cells/mc to non-numeric ([place] [facility] results) [place] [facility]) BASOPHILS,ABSO 39 Normal (applies MEDGEN LUTE Cells/mc to non-numeric ([place] L results) [place] [facility]) WBC 5.7 Normal (applies MEDGEN Thousand to non-numeric ([place] /uL results) [place] [facility]) RBC 3.83 Normal (applies MEDGEN Million/ to non-numeric ([facility] uL results) [place] [facility]) Hemoglobin 10.0 Below low normal MEDGEN [Mass/volume] g/dL ([place] venous blood [facility]phrology by [facility]) Hematocrit 31.4 % Below low normal MEDGEN [Pure volume ([place] fraction] of [place] [facility]) count MCV 82.0 fL Normal (applies MEDGEN to non-numeric ([place]) [place] [facility]) MCH 26.1 pg Below low normal [facility] ([facility]) MCHC 31.8 Below low normal [facility]GEN g/dL ([facility]) RDW 13.6 % Normal (applies MEDGEN to non-numeric ([facility] results) [place] [facility]) PLATELET COUNT 189 Normal (applies MEDGEN Thousand to non-numeric ([facility] /uL results) [place] [facility]) MPV 8.6 fL Normal (applies MEDGEN to non-numeric ([facility] results) [place] [facility]) TOTAL 67.2 % Normal (applies MEDGEN NEUTROPHILS,% to non-numeric ([facility] results) [place] [facility]) TOTAL 23.0 % Normal (applies MEDGEN LYMPHOCYTES,% to non-numeric ([facility] results) [place] [facility]) MONOCYTES,% 8.1 % Normal (applies MEDGEN to non-numeric ([facility] results) [place] [facility]) EOSINOPHILS,% 1.2 % Normal (applies MEDGEN to non-numeric ([facility] results) [place] [facility]) BASOPHILS,% 0.5 % Normal (applies MEDGEN to non-numeric ([facility] results) [place] [facility]) NEUTROPHILS,AB 3830 Normal (applies MEDGEN SOLUTE cells/uL to non-numeric ([facility] results) [facility]) LYMPHOCYTES,AB 1311 Normal (applies MEDGEN SOLUTE cells/uL to non-numeric ([facility] results) [place] [facility]) MONOCYTES,ABSO 462 Normal (applies MEDGEN LUTE cells/uL to non-numeric ([facility] results) [place] [facility]) EOSINOPHILS,AB 68 Normal (applies [facility]GEN SOLUTE cells/uL to non-numeric ([place] [facility]) [place] [facility]) BASOPHILS,ABSO 29 Normal (applies MEDGEN LUTE cells/uL to non-numeric ([place] [facility]) [place] [facility]) WBC 5.9 Normal (applies MEDGEN Thousand to non-numeric ([place] /uL results) [place] [facility]) RBC 3.69 Below low normal MEDGEN Million/ ([place] uL [place] [facility]) Hemoglobin 10.1 Below low normal MEDGEN [Mass/volume] g/dL ([place] in [place] [facility] blood Nephrology by [facility]xim[facility]) Hematocrit 29.6 % Below low normal MEDGEN [Pure volume ([place] fraction] of [place] [facility] by Nephrology Automated [facility]) count MCV 80.2 fL Normal (applies MEDGEN to non-numeric ([place] results) [place] [facility] MCH 27.4 pg Normal (applies MEDGEN to non-numeric ([place]) [place] [facility]) MCHC 34.1 Normal (applies MEDGEN g/dL to non-numeric ([place] results) [place] [facility]) RDW 13.6 % Normal (applies MEDGEN to non-numeric ([place] results) [place] [facility]) PLATELET COUNT 202 Normal (applies MEDGEN Thousand to non-numeric ([place] /uL results) [place] [facility]) MPV 8.5 fL Normal (applies MEDGEN to non-numeric ([place]) [place] [facility]) TOTAL 62.2 % Normal (applies MEDGEN NEUTROPHILS,% to non-numeric ([place] results) [place] [facility]) TOTAL 27.5 % Normal (applies [facility]GEN LYMPHOCYTES,% to non-numeric ([place] results) [place] [facility]) MONOCYTES,% 7.8 % Normal (applies MEDGEN to non-numeric ([place]) [place] [facility]) EOSINOPHILS,% 2.0 % Normal (applies MEDGEN to non-numeric ([place] results) [place] [facility]) BASOPHILS,% 0.5 % Normal (applies MEDGEN to non-numeric ([place] results) [place] [facility]) NEUTROPHILS,AB 3670 Normal (applies MEDGEN SOLUTE cells/uL to non-numeric ([place] results) [place] [facility]) LYMPHOCYTES,AB 1623 Normal (applies [facility]GEN SOLUTE cells/uL to non-numeric ([place] results) [place] [facility]) MONOCYTES,ABSO 460 Normal (applies MEDGEN LUTE cells/uL to non-numeric ([place] results) [place] [facility]) EOSINOPHILS,AB 118 Normal (applies [facility]GEN SOLUTE cells/uL to non-numeric ([place] results) [place] [facility]) BASOPHILS,ABSO 30 Normal (applies MEDGEN LUTE cells/uL to non-numeric ([place] results) [place] [facility]) WBC 7.3 Normal (applies MEDGEN Thousand to non-numeric ([place] /uL results) [place] [facility]) RBC 3.92 Normal (applies MEDGEN Million/ to non-numeric ([place] uL results) [place] [facility]) Hemoglobin 10.3 Below low normal MEDGEN [Mass/volume] g/dL ([place] in [place] venous blood Nephrology by [facility]) Hematocrit 32.6 % Below low normal MEDGEN [Pure volume ([place] fraction] of [place] [facility]) count MCV 83.2 fL Normal (applies MEDGEN to non-numeric ([place] results) [place] [facility]) MCH 26.3 pg Below low normal MEDGEN ([facility]) MCHC 31.6 Below low normal [facility]GEN g/dL ([facility]) RDW 13.6 % Normal (applies MEDGEN to non-numeric ([facility] results) [place] [facility]) PLATELET COUNT 188 Normal (applies MEDGEN Thousand to non-numeric ([place] /uL results) [place] [facility]) MPV 8.5 fL Normal (applies MEDGEN to non-numeric ([place] results) [place] [facility]) TOTAL 76.6 % Normal (applies MEDGEN NEUTROPHILS,% to non-numeric ([facility] results) [place] [facility]) TOTAL 16.4 % Normal (applies [facility]GEN LYMPHOCYTES,% to non-numeric ([place]) [place] [facility]) MONOCYTES,% 5.2 % Normal (applies MEDGEN to non-numeric ([place] results) [place] [facility]) EOSINOPHILS,% 1.1 % Normal (applies MEDGEN to non-numeric ([place] results) [place] [facility]) BASOPHILS,% 0.7 % Normal (applies MEDGEN to non-numeric ([place] results) [place] [facility]) NEUTROPHILS,AB 5592 Normal (applies MEDGEN SOLUTE cells/uL to non-numeric ([place] results) [place] [facility]) LYMPHOCYTES,AB 1197 Normal (applies MEDGEN SOLUTE cells/uL to non-numeric ([place]) [place] [facility]) MONOCYTES,ABSO 380 Normal (applies MEDGEN LUTE cells/uL to non-numeric ([place] results) [place] [facility]) EOSINOPHILS,AB 80 Normal (applies MEDGEN SOLUTE cells/uL to non-numeric ([place] results) [place] [facility]) BASOPHILS,ABSO 51 Normal (applies MEDGEN LUTE cells/uL to non-numeric ([place] results) [place] [facility]) WBC 5.9 Normal (applies MEDGEN Thousand to non-numeric ([place] /uL results) [place] [facility]) RBC 3.88 Normal (applies MEDGEN Million/ to non-numeric ([place] uL results) [place] [facility]) Hemoglobin 10.6 Below low normal MEDGEN [Mass/volume] g/dL ([place] in [place] venous blood [facility]phrology by [facility]) Hematocrit 32.7 % Below low normal MEDGEN [Pure volume ([place] fraction] of [place] [facility] by Nephrology Automated [facility]) count MCV 84.3 fL Normal (applies MEDGEN to non-numeric ([place] results) [place] [facility]) MCH 27.3 pg Normal (applies MEDGEN to non-numeric ([place]) [place] [facility]) MCHC 32.4 Normal (applies MEDGEN g/dL to non-numeric ([place]) [place] [facility]) RDW 14.1 % Normal (applies MEDGEN to non-numeric ([place]) [place] [facility]) PLATELET COUNT 176 Normal (applies MEDGEN Thousand to non-numeric ([place] /uL results) [place] [facility]) MPV 8.6 fL Normal (applies MEDGEN to non-numeric ([place]) [place] [facility]) TOTAL 69.1 % Normal (applies MEDGEN NEUTROPHILS,% to non-numeric ([place]) [place] [facility]) TOTAL 19.9 % Normal (applies [facility]GEN LYMPHOCYTES,% to non-numeric ([place]) [place] [facility]) MONOCYTES,% 7.5 % Normal (applies MEDGEN to non-numeric ([place]) [place] [facility]) EOSINOPHILS,% 2.6 % Normal (applies MEDGEN to non-numeric ([place]) [place] [facility]) BASOPHILS,% 0.9 % Normal (applies MEDGEN to non-numeric ([place]) [place] [facility]) NEUTROPHILS,AB 4077 Normal (applies MEDGEN SOLUTE cells/uL to non-numeric ([place]) [place] [facility]) LYMPHOCYTES,AB 1174 Normal (applies [facility]GEN SOLUTE cells/uL to non-numeric ([place]) [place] [facility]) MONOCYTES,ABSO 443 Normal (applies MEDGEN LUTE cells/uL to non-numeric ([place]) [place] [facility]) EOSINOPHILS,AB 153 Normal (applies [facility]GEN SOLUTE cells/uL to non-numeric ([place] results) [place] [facility]) BASOPHILS,ABSO 53 Normal (applies MEDGEN LUTE cells/uL to non-numeric ([place] results) [place] [facility]) WBC 6.3 Normal (applies MEDGEN Thous/mc to non-numeric ([place] L results) [place] [facility]) RBC 3.84 Normal (applies MEDGEN Mill/mcL to non-numeric ([place] results) [place] [facility]) Hemoglobin 10.3 Below low normal MEDGEN [Mass/volume] g/dL ([place] in [place] venous blood Nephrology by [facility]) Hematocrit 31.5 % Below low normal MEDGEN [Pure volume ([place] fraction] of [place] [facility] by Nephrology Automated [facility]) count MCV 82.2 fL Normal (applies MEDGEN to non-numeric ([place] results) [place] [facility]) MCH 26.8 pg Below low normal [facility]GEN ([place] [facility]) MCHC 32.6 Normal (applies MEDGEN g/dL to non-numeric ([place]) [place] [facility]) RDW 14.5 % Normal (applies MEDGEN to non-numeric ([place]) [place] [facility]) PLATELET COUNT 179 Normal (applies MEDGEN Thous/mc to non-numeric ([place] L results) [place] [facility]) MPV 6.6 fL Below low normal MEDGEN ([facility]) TOTAL 61.9 % Normal (applies MEDGEN NEUTROPHILS,% to non-numeric ([facility] results) [place] [facility]) TOTAL 28.6 % Normal (applies [facility]GEN LYMPHOCYTES,% to non-numeric ([place] [facility]) [place] [facility]) MONOCYTES,% 7.5 % Normal (applies MEDGEN to non-numeric ([facility] results) [place] [facility] EOSINOPHILS,% 1.5 % Normal (applies MEDGEN to non-numeric ([place]) [place] [facility]) BASOPHILS,% 0.5 % Normal (applies MEDGEN to non-numeric ([facility] results) [place] [facility] NEUTROPHILS,AB 3900 Normal (applies MEDGEN SOLUTE Cells/mc to non-numeric ([place] L results) [place] [facility]) LYMPHOCYTES,AB 1802 Normal (applies MEDGEN SOLUTE Cells/mc to non-numeric ([facility] L results) [place] [facility]) MONOCYTES,ABSO 473 Normal (applies MEDGEN LUTE Cells/mc to non-numeric ([place] [facility] results) [place] [facility]) EOSINOPHILS,AB 95 Normal (applies MEDGEN SOLUTE Cells/mc to non-numeric ([facility] L results) [place] [facility]) BASOPHILS,ABSO 32 Normal (applies MEDGEN LUTE Cells/mc to non-numeric ([place] [facility] results) [place] [facility]) WBC 6.4 Normal (applies MEDGEN Thous/mc to non-numeric ([facility] L results) [place] [facility]) RBC 4.21 Normal (applies MEDGEN Mill/mcL to non-numeric ([facility] results) [place] [facility]) Hemoglobin 11.3 Below low normal MEDGEN [Mass/volume] g/dL ([place] in [place] venous blood Nephrology by [facility]) Hematocrit 33.8 % Below low normal MEDGEN [Pure volume ([place] fraction] of [place] [facility] by Nephrology Automated [facility]) count MCV 80.4 fL Normal (applies MEDGEN to non-numeric ([facility] results) [place] [facility]) MCH 26.9 pg Below low normal MEDGEN ([facility]) MCHC 33.5 Normal (applies MEDGEN g/dL to non-numeric ([place]) [place] [facility]) RDW 14.3 % Normal (applies MEDGEN to non-numeric ([place] [facility]) [place] [facility] PLATELET COUNT 197 Normal (applies MEDGEN Thous/mc to non-numeric ([place] L results) [place] [facility]) MPV 6.7 fL Below low normal [facility] ([facility] [place] [facility]) TOTAL 64.1 % Normal (applies MEDGEN NEUTROPHILS,% to non-numeric ([place] [facility]) [place] [facility]) TOTAL 28.7 % Normal (applies [facility]GEN LYMPHOCYTES,% to non-numeric ([place] results) [place] [facility] MONOCYTES,% 5.0 % Normal (applies MEDGEN to non-numeric ([place] results) [place] [facility]) EOSINOPHILS,% 1.8 % Normal (applies MEDGEN to non-numeric ([place] results) [place] [facility]) BASOPHILS,% 0.4 % Normal (applies MEDGEN to non-numeric ( results) [place] [facility]) NEUTROPHILS,AB 4102 Normal (applies MEDGEN SOLUTE Cells/mc to non-numeric ([place] L results) [place] [facility]) LYMPHOCYTES,AB 1837 Normal (applies [facility]GEN SOLUTE Cells/mc to non-numeric ([place] L results) [place] [facility]) MONOCYTES,ABSO 320 Normal (applies MEDGEN LUTE Cells/mc to non-numeric ([place] L results) [place] [facility]) EOSINOPHILS,AB 115 Normal (applies [facility]GEN SOLUTE Cells/mc to non-numeric ([place] L results) [place] [facility] BASOPHILS,ABSO 26 Normal (applies MEDGEN LUTE Cells/mc to non-numeric ([place] L results) [place] [facility]) WBC 4.9 Normal (applies MEDGEN Thous/mc to non-numeric ([place] [facility] results) [place] [facility]) RBC 3.91 Normal (applies MEDGEN Mill/mcL to non-numeric ([place] [facility]) [place] [facility]) Hemoglobin 10.7 Below low normal MEDGEN [Mass/volume] g/dL ([place] in [place] venous blood Nephrology by [facility]) Hematocrit 32.4 % Below low normal MEDGEN [Pure volume ([place] fraction] of [place] [facility] by Nephrology Automated [facility]) count MCV 83.0 fL Normal (applies MEDGEN to non-numeric ([facility] results) [place] [facility] MCH 27.3 pg Normal (applies MEDGEN to non-numeric ([facility] results) [place] [facility]) MCHC 32.9 Normal (applies MEDGEN g/dL to non-numeric ([facility] results) [place] [facility]) RDW 14.3 % Normal (applies MEDGEN to non-numeric ([facility] results) [place] [facility]) PLATELET COUNT 166 Normal (applies MEDGEN Thous/mc to non-numeric ([facility] L results) [place] [facility] MPV 6.3 fL Below low normal [facility] ([facility] TOTAL 59.9 % Normal (applies MEDGEN NEUTROPHILS,% to non-numeric ([facility] results) [place] [facility]) TOTAL 30.3 % Normal (applies [facility]GEN LYMPHOCYTES,% to non-numeric ([facility] results) [place] [facility]) MONOCYTES,% 7.7 % Normal (applies MEDGEN to non-numeric ([facility] results) [place] [facility] EOSINOPHILS,% 1.6 % Normal (applies MEDGEN to non-numeric ([facility] results) [facility]) BASOPHILS,% 0.5 % Normal (applies MEDGEN to non-numeric ([facility] results) [facility]) NEUTROPHILS,AB 2935 Normal (applies [facility]GEN SOLUTE Cells/mc to non-numeric ([facility] L results) [facility]) LYMPHOCYTES,AB 1485 Normal (applies [facility]GEN SOLUTE Cells/mc to non-numeric ([facility] L results) [place] [facility] MONOCYTES,ABSO 377 Normal (applies MEDGEN LUTE Cells/mc to non-numeric ([facility] L results) [facility]) EOSINOPHILS,AB 78 Normal (applies MEDGEN SOLUTE Cells/mc to non-numeric ([facility] L results) [facility]) BASOPHILS,ABSO 25 Normal (applies MEDGEN LUTE Cells/mc to non-numeric ([facility] L results) [place] [facility] WBC 5.4 Normal (applies MEDGEN Thousand to non-numeric ([facility] /uL results) [facility]) RBC 3.89 Normal (applies MEDGEN Million/ to non-numeric ([place] u[facility] results) [place] [facility] Hemoglobin 10.6 Below low normal [facility]GEN [Mass/volume] g/dL ([place] in [place] [facility] blood Nephrology by [facility]) Hematocrit 32.1 % Below low normal MEDGEN [Pure volume ([place] fraction] of [place] [facility] by [facility]) count MCV 82.5 fL Normal (applies MEDGEN to non-numeric ([facility] results) [place] [facility]) MCH 27.2 pg Normal (applies MEDGEN to non-numeric ([place]) [place] [facility]) MCHC 33.0 Normal (applies MEDGEN g/dL to non-numeric ([facility] results) [place] [facility]) RDW 13.4 % Normal (applies MEDGEN to non-numeric ([facility] results) [place] [facility] PLATELET COUNT 160 Normal (applies MEDGEN Thousand to non-numeric ([place] /uL results) [facility] MPV 8.5 fL Normal (applies MEDGEN to non-numeric ([facility] results) [facility] TOTAL 57.1 % Normal (applies MEDGEN NEUTROPHILS,% to non-numeric ([facility] results) [facility] TOTAL 31.3 % Normal (applies MEDGEN LYMPHOCYTES,% to non-numeric ([facility] results) [facility] MONOCYTES,% 8.4 % Normal (applies MEDGEN to non-numeric ([facility] results) [facility] EOSINOPHILS,% 2.6 % Normal (applies MEDGEN to non-numeric ([facility] results) [facility] BASOPHILS,% 0.6 % Normal (applies MEDGEN to non-numeric ([facility]) [facility] NEUTROPHILS,AB 3083 Normal (applies MEDGEN SOLUTE cells/uL to non-numeric ([facility] results) [facility] LYMPHOCYTES,AB 1690 Normal (applies MEDGEN SOLUTE cells/uL to non-numeric ([facility] results) [facility] MONOCYTES,ABSO 454 Normal (applies MEDGEN LUTE cells/uL to non-numeric ([facility] results) [facility] EOSINOPHILS,AB 140 Normal (applies MEDGEN SOLUTE cells/uL to non-numeric ([facility]) [place] [facility]) BASOPHILS,ABSO 32 Normal (applies MEDGEN LUTE cells/uL to non-numeric ([facility] results) [place] [facility]) WBC 5.4 Normal (applies MEDGEN Thousand to non-numeric ([place] /uL results) [place] [facility]) RBC 3.80 Normal (applies MEDGEN Million/ to non-numeric ([facility] uL results) [facility] Hemoglobin 10.4 Below low normal MEDGEN [Mass/volume] g/dL ([place] in Mixed [place] [facility] blood Nephrology by [facility]) Hematocrit 32.2 % Below low normal MEDGEN [Pure volume ([place] fraction] of [place] [facility] by Nephrology Automated [facility]) count MCV 84.7 fL Normal (applies MEDGEN to non-numeric ([facility] results) [facility] MCH 27.4 pg Normal (applies MEDGEN to non-numeric ([place] results) [facility] MCHC 32.3 Normal (applies MEDGEN g/dL to non-numeric ([facility] results) [facility] RDW 13.2 % Normal (applies MEDGEN to non-numeric ([place] results) [facility]) PLATELET COUNT 166 Normal (applies MEDGEN Thousand to non-numeric ([place] /uL results) [facility] MPV 8.9 fL Normal (applies MEDGEN to non-numeric ([place] results) [place] [facility]) TOTAL 58.5 % Normal (applies MEDGEN NEUTROPHILS,% to non-numeric ([facility] results) [facility] TOTAL 30.2 % Normal (applies MEDGEN LYMPHOCYTES,% to non-numeric ([facility] results) [facility] MONOCYTES,% 7.9 % Normal (applies MEDGEN to non-numeric ([place] results) [facility] EOSINOPHILS,% 2.8 % Normal (applies MEDGEN to non-numeric ([facility] results) [facility] BASOPHILS,% 0.6 % Normal (applies MEDGEN to non-numeric ([facility] results) [facility] NEUTROPHILS,AB 3159 Normal (applies MEDGEN SOLUTE cells/uL to non-numeric ([facility] results) [facility] LYMPHOCYTES,AB 1631 Normal (applies MEDGEN SOLUTE cells/uL to non-numeric ([place] results) [place] [facility]) MONOCYTES,ABSO 427 Normal (applies MEDGEN LUTE cells/uL to non-numeric ([place] results) [place] [facility]) EOSINOPHILS,AB 151 Normal (applies MEDGEN SOLUTE cells/uL to non-numeric ([place] results) [place] [facility]) BASOPHILS,ABSO 32 Normal (applies MEDGEN LUTE cells/uL to non-numeric ([place] results) [place] [facility]) WBC 6.4 Normal (applies MEDGEN Thousand to non-numeric ([place] /uL results) [place] [facility]) RBC 3.89 Normal (applies MEDGEN Million/ to non-numeric ([place] uL results) [place] [facility]) Hemoglobin 10.9 Below low normal MEDGEN [Mass/volume] g/dL ([place] in Mixed [place] [facility] blood Nephrology by [facility]) Hematocrit 33.1 % Below low normal MEDGEN [Pure volume ([place] fraction] of [place] [facility] by Nephrology Automated [facility]) count MCV 85.1 fL Normal (applies MEDGEN to non-numeric ([place] results) [place] [facility]) MCH 28.0 pg Normal (applies MEDGEN to non-numeric ([place] results) [place] [facility]) MCHC 32.9 Normal (applies MEDGEN g/dL to non-numeric ([place] results) [place] [facility]) RDW 13.0 % Normal (applies MEDGEN to non-numeric ([place] results) [facility] PLATELET COUNT 190 Normal (applies MEDGEN Thousand to non-numeric ([place] /uL results) [place] [facility]) MPV 9.1 fL Normal (applies MEDGEN to non-numeric ([place] results) [place] [facility]) TOTAL 56.9 % Normal (applies MEDGEN NEUTROPHILS,% to non-numeric ([place] results) [place] [facility]) TOTAL 32.7 % Normal (applies MEDGEN LYMPHOCYTES,% to non-numeric ([place] results) [place] [facility]) MONOCYTES,% 7.3 % Normal (applies MEDGEN to non-numeric ([place] results) [place] [facility]) EOSINOPHILS,% 2.3 % Normal (applies MEDGEN to non-numeric ([place] results) [place] [facility]) BASOPHILS,% 0.8 % Normal (applies MEDGEN to non-numeric ([facility] results) [place] [facility]) NEUTROPHILS,AB 3642 Normal (applies MEDGEN SOLUTE cells/uL to non-numeric ([facility] results) [place] [facility]) LYMPHOCYTES,AB 2093 Normal (applies MEDGEN SOLUTE cells/uL to non-numeric ([facility] results) [place] [facility]) MONOCYTES,ABSO 467 Normal (applies MEDGEN LUTE cells/uL to non-numeric ([place] results) [place] [facility]) EOSINOPHILS,AB 147 Normal (applies MEDGEN SOLUTE cells/uL to non-numeric ([facility] results) [place] [facility]) BASOPHILS,ABSO 51 Normal (applies MEDGEN LUTE cells/uL to non-numeric ([facility] results) [place] [facility]) ID Date Data Source [id number] 01/22/2019 12:00:00 AM EDT MEDGEN ([facility] Nephrology [facility]) Name Value Range Interpretation Description Data Source(s ) Supporting Code Document(s ) Glucose 97 mg/dL Normal (applies MEDGEN [Mass/volume] to non-numeric ([facility] in Urine results) [place] [facility] for Nephrology unspecified [facility]) duration Sodium 137 Normal (applies MEDGEN [Moles/volume] mmol/L to non-numeric ([facility] in Serum, results) [place] Plasma or Blood Nephrology [facility]) Potassium 5.2 Normal (applies MEDGEN [Mass/volume] mmol/L to non-numeric ([facility] in Blood results) [place] [facility]) Chloride 102 Normal (applies MEDGEN [Moles/volume] mmol/L to non-numeric ([facility] in Serum, results) [place] Plasma or Blood Nephrology [facility]) Carbon dioxide 24 Normal (applies MEDGEN [VFr/PPres] in mmol/L to non-numeric ([facility] Gas delivery results) [place] [facility]) Urea nitrogen 22 mg/dL Normal (applies MEDGEN [Moles/volume] to non-numeric ([place] in Blood results) [place] [facility]) Creatinine 1.04 Above high normal MEDGEN [Interpretation mg/dL ([facility] ] in Urine [place] [facility]) BUN/CREATININE 21 Normal (applies MEDGEN RATIO (calc) to non-numeric ([place] results) [place] [facility]) Calcium 10.4 Normal (applies MEDGEN [Moles/volume] mg/dL to non-numeric ([facility] in Urine results) [place] for Nephrology unspecified [facility]) duration PROTEIN, TOTAL 8.0 g/dL Normal (applies MEDGEN to non-numeric ([place] results) [place] [facility]) Microalbumin 4.6 g/dL Normal (applies MEDGEN [Mass/time] in to non-numeric ([facility] Urine collected results) [place] for unspecified Nephrology duration [facility]) Globulin 3.4 g/dL Normal (applies MEDGEN [Mass/time] in (calc) to non-numeric ([facility] 24 hour Urine results) [place] [facility]) ALBUMIN/GLOBULI 1.4 Normal (applies MEDGEN N RATIO (calc) to non-numeric ([facility] results) [place] [facility]) BILIRUBIN,TOTAL 0.2 Normal (applies MEDGEN mg/dL to non-numeric ([place] results) [place] [facility]) Alkaline 85 U/L Normal (applies MEDGEN phosphatase to non-numeric ([facility] [Enzymatic results) [place] activity/volume Nephrology ] in Serum, [facility]) Plasma or Blood AST 19 U/L Normal (applies MEDGEN to non-numeric ([facility] results) [place] [facility]) ALT 20 U/L Normal (applies MEDGEN to non-numeric ([place] results) [place] [facility]) EGFR NON AFR 53 Below low normal MEDGEN [place] mL/min/1 ([place] .73m2 [place] [facility]) EGFR 61 Normal (applies MEDGEN [place] mL/min/1 to non-numeric ([place] .73m2 results) [place] [facility]) Glucose 92 mg/dL Normal (applies MEDGEN [Mass/volume] to non-numeric ([facility] in Urine results) [place] for Nephrology unspecified [facility]) duration Sodium 139 Normal (applies MEDGEN [Moles/volume] mmol/L to non-numeric ([facility] in Serum, results) [place] Plasma or Blood Nephrology [facility]) Potassium 4.5 Normal (applies MEDGEN [Mass/volume] mmol/L to non-numeric ([facility] in Blood results) [place] [facility]) Chloride 104 Normal (applies MEDGEN [Moles/volume] mmol/L to non-numeric ([facility] in Serum, results) [place] Plasma or Blood Nephrology [facility]) Carbon dioxide 22 Normal (applies MEDGEN [VFr/PPres] in mmol/L to non-numeric ([facility] Gas delivery results) [place] [facility]) Urea nitrogen 11 mg/dL Normal (applies MEDGEN [Moles/volume] to non-numeric ([facility] in Blood results) [place] [facility]) Creatinine 0.47 Below low normal MEDGEN [Interpretation mg/dL ([facility] ] in Urine [place] [facility]) BUN/CREATININE 23 Above high normal MEDGEN RATIO (calc) ([facility] Nephrology [facility]) Calcium 9.7 Normal (applies MEDGEN [Moles/volume] mg/dL to non-numeric ([facility] in Urine results) [place] for Nephrology unspecified [facility]) duration PROTEIN, TOTAL 6.7 g/dL Normal (applies MEDGEN to non-numeric ([facility] results) [place] [facility]) Microalbumin 4.4 g/dL Normal (applies MEDGEN [Mass/time] in to non-numeric ([facility] Urine collected results) [place] for unspecified Nephrology duration [facility]) Globulin 2.3 g/dL Normal (applies MEDGEN [Mass/time] in (calc) to non-numeric ([facility] 24 hour Urine results) [place] [facility]) ALBUMIN/GLOBULI 1.9 Normal (applies MEDGEN N RATIO (calc) to non-numeric ([facility] results) [place] [facility]) BILIRUBIN,TOTAL 0.3 Normal (applies MEDGEN mg/dL to non-numeric ([facility] results) [place] [facility]) Alkaline 74 U/L Normal (applies MEDGEN phosphatase to non-numeric ([facility] [Enzymatic results) [place] activity[facility]volume [facility]phrology ] in Serum, [facility]) Plasma or Blood AST 21 U/L Normal (applies MEDGEN to non-numeric ([facility] results) [place] [facility]) ALT 16 U/L Normal (applies MEDGEN to non-numeric ([facility] results) [place] [facility]) EGFR NON AFR 97 Normal (applies MEDGEN [place] mL/min/1 to non-numeric ([facility] .73m2 results) [place] [facility]) EGFR 113 Normal (applies MEDGEN [place] mL/min/1 to non-numeric ([facility] .73m2 results) [place] [facility]) Glucose 133 Normal (applies MEDGEN [Mass/volume] mg/dL to non-numeric ([facility] in Urine results) [place] for Nephrology unspecified [facility]) duration Sodium 131 Below low normal MEDGEN [Moles/volume] mmol/L ([facility] in Serum, [place] Plasma or Blood Nephrology [facility]) Potassium 5.1 Normal (applies MEDGEN [Mass/volume] mmol/L to non-numeric ([facility] in Blood results) [place] [facility]) Chloride 96 Below low normal MEDGEN [Moles/volume] mmol/L ([facility] in Serum, [place] Plasma or Blood Nephrology [facility]) Carbon dioxide 26 Normal (applies MEDGEN [VFr/PPres] in mmol/L to non-numeric ([facility] Gas delivery results) [place] [facility]) Urea nitrogen 28 mg/dL Above high normal MEDGEN [Moles/volume] ([facility] in Blood [place] [facility]) Creatinine 1.21 Above high normal MEDGEN [Interpretation mg/dL ([facility] ] in Urine [place] [facility]) BUN/CREATININE 23 Above high normal MEDGEN RATIO (calc) ([facility] Calcium 9.4 Normal (applies MEDGEN [Moles/volume] mg/dL to non-numeric ([facility] in Urine results) [place] for Nephrology unspecified [facility]) duration PROTEIN, TOTAL 7.0 g/dL Normal (applies MEDGEN to non-numeric ([facility] results) [place] [facility]) Microalbumin 3.9 g/dL Normal (applies MEDGEN [Mass/time] in to non-numeric ([facility] Urine collected results) [place] for unspecified Nephrology duration [facility]) Globulin 3.1 g/dL Normal (applies MEDGEN [Mass/time] in (calc) to non-numeric ([facility] 24 hour Urine results) [place] [facility] ALBUMIN/GLOBULI 1.3 Normal (applies MEDGEN N RATIO (calc) to non-numeric ([facility] results) [place] [facility]) BILIRUBIN,TOTAL 0.2 Normal (applies MEDGEN mg/dL to non-numeric ([facility] results) [place] [facility]) Alkaline 73 U/L Normal (applies MEDGEN phosphatase to non-numeric ([facility] [Enzymatic results) [place] activity/volume Nephrology ] in Serum, [facility]) Plasma or Blood AST 20 U/L Normal (applies MEDGEN to non-numeric ([facility] results) [place] [facility]) ALT 15 U/L Normal (applies MEDGEN to non-numeric ([facility] results) [place] [facility]) EGFR NON AFR 44 Below low normal MEDGEN [place] mL/min/1 ([place] .73m2 [place] [facility]) EGFR 51 Below low normal MEDGEN [place] mL/min/1 ([place] .73m2 [place] [facility] Glucose 150 Above high normal MEDGEN [Mass/volume] mg/dL ([facility] in Urine [place] for Nephrology unspecified [facility]) duration Sodium 132 Below low normal MEDGEN [Moles/volume] mmol/L ([facility] in Serum, [place] Plasma or Blood Nephrology [facility]) Potassium 4.7 Normal (applies MEDGEN [Mass/volume] mmol/L to non-numeric ([facility] in Blood results) [place] [facility]) Chloride 99 Normal (applies MEDGEN [Moles/volume] mmol/L to non-numeric ([facility] in Serum, results) [place] Plasma or Blood Nephrology [facility]) Carbon dioxide 24 Normal (applies MEDGEN [VFr/PPres] in mmol/L to non-numeric ([facility] Gas delivery results) [place] [facility]) Urea nitrogen 21 mg/dL Normal (applies MEDGEN [Moles/volume] to non-numeric ([facility] in Blood results) [place] [facility]) Creatinine 0.95 Above high normal MEDGEN [Interpretation mg/dL ([facility] ] [facility] [facility] BUN/CREATININE 22 Normal (applies MEDGEN RATIO (calc) to non-numeric ([facility] results) [place] [facility]) Calcium 10.2 Normal (applies MEDGEN [Moles/volume] mg/dL to non-numeric ([facility] in Urine results) [place] collected for Nephrology unspecified [facility]) duration PROTEIN, TOTAL 7.4 g/dL Normal (applies MEDGEN to non-numeric ([facility] results) [place] [facility]) Microalbumin 4.3 g/dL Normal (applies MEDGEN [Mass/time] in to non-numeric ([facility] Urine collected results) [place] for unspecified Nephrology duration [facility]) Globulin 3.1 g/dL Normal (applies MEDGEN [Mass/time] in (calc) to non-numeric ([facility] 24 hour Urine results) [place] [facility]) ALBUMIN/GLOBULI 1.4 Normal (applies MEDGEN N RATIO (calc) to non-numeric ([facility] results) [place] [facility]) BILIRUBIN,TOTAL 0.3 Normal (applies MEDGEN mg/dL to non-numeric ([facility] results) [place] [facility]) Alkaline 75 U/L Normal (applies MEDGEN phosphatase to non-numeric ([facility] [Enzymatic results) [place] activity[facility]volume Nephrology ] in Serum, [facility]) Plasma or Blood AST 16 U/L Normal (applies MEDGEN to non-numeric ([facility] results) [place] [facility]) ALT 18 U/L Normal (applies MEDGEN to non-numeric ([facility] results) [place] [facility]) EGFR NON AFR 59 Below low normal MEDGEN [place] mL/min/1 ([place] .73m2 [place] [facility]) EGFR 68 Normal (applies MEDGEN [place] mL/min/1 to non-numeric ([place] .73m2 results) [place] [facility]) Glucose 80 mg/dL Normal (applies MEDGEN [Mass/volume] to non-numeric ([facility] in Urine results) [place] collected for Nephrology unspecified [facility]) duration Sodium 138 Normal (applies MEDGEN [Moles/volume] mmol/L to non-numeric ([facility] in Serum, results) [place] Plasma or Blood Nephrology [facility]) Potassium 5.0 Normal (applies MEDGEN [Mass/volume] mmol/L to non-numeric ([facility] in Blood results) [place] [facility]) Chloride 104 Normal (applies MEDGEN [Moles/volume] mmol/L to non-numeric ([facility] in Serum, results) [place] Plasma or Blood Nephrology [facility]) Carbon dioxide 25 Normal (applies MEDGEN [VFr/PPres] in mmol/L to non-numeric ([facility] Gas delivery results) [place] [facility]) Urea nitrogen 28 mg/dL Above high normal MEDGEN [Moles/volume] ([facility] in Blood [place] [facility]) Creatinine 1.01 Above high normal MEDGEN [Interpretation mg/dL ([facility] ] in Urine [place] [facility]) BUN/CREATININE 28 Above high normal MEDGEN RATIO (calc) [facility] Calcium 9.9 Normal (applies MEDGEN [Moles/volume] mg/dL to non-numeric ([facility] in Urine results) [place] collected for Nephrology unspecified [facility]) duration PROTEIN, TOTAL 7.2 g/dL Normal (applies MEDGEN to non-numeric ([facility] results) [place] [facility]) Microalbumin 4.2 g/dL Normal (applies MEDGEN [Mass/time] in to non-numeric ([facility] Urine collected results) [place] for unspecified Nephrology duration [facility]) Globulin 3.0 g/dL Normal (applies MEDGEN [Mass/time] in (calc) to non-numeric ([facility] 24 hour Urine results) [place] [facility] ALBUMIN/GLOBULI 1.4 Normal (applies MEDGEN N RATIO (calc) to non-numeric ([facility] results) [place] [facility] BILIRUBIN,TOTAL 0.2 Normal (applies MEDGEN mg/dL to non-numeric ([facility] results) [place] [facility]) Alkaline 82 U/L Normal (applies MEDGEN phosphatase to non-numeric ([facility] [Enzymatic results) [place] activity/volume Nephrology ] in Serum, [facility]) Plasma or Blood AST 14 U/L Normal (applies MEDGEN to non-numeric ([facility] results) [place] [facility]) ALT 14 U/L Normal (applies MEDGEN to non-numeric ([facility] results) [place] [facility] EGFR NON AFR 55 Below low normal MED[facility] [place] mL/min/1 ([place] .73m2 [place] [facility]) EGFR 64 Normal (applies MEDGEN [place] mL/min/1 to non-numeric ([place] .73m2 results) [place] [facility]) Glucose 187 Above high normal MEDGEN [Mass/volume] mg/dL ([facility] in Urine [place] for Nephrology unspecified [facility]) duration Sodium 138 Normal (applies MEDGEN [Moles/volume] mmol/L to non-numeric ([facility] in Serum, results) [place] Plasma or Blood Nephrology [facility]) Potassium 4.5 Normal (applies MEDGEN [Mass/volume] mmol/L to non-numeric ([facility] in Blood results) [place] [facility]) Chloride 104 Normal (applies MEDGEN [Moles/volume] mmol/L to non-numeric ([facility] in Serum, results) [place] Plasma or Blood Nephrology [facility]) Carbon dioxide 23 Normal (applies MEDGEN [VFr/PPres] in mmol/L to non-numeric ([facility] Gas delivery results) [place] system Nephrology [facility]) Urea nitrogen 30 mg/dL Above high normal MEDGEN [Moles/volume] ([facility] in Blood [place] [facility]) Creatinine 1.19 Above high normal MEDGEN [Interpretation mg/dL ([facility] ] [facility] [place] [facility] BUN/CREATININE 25 Above high normal MEDGEN RATIO (calc) ([facility] Calcium 10.0 Normal (applies MEDGEN [Moles/volume] mg/dL to non-numeric ([facility] in Urine results) [place] collected for Nephrology unspecified [facility]) duration PROTEIN, TOTAL 7.2 g/dL Normal (applies MEDGEN to non-numeric ([facility] results) [place] [facility]) Microalbumin 4.2 g/dL Normal (applies MEDGEN [Mass/time] in to non-numeric ([facility] Urine collected results) [place] for unspecified Nephrology duration [facility]) Globulin 3.0 g/dL Normal (applies MEDGEN [Mass/time] in (calc) to non-numeric ([facility] 24 hour Urine results) [place] [facility]) ALBUMIN/GLOBULI 1.4 Normal (applies MEDGEN N RATIO (calc) to non-numeric ([facility] results) [place] [facility]) BILIRUBIN,TOTAL 0.3 Normal (applies MEDGEN mg/dL to non-numeric ([facility] results) [place] [facility]) Alkaline 90 U/L Normal (applies MEDGEN phosphatase to non-numeric ([facility] [Enzymatic results) [place] activity/volume Nephrology ] in Serum, [facility]) Plasma or Blood AST 13 U/L Normal (applies MEDGEN to non-numeric ([facility] results) [place] [facility]) ALT 12 U/L Normal (applies MEDGEN to non-numeric ([facility] results) [place] [facility]) EGFR NON AFR 45 Below low normal MEDGEN [place] mL/min/1 ([facility] .73m2 [place] [facility]) EGFR 52 Below low normal [facility] [place] mL/min/1 ([place] [facility] [place] [facility] Glucose 149 Above high normal MEDGEN [Mass/volume] mg/dL ([facility] in Urine [place] for Nephrology unspecified [facility]) duration Sodium 138 Normal (applies MEDGEN [Moles/volume] mmol/L to non-numeric ([facility] in Serum, results) [place] Plasma or Blood Nephrology [facility]) Potassium 4.7 Normal (applies MEDGEN [Mass/volume] mmol/L to non-numeric ([facility] in Blood results) [place] [facility]) Chloride 104 Normal (applies MEDGEN [Moles/volume] mmol/L to non-numeric ([facility] in Serum, results) [place] Plasma or Blood Nephrology [facility]) Carbon dioxide 22 Normal (applies MEDGEN [VFr/PPres] in mmol/L to non-numeric ([facility] Gas delivery results) [place] system [facility]) Urea nitrogen 30 mg/dL Above high normal MEDGEN [Moles/volume] ([facility] in Blood [place] [facility]) Creatinine 1.12 Above high normal MEDGEN [Interpretation mg/dL ([facility] ] [facility] [place] [facility] BUN/CREATININE 27 Above high normal MEDGEN RATIO (calc) ([facility]) Calcium 10.1 Normal (applies MEDGEN [Moles/volume] mg/dL to non-numeric ([facility] in Urine results) [place] collected for Nephrology unspecified [facility]) duration PROTEIN, TOTAL 7.0 g/dL Normal (applies MEDGEN to non-numeric ([facility] results) [place] [facility]) Microalbumin 4.2 g/dL Normal (applies MEDGEN [Mass/time] in to non-numeric ([facility] Urine collected results) [place] for unspecified Nephrology duration [facility]) Globulin 2.8 g/dL Normal (applies MEDGEN [Mass/time] in (calc) to non-numeric ([facility] 24 hour Urine results) [place] [facility] ALBUMIN/GLOBULI 1.5 Normal (applies MEDGEN N RATIO (calc) to non-numeric ([facility] results) [place] [facility] BILIRUBIN,TOTAL 0.2 Normal (applies MEDGEN mg/dL to non-numeric ([facility] results) [place] [facility]) Alkaline 90 U/L Normal (applies MEDGEN phosphatase to non-numeric ([facility] [Enzymatic results) [place] activity/volume Nephrology ] in Serum, [facility]) Plasma or Blood AST 16 U/L Normal (applies MEDGEN to non-numeric ([facility] results) [place] [facility]) ALT 13 U/L Normal (applies MEDGEN to non-numeric ([facility] results) [place] [facility]) EGFR NON AFR 48 Below low normal [facility] [place] mL/min/1 ([place] .73m2 [place] [facility]) EGFR 56 Below low normal [facility] [place] mL/min/1 ([place] [facility]2 [place] [facility] Glucose 152 Above high normal MEDGEN [Mass/volume] mg/dL ([facility] in Urine [place] collected for Nephrology unspecified [facility]) duration Sodium 132 Below low normal MEDGEN [Moles/volume] mmol/L ([facility] in Serum, [place] Plasma or Blood Nephrology [facility]) Potassium 5.0 Normal (applies MEDGEN [Mass/volume] mmol/L to non-numeric ([facility] in Blood results) [place] [facility]) Chloride 97 Below low normal MEDGEN [Moles/volume] mmol/L ([facility] in Serum, [place] Plasma or Blood Nephrology [facility]) Carbon dioxide 24 Normal (applies MEDGEN [VFr/PPres] in mmol/L to non-numeric ([facility] Gas delivery results) [place] system [facility]ph[facility]) Urea nitrogen 23 mg/dL Normal (applies MEDGEN [Moles/volume] to non-numeric ([facility] in Blood results) [place] [facility]) Creatinine 0.94 Above high normal MEDGEN [Interpretation mg/dL ([facility] ] in Urine [place] [facility]) BUN/CREATININE 24 Above high normal MEDGEN RATIO (calc) ([facility] Calcium 10.0 Normal (applies MEDGEN [Moles/volume] mg/dL to non-numeric ([facility] in Urine results) [place] collected for Nephrology unspecified [facility]) duration PROTEIN, TOTAL 7.2 g/dL Normal (applies MEDGEN to non-numeric ([facility] results) [place] [facility]) Microalbumin 4.2 g/dL Normal (applies MEDGEN [Mass/time] in to non-numeric ([facility] Urine collected results) [place] for unspecified Nephrology duration [facility]) Globulin 3.0 g/dL Normal (applies MEDGEN [Mass/time] in (calc) to non-numeric ([facility] 24 hour Urine results) [place] [facility]) ALBUMIN/GLOBULI 1.4 Normal (applies MEDGEN N RATIO (calc) to non-numeric ([facility] results) [place] [facility]) BILIRUBIN,TOTAL 0.2 Normal (applies MEDGEN mg/dL to non-numeric ([facility] results) [place] [facility]) Alkaline 88 U/L Normal (applies MEDGEN phosphatase to non-numeric ([facility] [Enzymatic results) [place] activity/volume Nephrology ] in Serum, [facility]) Plasma or Blood AST 14 U/L Normal (applies MEDGEN to non-numeric ([facility] results) [place] [facility]) ALT 13 U/L Normal (applies MEDGEN to non-numeric ([facility] results) [place] [facility]) EGFR NON AFR 59 Below low normal [facility] [place] mL/min/1 ([place] .73m2 [place] [facility]) EGFR 69 Normal (applies [facility] [place] mL/min/1 to non-numeric ([place] .73m2 results) [place] [facility]) Glucose 158 Above high normal MEDGEN [Mass/volume] mg/dL ([facility] in Urine [place] collected for Nephrology unspecified [facility]) duration Sodium 136 Normal (applies MEDGEN [Moles/volume] mmol/L to non-numeric ([facility] in Serum, results) [place] Plasma or Blood Nephrology [facility]) Potassium 5.0 Normal (applies MEDGEN [Mass/volume] mmol/L to non-numeric ([facility] in Blood results) [place] [facility]) Chloride 103 Normal (applies MEDGEN [Moles/volume] mmol/L to non-numeric ([facility] in Serum, results) [place] Plasma or Blood Nephrology [facility]) Carbon dioxide 24 Normal (applies MEDGEN [VFr/PPres] in mmol/L to non-numeric ([facility] Gas delivery results) [place] system [facility]) Urea nitrogen 24 mg/dL Normal (applies MEDGEN [Moles/volume] to non-numeric ([facility] in Blood results) [place] [facility] [facility]) Creatinine 1.01 Above high normal MEDGEN [Interpretation mg/dL ([facility] ] [facility] [place] [facility] BUN/CREATININE 24 Above high normal MEDGEN RATIO (calc) ([facility]) Calcium 10.0 Normal (applies MEDGEN [Moles/volume] mg/dL to non-numeric ([facility] in Urine results) [place] collected for Nephrology unspecified [facility]) duration PROTEIN, TOTAL 7.3 g/dL Normal (applies MEDGEN to non-numeric ([facility] results) [place] [facility]) Microalbumin 4.2 g/dL Normal (applies MEDGEN [Mass/time] in to non-numeric ([facility] Urine collected results) [place] for unspecified Nephrology duration [facility]) Globulin 3.1 g/dL Normal (applies MEDGEN [Mass/time] in (calc) to non-numeric ([facility] 24 hour Urine results) [place] [facility] ALBUMIN/GLOBULI 1.4 Normal (applies MEDGEN N RATIO (calc) to non-numeric ([facility] results) [place] [facility] BILIRUBIN,TOTAL 0.2 Normal (applies MEDGEN mg/dL to non-numeric ([facility] results) [place] [facility]) Alkaline 83 U/L Normal (applies MEDGEN phosphatase to non-numeric ([facility] [Enzymatic results) [place] activity/volume Nephrology ] in Serum, [facility]) Plasma or Blood AST 14 U/L Normal (applies MEDGEN to non-numeric ([facility] results) [place] [facility]) ALT 14 U/L Normal (applies MEDGEN to non-numeric ([facility] results) [place] [facility] EGFR NON AFR 54 Below low normal [facility] [place] mL/min/1 ([place] .73m2 [place] [facility]) EGFR 63 Normal (applies [facility] [place] mL/min/1 to non-numeric ([place] .73m2 results) [place] [facility]) Glucose 120 Normal (applies MEDGEN [Mass/volume] mg/dL to non-numeric ([facility] in Urine results) [place] collected for Nephrology unspecified [facility]) duration Sodium 136 Normal (applies MEDGEN [Moles/volume] mmol/L to non-numeric ([facility] in Serum, results) [place] Plasma or Blood Nephrology [facility]) Potassium 4.9 Normal (applies MEDGEN [Mass/volume] mmol/L to non-numeric ([facility] in Blood results) [place] [facility]) Chloride 102 Normal (applies MEDGEN [Moles/volume] mmol/L to non-numeric ([facility] in Serum, results) [place] Plasma or Blood Nephrology [facility]) Carbon dioxide 24 Normal (applies MEDGEN [VFr/PPres] in mmol/L to non-numeric ([facility] Gas delivery results) [place] [facility]) Urea nitrogen 21 mg/dL Normal (applies MEDGEN [Moles/volume] to non-numeric ([facility] in Blood results) [place] [facility]) Creatinine 1.09 Above high normal MEDGEN [Interpretation mg/dL ([facility] ] in Urine [place] [facility]) BUN/CREATININE 19 Normal (applies MEDGEN RATIO (calc) to non-numeric ([facility] results) [place] [facility]) Calcium 9.9 Normal (applies MEDGEN [Moles/volume] mg/dL to non-numeric ([facility] in Urine results) [place] collected for Nephrology unspecified [facility]) duration PROTEIN, TOTAL 7.3 g/dL Normal (applies MEDGEN to non-numeric ([facility] results) [place] [facility]) Microalbumin 4.2 g/dL Normal (applies MEDGEN [Mass/time] in to non-numeric ([facility] Urine collected results) [place] for unspecified Nephrology duration [facility]) Globulin 3.1 g/dL Normal (applies MEDGEN [Mass/time] in (calc) to non-numeric ([facility] 24 hour Urine results) [place] [facility] ALBUMIN/GLOBULI 1.4 Normal (applies MEDGEN N RATIO (calc) to non-numeric ([facility] results) [place] [facility]) BILIRUBIN,TOTAL 0.2 Normal (applies MEDGEN mg/dL to non-numeric ([facility] results) [place] [facility]) Alkaline 81 U/L Normal (applies MEDGEN phosphatase to non-numeric ([facility] [Enzymatic results) [place] activity/volume Nephrology ] in Serum, [facility]) Plasma or Blood AST 14 U/L Normal (applies MEDGEN to non-numeric ([facility] results) [place] [facility]) ALT 11 U/L Normal (applies MEDGEN to non-numeric ([facility] results) [place] [facility]) EGFR NON AFR 49 Below low normal [facility] [place] mL/min/1 ([place] .73m2 [place] [facility]) EGFR 57 Below low normal [facility] [place] mL/min/1 ([place] [facility]73[facility]2 [place] [facility] Glucose 93 mg/dL Normal (applies MEDGEN [Mass/volume] to non-numeric ([facility] in Urine results) [place] collected for Nephrology unspecified [facility]) duration Sodium 136 Normal (applies MEDGEN [Moles/volume] mmol/L to non-numeric ([facility] in Serum, results) [place] Plasma or Blood Nephrology [facility]) Potassium 4.5 Normal (applies MEDGEN [Mass/volume] mmol/L to non-numeric ([facility] in Blood results) [place] [facility]) Chloride 101 Normal (applies MEDGEN [Moles/volume] mmol/L to non-numeric ([facility] in Serum, results) [place] Plasma or Blood Nephrology [facility]) Carbon dioxide 22 Normal (applies MEDGEN [VFr/PPres] in mmol/L to non-numeric ([facility] Gas delivery results) [place] system [facility]) Urea nitrogen 29 mg/dL Above high normal MEDGEN [Moles/volume] ([facility] [place] [facility] Creatinine 0.93 Normal (applies MEDGEN [Interpretation mg/dL to non-numeric ([facility] ] in Urine results) [place] [facility] BUN/CREATININE 31 Above high normal MEDGEN RATIO (calc) ([facility] Calcium 9.7 Normal (applies MEDGEN [Moles/volume] mg/dL to non-numeric ([facility] in Urine results) [place] collected for Nephrology unspecified [facility]) duration PROTEIN, TOTAL 7.4 g/dL Normal (applies MEDGEN to non-numeric ([facility] results) [place] [facility] [facility]) Microalbumin 4.4 g/dL Normal (applies MEDGEN [Mass/time] in to non-numeric ([facility] Urine collected results) [place] for unspecified Nephrology duration [facility]) Globulin 3.0 g/dL Normal (applies MEDGEN [Mass/time] in (calc) to non-numeric ([facility] 24 hour Urine results) [place] [facility] ALBUMIN/GLOBULI 1.5 Normal (applies MEDGEN N RATIO (calc) to non-numeric ([facility] results) [place] [facility] BILIRUBIN,TOTAL 0.2 Normal (applies [facility] mg/dL to non-numeric ([place] [facility]) [place] [facility]) Alkaline 83 U/L Normal (applies MEDGEN phosphatase to non-numeric ([facility] [Enzymatic results) [place] activity/volume Nephrology ] in Serum, [facility]) Plasma or Blood AST 15 U/L Normal (applies MEDGEN to non-numeric ([place] results) [place] [facility]) ALT 14 U/L Normal (applies MEDGEN to non-numeric ([place] results) [place] [facility]) EGFR NON AFR 61 Normal (applies [facility] [place] mL/min/1 to non-numeric ([place] .73m2 results) [place] [facility]) EGFR 70 Normal (applies [facility] [place] mL/min/1 to non-numeric ([place] .73m2 results) [place] [facility]) Glucose 83 mg/dL Normal (applies [facility]GEN [Mass/volume] to non-numeric ([facility] in Urine results) [place] collected for Nephrology unspecified [facility]) duration Sodium 136 Normal (applies MEDGEN [Moles/volume] mmol/L to non-numeric ([facility] in Serum, results) [place] Plasma or Blood Nephrology [facility]) Potassium 5.2 Normal (applies MEDGEN [Mass/volume] mmol/L to non-numeric ([facility] in Blood results) [place] [facility]) Chloride 100 Normal (applies MEDGEN [Moles/volume] mmol/L to non-numeric ([facility] in Serum, results) [place] Plasma or Blood Nephrology [facility]) Carbon dioxide 24 Normal (applies [facility]GEN [VFr/PPres] in mmol/L to non-numeric ([facility] Gas delivery results) [place] [facility]) Urea nitrogen 27 mg/dL Above high normal MEDGEN [Moles/volume] ([facility] in Blood [place] [facility]) Creatinine 1.01 Above high normal MEDGEN [Interpretation mg/dL ([facility] ] in Urine [place] [facility]) BUN/CREATININE 27 Above high normal MEDGEN RATIO (calc) ([facility] Calcium 9.9 Normal (applies MEDGEN [Moles/volume] mg/dL to non-numeric ([facility] in Urine results) [place] collected for Nephrology unspecified [facility]) duration PROTEIN, TOTAL 7.5 g/dL Normal (applies MEDGEN to non-numeric ([facility] results) [place] [facility]) Microalbumin 4.8 g/dL Normal (applies MEDGEN [Mass/time] in to non-numeric ([facility] Urine collected results) [place] for unspecified Nephrology duration [facility]) Globulin 2.7 g/dL Normal (applies MEDGEN [Mass/time] in (calc) to non-numeric ([facility] 24 hour Urine results) [place] [facility] [facility]) ALBUMIN/GLOBULI 1.8 Normal (applies MEDGEN N RATIO (calc) to non-numeric ([facility] results) [place] [facility]) BILIRUBIN,TOTAL 0.2 Normal (applies MEDGEN mg/dL to non-numeric ([facility] results) [place] [facility]) Alkaline 84 U/L Normal (applies MEDGEN phosphatase to non-numeric ([facility] [Enzymatic results) [place] activity/volume Nephrology ] in Serum, [facility]) Plasma or Blood AST 17 U/L Normal (applies MEDGEN to non-numeric ([facility] results) [place] [facility]) ALT 17 U/L Normal (applies MEDGEN to non-numeric ([facility] results) [place] [facility]) EGFR NON AFR 55 Below low normal [facility] [place] mL/min/1 ([place] .73m2 [place] [facility]) EGFR 64 Normal (applies [facility] [place] mL/min/1 to non-numeric ([place] .73m2 results) [place] [facility]) Glucose 183 Above high normal MEDGEN [Mass/volume] mg/dL ([facility] in Urine [place] collected for Nephrology unspecified [facility]) duration Sodium 133 Below low normal [facility]GEN [Moles/volume] mmol/L ([facility] in Serum, [place] Plasma or Blood Nephrology [facility]) Potassium 4.8 Normal (applies [facility]GEN [Mass/volume] mmol/L to non-numeric ([facility] in Blood results) [place] [facility] [facility]) Chloride 98 Normal (applies [facility]GEN [Moles/volume] mmol/L to non-numeric ([facility] in Serum, results) [place] Plasma or Blood Nephrology [facility]) Carbon dioxide 26 Normal (applies [facility]GEN [VFr/PPres] in mmol/L to non-numeric ([facility] Gas delivery results) [place] [facility]) Urea nitrogen 20 mg/dL Normal (applies [facility]GEN [Moles/volume] to non-numeric ([facility] in Blood results) [place] [facility]) Creatinine 1.05 Above high normal [facility] [Interpretation mg/dL ([facility] ] [facility] [place] [facility] BUN/CREATININE 19 Normal (applies MEDGEN RATIO (calc) to non-numeric ([facility] results) [place] [facility]) Calcium 10.0 Normal (applies [facility]GEN [Moles/volume] mg/dL to non-numeric ([facility] in Urine results) [place] collected for Nephrology unspecified [facility]) duration PROTEIN, TOTAL 7.4 g/dL Normal (applies MEDGEN to non-numeric ([facility] results) [place] [facility]) Microalbumin 4.2 g/dL Normal (applies [facility]GEN [Mass/time] in to non-numeric ([facility] Urine collected results) [place] for unspecified Nephrology duration [facility]) Globulin 3.2 g/dL Normal (applies [facility]GEN [Mass/time] in (calc) to non-numeric ([facility] 24 hour Urine results) [place] [facility] ALBUMIN/GLOBULI 1.3 Normal (applies MEDGEN N RATIO (calc) to non-numeric ([facility] results) [place] [facility]) BILIRUBIN,TOTAL 0.2 Normal (applies [facility]GEN mg/dL to non-numeric ([place] [facility]) [place] [facility]) Alkaline 79 U/L Normal (applies MEDGEN phosphatase to non-numeric ([facility] [Enzymatic results) [place] activity/volume Nephrology ] in Serum, [facility]) Plasma or Blood AST 20 U/L Normal (applies MEDGEN to non-numeric ([place] results) [place] [facility]) ALT 20 U/L Normal (applies [facility]GEN to non-numeric ([place] results) [place] [facility]) EGFR NON AFR 52 Below low normal MEDGEN [place] mL/min/1 ([place] .73m2 [place] [facility]) EGFR 60 Normal (applies MEDGEN [place] mL/min/1 to non-numeric ([facility] .73m2 results) [place] [facility]) Glucose 82 mg/dL Normal (applies MEDGEN [Mass/volume] to non-numeric ([facility] in Urine results) [place] collected for Nephrology unspecified [facility]) duration Sodium 134 Below low normal MEDGEN [Moles/volume] mmol/L ([facility] in Serum, [place] Plasma or Blood Nephrology [facility]) Potassium 4.4 Normal (applies MEDGEN [Mass/volume] mmol/L to non-numeric ([facility] in Blood results) [place] [facility]) Chloride 101 Normal (applies MEDGEN [Moles/volume] mmol/L to non-numeric ([facility] in Serum, results) [place] Plasma or Blood Nephrology [facility]) Carbon dioxide 25 Normal (applies MEDGEN [VFr/PPres] in mmol/L to non-numeric ([facility] Gas delivery results) [place] [facility]) Urea nitrogen 26 mg/dL Above high normal MEDGEN [Moles/volume] ([facility] in Blood [place] [facility]) Creatinine 1.20 Above high normal MEDGEN [Interpretation mg/dL ([facility] ] [facility] [facility] BUN/CREATININE 22 Normal (applies MEDGEN RATIO (calc) to non-numeric ([facility] results) [place] [facility]) Calcium 10.3 Normal (applies [facility] [Moles/volume] mg/dL to non-numeric ([facility] in Urine results) [place] [facility] for Nephrology unspecified [facility]) duration PROTEIN, TOTAL 7.8 g/dL Normal (applies MEDGEN to non-numeric ([facility] results) [place] [facility]) Microalbumin 4.5 g/dL Normal (applies [facility]GEN [Mass/time] in to non-numeric ([facility] Urine collected results) [place] for unspecified Nephrology duration [facility]) Globulin 3.3 g/dL Normal (applies MEDGEN [Mass/time] in (calc) to non-numeric ([facility] 24 hour Urine results) [place] [facility]) ALBUMIN/GLOBULI 1.4 Normal (applies MEDGEN N RATIO (calc) to non-numeric ([facility] results) [place] [facility]) BILIRUBIN,TOTAL 0.3 Normal (applies MEDGEN mg/dL to non-numeric ([facility] results) [place] [facility]) Alkaline 86 U/L Normal (applies MEDGEN phosphatase to non-numeric ([facility] [Enzymatic results) [place] [facility] ] in Serum, [facility]) Plasma or Blood AST 13 U/L Normal (applies MEDGEN to non-numeric ([facility] results) [place] [facility]) ALT 12 U/L Normal (applies MEDGEN to non-numeric ([facility] results) [place] [facility]) EGFR NON AFR 44 Below low normal [facility] [place] mL/min/1 ([facility] .73m2 [place] [facility]) EGFR 51 Below low normal [facility] [place] mL/min/1 ([place] [facility]2 [place] [facility] Glucose 153 Above high normal [facility] [Mass/volume] mg/dL ([facility] in Urine [place] collected for Nephrology unspecified [facility]) duration Sodium 137 Normal (applies [facility]GEN [Moles/volume] mmol/L to non-numeric ([facility] in Serum, results) [place] Plasma or Blood Nephrology [facility]) Potassium 5.2 Normal (applies [facility]GEN [Mass/volume] mmol/L to non-numeric ([facility] in Blood results) [place] [facility]) Chloride 102 Normal (applies [facility]GEN [Moles/volume] mmol/L to non-numeric ([facility] in Serum, results) [place] Plasma or Blood Nephrology [facility]) Carbon dioxide 26 Normal (applies [facility]GEN [VFr/PPres] in mmol/L to non-numeric ([facility] Gas delivery results) [facility] Neph[facility]) Urea nitrogen 18 mg/dL Normal (applies [facility]GEN [Moles/volume] to non-numeric ([facility] in Blood results) [place] [facility]) Creatinine 0.96 Above high normal [facility] [Interpretation mg/dL ([facility] ] [facility]rine [place] [facility] BUN/CREATININE 19 Normal (applies MEDGEN RATIO (calc) to non-numeric ([facility] results) [place] [facility]) Calcium 10.2 Normal (applies [facility] [Moles/volume] mg/dL to non-numeric ([facility] in Urine results) [place] collected for Nephrology unspecified [facility]) duration PROTEIN, TOTAL 7.4 g/dL Normal (applies MEDGEN to non-numeric ([facility] results) [place] [facility]) Microalbumin 4.3 g/dL Normal (applies MEDGEN [Mass/time] in to non-numeric ([facility] Urine collected results) [place] for unspecified Nephrology duration [facility]) Globulin 3.1 g/dL Normal (applies [facility]GEN [Mass/time] in (calc) to non-numeric ([facility] 24 hour Urine results) [place] [facility]) ALBUMIN/GLOBULI 1.4 Normal (applies MEDGEN N RATIO (calc) to non-numeric ([facility] results) [place] [facility]) BILIRUBIN,TOTAL 0.2 Normal (applies [facility]GEN mg/dL to non-numeric ([place] [facility]) [place] [facility]) Alkaline 93 U/L Normal (applies MEDGEN phosphatase to non-numeric ([facility] [Enzymatic results) [place] [facility] ] in Serum, [facility]) Plasma or Blood AST 12 U/L Normal (applies MEDGEN to non-numeric ([facility] results) [place] [facility]) ALT 12 U/L Normal (applies MEDGEN to non-numeric ([facility] results) [place] [facility]) EGFR NON AFR 57 Below low normal [facility] [place] mL/min/1 ([place] .73m2 [place] [facility]) EGFR 67 Normal (applies [facility] [place] mL/min/1 to non-numeric ([facility] .73m2 results) [place] [facility] Glucose 76 mg/dL Normal (applies [facility]GEN [Mass/volume] to non-numeric ([facility] in Urine results) [place] collected for Nephrology unspecified [facility]) duration Sodium 138 Normal (applies [facility]GEN [Moles/volume] mmol/L to non-numeric ([facility] in Serum, results) [place] Plasma or Blood Nephrology [facility]) Potassium 4.5 Normal (applies [facility] [Mass/volume] mmol/L to non-numeric ([facility] in Blood results) [place] [facility]) Chloride 106 Normal (applies [facility] [Moles/volume] mmol/L to non-numeric ([facility] in Serum, results) [place] Plasma or Blood Nephrology [facility]) Carbon dioxide 24 Normal (applies [facility] [VFr/PPres] in mmol/L to non-numeric ([facility] Gas delivery results) [place] [facility]) Urea nitrogen 29 mg/dL Above high normal [facility] [Moles/volume] ([facility] in Blood [place] [facility]) Creatinine 1.01 Above high normal [facility] [Interpretation mg/dL ([facility] ] [facility]rine [place] [facility] BUN/CREATININE 29 Above high normal [facility] RATIO (calc) ([facility]) Calcium 9.7 Normal (applies [facility]GEN [Moles/volume] mg/dL to non-numeric ([facility] in Urine results) [place] collected for Nephrology unspecified [facility]) duration PROTEIN, TOTAL 7.4 g/dL Normal (applies MEDGEN to non-numeric ([place] [facility]) [place] [facility]) Microalbumin 4.3 g/dL Normal (applies [facility]GEN [Mass/time] in to non-numeric ([facility] Urine collected results) [place] for unspecified Nephrology duration [facility]) Globulin 3.1 g/dL Normal (applies [facility]GEN [Mass/time] in (calc) to non-numeric ([facility] 24 hour Urine results) [place] [facility]) ALBUMIN/GLOBULI 1.4 Normal (applies MEDGEN N RATIO (calc) to non-numeric ([facility] results) [place] [facility]) BILIRUBIN,TOTAL 0.2 Normal (applies MEDGEN mg/dL to non-numeric ([facility] results) [place] [facility]) Alkaline 88 U/L Normal (applies MEDGEN phosphatase to non-numeric ([facility] [Enzymatic results) [place] activity[facility] ] in Serum, [facility]) Plasma or Blood AST 13 U/L Normal (applies MEDGEN to non-numeric ([facility] results) [place] [facility]) ALT 12 U/L Normal (applies MEDGEN to non-numeric ([facility] results) [place] [facility]) EGFR NON AFR 54 Below low normal [facility] [place] mL/min/1 ([place] .73m2 [place] [facility]) EGFR 63 Normal (applies [facility] [place] mL/min/1 to non-numeric ([place] .73m2 results) [place] [facility]) Glucose 85 mg/dL Normal (applies [facility] [Mass/volume] to non-numeric ([facility] in Urine results) [place] collected for Nephrology unspecified [facility]) duration Sodium 138 Normal (applies [facility] [Moles/volume] mmol/L to non-numeric ([facility] in Serum, results) [place] Plasma or Blood Nephrology [facility]) Potassium 4.5 Normal (applies [facility] [Mass/volume] mmol/L to non-numeric ([facility] in Blood results) [place] [facility]) Chloride 103 Normal (applies [facility] [Moles/volume] mmol/L to non-numeric ([facility] in Serum, results) [place] Plasma or Blood Nephrology [facility]) Carbon dioxide 25 Normal (applies [facility] [VFr/PPres] in mmol/L to non-numeric ([facility] Gas delivery results) [place] [facility]) Urea nitrogen 22 mg/dL Normal (applies [facility] [Moles/volume] to non-numeric ([facility] in Blood results) [place] [facility]) Creatinine 1.02 Above high normal [facility] [Interpretation mg/dL ([facility] ] in Urine [place] [facility]) BUN/CREATININE 22 Normal (applies MEDGEN RATIO (calc) to non-numeric ([facility] results) [place] [facility]) Calcium 10.5 Above high normal [facility] [Moles/volume] mg/dL ([facility] in Urine [place] collected for Nephrology unspecified [facility]) duration PROTEIN, TOTAL 7.8 g/dL Normal (applies MEDGEN to non-numeric ([facility] results) [place] [facility]) Microalbumin 4.5 g/dL Normal (applies [facility]GEN [Mass/time] in to non-numeric ([facility] Urine collected results) [place] for unspecified Nephrology duration [facility]) Globulin 3.3 g/dL Normal (applies [facility]GEN [Mass/time] in (calc) to non-numeric ([facility] 24 hour Urine results) [place] [facility]) ALBUMIN/GLOBULI 1.4 Normal (applies MEDGEN N RATIO (calc) to non-numeric ([facility] results) [place] [facility]) BILIRUBIN,TOTAL 0.2 Normal (applies MEDGEN mg/dL to non-numeric ([facility] results) [place] [facility]) Alkaline 91 U/L Normal (applies MEDGEN phosphatase to non-numeric ([facility] [Enzymatic results) [place] activity[facility] ] in Serum, [facility]) Plasma or Blood AST 14 U/L Normal (applies MEDGEN to non-numeric ([facility] results) [place] [facility]) ALT 12 U/L Normal (applies MEDGEN to non-numeric ([facility] results) [place] [facility]) EGFR NON AFR 53 Below low normal [facility] [place] mL/min/1 ([place] .73m2 [place] [facility]) EGFR 62 Normal (applies [facility] [place] mL/min/1 to non-numeric ([facility] .73m2 results) [place] [facility] ID Date Data Source [id number] 12/10/2018 12:00:00 AM EDT MEDGEN ([facility]) Name Value Range Interpretation Description Data Source(s ) Supporting Code Document(s ) Hemoglobin A1c 6.5 % of Above high normal [facility] in Blood total ([facility]) ID Date Data Source [id number] 12/10/2018 12:00:00 AM EDT MEDGEN ([facility]) Name Value Range Interpretation Description Data Source(s ) Supporting Code Document(s ) WBC 5.4 Normal (applies MEDGEN Thousand to non-numeric ([facility] /uL results) [facility]) RBC 3.89 Normal (applies MEDGEN Million/ to non-numeric ([place] uL results) [place] [facility]) Hemoglobin 10.6 Below low normal [facility] [Mass/volume] g/dL ([place] in Mixed venous [place] by Nephrology Oximetry [facility]) Hematocrit 32.1 % Below low normal MEDGEN [Pure volume ([place] fraction] of [place] [facility] by Nephrology Automated count [facility]) MCV 82.5 fL Normal (applies MEDGEN to non-numeric ([place] results) [place] [facility]) MCH 27.2 pg Normal (applies MEDGEN to non-numeric ([place] results) [place] [facility]) MCHC 33.0 Normal (applies [facility]GEN g/dL to non-numeric ([place] results) [place] [facility]) RDW 13.4 % Normal (applies MEDGEN to non-numeric ([place] results) [place] [facility]) PLATELET COUNT 160 Normal (applies MEDGEN Thousand to non-numeric ([place] /uL results) [place] [facility]) MPV 8.5 fL Normal (applies [facility]GEN to non-numeric ([place] results) [place] [facility]) TOTAL 57.1 % Normal (applies [facility]GEN NEUTROPHILS,% to non-numeric ([place] results) [place] [facility]) TOTAL 31.3 % Normal (applies [facility] LYMPHOCYTES,% to non-numeric ([place] results) [place] [facility]) MONOCYTES,% 8.4 % Normal (applies [facility]GEN to non-numeric ([place] results) [place] [facility]) EOSINOPHILS,% 2.6 % Normal (applies [facility]GEN to non-numeric ([place] results) [place] [facility] BASOPHILS,% 0.6 % Normal (applies [facility] to non-numeric ([place] results) [place] [facility]) NEUTROPHILS,ABS 3083 Normal (applies MEDGEN [place] cells/uL to non-numeric ([place] results) [place] [facility]) LYMPHOCYTES,ABS 1690 Normal (applies MEDGEN [place] cells/uL to non-numeric ([place] results) [place] [facility]) MONOCYTES,ABSOL 454 Normal (applies MEDGEN [place] cells/uL to non-numeric ([place] results) [place] [facility]) EOSINOPHILS,ABS 140 Normal (applies MEDGEN [place] cells/uL to non-numeric ([place] results) [place] [facility]) BASOPHILS,ABSOL 32 Normal (applies MEDGEN [place] cells/uL to non-numeric ([place] results) [place] [facility]) DIFFERENTIAL Normal (applies [facility]GEN to non-numeric ([place] results) [place] [facility]) ID Date Data Source [id number] 12/10/2018 12:00:00 AM EDT MEDGEN ([facility]) Name Value Range Interpretation Code Description Data Jyoti rce(s) Supporting Document(s ) T4,FREE 1.3 ng/dL Normal (applies to MEDGEN non-numeric ([place] [facility]) [place] [facility]) ID Date Data Source [id number] 12/10/2018 12:00:00 AM EDT MEDGEN ([facility]) Name Value Range Interpretation Code Description Data Jyoti rce(s) Supporting Document(s ) TSH 3.18 mIU/L Normal (applies to MEDGEN ([place] non-numeric [place] results) Nephrology [facility]) ID Date Data Source [id number] 12/10/2018 12:00:00 AM EDT MEDGEN ([facility]) Name Value Range Interpretation Description Data Source(s ) Supporting Code Document(s ) Glucose 82 mg/dL Normal (applies [facility] [Mass/volume] to non-numeric ([place] in Urine results) [place] collected for Nephrology unspecified [facility]) duration Sodium 134 Below low normal [facility] [Moles/volume] mmol/L ([place] in Serum, [place] Plasma or Blood Nephrology [facility]) Potassium 4.4 Normal (applies [facility] [Mass/volume] mmol/L to non-numeric ([facility] in Blood results) [place] [facility]) Chloride 101 Normal (applies [facility] [Moles/volume] mmol/L to non-numeric ([facility] in Serum, results) [place] Plasma or Blood Nephrology [facility]) Carbon dioxide 25 Normal (applies [facility] [VFr/PPres] in mmol/L to non-numeric ([facility] Gas delivery results) [place] [facility]ph[facility]) Urea nitrogen 26 mg/dL Above high normal [facility] [Moles/volume] ([facility] in Blood [place] [facility]) Creatinine 1.20 Above high normal [facility] [Interpretation mg/dL ([facility] ] in Urine [place] [facility]) BUN/CREATININE 22 Normal (applies [facility]GEN RATIO (calc) to non-numeric ([facility] results) [place] [facility]) Calcium 10.3 Normal (applies [facility] [Moles/volume] mg/dL to non-numeric ([facility] in Urine results) [place] collected for Nephrology unspecified [facility]) duration PROTEIN, TOTAL 7.8 g/dL Normal (applies MEDGEN to non-numeric ([facility] results) [place] [facility]) Microalbumin 4.5 g/dL Normal (applies [facility] [Mass/time] in to non-numeric ([facility] Urine collected results) [place] for unspecified Nephrology duration [facility]) Globulin 3.3 g/dL Normal (applies [facility] [Mass/time] in (calc) to non-numeric ([facility] 24 hour Urine results) [place] [facility]) ALBUMIN/GLOBULI 1.4 Normal (applies MEDGEN N RATIO (calc) to non-numeric ([facility] results) [place] [facility]) BILIRUBIN,TOTAL 0.3 Normal (applies MEDGEN mg/dL to non-numeric ([facility] results) [place] [facility]) Alkaline 86 U/L Normal (applies MEDGEN phosphatase to non-numeric ([facility] [Enzymatic results) [place] activity/volume [facility]ph[facility] ] in Serum, [facility]) Plasma or Blood AST 13 U/L Normal (applies MEDGEN to non-numeric ([facility] results) [place] [facility]) ALT 12 U/L Normal (applies MEDGEN to non-numeric ([facility] results) [place] [facility]) EGFR NON AFR 44 Below low normal [facility] [place] mL/min/1 ([place] .73m2 [place] [facility] EGFR 51 Below low normal [facility] [place] mL/min/1 ([place] .73m2 [place] [facility]) ID Date Data Source [id number] 12/10/2018 12:00:00 AM EDT MEDGEN ([facility]) Name Value Range Interpretation Description Data Source(s ) Supporting Code Document(s ) Hemoglobin A1c 6.5 % of Above high normal [facility] in Blood total ([facility]) ID Date Data Source [id number] 12/10/2018 12:00:00 AM EDT MED[facility] ([facility]) Name Value Range Interpretation Description Data Source(s ) Supporting Code Document(s ) WBC 5.4 Normal (applies MEDGEN Thousand to non-numeric ([place] /uL results) [place] [facility]) RBC 3.89 Normal (applies MEDGEN Million/ to non-numeric ([place] uL results) [place] [facility]) Hemoglobin 10.6 Below low normal [facility] [Mass/volume] g/dL ([place] in Mixed venous [place] blood by Nephrology Oxim[facility]) Hematocrit 32.1 % Below low normal [facility] [Pure volume ([place] fraction] of [place] Blood by Nephrology Automated count [facility]) MCV 82.5 fL Normal (applies [facility]GEN to non-numeric ([place] results) [place] [facility]) MCH 27.2 pg Normal (applies [facility]GEN to non-numeric ([place] results) [place] [facility]) MCHC 33.0 Normal (applies [facility]GEN g/dL to non-numeric ([place] results) [place] [facility]) RDW 13.4 % Normal (applies [facility]GEN to non-numeric ([place] results) [place] [facility]) PLATELET COUNT 160 Normal (applies MEDGEN Thousand to non-numeric ([place] /uL results) [place] [facility]) MPV 8.5 fL Normal (applies MEDGEN to non-numeric ([place] results) [place] [facility]) TOTAL 57.1 % Normal (applies [facility]GEN NEUTROPHILS,% to non-numeric ([place] results) [place] [facility] TOTAL 31.3 % Normal (applies [facility]GEN LYMPHOCYTES,% to non-numeric ([facility] results) [facility]) MONOCYTES,% 8.4 % Normal (applies MEDGEN to non-numeric ([facility] results) [facility]) EOSINOPHILS,% 2.6 % Normal (applies MEDGEN to non-numeric ([facility] results) [facility]) BASOPHILS,% 0.6 % Normal (applies MEDGEN to non-numeric ([facility] results) [facility]) NEUTROPHILS,ABS 3083 Normal (applies MEDGEN OLUTE cells/uL to non-numeric ([facility] results) [facility]) LYMPHOCYTES,ABS 1690 Normal (applies MEDGEN [place] cells/uL to non-numeric ([facility] results) [facility]) MONOCYTES,ABSOL 454 Normal (applies MEDGEN [place] cells/uL to non-numeric ([facility] results) [facility]) EOSINOPHILS,ABS 140 Normal (applies MEDGEN [place] cells/uL to non-numeric ([facility] results) [facility]) BASOPHILS,ABSOL 32 Normal (applies MEDGEN [place] cells/uL to non-numeric ([facility] results) [facility]) DIFFERENTIAL Normal (applies MEDGEN to non-numeric ([facility] results) [facility]) ID Date Data Source [id number] 12/10/2018 12:00:00 AM EDT MEDGEN ([facility]) Name Value Range Interpretation Code Description Data Jyoti rce(s) Supporting Document(s ) T4,FREE 1.3 ng/dL Normal (applies to MEDGEN non-numeric ([facility] results) [facility]) ID Date Data Source [id number] 12/10/2018 12:00:00 AM EDT MEDGEN ([facility]) Name Value Range Interpretation Code Description Data Jyoti rce(s) Supporting Document(s ) TSH 3.18 mIU/L Normal (applies to MEDGEN ([place] non-numeric [place] results) [facility]) ID Date Data Source [id number] 12/10/2018 12:00:00 AM EDT MEDGEN ([facility]) Name Value Range Interpretation Description Data Source(s ) Supporting Code Document(s ) Glucose 82 mg/dL Normal (applies MEDGEN [Mass/volume] to non-numeric ([facility] in Urine results) [place] collected for Nephrology unspecified [facility]) duration Sodium 134 Below low normal MEDGEN [Moles/volume] mmol/L ([facility] in Serum, [place] Plasma or Blood Nephrology [facility]) Potassium 4.4 Normal (applies MEDGEN [Mass/volume] mmol/L to non-numeric ([facility] in Blood results) [place] [facility]) Chloride 101 Normal (applies MEDGEN [Moles/volume] mmol/L to non-numeric ([facility] in Serum, results) [place] Plasma or Blood Nephrology [facility]) Carbon dioxide 25 Normal (applies MEDGEN [VFr/PPres] in mmol/L to non-numeric ([facility] Gas delivery results) [place] system Nephrology [facility]) Urea nitrogen 26 mg/dL Above high normal MEDGEN [Moles/volume] ([facility] in Blood [place] [facility]) Creatinine 1.20 Above high normal MEDGEN [Interpretation mg/dL ([facility] ] in Urine [place] [facility]ph[facility]) BUN/CREATININE 22 Normal (applies MEDGEN RATIO (calc) to non-numeric ([facility] results) [place] [facility]) Calcium 10.3 Normal (applies MEDGEN [Moles/volume] mg/dL to non-numeric ([facility] in Urine results) [place] collected for Nephrology unspecified [facility]) duration PROTEIN, TOTAL 7.8 g/dL Normal (applies MEDGEN to non-numeric ([facility] results) [place] [facility]) Microalbumin 4.5 g/dL Normal (applies MEDGEN [Mass/time] in to non-numeric ([facility] Urine collected results) [place] for unspecified Nephrology duration [facility]) Globulin 3.3 g/dL Normal (applies MEDGEN [Mass/time] in (calc) to non-numeric ([facility] 24 hour Urine results) [place] [facility] ALBUMIN/GLOBULI 1.4 Normal (applies MEDGEN N RATIO (calc) to non-numeric ([facility] results) [place] [facility]) BILIRUBIN,TOTAL 0.3 Normal (applies MEDGEN mg/dL to non-numeric ([facility] results) [place] [facility]) Alkaline 86 U/L Normal (applies MEDGEN phosphatase to non-numeric ([facility] [Enzymatic results) [place] activity/volume Nephrology ] in Serum, [facility]) Plasma or Blood AST 13 U/L Normal (applies MEDGEN to non-numeric ([place] [facility]) [place] [facility]) ALT 12 U/L Normal (applies MEDGEN to non-numeric ([place] results) [place] [facility]) EGFR NON AFR 44 Below low normal MEDGEN [place] mL/min/1 ([place] .73m2 [place] [facility]) EGFR 51 Below low normal MEDGEN [place] mL/min/1 ([place] .73m2 [place] [facility]) ID Date Data Source [id number] 12/10/2018 12:00:00 AM EDT MEDGEN ([facility] Nephrology [facility]) Name Value Range Interpretation Description Data Source(s ) Supporting Code Document(s ) Hemoglobin A1c 6.5 % of Above high normal MEDGEN in Blood total ([facility]gb [place] [facility]) ID Date Data Source [id number] 12/10/2018 12:00:00 AM EDT MEDGEN ([facility] Nephrology [facility]) Name Value Range Interpretation Description Data Source(s ) Supporting Code Document(s ) WBC 5.4 Normal (applies MEDGEN Thousand to non-numeric ([place] /uL results) [place] [facility]) RBC 3.89 Normal (applies MEDGEN Million/ to non-numeric ([place] uL results) [place] [facility]) Hemoglobin 10.6 Below low normal MEDGEN [Mass/volume] g/dL ([place] in Mixed [place] venous blood Nephrology by Oximetry [facility]) Hematocrit 32.1 % Below low normal MEDGEN [Pure volume ([place] fraction] of [place] Blood by Nephrology Automated [facility]) count MCV 82.5 fL Normal (applies MEDGEN to non-numeric ([place] results) [place] [facility]) MCH 27.2 pg Normal (applies MEDGEN to non-numeric ([place] results) [place] [facility]) MCHC 33.0 Normal (applies MEDGEN g/dL to non-numeric ([place] results) [place] [facility]) RDW 13.4 % Normal (applies MEDGEN to non-numeric ([place] results) [place] [facility]) PLATELET COUNT 160 Normal (applies MEDGEN Thousand to non-numeric ([place] /uL results) [facility]) MPV 8.5 fL Normal (applies MEDGEN to non-numeric ([facility] results) [facility]) TOTAL 57.1 % Normal (applies MEDGEN NEUTROPHILS,% to non-numeric ([facility] results) [place] [facility]) TOTAL 31.3 % Normal (applies MEDGEN LYMPHOCYTES,% to non-numeric ([place] [facility]) [place] [facility]) MONOCYTES,% 8.4 % Normal (applies MEDGEN to non-numeric ([place] results) [facility]) EOSINOPHILS,% 2.6 % Normal (applies MEDGEN to non-numeric ([facility] results) [facility]) BASOPHILS,% 0.6 % Normal (applies MEDGEN to non-numeric ([facility] results) [facility]) NEUTROPHILS,AB 3083 Normal (applies MEDGEN SOLUTE cells/uL to non-numeric ([facility] results) [facility]) LYMPHOCYTES,AB 1690 Normal (applies MEDGEN SOLUTE cells/uL to non-numeric ([facility] results) [facility]) MONOCYTES,ABSO 454 Normal (applies MEDGEN LUTE cells/uL to non-numeric ([facility] results) [facility]) EOSINOPHILS,AB 140 Normal (applies MEDGEN SOLUTE cells/uL to non-numeric ([facility] results) [facility]) BASOPHILS,ABSO 32 Normal (applies MEDGEN LUTE cells/uL to non-numeric ([facility] results) [facility]) ID Date Data Source [id number] 12/10/2018 12:00:00 AM EDT MEDGEN ([facility]) Name Value Range Interpretation Code Description Data Jyoti rce(s) Supporting Document(s ) T4,FREE 1.3 ng/dL Normal (applies to MEDGEN non-numeric ([facility] results) [facility]) ID Date Data Source [id number] 12/10/2018 12:00:00 AM EDT MEDGEN ([facility]) Name Value Range Interpretation Code Description Data Jyoti rce(s) Supporting Document(s ) TSH 3.18 mIU/L Normal (applies to MEDGEN ([place] non-numeric [place] results) [facility]) ID Date Data Source [id number] 12/10/2018 12:00:00 AM EDT MEDGEN ([facility] mónica [place] Neph[facility]) Name Value Range Interpretation Description Data Source(s ) Supporting Code Document(s ) Glucose 82 mg/dL Normal (applies MEDGEN [Mass/volume] to non-numeric ([facility] in Urine results) [place] collected for Nephrology unspecified [facility]) duration Sodium 134 Below low normal MEDGEN [Moles/volume] mmol/L ([facility] in Serum, [place] Plasma or Blood Nephrology [facility]) Potassium 4.4 Normal (applies MEDGEN [Mass/volume] mmol/L to non-numeric ([facility] in Blood results) [place] [facility]) Chloride 101 Normal (applies MEDGEN [Moles/volume] mmol/L to non-numeric ([facility] in Serum, results) [place] Plasma or Blood Nephrology [facility]) Carbon dioxide 25 Normal (applies MEDGEN [VFr/PPres] in mmol/L to non-numeric ([facility] Gas delivery results) [place] system Nephrology [facility]) Urea nitrogen 26 mg/dL Above high normal MEDGEN [Moles/volume] ([facility] in Blood [place] [facility]) Creatinine 1.20 Above high normal MEDGEN [Interpretation mg/dL ([facility] ] [facility] [place] [facility]) BUN/CREATININE 22 Normal (applies MEDGEN RATIO (calc) to non-numeric ([facility] results) [place] [facility]) Calcium 10.3 Normal (applies MEDGEN [Moles/volume] mg/dL to non-numeric ([facility] in Urine results) [place] collected for Nephrology unspecified [facility]) duration PROTEIN, TOTAL 7.8 g/dL Normal (applies MEDGEN to non-numeric ([facility] results) [place] [facility]) Microalbumin 4.5 g/dL Normal (applies MEDGEN [Mass/time] in to non-numeric ([facility] Urine collected results) [place] for unspecified Nephrology duration [facility]) Globulin 3.3 g/dL Normal (applies MEDGEN [Mass/time] in (calc) to non-numeric ([facility] 24 hour Urine results) [place] [facility] ALBUMIN/GLOBULI 1.4 Normal (applies MEDGEN N RATIO (calc) to non-numeric ([facility] results) [place] [facility]) BILIRUBIN,TOTAL 0.3 Normal (applies MEDGEN mg/dL to non-numeric ([place] [facility]) [place] [facility]) Alkaline 86 U/L Normal (applies MEDGEN phosphatase to non-numeric ([facility] [Enzymatic results) [place] activity/volume Nephrology ] in Serum, [facility]) Plasma or Blood AST 13 U/L Normal (applies MEDGEN to non-numeric ([facility] results) [place] [facility]) ALT 12 U/L Normal (applies MEDGEN to non-numeric ([facility] results) [place] [facility]) EGFR NON AFR 44 Below low normal MEDGEN [place] mL/min/1 ([place] .73m2 [place] [facility]) EGFR 51 Below low normal MEDGEN [place] mL/min/1 ([facility] .73m2 [place] [facility] ID Date Data Source [id number] 12/10/2018 12:00:00 AM EDT MEDGEN ([facility] Nephrology [facility]) Name Value Range Interpretation Description Data Source(s ) Supporting Code Document(s ) Hemoglobin A1c 6.5 % of Above high normal MEDGEN in Blood total ([facility] Hgb [place] [facility]) ID Date Data Source [id number] 12/10/2018 12:00:00 AM EDT MEDGEN [facility] Name Value Range Interpretation Description Data Source(s ) Supporting Code Document(s ) WBC 5.4 Normal (applies MEDGEN Thousand to non-numeric ([place] /uL results) [place] [facility]) RBC 3.89 Normal (applies MEDGEN Million/ to non-numeric ([facility] uL results) [place] [facility]) Hemoglobin 10.6 Below low normal MEDGEN [Mass/volume] g/dL ([place] in Mixed [place] venous blood Nephrology by Oximetry [facility]) Hematocrit 32.1 % Below low normal MEDGEN [Pure volume ([place] fraction] of [place] Blood by Nephrology Automated [facility]) count MCV 82.5 fL Normal (applies MEDGEN to non-numeric ([place] results) [place] [facility]) MCH 27.2 pg Normal (applies MEDGEN to non-numeric ([facility] results) [place] [facility]) MCHC 33.0 Normal (applies MEDGEN g/dL to non-numeric ([facility] results) [place] [facility]) RDW 13.4 % Normal (applies MEDGEN to non-numeric ([place] [facility]) [facility]) PLATELET COUNT 160 Normal (applies MEDGEN Thousand to non-numeric ([place] /uL results) [facility]) MPV 8.5 fL Normal (applies MEDGEN to non-numeric ([facility] results) [facility]) TOTAL 57.1 % Normal (applies MEDGEN NEUTROPHILS,% to non-numeric ([facility] results) [facility]) TOTAL 31.3 % Normal (applies MEDGEN LYMPHOCYTES,% to non-numeric ([facility] results) [facility]) MONOCYTES,% 8.4 % Normal (applies MEDGEN to non-numeric ([facility] results) [facility]) EOSINOPHILS,% 2.6 % Normal (applies MEDGEN to non-numeric ([facility] results) [facility]) BASOPHILS,% 0.6 % Normal (applies MEDGEN to non-numeric ([facility] results) [facility]) NEUTROPHILS,AB 3083 Normal (applies MEDGEN SOLUTE cells/uL to non-numeric ([facility] results) [facility]) LYMPHOCYTES,AB 1690 Normal (applies MEDGEN SOLUTE cells/uL to non-numeric ([facility] results) [facility]) MONOCYTES,ABSO 454 Normal (applies MEDGEN LUTE cells/uL to non-numeric ([facility] results) [facility]) EOSINOPHILS,AB 140 Normal (applies MEDGEN SOLUTE cells/uL to non-numeric ([facility] results) [facility]) BASOPHILS,ABSO 32 Normal (applies MEDGEN LUTE cells/uL to non-numeric ([facility] results) [facility]) ID Date Data Source [id number] 12/10/2018 12:00:00 AM EDT MEDGEN ([facility]) Name Value Range Interpretation Code Description Data Jyoti rce(s) Supporting Document(s ) T4,FREE 1.3 ng/dL Normal (applies to MEDGEN non-numeric ([facility] results) [facility]) ID Date Data Source [id number] 12/10/2018 12:00:00 AM EDT MEDGEN ([facility]) Name Value Range Interpretation Code Description Data Jytoi rce(s) Supporting Document(s ) TSH 3.18 mIU/L Normal (applies to MEDGEN ([place] non-numeric [place] results) Nephrology [facility]) ID Date Data Source [id number] 12/10/2018 12:00:00 AM EDT MEDGEN ([facility] mónica [place] [facility]) Name Value Range Interpretation Description Data Source(s ) Supporting Code Document(s ) Glucose 82 mg/dL Normal (applies MEDGEN [Mass/volume] to non-numeric ([facility] in Urine results) [place] collected for Nephrology unspecified [facility]) duration Sodium 134 Below low normal MEDGEN [Moles/volume] mmol/L ([facility] in Serum, [place] Plasma or Blood Nephrology [facility]) Potassium 4.4 Normal (applies MEDGEN [Mass/volume] mmol/L to non-numeric ([facility] in Blood results) [place] [facility]) Chloride 101 Normal (applies MEDGEN [Moles/volume] mmol/L to non-numeric ([facility] in Serum, results) [place] Plasma or Blood Nephrology [facility]) Carbon dioxide 25 Normal (applies MEDGEN [VFr/PPres] in mmol/L to non-numeric ([facility] Gas delivery results) [place] system Nephrology [facility]) Urea nitrogen 26 mg/dL Above high normal MEDGEN [Moles/volume] ([facility] in Blood [place] [facility]) Creatinine 1.20 Above high normal MEDGEN [Interpretation mg/dL ([facility] ] in Urine [place] [facility]) BUN/CREATININE 22 Normal (applies MEDGEN RATIO (calc) to non-numeric ([facility] results) [place] [facility]) Calcium 10.3 Normal (applies MEDGEN [Moles/volume] mg/dL to non-numeric ([facility] in Urine results) [place] collected for Nephrology unspecified [facility]) duration PROTEIN, TOTAL 7.8 g/dL Normal (applies MEDGEN to non-numeric ([facility] results) [place] [facility]) Microalbumin 4.5 g/dL Normal (applies MEDGEN [Mass/time] in to non-numeric ([facility] Urine collected results) [place] for unspecified Nephrology duration [facility]) Globulin 3.3 g/dL Normal (applies MEDGEN [Mass/time] in (calc) to non-numeric ([facility] 24 hour Urine results) [place] [facility]) ALBUMIN/GLOBULI 1.4 Normal (applies MEDGEN N RATIO (calc) to non-numeric ([facility] results) [place] [facility]) BILIRUBIN,TOTAL 0.3 Normal (applies MEDGEN mg/dL to non-numeric ([place]) [place] [facility]) Alkaline 86 U/L Normal (applies MEDGEN phosphatase to non-numeric ([facility] [Enzymatic results) [place] activity/volume Nephrology ] in Serum, [facility]) Plasma or Blood AST 13 U/L Normal (applies MEDGEN to non-numeric ([place] results) [place] [facility]) ALT 12 U/L Normal (applies MEDGEN to non-numeric ([facility] results) [place] [facility]) EGFR NON AFR 44 Below low normal MEDGEN [place] mL/min/1 ([place] [facility]m2 [place] [facility] EGFR 51 Below low normal MEDGEN [place] mL/min/1 ([place] .73m2 [place] [facility]) ID Date Data Source [id number] 12/10/2018 12:00:00 AM EDT MEDGEN ([facility] Nephrology [facility]) Name Value Range Interpretation Description Data Source(s ) Supporting Code Document(s ) Hemoglobin A1c 6.5 % of Above high normal MEDGEN in Blood total ([facility]gb [place] [facility] ID Date Data Source [id number] 12/10/2018 12:00:00 AM EDT MEDGEN [facility] Name Value Range Interpretation Description Data Source(s ) Supporting Code Document(s ) WBC 5.4 Normal (applies MEDGEN Thousand to non-numeric ([place] /uL results) [place] [facility]) RBC 3.89 Normal (applies MEDGEN Million/ to non-numeric ([place] uL results) [place] [facility]) Hemoglobin 10.6 Below low normal MEDGEN [Mass/volume] g/dL ([place] in Mixed venous [place] blood by Nephrology Oximetry [facility]) Hematocrit 32.1 % Below low normal MEDGEN [Pure volume ([place] fraction] of [place] Blood by Nephrology Automated count [facility]) MCV 82.5 fL Normal (applies MEDGEN to non-numeric ([place]) [place] [facility]) MCH 27.2 pg Normal (applies MEDGEN to non-numeric ([place] [facility]) [place] [facility] MCHC 33.0 Normal (applies MEDGEN g/dL to non-numeric ([facility] results) [facility]) RDW 13.4 % Normal (applies MEDGEN to non-numeric ([facility] results) [facility]) PLATELET COUNT 160 Normal (applies MEDGEN Thousand to non-numeric ([place] / results) [facility]) MPV 8.5 fL Normal (applies MEDGEN to non-numeric ([facility] results) [facility]) TOTAL 57.1 % Normal (applies MEDGEN NEUTROPHILS,% to non-numeric ([facility] results) [facility]) TOTAL 31.3 % Normal (applies MEDGEN LYMPHOCYTES,% to non-numeric ([facility] results) [facility]) MONOCYTES,% 8.4 % Normal (applies MEDGEN to non-numeric ([facility] results) [facility]) EOSINOPHILS,% 2.6 % Normal (applies MEDGEN to non-numeric ([facility] results) [facility]) BASOPHILS,% 0.6 % Normal (applies MEDGEN to non-numeric ([facility] results) [facility]) NEUTROPHILS,ABS 3083 Normal (applies MEDGEN OLUTE cells/uL to non-numeric ([facility] results) [facility]) LYMPHOCYTES,ABS 1690 Normal (applies MEDGEN OLUTE cells/uL to non-numeric ([facility] results) [facility]) MONOCYTES,ABSOL 454 Normal (applies MEDGEN [place] cells/uL to non-numeric ([facility] results) [facility]) EOSINOPHILS,ABS 140 Normal (applies MEDGEN OLUTE cells/uL to non-numeric ([facility] results) [facility]) BASOPHILS,ABSOL 32 Normal (applies MEDGEN U[place] cells/uL to non-numeric ([facility] results) [facility]) DIFFERENTIAL Normal (applies MEDGEN to non-numeric ([facility] results) [facility]) ID Date Data Source [id number] 12/10/2018 12:00:00 AM EDT MEDGEN ([facility]) Name Value Range Interpretation Code Description Data Jyoti rce(s) Supporting Document(s ) T4,FREE 1.3 ng/dL Normal (applies to MEDGEN non-numeric ([facility] results) [place] [facility]) ID Date Data Source [id number] 12/10/2018 12:00:00 AM EDT MEDGEN ([facility] Nephrology [facility]) Name Value Range Interpretation Code Description Data Jyoti rce(s) Supporting Document(s ) TSH 3.18 mIU/L Normal (applies to MEDGEN ([place] non-numeric [place] results) Nephrology [facility]) ID Date Data Source [id number] 12/10/2018 12:00:00 AM EDT MEDGEN ([facility] Nephrology [facility]) Name Value Range Interpretation Description Data Source(s ) Supporting Code Document(s ) Glucose 82 mg/dL Normal (applies MEDGEN [Mass/volume] to non-numeric ([facility] in Urine results) [place] collected for Nephrology unspecified [facility]) duration Sodium 134 Below low normal MEDGEN [Moles/volume] mmol/L ([facility] in Serum, [place] Plasma or Blood Nephrology [facility]) Potassium 4.4 Normal (applies MEDGEN [Mass/volume] mmol/L to non-numeric ([facility] in Blood results) [place] [facility]) Chloride 101 Normal (applies MEDGEN [Moles/volume] mmol/L to non-numeric ([facility] in Serum, results) [place] Plasma or Blood Nephrology [facility]) Carbon dioxide 25 Normal (applies MEDGEN [VFr/PPres] in mmol/L to non-numeric ([facility] Gas delivery results) [facility] Nephrology [facility]) Urea nitrogen 26 mg/dL Above high normal MEDGEN [Moles/volume] ([facility] [place] [facility] Creatinine 1.20 Above high normal MEDGEN [Interpretation mg/dL ([facility] ] in Urine [place] [facility]) BUN/CREATININE 22 Normal (applies MEDGEN RATIO (calc) to non-numeric ([facility] results) [place] [facility]) Calcium 10.3 Normal (applies MEDGEN [Moles/volume] mg/dL to non-numeric ([facility] in Urine results) [place] collected for Nephrology unspecified [facility]) duration PROTEIN, TOTAL 7.8 g/dL Normal (applies MEDGEN to non-numeric ([facility] results) [place] [facility]) Microalbumin 4.5 g/dL Normal (applies MEDGEN [Mass/time] in to non-numeric ([facility] Urine collected results) [place] for unspecified Nephrology duration [facility]) Globulin 3.3 g/dL Normal (applies MEDGEN [Mass/time] in (calc) to non-numeric ([facility] 24 hour Urine results) [place] [facility]) ALBUMIN/GLOBULI 1.4 Normal (applies MEDGEN N RATIO (calc) to non-numeric ([facility] results) [place] [facility]) BILIRUBIN,TOTAL 0.3 Normal (applies MEDGEN mg/dL to non-numeric ([facility] results) [place] [facility]) Alkaline 86 U/L Normal (applies MEDGEN phosphatase to non-numeric ([facility] [Enzymatic results) [place] activity/volume Nephrology ] in Serum, [facility]) Plasma or Blood AST 13 U/L Normal (applies MEDGEN to non-numeric ([facility] results) [place] [facility]) ALT 12 U/L Normal (applies MEDGEN to non-numeric ([facility] results) [place] [facility]) EGFR NON AFR 44 Below low normal MEDGEN [place] mL/min/1 ([facility] .73m2 [place] [facility]) EGFR 51 Below low normal MEDGEN [place] mL/min/1 ([facility] .73m2 [place] [facility]) ID Date Data Source [id number] 12/10/2018 12:00:00 AM EDT MEDGEN ([facility] mónica [place] [facility]) Name Value Range Interpretation Description Data Source(s ) Supporting Code Document(s ) Hemoglobin 6.2 % of Above high normal MEDGEN A1c/Hemoglobin total ([facility] .total in [facility] Blood Nephrology [facility]) Hemoglobin 5.0 % of Normal (applies MEDGEN A1c/Hemoglobin total to non-numeric ([facility] .total in Hgb results) [facility] Nephrology [facility]) Hemoglobin 6.2 % of Above high normal MEDGEN A1c/Hemoglobin total ([facility] .total in [facility] Nephrology [facility]) Hemoglobin 6.4 % of Above high normal MEDGEN A1c/Hemoglobin total ([facility] .total in [facility] Nephrology [facility]) Hemoglobin A1c 6.7 % of Above high normal MEDGEN in Blood total ([facility] Hemoglobin A1c 6.8 % of Above high normal MEDGEN in Blood total ([facility] Hemoglobin A1c 6.6 % of Above high normal MEDGEN in Blood total ([facility]) Hemoglobin 6.5 % of Above high normal MEDGEN A1c/Hemoglobin total ([facility] .total [facility] Nephrology [facility]) Hemoglobin A1c 7.3 % of Above high normal MEDGEN in Blood total ([facility] Hemoglobin A1c 6.8 % of Above high normal MEDGEN in Blood total ([facility] Hemoglobin A1c 6.5 % of Above high normal MEDGEN in Blood total ([facility]) ID Date Data Source [id number] 12/10/2018 12:00:00 AM EDT MEDGEN ([facility]) Name Value Range Interpretation Description Data Source(s ) Supporting Code Document(s ) WBC 5.7 Normal (applies MEDGEN Thous/mc to non-numeric ([facility] L results) [place] [facility]) RBC 3.80 Normal (applies MEDGEN Mill/mcL to non-numeric ([facility] results) [place] [facility]) Hemoglobin 10.2 Below low normal MEDGEN [Mass/volume] g/dL ([facility] in [facility] venous blood Nephrology by [facility]) Hematocrit 30.7 % Below low normal MEDGEN [Pure volume ([facility] fraction] of [place] Blood by Nephrology Automated [facility]) count MCV 80.8 fL Normal (applies MEDGEN to non-numeric ([facility] results) [place] [facility]) MCH 26.8 pg Below low normal MEDGEN ([facility]) MCHC 33.2 Normal (applies MEDGEN g/dL to non-numeric ([facility] results) [place] [facility]) RDW 15.1 % Above high normal MEDGEN ([facility]) PLATELET COUNT 185 Normal (applies MEDGEN Thous/mc to non-numeric ([facility] L results) [place] [facility]) MPV 6.2 fL Below low normal MEDGEN ([facility]) TOTAL 63.5 % Normal (applies MEDGEN NEUTROPHILS,% to non-numeric ([facility] results) [place] [facility]) TOTAL 27.9 % Normal (applies MEDGEN LYMPHOCYTES,% to non-numeric ([facility] [place]) [place] [facility]) MONOCYTES,% 6.3 % Normal (applies MEDGEN to non-numeric ([facility] results) [place] [facility]) EOSINOPHILS,% 1.8 % Normal (applies MEDGEN to non-numeric ([facility] [place]) [place] [facility]) BASOPHILS,% 0.5 % Normal (applies MEDGEN to non-numeric ([facility] results) [place] [facility]) NEUTROPHILS,AB 3620 Normal (applies MEDGEN SOLUTE Cells/mc to non-numeric ([facility] L results) [place] [facility]) LYMPHOCYTES,AB 1590 Normal (applies MEDGEN SOLUTE Cells/mc to non-numeric ([facility] L results) [place] [facility]) MONOCYTES,ABSO 359 Normal (applies MEDGEN LUTE Cells/mc to non-numeric ([facility] L results) [place] [facility]) EOSINOPHILS,AB 103 Normal (applies MEDGEN SOLUTE Cells/mc to non-numeric ([facility] L results) [place] [facility]) BASOPHILS,ABSO 29 Normal (applies MEDGEN LUTE Cells/mc to non-numeric ([facility] L results) [place] [facility]) WBC 6.0 Normal (applies MEDGEN Thous/mc to non-numeric ([facility] L results) [place] [facility]) RBC 3.93 Normal (applies MEDGEN Mill/mcL to non-numeric ([facility] [place]) [place] [facility]) Hemoglobin 10.8 Below low normal MEDGEN [Mass/volume] g/dL ([facility] in Mixed [place] venous blood Nephrology by Oxim[facility]) Hematocrit 32.5 % Below low normal MEDGEN [Pure volume ([place] fraction] of [place] by Nephrology Automated [facility]) count MCV 82.9 fL Normal (applies MEDGEN to non-numeric ([facility] results) [place] [facility]) MCH 27.6 pg Normal (applies MEDGEN to non-numeric ([facility] results) [place] [facility]) MCHC 33.3 Normal (applies MEDGEN g/dL to non-numeric ([facility] [place]) [place] [facility]) RDW 14.6 % Normal (applies MEDGEN to non-numeric ([facility] results) [place] [facility]) PLATELET COUNT 198 Normal (applies MEDGEN Thous/mc to non-numeric ([facility] L results) [place] [facility]) MPV 6.7 fL Below low normal MEDGEN ([facility] Nephrology [facility]) TOTAL 58.2 % Normal (applies MEDGEN NEUTROPHILS,% to non-numeric ([facility] [place]) [place] [facility]) TOTAL 31.7 % Normal (applies MEDGEN LYMPHOCYTES,% to non-numeric ([facility] [place]) [place] [facility]) MONOCYTES,% 7.0 % Normal (applies MEDGEN to non-numeric ([facility] results) [place] [facility]) EOSINOPHILS,% 2.5 % Normal (applies MEDGEN to non-numeric ([facility] results) [place] [facility]) BASOPHILS,% 0.6 % Normal (applies MEDGEN to non-numeric ([facility] results) [place] [facility]) NEUTROPHILS,AB 3492 Normal (applies MEDGEN SOLUTE Cells/mc to non-numeric ([facility] L results) [place] [facility]) LYMPHOCYTES,AB 1902 Normal (applies MEDGEN SOLUTE Cells/mc to non-numeric ([facility] L results) [place] [facility]) MONOCYTES,ABSO 420 Normal (applies MEDGEN LUTE Cells/mc to non-numeric ([facility] L results) [place] [facility]) EOSINOPHILS,AB 150 Normal (applies MEDGEN SOLUTE Cells/mc to non-numeric ([facility] L results) [place] [facility]) BASOPHILS,ABSO 36 Normal (applies MEDGEN LUTE Cells/mc to non-numeric ([facility] L results) [place] [facility]) WBC 4.0 Normal (applies MEDGEN Thous/mc to non-numeric ([facility] L results) [place] [facility]) RBC 4.21 Normal (applies MEDGEN Mill/mcL to non-numeric ([facility] results) [place] [facility]) Hemoglobin 14.1 Normal (applies MEDGEN [Mass/volume] g/dL to non-numeric ([facility] in Mixed results) [place] venous blood Nephrology by Oxim[facility]) Hematocrit 43.0 % Normal (applies MEDGEN [Pure volume to non-numeric ([place] fraction] of results) [place] Blood by [facility]phrology [facility]) count MCV 102.0 fL Above high normal MEDGEN ([facility] Nephrology [facility]) MCH 33.4 pg Above high normal MEDGEN ([facility] Nephrology [facility]) MCHC 32.8 Normal (applies MEDGEN g/dL to non-numeric ([facility] results) [place] [facility] RDW 13.4 % Normal (applies MEDGEN to non-numeric ([facility] results) [place] [facility]) PLATELET COUNT 190 Normal (applies MEDGEN Thous/mc to non-numeric ([facility] results) [place] [facility]) MPV 8.0 fL Normal (applies MEDGEN to non-numeric ([facility] results) [place] [facility]) TOTAL 53.7 % Normal (applies MEDGEN NEUTROPHILS,% to non-numeric ([facility] results) [place] [facility]) TOTAL 34.0 % Normal (applies MEDGEN LYMPHOCYTES,% to non-numeric ([facility]) [place] [facility]) MONOCYTES,% 9.4 % Normal (applies MEDGEN to non-numeric ([facility]) [place] [facility]) EOSINOPHILS,% 2.5 % Normal (applies MEDGEN to non-numeric ([facility]) [place] [facility]) BASOPHILS,% 0.4 % Normal (applies MEDGEN to non-numeric ([facility] results) [place] [facility]) NEUTROPHILS,AB 2148 Normal (applies MEDGEN SOLUTE Cells/mc to non-numeric ([facility] results) [place] [facility]) LYMPHOCYTES,AB 1360 Normal (applies MEDGEN SOLUTE Cells/mc to non-numeric ([facility] results) [place] [facility]) MONOCYTES,ABSO 376 Normal (applies MEDGEN LUTE Cells/mc to non-numeric ([facility] results) [place] [facility]) EOSINOPHILS,AB 100 Normal (applies MEDGEN SOLUTE Cells/mc to non-numeric ([facility] results) [place] [facility]) BASOPHILS,ABSO 16 Normal (applies MEDGEN LUTE Cells/mc to non-numeric ([facility] results) [place] [facility]) WBC 2.4 Below low normal MEDGEN Thous/mc ([facility] RBC 3.74 Below low normal MEDGEN Mill/mcL ([facility]) Hemoglobin 10.2 Below low normal MEDGEN [Mass/volume] g/dL ([facility] in [facility] venous blood Nephrology by Oxim[facility]) Hematocrit 30.3 % Below low normal MEDGEN [Pure volume ([place] fraction] of [place] by Nephrology Automated [facility]) count MCV 81.0 fL Normal (applies MEDGEN to non-numeric ([facility] results) [place] [facility]) MCH 27.3 pg Normal (applies MEDGEN to non-numeric ([facility] results) [place] [facility]) MCHC 33.7 Normal (applies MEDGEN g/dL to non-numeric ([facility] results) [place] [facility]) RDW 14.2 % Normal (applies MEDGEN to non-numeric ([facility] results) [place] [facility]) PLATELET COUNT 122 Below low normal MEDGEN Thous/mc ([facility]) MPV 7.1 fL Below low normal MEDGEN ([place] [facility]) TOTAL 51.5 % Normal (applies MEDGEN NEUTROPHILS,% to non-numeric ([facility] results) [place] [facility]) TOTAL 34.2 % Normal (applies MEDGEN LYMPHOCYTES,% to non-numeric ([facility] results) [place] [facility]) MONOCYTES,% 10.3 % Normal (applies MEDGEN to non-numeric ([facility] results) [place] [facility]) EOSINOPHILS,% 3.5 % Normal (applies MEDGEN to non-numeric ([facility] results) [place] [facility]) BASOPHILS,% 0.5 % Normal (applies MEDGEN to non-numeric ([facility] results) [place] [facility]) NEUTROPHILS,AB 1236 Below low normal MEDGEN SOLUTE Cells/mc ([facility] LYMPHOCYTES,AB 821 Below low normal MEDGEN SOLUTE Cells/mc ([facility] MONOCYTES,ABSO 247 Normal (applies MEDGEN LUTE Cells/mc to non-numeric ([facility] L results) [place] [facility]) EOSINOPHILS,AB 84 Normal (applies MEDGEN SOLUTE Cells/mc to non-numeric ([facility] L results) [place] [facility]) BASOPHILS,ABSO 12 Normal (applies MEDGEN LUTE Cells/mc to non-numeric ([facility] L results) [place] [facility]) WBC 5.2 Normal (applies MEDGEN Thous/mc to non-numeric ([facility] L results) [place] [facility]) RBC 4.04 Normal (applies MEDGEN Mill/mcL to non-numeric ([facility] results) [place] [facility]) Hemoglobin 10.9 Below low normal MEDGEN [Mass/volume] g/dL ([facility] in [place] blood Nephrology by Oxim[facility]) Hematocrit 32.8 % Below low normal MEDGEN [Pure volume ([place] fraction] of [place] by Nephrology Automated [facility]) count MCV 81.3 fL Normal (applies MEDGEN to non-numeric ([facility] results) [place] [facility]) MCH 27.0 pg Normal (applies MEDGEN to non-numeric ([facility] results) [place] [facility]) MCHC 33.3 Normal (applies MEDGEN g/dL to non-numeric ([facility] results) [place] [facility]) RDW 13.6 % Normal (applies MEDGEN to non-numeric ([facility] results) [place] [facility] PLATELET COUNT 252 Normal (applies MEDGEN Thous/mc to non-numeric ([facility] L results) [place] [facility]) MPV 6.2 fL Below low normal MEDGEN ([place] [facility]) TOTAL 69.4 % Normal (applies MEDGEN NEUTROPHILS,% to non-numeric ([facility] results) [place] [facility]) TOTAL 22.2 % Normal (applies MEDGEN LYMPHOCYTES,% to non-numeric ([facility] results) [place] [facility]) MONOCYTES,% 6.7 % Normal (applies MEDGEN to non-numeric ([facility] results) [place] [facility]) EOSINOPHILS,% 1.3 % Normal (applies MEDGEN to non-numeric ([facility] results) [place] [facility] BASOPHILS,% 0.4 % Normal (applies MEDGEN to non-numeric ([facility] results) [place] [facility]) NEUTROPHILS,AB 3609 Normal (applies MEDGEN SOLUTE Cells/mc to non-numeric ([facility] L results) [place] [facility]) LYMPHOCYTES,AB 1154 Normal (applies MEDGEN SOLUTE Cells/mc to non-numeric ([facility] L results) [place] [facility]) MONOCYTES,ABSO 348 Normal (applies MEDGEN LUTE Cells/mc to non-numeric ([facility] L results) [place] [facility]) EOSINOPHILS,AB 68 Normal (applies MEDGEN SOLUTE Cells/mc to non-numeric ([facility] L results) [place] [facility]) BASOPHILS,ABSO 21 Normal (applies MEDGEN LUTE Cells/mc to non-numeric ([facility] L results) [place] [facility]) WBC 5.5 Normal (applies MEDGEN Thous/mc to non-numeric ([place] L results) [place] [facility]) RBC 3.85 Normal (applies MEDGEN Mill/mcL to non-numeric ([facility] results) [place] [facility]) Hemoglobin 10.5 Below low normal MEDGEN [Mass/volume] g/dL ([place] in [place] blood Nephrology by Oxim[facility]) Hematocrit 32.3 % Below low normal MEDGEN [Pure volume ([place] fraction] of [place] Blood by Nephrology Automated [facility]) count MCV 83.8 fL Normal (applies MEDGEN to non-numeric ([facility] results) [place] [facility]) MCH 27.4 pg Normal (applies MEDGEN to non-numeric ([place]) [place] [facility]) MCHC 32.7 Normal (applies MEDGEN g/dL to non-numeric ([facility] results) [place] [facility]) RDW 14.9 % Normal (applies MEDGEN to non-numeric ([place] results) [place] [facility]) PLATELET COUNT 210 Normal (applies MEDGEN Thous/mc to non-numeric ([facility] L results) [place] [facility]) MPV 6.7 fL Below low normal MEDGEN ([facility] Nephrology [facility]) TOTAL 59.5 % Normal (applies MEDGEN NEUTROPHILS,% to non-numeric ([facility] results) [place] [facility]) TOTAL 30.0 % Normal (applies MEDGEN LYMPHOCYTES,% to non-numeric ([place] [facility]) [place] [facility]) MONOCYTES,% 8.0 % Normal (applies MEDGEN to non-numeric ([place] results) [place] [facility]) EOSINOPHILS,% 1.8 % Normal (applies MEDGEN to non-numeric ([facility] results) [place] [facility]) BASOPHILS,% 0.7 % Normal (applies MEDGEN to non-numeric ([place]) [place] [facility]) NEUTROPHILS,AB 3273 Normal (applies MEDGEN SOLUTE Cells/mc to non-numeric ([place] L results) [place] [facility]) LYMPHOCYTES,AB 1650 Normal (applies MEDGEN SOLUTE Cells/mc to non-numeric ([place] L results) [place] [facility]) MONOCYTES,ABSO 440 Normal (applies MEDGEN LUTE Cells/mc to non-numeric ([facility] L results) [place] [facility]) EOSINOPHILS,AB 99 Normal (applies MEDGEN SOLUTE Cells/mc to non-numeric ([facility] L results) [place] [facility]) BASOPHILS,ABSO 39 Normal (applies MEDGEN LUTE Cells/mc to non-numeric ([facility] L results) [place] [facility]) WBC 5.1 Normal (applies MEDGEN Thous/mc to non-numeric ([facility] L results) [place] [facility]) RBC 3.74 Below low normal MEDGEN Mill/mcL ([facility] Hemoglobin 10.2 Below low normal MEDGEN [Mass/volume] g/dL ([place] in [place] blood Nephrology by Oxim[facility]) Hematocrit 31.4 % Below low normal MEDGEN [Pure volume ([place] fraction] of [place] Blood by Nephrology [facility]) count MCV 83.8 fL Normal (applies MEDGEN to non-numeric ([facility] results) [place] [facility]) MCH 27.2 pg Normal (applies MEDGEN to non-numeric ([facility] results) [place] [facility] MCHC 32.5 Normal (applies MEDGEN g/dL to non-numeric ([facility] results) [place] [facility]) RDW 14.3 % Normal (applies MEDGEN to non-numeric ([facility] results) [place] [facility]) PLATELET COUNT 195 Normal (applies MEDGEN Thous/mc to non-numeric ([facility] L results) [place] [facility] MPV 6.2 fL Below low normal MEDGEN ([facility] Nephrology [facility]) TOTAL 59.7 % Normal (applies MEDGEN NEUTROPHILS,% to non-numeric ([facility] results) [place] [facility]) TOTAL 31.1 % Normal (applies MEDGEN LYMPHOCYTES,% to non-numeric ([facility] results) [place] [facility] MONOCYTES,% 7.0 % Normal (applies MEDGEN to non-numeric ([facility] results) [place] [facility]) EOSINOPHILS,% 1.7 % Normal (applies MEDGEN to non-numeric ([facility] results) [place] [facility]) BASOPHILS,% 0.5 % Normal (applies MEDGEN to non-numeric ([place]) [place] [facility]) NEUTROPHILS,AB 3045 Normal (applies MEDGEN SOLUTE Cells/mc to non-numeric ([place] L results) [place] [facility]) LYMPHOCYTES,AB 1586 Normal (applies MEDGEN SOLUTE Cells/mc to non-numeric ([place] L results) [place] [facility]) MONOCYTES,ABSO 357 Normal (applies MEDGEN LUTE Cells/mc to non-numeric ([place] L results) [place] [facility]) EOSINOPHILS,AB 87 Normal (applies MEDGEN SOLUTE Cells/mc to non-numeric ([place] L results) [place] [facility]) BASOPHILS,ABSO 26 Normal (applies MEDGEN LUTE Cells/mc to non-numeric ([place] L results) [place] [facility]) WBC 5.3 Normal (applies MEDGEN Thous/mc to non-numeric ([place] L results) [place] [facility]) RBC 3.72 Below low normal MEDGEN Mill/mcL ([facility] Nephrology [facility]) Hemoglobin 10.1 Below low normal MEDGEN [Mass/volume] g/dL ([place] in [place] blood Nephrology by Oxim[facility]) Hematocrit 30.7 % Below low normal MEDGEN [Pure volume ([facility] fraction] of [place] [facility] by [facility]ph[facility]) count MCV 82.6 fL Normal (applies MEDGEN to non-numeric ([place]) [place] [facility]) MCH 27.3 pg Normal (applies MEDGEN to non-numeric ([place]) [place] [facility]) MCHC 33.1 Normal (applies MEDGEN g/dL to non-numeric ([place]) [place] [facility]) RDW 14.2 % Normal (applies MEDGEN to non-numeric ([place]) [place] [facility]) PLATELET COUNT 189 Normal (applies MEDGEN Thous/mc to non-numeric ([facility] L results) [place] [facility]) MPV 6.5 fL Below low normal MEDGEN ([facility] Neph[facility]) TOTAL 60.7 % Normal (applies MEDGEN NEUTROPHILS,% to non-numeric ([place]) [place] [facility]) TOTAL 30.6 % Normal (applies MEDGEN LYMPHOCYTES,% to non-numeric ([place]) [place] [facility]) MONOCYTES,% 7.1 % Normal (applies MEDGEN to non-numeric ([place]) [place] [facility]) EOSINOPHILS,% 1.4 % Normal (applies MEDGEN to non-numeric ([place]) [place] [facility]) BASOPHILS,% 0.2 % Normal (applies MEDGEN to non-numeric ([place]) [place] [facility]) NEUTROPHILS,AB 3217 Normal (applies MEDGEN SOLUTE Cells/mc to non-numeric ([place] L results) [place] [facility]) LYMPHOCYTES,AB 1622 Normal (applies [facility]GEN SOLUTE Cells/mc to non-numeric ([place] [facility] results) [place] [facility] MONOCYTES,ABSO 376 Normal (applies MEDGEN LUTE Cells/mc to non-numeric ([place] L results) [place] [facility]) EOSINOPHILS,AB 74 Normal (applies MEDGEN SOLUTE Cells/mc to non-numeric ([place] L results) [place] [facility]) BASOPHILS,ABSO 11 Normal (applies MEDGEN LUTE Cells/mc to non-numeric ([place] L results) [place] [facility]) WBC 5.4 Normal (applies MEDGEN Thous/mc to non-numeric ([place] [facility] results) [place] [facility] RBC 3.91 Normal (applies MEDGEN Mill/mcL to non-numeric ([place] results) [place] [facility]) Hemoglobin 10.7 Below low normal MEDGEN [Mass/volume] g/dL ([place] in Mixed [place] blood Nephrology by Oximetry [facility]) Hematocrit 32.9 % Below low normal MEDGEN [Pure volume ([place] fraction] of [place] [facility] by [facility] Autom[facility]) count MCV 84.2 fL Normal (applies MEDGEN to non-numeric ([place] results) [place] [facility]) MCH 27.4 pg Normal (applies MEDGEN to non-numeric ([place]) [place] [facility]) MCHC 32.5 Normal (applies MEDGEN g/dL to non-numeric ([place]) [place] [facility]) RDW 14.2 % Normal (applies MEDGEN to non-numeric ([place]) [place] [facility]) PLATELET COUNT 219 Normal (applies MEDGEN Thous/mc to non-numeric ([place] L results) [place] [facility]) MPV 6.9 fL Below low normal MEDGEN ([facility]) TOTAL 60.8 % Normal (applies MEDGEN NEUTROPHILS,% to non-numeric ([facility] results) [place] [facility]) TOTAL 29.9 % Normal (applies MEDGEN LYMPHOCYTES,% to non-numeric ([facility] results) [place] [facility]) MONOCYTES,% 6.1 % Normal (applies MEDGEN to non-numeric ([facility] results) [place] [facility]) EOSINOPHILS,% 2.8 % Normal (applies MEDGEN to non-numeric ([facility] results) [place] [facility]) BASOPHILS,% 0.4 % Normal (applies MEDGEN to non-numeric ([facility] results) [place] [facility]) NEUTROPHILS,AB 3283 Normal (applies MEDGEN SOLUTE Cells/mc to non-numeric ([facility] L results) [place] [facility]) LYMPHOCYTES,AB 1615 Normal (applies MEDGEN SOLUTE Cells/mc to non-numeric ([facility] L results) [place] [facility]) MONOCYTES,ABSO 329 Normal (applies MEDGEN LUTE Cells/mc to non-numeric ([facility] L results) [place] [facility]) EOSINOPHILS,AB 151 Normal (applies MEDGEN SOLUTE Cells/mc to non-numeric ([facility] results) [place] [facility]) BASOPHILS,ABSO 22 Normal (applies MEDGEN LUTE Cells/mc to non-numeric ([facility] L results) [place] [facility]) WBC 6.5 Normal (applies MEDGEN Thous/mc to non-numeric ([facility] L results) [place] [facility]) RBC 3.72 Below low normal MEDGEN Mill/mcL ([facility]ph[facility]) Hemoglobin 10.0 Below low normal MEDGEN [Mass/volume] g/dL ([place] in [place] [facility] Nephrology by Oxim[facility]) Hematocrit 30.6 % Below low normal MEDGEN [Pure volume ([place] fraction] of [place] [facility] by Ne[facility] Autom[facility]) count MCV 82.3 fL Normal (applies MEDGEN to non-numeric ([facility] results) [place] [facility]) MCH 27.0 pg Normal (applies MEDGEN to non-numeric ([facility] results) [place] [facility]) MCHC 32.7 Normal (applies MEDGEN g/dL to non-numeric ([facility] results) [place] [facility]) RDW 15.4 % Above high normal MEDGEN ([facility]) PLATELET COUNT 183 Normal (applies MEDGEN Thous/mc to non-numeric ([place] L results) [place] [facility]) MPV 6.8 fL Below low normal [facility] TOTAL 65.3 % Normal (applies MEDGEN NEUTROPHILS,% to non-numeric ([facility] results) [place] [facility] TOTAL 25.9 % Normal (applies MEDGEN LYMPHOCYTES,% to non-numeric ([facility] results) [place] [facility]) MONOCYTES,% 6.9 % Normal (applies MEDGEN to non-numeric ([facility] results) [place] [facility] EOSINOPHILS,% 1.3 % Normal (applies MEDGEN to non-numeric ([facility] results) [place] [facility] BASOPHILS,% 0.6 % Normal (applies MEDGEN to non-numeric ([facility] results) [place] [facility]) NEUTROPHILS,AB 4245 Normal (applies MEDGEN SOLUTE Cells/mc to non-numeric ([place] L results) [place] [facility] LYMPHOCYTES,AB 1684 Normal (applies MEDGEN SOLUTE Cells/mc to non-numeric ([facility] results) [place] [facility] MONOCYTES,ABSO 449 Normal (applies MEDGEN LUTE Cells/mc to non-numeric ([facility] L results) [place] [facility] EOSINOPHILS,AB 85 Normal (applies MEDGEN SOLUTE Cells/mc to non-numeric ([facility] results) [place] [facility] BASOPHILS,ABSO 39 Normal (applies MEDGEN LUTE Cells/mc to non-numeric ([facility] L results) [place] [facility]) WBC 5.7 Normal (applies MEDGEN Thousand to non-numeric ([place] /uL results) [place] [facility] RBC 3.83 Normal (applies MEDGEN Million/ to non-numeric ([place] uL results) [place] [facility] Hemoglobin 10.0 Below low normal MEDGEN [Mass/volume] g/dL ([place] in [place] [facility] Nephrology by Oxim[facility]) Hematocrit 31.4 % Below low normal MEDGEN [Pure volume ([place] fraction] of [place] [facility]) count MCV 82.0 fL Normal (applies MEDGEN to non-numeric ([place] results) [facility]) MCH 26.1 pg Below low normal MEDGEN ([facility]) MCHC 31.8 Below low normal MEDGEN g/dL ([facility]) RDW 13.6 % Normal (applies MEDGEN to non-numeric ([facility] results) [facility]) PLATELET COUNT 189 Normal (applies MEDGEN Thousand to non-numeric ([facility] /uL results) [facility]) MPV 8.6 fL Normal (applies MEDGEN to non-numeric ([facility] results) [facility]) TOTAL 67.2 % Normal (applies MEDGEN NEUTROPHILS,% to non-numeric ([facility] results) [facility]) TOTAL 23.0 % Normal (applies MEDGEN LYMPHOCYTES,% to non-numeric ([facility] results) [facility]) MONOCYTES,% 8.1 % Normal (applies MEDGEN to non-numeric ([facility] results) [facility]) EOSINOPHILS,% 1.2 % Normal (applies MEDGEN to non-numeric ([facility] results) [facility]) BASOPHILS,% 0.5 % Normal (applies MEDGEN to non-numeric ([facility] results) [facility]) NEUTROPHILS,AB 3830 Normal (applies MEDGEN SOLUTE cells/uL to non-numeric ([facility] results) [facility]) LYMPHOCYTES,AB 1311 Normal (applies MEDGEN SOLUTE cells/uL to non-numeric ([facility] results) [facility]) MONOCYTES,ABSO 462 Normal (applies MEDGEN LUTE cells/uL to non-numeric ([place] results) [facility]) EOSINOPHILS,AB 68 Normal (applies MEDGEN SOLUTE cells/uL to non-numeric ([facility] results) [facility]) BASOPHILS,ABSO 29 Normal (applies MEDGEN LUTE cells/uL to non-numeric ([facility] results) [facility]) WBC 5.9 Normal (applies MEDGEN Thousand to non-numeric ([place] /uL results) [facility]) RBC 3.69 Below low normal MEDGEN Million/ ([facility]) Hemoglobin 10.1 Below low normal MEDGEN [Mass/volume] g/dL ([place] in [place] [facility] Nephrology by Oxim[facility]) Hematocrit 29.6 % Below low normal MEDGEN [Pure volume ([place] fraction] of [place] [facility]) count MCV 80.2 fL Normal (applies MEDGEN to non-numeric ([place] results) [place] [facility]) MCH 27.4 pg Normal (applies MEDGEN to non-numeric ([place] results) [place] [facility]) MCHC 34.1 Normal (applies MEDGEN g/dL to non-numeric ([place] results) [place] [facility]) RDW 13.6 % Normal (applies MEDGEN to non-numeric ([place] results) [place] [facility]) PLATELET COUNT 202 Normal (applies MEDGEN Thousand to non-numeric ([place] / results) [place] [facility] MPV 8.5 fL Normal (applies MEDGEN to non-numeric ([place] results) [place] [facility]) TOTAL 62.2 % Normal (applies MEDGEN NEUTROPHILS,% to non-numeric ([facility] results) [place] [facility]) TOTAL 27.5 % Normal (applies MEDGEN LYMPHOCYTES,% to non-numeric ([facility] results) [place] [facility] MONOCYTES,% 7.8 % Normal (applies MEDGEN to non-numeric ([facility] results) [place] [facility]) EOSINOPHILS,% 2.0 % Normal (applies MEDGEN to non-numeric ([place] [facility]) [place] [facility] BASOPHILS,% 0.5 % Normal (applies MEDGEN to non-numeric ([facility] results) [place] [facility] NEUTROPHILS,AB 3670 Normal (applies MEDGEN SOLUTE cells/uL to non-numeric ([place]) [place] [facility]) LYMPHOCYTES,AB 1623 Normal (applies MEDGEN SOLUTE cells/uL to non-numeric ([place] results) [place] [facility] MONOCYTES,ABSO 460 Normal (applies MEDGEN LUTE cells/uL to non-numeric ([place] results) [place] [facility]) EOSINOPHILS,AB 118 Normal (applies MEDGEN SOLUTE cells/uL to non-numeric ([place] results) [place] [facility]) BASOPHILS,ABSO 30 Normal (applies MEDGEN LUTE cells/uL to non-numeric ([facility] results) [place] [facility] WBC 7.3 Normal (applies MEDGEN Thousand to non-numeric ([place] /uL results) [place] [facility] RBC 3.92 Normal (applies MEDGEN Million/ to non-numeric ([place] uL results) [place] [facility] Hemoglobin 10.3 Below low normal MEDGEN [Mass/volume] g/dL ([place] in [place] [facility] Nephrology by Oxim[facility]) Hematocrit 32.6 % Below low normal MEDGEN [Pure volume ([place] fraction] of [place] [facility]) count MCV 83.2 fL Normal (applies MEDGEN to non-numeric ([place] results) [place] [facility] MCH 26.3 pg Below low normal [facility] MCHC 31.6 Below low normal [facility]GEN g/dL [facility] RDW 13.6 % Normal (applies MEDGEN to non-numeric ([place] [facility]) [place] [facility] PLATELET COUNT 188 Normal (applies MEDGEN Thousand to non-numeric ([place] /uL results) [place] [facility] MPV 8.5 fL Normal (applies MEDGEN to non-numeric ([place] results) [place] [facility] TOTAL 76.6 % Normal (applies MEDGEN NEUTROPHILS,% to non-numeric ([place] results) [place] [facility] TOTAL 16.4 % Normal (applies MEDGEN LYMPHOCYTES,% to non-numeric ([place] results) [place] [facility] MONOCYTES,% 5.2 % Normal (applies MEDGEN to non-numeric ([place] results) [place] [facility] EOSINOPHILS,% 1.1 % Normal (applies MEDGEN to non-numeric ([place] results) [place] [facility] BASOPHILS,% 0.7 % Normal (applies MEDGEN to non-numeric ([place] results) [place] [facility] NEUTROPHILS,AB 5592 Normal (applies MEDGEN SOLUTE cells/uL to non-numeric ([place] results) [place] [facility] LYMPHOCYTES,AB 1197 Normal (applies MEDGEN SOLUTE cells/uL to non-numeric ([place] results) [place] [facility] MONOCYTES,ABSO 380 Normal (applies MEDGEN LUTE cells/uL to non-numeric ([place] results) [place] [facility] EOSINOPHILS,AB 80 Normal (applies MEDGEN SOLUTE cells/uL to non-numeric ([place] results) [place] [facility]) BASOPHILS,ABSO 51 Normal (applies MEDGEN LUTE cells/uL to non-numeric ([place] results) [place] [facility]) WBC 5.9 Normal (applies MEDGEN Thousand to non-numeric ([place] /uL results) [place] [facility]) RBC 3.88 Normal (applies MEDGEN Million/ to non-numeric ([place] uL results) [place] [facility]) Hemoglobin 10.6 Below low normal MEDGEN [Mass/volume] g/dL ([place] in [place] [facility] Nephrology by Oxim[facility]) Hematocrit 32.7 % Below low normal MEDGEN [Pure volume ([place] fraction] of [place] [facility] by Nephrology Automated [facility]) count MCV 84.3 fL Normal (applies MEDGEN to non-numeric ([facility] results) [place] [facility] MCH 27.3 pg Normal (applies MEDGEN to non-numeric ([place] results) [place] [facility]) MCHC 32.4 Normal (applies MEDGEN g/dL to non-numeric ([place] results) [place] [facility] RDW 14.1 % Normal (applies MEDGEN to non-numeric ([facility] results) [place] [facility] PLATELET COUNT 176 Normal (applies MEDGEN Thousand to non-numeric ([place] /uL results) [place] [facility] MPV 8.6 fL Normal (applies MEDGEN to non-numeric ([place] results) [place] [facility] TOTAL 69.1 % Normal (applies MEDGEN NEUTROPHILS,% to non-numeric ([place] results) [place] [facility]) TOTAL 19.9 % Normal (applies MEDGEN LYMPHOCYTES,% to non-numeric ([place] results) [place] [facility]) MONOCYTES,% 7.5 % Normal (applies MEDGEN to non-numeric ([place] results) [place] [facility]) EOSINOPHILS,% 2.6 % Normal (applies MEDGEN to non-numeric ([place] results) [place] [facility]) BASOPHILS,% 0.9 % Normal (applies MEDGEN to non-numeric ([place] results) [place] [facility]) NEUTROPHILS,AB 4077 Normal (applies MEDGEN SOLUTE cells/uL to non-numeric ([place] results) [place] [facility]) LYMPHOCYTES,AB 1174 Normal (applies MEDGEN SOLUTE cells/uL to non-numeric ([place] results) [place] [facility]) MONOCYTES,ABSO 443 Normal (applies MEDGEN LUTE cells/uL to non-numeric ([place] results) [place] [facility]) EOSINOPHILS,AB 153 Normal (applies MEDGEN SOLUTE cells/uL to non-numeric ([place] results) [place] [facility]) BASOPHILS,ABSO 53 Normal (applies MEDGEN LUTE cells/uL to non-numeric ([place] results) [place] [facility]) WBC 6.3 Normal (applies MEDGEN Thous/mc to non-numeric ([place] L results) [place] [facility]) RBC 3.84 Normal (applies MEDGEN Mill/mcL to non-numeric ([place] results) [place] [facility]) Hemoglobin 10.3 Below low normal MEDGEN [Mass/volume] g/dL ([place] in [place] [facility]rology by [facility]) Hematocrit 31.5 % Below low normal MEDGEN [Pure volume ([place] fraction] of [place] [facility]) count MCV 82.2 fL Normal (applies MEDGEN to non-numeric ([place] results) [place] [facility]) MCH 26.8 pg Below low normal MEDGEN ([facility]) MCHC 32.6 Normal (applies MEDGEN g/dL to non-numeric ([place] results) [place] [facility]) RDW 14.5 % Normal (applies MEDGEN to non-numeric ([place] results) [place] [facility]) PLATELET COUNT 179 Normal (applies MEDGEN Thous/mc to non-numeric ([place] L results) [place] [facility]) MPV 6.6 fL Below low normal MEDGEN ([facility]) TOTAL 61.9 % Normal (applies MEDGEN NEUTROPHILS,% to non-numeric ([place] results) [place] [facility]) TOTAL 28.6 % Normal (applies MEDGEN LYMPHOCYTES,% to non-numeric ([place] results) [place] [facility]) MONOCYTES,% 7.5 % Normal (applies MEDGEN to non-numeric ([place] results) [place] [facility]) EOSINOPHILS,% 1.5 % Normal (applies MEDGEN to non-numeric ([place] results) [place] [facility]) BASOPHILS,% 0.5 % Normal (applies MEDGEN to non-numeric ([place] results) [place] [facility]) NEUTROPHILS,AB 3900 Normal (applies MEDGEN SOLUTE Cells/mc to non-numeric ([place] L results) [place] [facility] LYMPHOCYTES,AB 1802 Normal (applies MEDGEN SOLUTE Cells/mc to non-numeric ([place] L results) [place] [facility]) MONOCYTES,ABSO 473 Normal (applies MEDGEN LUTE Cells/mc to non-numeric ([place] L results) [place] [facility] EOSINOPHILS,AB 95 Normal (applies MEDGEN SOLUTE Cells/mc to non-numeric ([facility] L results) [place] [facility] BASOPHILS,ABSO 32 Normal (applies MEDGEN LUTE Cells/mc to non-numeric ([place] L results) [place] [facility] WBC 6.4 Normal (applies MEDGEN Thous/mc to non-numeric ([facility] L results) [place] [facility]) RBC 4.21 Normal (applies MEDGEN Mill/mcL to non-numeric ([place] [facility]) [place] [facility] Hemoglobin 11.3 Below low normal MEDGEN [Mass/volume] g/dL ([place] in [place] [facility] Nephrology by Oxim[facility]) Hematocrit 33.8 % Below low normal MEDGEN [Pure volume ([place] fraction] of [place] [facility] by Nephrology Autom[facility]) count MCV 80.4 fL Normal (applies MEDGEN to non-numeric ([facility] results) [place] [facility]) MCH 26.9 pg Below low normal MEDGEN ([facility]) MCHC 33.5 Normal (applies MEDGEN g/dL to non-numeric ([place]) [place] [facility]) RDW 14.3 % Normal (applies MEDGEN to non-numeric ([facility] results) [place] [facility]) PLATELET COUNT 197 Normal (applies MEDGEN Thous/mc to non-numeric ([place] L results) [place] [facility]) MPV 6.7 fL Below low normal MEDGEN ([facility]) TOTAL 64.1 % Normal (applies MEDGEN NEUTROPHILS,% to non-numeric ([place]) [place] [facility]) TOTAL 28.7 % Normal (applies MEDGEN LYMPHOCYTES,% to non-numeric ([place] results) [place] [facility]) MONOCYTES,% 5.0 % Normal (applies MEDGEN to non-numeric ([place] results) [place] [facility]) EOSINOPHILS,% 1.8 % Normal (applies MEDGEN to non-numeric ([place] results) [place] [facility]) BASOPHILS,% 0.4 % Normal (applies MEDGEN to non-numeric ([place] results) [place] [facility]) NEUTROPHILS,AB 4102 Normal (applies MEDGEN SOLUTE Cells/mc to non-numeric ([place] L results) [place] [facility] LYMPHOCYTES,AB 1837 Normal (applies MEDGEN SOLUTE Cells/mc to non-numeric ([place] L results) [place] [facility]) MONOCYTES,ABSO 320 Normal (applies MEDGEN LUTE Cells/mc to non-numeric ([place] L results) [place] [facility] EOSINOPHILS,AB 115 Normal (applies MEDGEN SOLUTE Cells/mc to non-numeric ([place] L results) [place] [facility]) BASOPHILS,ABSO 26 Normal (applies MEDGEN LUTE Cells/mc to non-numeric ([place] L results) [place] [facility] WBC 4.9 Normal (applies MEDGEN Thous/mc to non-numeric ([place] L results) [place] [facility]) RBC 3.91 Normal (applies MEDGEN Mill/mcL to non-numeric ([place] results) [place] [facility]) Hemoglobin 10.7 Below low normal MEDGEN [Mass/volume] g/dL ([place] in [place] [facility] Nephrology by Oxim[facility]) Hematocrit 32.4 % Below low normal MEDGEN [Pure volume ([place] fraction] of [place] [facility] by Nephrology Autom[facility]) count MCV 83.0 fL Normal (applies MEDGEN to non-numeric ([place] results) [place] [facility]) MCH 27.3 pg Normal (applies MEDGEN to non-numeric ([place] results) [place] [facility]) MCHC 32.9 Normal (applies MEDGEN g/dL to non-numeric ([place]) [place] [facility]) RDW 14.3 % Normal (applies MEDGEN to non-numeric ([facility]) [place] [facility]) PLATELET COUNT 166 Normal (applies MEDGEN Thous/mc to non-numeric ([facility] L results) [facility] MPV 6.3 fL Below low normal [facility] ([facility] [place] [facility]) TOTAL 59.9 % Normal (applies MEDGEN NEUTROPHILS,% to non-numeric ([facility]) [place] [facility]) TOTAL 30.3 % Normal (applies [facility]GEN LYMPHOCYTES,% to non-numeric ([facility] results) [facility] MONOCYTES,% 7.7 % Normal (applies MEDGEN to non-numeric ([facility] results) [facility] EOSINOPHILS,% 1.6 % Normal (applies MEDGEN to non-numeric ([facility] results) [facility] BASOPHILS,% 0.5 % Normal (applies MEDGEN to non-numeric ([facility] results) [place] [facility]) NEUTROPHILS,AB 2935 Normal (applies MEDGEN SOLUTE Cells/mc to non-numeric ([facility] results) [facility] LYMPHOCYTES,AB 1485 Normal (applies [facility] SOLUTE Cells/mc to non-numeric ([facility] L results) [facility] MONOCYTES,ABSO 377 Normal (applies MEDGEN LUTE Cells/mc to non-numeric ([facility] results) [facility] EOSINOPHILS,AB 78 Normal (applies [facility]GEN SOLUTE Cells/mc to non-numeric ([facility] L results) [facility] BASOPHILS,ABSO 25 Normal (applies MEDGEN LUTE Cells/mc to non-numeric ([facility] L results) [place] [facility]) WBC 5.4 Normal (applies MEDGEN Thousand to non-numeric ([facility] /uL results) [place] [facility]) RBC 3.89 Normal (applies MEDGEN Million/ to non-numeric ([facility] uL results) [facility] Hemoglobin 10.6 Below low normal MEDGEN [Mass/volume] g/dL ([facility] in Mixed [place] [facility] blood [facility] by [facility]) Hematocrit 32.1 % Below low normal MEDGEN [Pure volume ([facility] fraction] of [place] [facility]) count MCV 82.5 fL Normal (applies MEDGEN to non-numeric ([facility] results) [place] [facility]) MCH 27.2 pg Normal (applies MEDGEN to non-numeric ([facility]) [facility] MCHC 33.0 Normal (applies MEDGEN g/dL to non-numeric ([facility] results) [facility]) RDW 13.4 % Normal (applies MEDGEN to non-numeric ([facility] results) [facility]) PLATELET COUNT 160 Normal (applies MEDGEN Thousand to non-numeric ([facility] /uL results) [facility]) MPV 8.5 fL Normal (applies MEDGEN to non-numeric ([facility]) [facility]) TOTAL 57.1 % Normal (applies MEDGEN NEUTROPHILS,% to non-numeric ([facility] results) [facility]) TOTAL 31.3 % Normal (applies MEDGEN LYMPHOCYTES,% to non-numeric ([facility] results) [facility]) MONOCYTES,% 8.4 % Normal (applies MEDGEN to non-numeric ([facility] results) [facility]) EOSINOPHILS,% 2.6 % Normal (applies MEDGEN to non-numeric ([facility] results) [facility]) BASOPHILS,% 0.6 % Normal (applies MEDGEN to non-numeric ([facility] results) [facility]) NEUTROPHILS,AB 3083 Normal (applies MEDGEN SOLUTE cells/uL to non-numeric ([facility] results) [facility]) LYMPHOCYTES,AB 1690 Normal (applies MEDGEN SOLUTE cells/uL to non-numeric ([facility] results) [facility] MONOCYTES,ABSO 454 Normal (applies MEDGEN LUTE cells/uL to non-numeric ([facility] results) [facility]) EOSINOPHILS,AB 140 Normal (applies [facility]GEN SOLUTE cells/uL to non-numeric ([facility]) [facility]) BASOPHILS,ABSO 32 Normal (applies MEDGEN LUTE cells/uL to non-numeric ([facility] results) [facility] WBC 5.4 Normal (applies MEDGEN Thousand to non-numeric ([facility] /uL results) [facility]) RBC 3.80 Normal (applies MEDGEN Million/ to non-numeric ([facility] uL results) [facility] Hemoglobin 10.4 Below low normal MEDGEN [Mass/volume] g/dL ([facility] in [place] [facility] by [facility]) Hematocrit 32.2 % Below low normal MEDGEN [Pure volume ([place] fraction] of [place] [facility]) count MCV 84.7 fL Normal (applies MEDGEN to non-numeric ([facility]) [place] [facility]) MCH 27.4 pg Normal (applies MEDGEN to non-numeric ([facility]) [place] [facility]) MCHC 32.3 Normal (applies MEDGEN g/dL to non-numeric ([facility]) [place] [facility]) RDW 13.2 % Normal (applies MEDGEN to non-numeric ([facility]) [place] [facility]) PLATELET COUNT 166 Normal (applies MEDGEN Thousand to non-numeric ([facility] / results) [facility] MPV 8.9 fL Normal (applies MEDGEN to non-numeric ([facility]) [place] [facility]) TOTAL 58.5 % Normal (applies MEDGEN NEUTROPHILS,% to non-numeric ([facility] results) [place] [facility]) TOTAL 30.2 % Normal (applies MEDGEN LYMPHOCYTES,% to non-numeric ([facility]) [facility] MONOCYTES,% 7.9 % Normal (applies MEDGEN to non-numeric ([facility] results) [place] [facility]) EOSINOPHILS,% 2.8 % Normal (applies MEDGEN to non-numeric ([facility]) [place] [facility]) BASOPHILS,% 0.6 % Normal (applies MEDGEN to non-numeric ([facility]) [facility] NEUTROPHILS,AB 3159 Normal (applies MEDGEN SOLUTE cells/uL to non-numeric ([facility]) [place] [facility]) LYMPHOCYTES,AB 1631 Normal (applies MEDGEN SOLUTE cells/uL to non-numeric ([facility]) [facility] MONOCYTES,ABSO 427 Normal (applies MEDGEN LUTE cells/uL to non-numeric ([facility]) [place] [facility]) EOSINOPHILS,AB 151 Normal (applies MEDGEN SOLUTE cells/uL to non-numeric ([facility]) [place] [facility]) BASOPHILS,ABSO 32 Normal (applies MEDGEN LUTE cells/uL to non-numeric ([facility] results) [place] [facility]) WBC 6.4 Normal (applies MEDGEN Thousand to non-numeric ([facility] /uL results) [facility] RBC 3.89 Normal (applies MEDGEN Million/ to non-numeric ([facility] uL results) [facility]) Hemoglobin 10.9 Below low normal MEDGEN [Mass/volume] g/dL ([facility] in [facility] [place] [facility]) Hematocrit 33.1 % Below low normal MEDGEN [Pure volume ([place] fraction] of [place] [facility]) count MCV 85.1 fL Normal (applies MEDGEN to non-numeric ([facility]) [facility] MCH 28.0 pg Normal (applies MEDGEN to non-numeric ([facility]) [facility]) MCHC 32.9 Normal (applies MEDGEN g/dL to non-numeric ([facility]) [place] [facility]) RDW 13.0 % Normal (applies MEDGEN to non-numeric ([facility]) [facility] PLATELET COUNT 190 Normal (applies MEDGEN Thousand to non-numeric ([facility] /uL results) [facility]) MPV 9.1 fL Normal (applies MEDGEN to non-numeric ([facility]) [facility]) TOTAL 56.9 % Normal (applies MEDGEN NEUTROPHILS,% to non-numeric ([facility]) [facility]) TOTAL 32.7 % Normal (applies [facility]GEN LYMPHOCYTES,% to non-numeric ([facility]) [facility] MONOCYTES,% 7.3 % Normal (applies MEDGEN to non-numeric ([facility]) [facility] EOSINOPHILS,% 2.3 % Normal (applies MEDGEN to non-numeric ([facility]) [facility] BASOPHILS,% 0.8 % Normal (applies MEDGEN to non-numeric ([facility] results) [facility]) NEUTROPHILS,AB 3642 Normal (applies MEDGEN SOLUTE cells/uL to non-numeric ([facility] results) [facility]) LYMPHOCYTES,AB 2093 Normal (applies MEDGEN SOLUTE cells/uL to non-numeric ([facility]) [facility] MONOCYTES,ABSO 467 Normal (applies MEDGEN LUTE cells/uL to non-numeric ([facility]) [facility] EOSINOPHILS,AB 147 Normal (applies MEDGEN SOLUTE cells/uL to non-numeric ([facility] results) [facility]) BASOPHILS,ABSO 51 Normal (applies MEDGEN LUTE cells/uL to non-numeric ([facility] results) [facility]) ID Date Data Source [id number] 12/10/2018 12:00:00 AM EDT [facility] ([facility]) Name Value Range Interpretation Code Description Data Jyoti rce(s) Supporting Document(s ) T4,FREE 1.6 ng/dL Normal (applies to MEDGEN non-numeric ([facility] results) [facility] T4,FREE 1.3 ng/dL Normal (applies to [facility]GEN non-numeric ([facility]) [facility] T4,FREE 1.3 ng/dL Normal (applies to MEDGEN non-numeric ([facility] results) [facility]) T4,FREE 1.4 ng/dL Normal (applies to MEDGEN non-numeric ([facility]) [facility] T4,FREE 1.4 ng/dL Normal (applies to MEDGEN non-numeric ([facility]) [facility] T4,FREE 1.3 ng/dL Normal (applies to MEDGEN non-numeric ([facility]) [facility]) T4,FREE 1.3 ng/dL Normal (applies to [facility]GEN non-numeric ([facility]) [facility] T4,FREE 1.5 ng/dL Normal (applies to MEDGEN non-numeric ([facility]) [facility] T4,FREE 1.2 ng/dL Normal (applies to [facility]GEN non-numeric ([facility]) [facility]) T4,FREE 1.4 ng/dL Normal (applies to MEDGEN non-numeric ([facility]) [facility] T4,FREE 1.3 ng/dL Normal (applies to [facility]GEN non-numeric ([facility]) [facility]) T4,FREE 1.4 ng/dL Normal (applies to [facility]GEN non-numeric ([facility]) [facility] ID Date Data Source [id number] 12/10/2018 12:00:00 AM EDT [facility] ([facility]) Name Value Range Interpretation Code Description Data Jyoti rce(s) Supporting Document(s ) TSH 0.28 mIU/L Below low normal MEDGEN ([facility]) TSH 3.66 mIU/L Normal (applies to MEDGEN ([facility] non-numeric [place] [facility]) [facility]) TSH 6.43 mIU/L Above high normal MED[facility] ([facility]) TSH 6.18 mIU/L Above high normal MEDGEN ([facility]) TSH 2.56 mIU/L Normal (applies to MEDGEN ([place] non-numeric [place]) Nephrology [facility]) TSH 3.74 mIU/L Normal (applies to MEDGEN ([place] non-numeric [place] results) Nephrology [facility]) TSH 3.35 mIU/L Normal (applies to MEDGEN ([place] non-numeric [place] results) Nephrology [facility]) TSH 5.51 mIU/L Above high normal MEDGEN ([facility]) TSH 0.27 mIU/L Below low normal MEDGEN ([facility]) TSH 5.62 mIU/L Above high normal MEDGEN ([facility]) TSH 3.18 mIU/L Normal (applies to MEDGEN ([place] non-numeric [place]) Nephrology [facility]) TSH 1.34 mIU/L Normal (applies to MEDGEN ([place] non-numeric [place]) Nephrology [facility]) ID Date Data Source [id number] 12/10/2018 12:00:00 AM EDT [facility] ([facility]) Name Value Range Interpretation Description Data Source(s ) Supporting Code Document(s ) Glucose 97 mg/dL Normal (applies MEDGEN [Mass/volume] to non-numeric ([facility] in Urine results) [place] [facility] for Nephrology unspecified [facility]) duration Sodium 137 Normal (applies MEDGEN [Moles/volume] mmol/L to non-numeric ([place] in Serum, results) [place] Plasma or Blood [facility]ph[facility]) Potassium 5.2 Normal (applies MEDGEN [Mass/volume] mmol/L to non-numeric ([facility] in Blood results) [place] [facility]) Chloride 102 Normal (applies MEDGEN [Moles/volume] mmol/L to non-numeric ([facility] in Serum, results) [place] [facility]) Carbon dioxide 24 Normal (applies MEDGEN [VFr/PPres] in mmol/L to non-numeric ([facility] Gas delivery results) [place] [facility]) Urea nitrogen 22 mg/dL Normal (applies MEDGEN [Moles/volume] to non-numeric ([facility] in Blood results) [place] [facility]) Creatinine 1.04 Above high normal MEDGEN [Interpretation mg/dL ([facility] ] in Urine [place] [facility]) BUN/CREATININE 21 Normal (applies MEDGEN RATIO (calc) to non-numeric ([facility] results) [place] [facility]) Calcium 10.4 Normal (applies MEDGEN [Moles/volume] mg/dL to non-numeric ([facility] in Urine results) [place] [facility] unspecified [facility]) duration PROTEIN, TOTAL 8.0 g/dL Normal (applies MEDGEN to non-numeric ([facility] results) [place] [facility]) Microalbumin 4.6 g/dL Normal (applies MEDGEN [Mass/time] in to non-numeric ([facility] Urine collected results) [place] for unspecified Nephrology duration [facility]) Globulin 3.4 g/dL Normal (applies MEDGEN [Mass/time] in (calc) to non-numeric ([facility] 24 hour Urine results) [place] [facility]) ALBUMIN/GLOBULI 1.4 Normal (applies MEDGEN N RATIO (calc) to non-numeric ([facility] results) [place] [facility]) BILIRUBIN,TOTAL 0.2 Normal (applies [facility]GEN mg/dL to non-numeric ([facility] results) [place] [facility]) Alkaline 85 U/L Normal (applies MEDGEN phosphatase to non-numeric ([facility] [Enzymatic results) [place] activity/volume [facility]phrology ] in Serum, [facility]) Plasma or Blood AST 19 U/L Normal (applies MEDGEN to non-numeric ([facility] results) [place] [facility]) ALT 20 U/L Normal (applies MEDGEN to non-numeric ([facility] results) [place] [facility]) EGFR NON AFR 53 Below low normal MED[facility] [place] mL/min/1 ([facility] .73m2 [place] [facility]) EGFR 61 Normal (applies [facility]GEN [place] mL/min/1 to non-numeric ([facility] .73m2 results) [place] [facility]) Glucose 92 mg/dL Normal (applies [facility]GEN [Mass/volume] to non-numeric ([facility] in Urine results) [place] [facility] for Nephrology unspecified [facility]) duration Sodium 139 Normal (applies MEDGEN [Moles/volume] mmol/L to non-numeric ([facility] in Serum, results) [place] Plasma [facility] Blood [facility]) Potassium 4.5 Normal (applies MEDGEN [Mass/volume] mmol/L to non-numeric ([facility] in Blood results) [place] [facility]) Chloride 104 Normal (applies [facility]GEN [Moles/volume] mmol/L to non-numeric ([facility] in Serum, results) [place] [facility]) Carbon dioxide 22 Normal (applies [facility]GEN [VFr/PPres] in mmol/L to non-numeric ([facility] Gas delivery results) [place] [facility]) Urea nitrogen 11 mg/dL Normal (applies MEDGEN [Moles/volume] to non-numeric ([facility] in Blood results) [place] [facility] Creatinine 0.47 Below low normal [facility]GEN [Interpretation mg/dL ([facility] ] [facility] Urine [facility] [facility] BUN/CREATININE 23 Above high normal [facility] RATIO (calc) ([facility] Calcium 9.7 Normal (applies MEDGEN [Moles/volume] mg/dL to non-numeric ([facility] in Urine results) [place] [facility] for Nephrology unspecified [facility]) duration PROTEIN, TOTAL 6.7 g/dL Normal (applies MEDGEN to non-numeric ([facility] results) [place] [facility]) Microalbumin 4.4 g/dL Normal (applies MEDGEN [Mass/time] in to non-numeric ([facility] Urine collected results) [place] for unspecified Nephrology duration [facility]) Globulin 2.3 g/dL Normal (applies [facility]GEN [Mass/time] in (calc) to non-numeric ([facility] 24 hour Urine results) [place] [facility] ALBUMIN/GLOBULI 1.9 Normal (applies MEDGEN N RATIO (calc) to non-numeric ([facility] results) [place] [facility]) BILIRUBIN,TOTAL 0.3 Normal (applies [facility] mg/dL to non-numeric ([place] [facility]) [place] [facility]) Alkaline 74 U/L Normal (applies MEDGEN phosphatase to non-numeric ([facility] [Enzymatic results) [place] [facility] ] in Serum, [facility]) Plasma or Blood AST 21 U/L Normal (applies MEDGEN to non-numeric ([place] [facility]) [place] [facility]) ALT 16 U/L Normal (applies MEDGEN to non-numeric ([facility] results) [place] [facility]) EGFR NON AFR 97 Normal (applies [facility] [place] mL/min/1 to non-numeric ([facility] .73m2 results) [place] [facility]) EGFR 113 Normal (applies [facility]GEN [place] mL/min/1 to non-numeric ([facility] .73m2 results) [place] [facility] Glucose 133 Normal (applies MEDGEN [Mass/volume] mg/dL to non-numeric ([facility] in Urine results) [place] [facility] for Nephrology unspecified [facility]) duration Sodium 131 Below low normal [facility] [Moles/volume] mmol/L ([facility] in Serum, [place] Plasma or Blood Nephrology [facility]) Potassium 5.1 Normal (applies [facility]GEN [Mass/volume] mmol/L to non-numeric ([facility] in Blood results) [place] [facility]) Chloride 96 Below low normal [facility]GEN [Moles/volume] mmol/L ([facility] in Serum, [place] Plasma [facility] Blood [facility]) Carbon dioxide 26 Normal (applies [facility]GEN [VFr/PPres] in mmol/L to non-numeric ([facility] Gas delivery results) [place] [facility]) Urea nitrogen 28 mg/dL Above high normal MEDGEN [Moles/volume] ([facility] in Blood [place] [facility]) Creatinine 1.21 Above high normal MEDGEN [Interpretation mg/dL ([facility] ] in Urine [place] [facility]) BUN/CREATININE 23 Above high normal [facility] RATIO (calc) ([facility] Calcium 9.4 Normal (applies MEDGEN [Moles/volume] mg/dL to non-numeric ([facility] in Urine results) [place] [facility] for Nephrology unspecified [facility]) duration PROTEIN, TOTAL 7.0 g/dL Normal (applies MEDGEN to non-numeric ([facility] results) [place] [facility]) Microalbumin 3.9 g/dL Normal (applies MEDGEN [Mass/time] in to non-numeric ([facility] Urine collected results) [place] for unspecified Nephrology duration [facility]) Globulin 3.1 g/dL Normal (applies [facility]GEN [Mass/time] in (calc) to non-numeric ([facility] 24 hour Urine results) [place] [facility]) ALBUMIN/GLOBULI 1.3 Normal (applies MEDGEN N RATIO (calc) to non-numeric ([facility] results) [place] [facility]) BILIRUBIN,TOTAL 0.2 Normal (applies [facility]GEN mg/dL to non-numeric ([facility] results) [place] [facility]) Alkaline 73 U/L Normal (applies MEDGEN phosphatase to non-numeric ([facility] [Enzymatic results) [place] activity[facility]volume [facility] ] in Serum, [facility]) Plasma or Blood AST 20 U/L Normal (applies MEDGEN to non-numeric ([facility] results) [place] [facility]) ALT 15 U/L Normal (applies MEDGEN to non-numeric ([facility] results) [place] [facility]) EGFR NON AFR 44 Below low normal [facility] [place] mL/min/1 ([place] .73m2 [place] [facility]) EGFR 51 Below low normal [facility] [place] mL/min/1 ([place] [facility]2 [place] [facility] Glucose 150 Above high normal [facility]GEN [Mass/volume] mg/dL ([facility] in Urine [place] collected for Nephrology unspecified [facility]) duration Sodium 132 Below low normal [facility] [Moles/volume] mmol/L ([facility] in Serum, [place] Plasma or Blood Nephrology [facility]) Potassium 4.7 Normal (applies [facility]GEN [Mass/volume] mmol/L to non-numeric ([facility] in Blood results) [place] [facility]) Chloride 99 Normal (applies [facility]GEN [Moles/volume] mmol/L to non-numeric ([facility] in Serum, results) [place] Plasma or Blood Nephrology [facility]) Carbon dioxide 24 Normal (applies [facility]GEN [VFr/PPres] in mmol/L to non-numeric ([facility] Gas delivery results) [place] [facility]) Urea nitrogen 21 mg/dL Normal (applies [facility]GEN [Moles/volume] to non-numeric ([facility] in Blood results) [place] [facility]) Creatinine 0.95 Above high normal [facility] [Interpretation mg/dL ([facility] ] in Urine [place] [facility]) BUN/CREATININE 22 Normal (applies MEDGEN RATIO (calc) to non-numeric ([place] [facility]) [place] [facility]) Calcium 10.2 Normal (applies MEDGEN [Moles/volume] mg/dL to non-numeric ([facility] in Urine results) [place] [facility] for Nephrology unspecified [facility]) duration PROTEIN, TOTAL 7.4 g/dL Normal (applies MEDGEN to non-numeric ([place] [facility]) [place] [facility]) Microalbumin 4.3 g/dL Normal (applies MEDGEN [Mass/time] in to non-numeric ([facility] Urine collected results) [place] [facility] duration [facility]) Globulin 3.1 g/dL Normal (applies MEDGEN [Mass/time] in (calc) to non-numeric ([facility] 24 hour Urine results) [facility] ALBUMIN/GLOBULI 1.4 Normal (applies MEDGEN N RATIO (calc) to non-numeric ([facility] results) [place] [facility]) BILIRUBIN,TOTAL 0.3 Normal (applies MEDGEN mg/dL to non-numeric ([place] [facility]) [place] [facility]) Alkaline 75 U/L Normal (applies MEDGEN phosphatase to non-numeric ([facility] [Enzymatic results) [place] activity[facility]ph[facility] ] in Serum, [facility]) Plasma or Blood AST 16 U/L Normal (applies MEDGEN to non-numeric ([place] [facility]) [place] [facility]) ALT 18 U/L Normal (applies MEDGEN to non-numeric ([place] [facility]) [place] [facility]) EGFR NON AFR 59 Below low normal MEDGEN [place] mL/min/1 ([facility] .73m2 [place] [facility]) EGFR 68 Normal (applies MEDGEN [place] mL/min/1 to non-numeric ([facility] .73m2 results) [place] [facility]) Glucose 80 mg/dL Normal (applies MEDGEN [Mass/volume] to non-numeric ([facility] in Urine results) [place] [facility] for [facility] unspecified [facility]) duration Sodium 138 Normal (applies MEDGEN [Moles/volume] mmol/L to non-numeric ([facility] in Serum, results) [place] Plasma or Blood Nephrology [facility]) Potassium 5.0 Normal (applies MEDGEN [Mass/volume] mmol/L to non-numeric ([facility] in Blood results) [place] [facility]) Chloride 104 Normal (applies MEDGEN [Moles/volume] mmol/L to non-numeric ([facility] in Serum, results) [place] Plasma [facility] Blood Neph[facility]) Carbon dioxide 25 Normal (applies MEDGEN [VFr/PPres] in mmol/L to non-numeric ([facility] Gas delivery results) [place] [facility]) Urea nitrogen 28 mg/dL Above high normal MEDGEN [Moles/volume] ([facility] in Blood [place] [facility]) Creatinine 1.01 Above high normal MEDGEN [Interpretation mg/dL ([facility] ] [facility] BUN/CREATININE 28 Above high normal MEDGEN RATIO (calc) ([facility] Nephrology [facility]) Calcium 9.9 Normal (applies MEDGEN [Moles/volume] mg/dL to non-numeric ([facility] in Urine results) [place] [facility] for [facility] unspecified [facility]) duration PROTEIN, TOTAL 7.2 g/dL Normal (applies MEDGEN to non-numeric ([facility] results) [place] [facility]) Microalbumin 4.2 g/dL Normal (applies MEDGEN [Mass/time] in to non-numeric ([facility] Urine collected results) [place] [facility]) Globulin 3.0 g/dL Normal (applies MEDGEN [Mass/time] in (calc) to non-numeric ([facility] 24 hour Urine results) [place] [facility]) ALBUMIN/GLOBULI 1.4 Normal (applies MEDGEN N RATIO (calc) to non-numeric ([facility] results) [place] [facility]) BILIRUBIN,TOTAL 0.2 Normal (applies MEDGEN mg/dL to non-numeric ([facility] results) [place] [facility]) Alkaline 82 U/L Normal (applies MEDGEN phosphatase to non-numeric ([facility] [Enzymatic results) [place] [facility] ] in Serum, [facility]) Plasma or Blood AST 14 U/L Normal (applies MEDGEN to non-numeric ([facility] results) [place] [facility]) ALT 14 U/L Normal (applies MEDGEN to non-numeric ([facility] results) [place] [facility]) EGFR NON AFR 55 Below low normal MEDGEN [place] mL/min/1 ([facility] .73m2 [place] [facility]) EGFR 64 Normal (applies MEDGEN [place] mL/min/1 to non-numeric ([facility] .73m2 results) [place] [facility]) Glucose 187 Above high normal MEDGEN [Mass/volume] mg/dL ([facility] in Urine [place] for [facility]ph[facility] unspecified [facility]) duration Sodium 138 Normal (applies MEDGEN [Moles/volume] mmol/L to non-numeric ([facility] in Serum, results) [place] [facility] Blood [facility]) Potassium 4.5 Normal (applies MEDGEN [Mass/volume] mmol/L to non-numeric ([facility] in Blood results) [facility] Chloride 104 Normal (applies MEDGEN [Moles/volume] mmol/L to non-numeric ([facility] in Serum, results) [place] [facility] Blood [facility]) Carbon dioxide 23 Normal (applies MEDGEN [VFr/PPres] in mmol/L to non-numeric ([facility] Gas delivery results) [facility]ph[facility]) Urea nitrogen 30 mg/dL Above high normal MEDGEN [Moles/volume] ([facility] in Blood [place] [facility]) Creatinine 1.19 Above high normal MEDGEN [Interpretation mg/dL ([facility] ] [facility]rine [facility] BUN/CREATININE 25 Above high normal MEDGEN RATIO (calc) ([facility] Nephrology [facility]) Calcium 10.0 Normal (applies MEDGEN [Moles/volume] mg/dL to non-numeric ([facility] in Urine results) [place] [facility] for [facility] unspecified [facility]) duration PROTEIN, TOTAL 7.2 g/dL Normal (applies MEDGEN to non-numeric ([facility] results) [place] [facility]) Microalbumin 4.2 g/dL Normal (applies MEDGEN [Mass/time] in to non-numeric ([facility] Urine collected results) [place] [facility] duration [facility]) Globulin 3.0 g/dL Normal (applies MEDGEN [Mass/time] in (calc) to non-numeric ([facility] 24 hour Urine results) [place] [facility]) ALBUMIN/GLOBULI 1.4 Normal (applies MEDGEN N RATIO (calc) to non-numeric ([facility] results) [place] [facility]) BILIRUBIN,TOTAL 0.3 Normal (applies MEDGEN mg/dL to non-numeric ([place] [facility]) [place] [facility]) Alkaline 90 U/L Normal (applies MEDGEN phosphatase to non-numeric ([facility] [Enzymatic results) [place] [facility] ] in Serum, [facility]) Plasma or Blood AST 13 U/L Normal (applies MEDGEN to non-numeric ([facility] results) [place] [facility]) ALT 12 U/L Normal (applies MEDGEN to non-numeric ([facility] results) [place] [facility]) EGFR NON AFR 45 Below low normal MEDGEN [place] mL/min/1 ([facility] .73m2 [place] [facility]) EGFR 52 Below low normal MEDGEN [place] mL/min/1 ([facility] .73m2 [place] [facility] Glucose 149 Above high normal MEDGEN [Mass/volume] mg/dL ([facility] in Urine [place] [facility] unspecified [facility]) duration Sodium 138 Normal (applies MEDGEN [Moles/volume] mmol/L to non-numeric ([facility] in Serum, results) [place] [facility] Blood [facility]) Potassium 4.7 Normal (applies MEDGEN [Mass/volume] mmol/L to non-numeric ([facility] in Blood results) [place] [facility]) Chloride 104 Normal (applies MEDGEN [Moles/volume] mmol/L to non-numeric ([facility] in Serum, results) [place] [facility] Blood [facility]) Carbon dioxide 22 Normal (applies MEDGEN [VFr/PPres] in mmol/L to non-numeric ([facility] Gas delivery results) [place] [facility]) Urea nitrogen 30 mg/dL Above high normal MEDGEN [Moles/volume] ([facility] in Blood [place] [facility]) Creatinine 1.12 Above high normal MEDGEN [Interpretation mg/dL ([facility] ] in Urine [place] [facility]) BUN/CREATININE 27 Above high normal MEDGEN RATIO (calc) ([facility] Calcium 10.1 Normal (applies MEDGEN [Moles/volume] mg/dL to non-numeric ([facility] in Urine results) [place] [facility] for [facility] unspecified [facility]) duration PROTEIN, TOTAL 7.0 g/dL Normal (applies MEDGEN to non-numeric ([facility] results) [place] [facility]) Microalbumin 4.2 g/dL Normal (applies MEDGEN [Mass/time] in to non-numeric ([facility] Urine collected results) [place] [facility]ph[facility] duration [facility]) Globulin 2.8 g/dL Normal (applies MEDGEN [Mass/time] in (calc) to non-numeric ([facility] 24 hour Urine results) [place] [facility]) ALBUMIN/GLOBULI 1.5 Normal (applies MEDGEN N RATIO (calc) to non-numeric ([facility] results) [place] [facility]) BILIRUBIN,TOTAL 0.2 Normal (applies MEDGEN mg/dL to non-numeric ([facility] results) [place] [facility]) Alkaline 90 U/L Normal (applies MEDGEN phosphatase to non-numeric ([facility] [Enzymatic results) [place] [facility] ] in Serum, [facility]) Plasma or Blood AST 16 U/L Normal (applies MEDGEN to non-numeric ([facility] results) [place] [facility]) ALT 13 U/L Normal (applies MEDGEN to non-numeric ([facility] results) [place] [facility]) EGFR NON AFR 48 Below low normal MEDGEN [place] mL/min/1 ([place] .73m2 [place] [facility]) EGFR 56 Below low normal MEDGEN [place] mL/min/1 ([facility]2 [place] [facility] Glucose 152 Above high normal MEDGEN [Mass/volume] mg/dL ([facility] in Urine [place] for [facility] unspecified [facility]) duration Sodium 132 Below low normal MEDGEN [Moles/volume] mmol/L ([facility] in Serum, [place] [facility] Blood [facility]) Potassium 5.0 Normal (applies MEDGEN [Mass/volume] mmol/L to non-numeric ([facility] in Blood results) [place] [facility]) Chloride 97 Below low normal MEDGEN [Moles/volume] mmol/L ([facility] in Serum, [place] [facility] Blood [facility]ph[facility]) Carbon dioxide 24 Normal (applies MEDGEN [VFr/PPres] in mmol/L to non-numeric ([facility] Gas delivery results) [place] [facility]) Urea nitrogen 23 mg/dL Normal (applies MEDGEN [Moles/volume] to non-numeric ([facility] in Blood results) [place] [facility]) Creatinine 0.94 Above high normal MEDGEN [Interpretation mg/dL ([facility] ] in Urine [place] [facility]) BUN/CREATININE 24 Above high normal MEDGEN RATIO (calc) ([facility]ph[facility]) Calcium 10.0 Normal (applies MEDGEN [Moles/volume] mg/dL to non-numeric ([facility] in Urine results) [place] [facility] for [facility]) duration PROTEIN, TOTAL 7.2 g/dL Normal (applies MEDGEN to non-numeric ([facility] results) [place] [facility]) Microalbumin 4.2 g/dL Normal (applies MEDGEN [Mass/time] in to non-numeric ([facility] Urine collected results) [place] [facility]) Globulin 3.0 g/dL Normal (applies MEDGEN [Mass/time] in (calc) to non-numeric ([facility] 24 hour Urine results) [place] [facility]) ALBUMIN/GLOBULI 1.4 Normal (applies MEDGEN N RATIO (calc) to non-numeric ([facility] results) [place] [facility]) BILIRUBIN,TOTAL 0.2 Normal (applies MEDGEN mg/dL to non-numeric ([facility] results) [place] [facility]) Alkaline 88 U/L Normal (applies MEDGEN phosphatase to non-numeric ([facility] [Enzymatic results) [place] [facility] ] in Serum, [facility]) Plasma or Blood AST 14 U/L Normal (applies MEDGEN to non-numeric ([facility] results) [place] [facility]) ALT 13 U/L Normal (applies MEDGEN to non-numeric ([facility] results) [place] [facility]) EGFR NON AFR 59 Below low normal MEDGEN [place] mL/min/1 ([facility] .73m2 [place] [facility]) EGFR 69 Normal (applies MEDGEN [place] mL/min/1 to non-numeric ([facility] .73m2 results) [place] [facility]) Glucose 158 Above high normal MEDGEN [Mass/volume] mg/dL ([facility] in Urine [place] for [facility]phrology unspecified [facility]) duration Sodium 136 Normal (applies MEDGEN [Moles/volume] mmol/L to non-numeric ([facility] in Serum, results) [place] [facility] Blood [facility]) Potassium 5.0 Normal (applies MEDGEN [Mass/volume] mmol/L to non-numeric ([facility] in Blood results) [place] [facility]) Chloride 103 Normal (applies MEDGEN [Moles/volume] mmol/L to non-numeric ([facility] in Serum, results) [place] [facility] Blood [facility]) Carbon dioxide 24 Normal (applies MEDGEN [VFr/PPres] in mmol/L to non-numeric ([facility] Gas delivery results) [place] [facility]) Urea nitrogen 24 mg/dL Normal (applies MEDGEN [Moles/volume] to non-numeric ([facility] in Blood results) [place] [facility]) Creatinine 1.01 Above high normal MEDGEN [Interpretation mg/dL ([facility] ] [facility] [place] [facility] BUN/CREATININE 24 Above high normal MEDGEN RATIO (calc) ([facility] Nephrology [facility]) Calcium 10.0 Normal (applies MEDGEN [Moles/volume] mg/dL to non-numeric ([facility] in Urine results) [place] [facility] for [facility]rology unspecified [facility]) duration PROTEIN, TOTAL 7.3 g/dL Normal (applies MEDGEN to non-numeric ([facility] results) [place] [facility]) Microalbumin 4.2 g/dL Normal (applies MEDGEN [Mass/time] in to non-numeric ([facility] Urine collected results) [place] [facility]) Globulin 3.1 g/dL Normal (applies MEDGEN [Mass/time] in (calc) to non-numeric ([facility] 24 hour Urine results) [place] [facility]) ALBUMIN/GLOBULI 1.4 Normal (applies MEDGEN N RATIO (calc) to non-numeric ([facility] results) [place] [facility]) BILIRUBIN,TOTAL 0.2 Normal (applies MEDGEN mg/dL to non-numeric ([facility] results) [place] [facility]) Alkaline 83 U/L Normal (applies MEDGEN phosphatase to non-numeric ([facility] [Enzymatic results) [place] [facility] ] in Serum, [facility]) Plasma or Blood AST 14 U/L Normal (applies MEDGEN to non-numeric ([facility] results) [place] [facility]) ALT 14 U/L Normal (applies MEDGEN to non-numeric ([facility] results) [place] [facility]) EGFR NON AFR 54 Below low normal MED[facility] [place] mL/min/1 ([place] .73m2 [place] [facility]) EGFR 63 Normal (applies MEDGEN [place] mL/min/1 to non-numeric ([place] .73m2 results) [place] [facility]) Glucose 120 Normal (applies MEDGEN [Mass/volume] mg/dL to non-numeric ([facility] in Urine results) [place] for [facility] unspecified [facility]) duration Sodium 136 Normal (applies MEDGEN [Moles/volume] mmol/L to non-numeric ([facility] in Serum, results) [place] [facility] Blood [facility]) Potassium 4.9 Normal (applies MEDGEN [Mass/volume] mmol/L to non-numeric ([facility] in Blood results) [place] [facility] Chloride 102 Normal (applies MEDGEN [Moles/volume] mmol/L to non-numeric ([facility] in Serum, results) [place] Plasma [facility] Blood [facility]) Carbon dioxide 24 Normal (applies MEDGEN [VFr/PPres] in mmol/L to non-numeric ([facility] Gas delivery results) [facility] Nephrology [facility]) Urea nitrogen 21 mg/dL Normal (applies MEDGEN [Moles/volume] to non-numeric ([facility] in Blood results) [place] [facility]) Creatinine 1.09 Above high normal MEDGEN [Interpretation mg/dL ([facility] ] [facility] [place] [facility] BUN/CREATININE 19 Normal (applies MEDGEN RATIO (calc) to non-numeric ([facility] results) [place] [facility]) Calcium 9.9 Normal (applies MEDGEN [Moles/volume] mg/dL to non-numeric ([facility] in Urine results) [place] [facility] for [facility] unspecified [facility]) duration PROTEIN, TOTAL 7.3 g/dL Normal (applies MEDGEN to non-numeric ([facility] results) [place] [facility]) Microalbumin 4.2 g/dL Normal (applies MEDGEN [Mass/time] in to non-numeric ([facility] Urine collected results) [place] [facility] Nephrology duration [facility]) Globulin 3.1 g/dL Normal (applies MEDGEN [Mass/time] in (calc) to non-numeric ([facility] 24 hour Urine results) [place] [facility]) ALBUMIN/GLOBULI 1.4 Normal (applies MEDGEN N RATIO (calc) to non-numeric ([facility] results) [place] [facility]) BILIRUBIN,TOTAL 0.2 Normal (applies MEDGEN mg/dL to non-numeric ([facility] results) [place] [facility]) Alkaline 81 U/L Normal (applies MEDGEN phosphatase to non-numeric ([facility] [Enzymatic results) [place] [facility] ] in Serum, [facility]) Plasma or Blood AST 14 U/L Normal (applies MEDGEN to non-numeric ([facility] results) [place] [facility]) ALT 11 U/L Normal (applies MEDGEN to non-numeric ([facility] results) [place] [facility]) EGFR NON AFR 49 Below low normal MED[facility] [place] mL/min/1 ([place] .73m2 [place] [facility]) EGFR 57 Below low normal MED[facility] [place] mL/min/1 ([facility]m2 [place] [facility] Glucose 93 mg/dL Normal (applies MEDGEN [Mass/volume] to non-numeric ([facility] in Urine results) [place] [facility] for Nephrology unspecified [facility]) duration Sodium 136 Normal (applies MEDGEN [Moles/volume] mmol/L to non-numeric ([facility] in Serum, results) [place] [facility] Blood [facility]rology [facility]) Potassium 4.5 Normal (applies MEDGEN [Mass/volume] mmol/L to non-numeric ([facility] in Blood results) [place] [facility]) Chloride 101 Normal (applies MEDGEN [Moles/volume] mmol/L to non-numeric ([facility] in Serum, results) [place] [facility] Blood [facility]) Carbon dioxide 22 Normal (applies MEDGEN [VFr/PPres] in mmol/L to non-numeric ([facility] Gas delivery results) [place] [facility]) Urea nitrogen 29 mg/dL Above high normal MEDGEN [Moles/volume] ([facility] in Blood [place] [facility]) Creatinine 0.93 Normal (applies MEDGEN [Interpretation mg/dL to non-numeric ([facility] ] in Urine results) [place] [facility]) BUN/CREATININE 31 Above high normal MEDGEN RATIO (calc) ([facility] Nephrology [facility]) Calcium 9.7 Normal (applies MEDGEN [Moles/volume] mg/dL to non-numeric ([facility] in Urine results) [place] [facility] for Nephrology unspecified [facility]) duration PROTEIN, TOTAL 7.4 g/dL Normal (applies MEDGEN to non-numeric ([facility] results) [place] [facility]) Microalbumin 4.4 g/dL Normal (applies MEDGEN [Mass/time] in to non-numeric ([facility] Urine collected results) [place] [facility] Neph[facility] duration [facility]) Globulin 3.0 g/dL Normal (applies MEDGEN [Mass/time] in (calc) to non-numeric ([facility] 24 hour Urine results) [place] [facility] ALBUMIN/GLOBULI 1.5 Normal (applies MEDGEN N RATIO (calc) to non-numeric ([facility] results) [place] [facility]) BILIRUBIN,TOTAL 0.2 Normal (applies MEDGEN mg/dL to non-numeric ([facility] results) [place] [facility]) Alkaline 83 U/L Normal (applies MEDGEN phosphatase to non-numeric ([facility] [Enzymatic results) [place] [facility] Nephrology ] in Serum, [facility]) Plasma or Blood AST 15 U/L Normal (applies MEDGEN to non-numeric ([facility] results) [place] [facility]) ALT 14 U/L Normal (applies MEDGEN to non-numeric ([facility] results) [place] [facility]) EGFR NON AFR 61 Normal (applies MEDGEN [place] mL/min/1 to non-numeric ([place] .73[facility]2 results) [place] [facility]) EGFR 70 Normal (applies [facility] [place] mL/min/1 to non-numeric ([place] .73m2 results) [place] [facility]) Glucose 83 mg/dL Normal (applies MEDGEN [Mass/volume] to non-numeric ([facility] in Urine results) [place] collected for Nephrology unspecified [facility]) duration Sodium 136 Normal (applies MEDGEN [Moles/volume] mmol/L to non-numeric ([facility] in Serum, results) [place] Plasma or Blood Nephrology [facility]) Potassium 5.2 Normal (applies MEDGEN [Mass/volume] mmol/L to non-numeric ([facility] in Blood results) [place] [facility]) Chloride 100 Normal (applies MEDGEN [Moles/volume] mmol/L to non-numeric ([facility] in Serum, results) [place] Plasma or Blood Nephrology [facility]) Carbon dioxide 24 Normal (applies MEDGEN [VFr/PPres] in mmol/L to non-numeric ([facility] Gas delivery results) [place] [facility]) Urea nitrogen 27 mg/dL Above high normal MEDGEN [Moles/volume] ([facility] in Blood [place] [facility]) Creatinine 1.01 Above high normal MEDGEN [Interpretation mg/dL ([facility] ] in Urine [place] [facility]) BUN/CREATININE 27 Above high normal MEDGEN RATIO (calc) ([facility] Neph[facility]) Calcium 9.9 Normal (applies MEDGEN [Moles/volume] mg/dL to non-numeric ([facility] in Urine results) [place] for Nephrology unspecified [facility]) duration PROTEIN, TOTAL 7.5 g/dL Normal (applies MEDGEN to non-numeric ([facility] results) [place] [facility]) Microalbumin 4.8 g/dL Normal (applies MEDGEN [Mass/time] in to non-numeric ([facility] Urine collected results) [place] for [facility] Nephrology duration [facility]) Globulin 2.7 g/dL Normal (applies MEDGEN [Mass/time] in (calc) to non-numeric ([facility] 24 hour Urine results) [place] [facility]) ALBUMIN/GLOBULI 1.8 Normal (applies MEDGEN N RATIO (calc) to non-numeric ([facility] results) [place] [facility]) BILIRUBIN,TOTAL 0.2 Normal (applies MEDGEN mg/dL to non-numeric ([facility] results) [place] [facility]) Alkaline 84 U/L Normal (applies MEDGEN phosphatase to non-numeric ([facility] [Enzymatic results) [place] activity/volume Nephrology ] in Serum, [facility]) Plasma or Blood AST 17 U/L Normal (applies MEDGEN to non-numeric ([facility] results) [place] [facility]) ALT 17 U/L Normal (applies MEDGEN to non-numeric ([facility] results) [place] [facility]) EGFR NON AFR 55 Below low normal [facility] [place] mL/min/1 ([facility] .73m2 [place] [facility]) EGFR 64 Normal (applies [facility] [place] mL/min/1 to non-numeric ([place] .73m2 results) [place] [facility]) Glucose 183 Above high normal MEDGEN [Mass/volume] mg/dL ([facility] in Urine [place] for Nephrology unspecified [facility]) duration Sodium 133 Below low normal MEDGEN [Moles/volume] mmol/L ([facility] in Serum, [place] Plasma or Blood Nephrology [facility]) Potassium 4.8 Normal (applies MEDGEN [Mass/volume] mmol/L to non-numeric ([facility] in Blood results) [place] [facility]) Chloride 98 Normal (applies MEDGEN [Moles/volume] mmol/L to non-numeric ([facility] in Serum, results) [place] Plasma or Blood Neph[facility]) Carbon dioxide 26 Normal (applies MEDGEN [VFr/PPres] in mmol/L to non-numeric ([facility] Gas delivery results) [place] [facility]) Urea nitrogen 20 mg/dL Normal (applies MEDGEN [Moles/volume] to non-numeric ([facility] in Blood results) [place] [facility]) Creatinine 1.05 Above high normal MEDGEN [Interpretation mg/dL ([facility] ] in Urine [place] [facility]) BUN/CREATININE 19 Normal (applies MEDGEN RATIO (calc) to non-numeric ([facility] results) [place] [facility]) Calcium 10.0 Normal (applies MEDGEN [Moles/volume] mg/dL to non-numeric ([facility] in Urine results) [place] for Nephrology unspecified [facility]) duration PROTEIN, TOTAL 7.4 g/dL Normal (applies MEDGEN to non-numeric ([facility] results) [place] [facility]) Microalbumin 4.2 g/dL Normal (applies MEDGEN [Mass/time] in to non-numeric ([facility] Urine collected results) [place] for [facility] Nephrology duration [facility]) Globulin 3.2 g/dL Normal (applies MEDGEN [Mass/time] in (calc) to non-numeric ([facility] 24 hour Urine results) [place] [facility]) ALBUMIN/GLOBULI 1.3 Normal (applies MEDGEN N RATIO (calc) to non-numeric ([facility] results) [place] [facility]) BILIRUBIN,TOTAL 0.2 Normal (applies MEDGEN mg/dL to non-numeric ([facility] results) [place] [facility]) Alkaline 79 U/L Normal (applies MEDGEN phosphatase to non-numeric ([facility] [Enzymatic results) [place] activity/volume [facility]phrology ] in Serum, [facility]) Plasma or Blood AST 20 U/L Normal (applies MEDGEN to non-numeric ([place] [facility]) [place] [facility]) ALT 20 U/L Normal (applies MEDGEN to non-numeric ([facility] results) [place] [facility]) EGFR NON AFR 52 Below low normal [facility] [place] mL/min/1 ([place] .73m2 [place] [facility]) EGFR 60 Normal (applies [facility] [place] mL/min/1 to non-numeric ([place] .73m2 results) [place] [facility]) Glucose 82 mg/dL Normal (applies MEDGEN [Mass/volume] to non-numeric ([facility] in Urine results) [place] for Nephrology unspecified [facility]) duration Sodium 134 Below low normal MEDGEN [Moles/volume] mmol/L ([facility] in Serum, [place] Plasma or Blood Nephrology [facility]) Potassium 4.4 Normal (applies MEDGEN [Mass/volume] mmol/L to non-numeric ([facility] in Blood results) [place] [facility]) Chloride 101 Normal (applies MEDGEN [Moles/volume] mmol/L to non-numeric ([facility] in Serum, results) [place] Plasma or Blood Nephrology [facility]) Carbon dioxide 25 Normal (applies MEDGEN [VFr/PPres] in mmol/L to non-numeric ([facility] Gas delivery results) [place] [facility]) Urea nitrogen 26 mg/dL Above high normal MEDGEN [Moles/volume] ([facility] Creatinine 1.20 Above high normal MEDGEN [Interpretation mg/dL ([facility] ] [facility] [facility] BUN/CREATININE 22 Normal (applies MEDGEN RATIO (calc) to non-numeric ([facility] results) [place] [facility]) Calcium 10.3 Normal (applies MEDGEN [Moles/volume] mg/dL to non-numeric ([facility] in Urine results) [place] for Nephrology unspecified [facility]) duration PROTEIN, TOTAL 7.8 g/dL Normal (applies MEDGEN to non-numeric ([facility] results) [place] [facility]) Microalbumin 4.5 g/dL Normal (applies MEDGEN [Mass/time] in to non-numeric ([facility] Urine collected results) [place] for [facility] Nephrology duration [facility]) Globulin 3.3 g/dL Normal (applies MEDGEN [Mass/time] in (calc) to non-numeric ([facility] 24 hour Urine results) [place] [facility]) ALBUMIN/GLOBULI 1.4 Normal (applies MEDGEN N RATIO (calc) to non-numeric ([facility] results) [place] [facility]) BILIRUBIN,TOTAL 0.3 Normal (applies MEDGEN mg/dL to non-numeric ([place] [facility]) [place] [facility]) Alkaline 86 U/L Normal (applies MEDGEN phosphatase to non-numeric ([facility] [Enzymatic results) [place] activity/volume [facility]phrology ] in Serum, [facility]) Plasma or Blood AST 13 U/L Normal (applies MEDGEN to non-numeric ([facility] results) [place] [facility]) ALT 12 U/L Normal (applies MEDGEN to non-numeric ([facility] results) [place] [facility]) EGFR NON AFR 44 Below low normal [facility] [place] mL/min/1 ([place] .73m2 [place] [facility]) EGFR 51 Below low normal [facility] [place] mL/min/1 ([place] .73m2 [place] [facility]) Glucose 153 Above high normal MEDGEN [Mass/volume] mg/dL ([facility] in Urine [place] for Nephrology unspecified [facility]) duration Sodium 137 Normal (applies MEDGEN [Moles/volume] mmol/L to non-numeric ([facility] in Serum, results) [place] Plasma or Blood Nephrology [facility]) Potassium 5.2 Normal (applies MEDGEN [Mass/volume] mmol/L to non-numeric ([facility] in Blood results) [place] [facility]) Chloride 102 Normal (applies MEDGEN [Moles/volume] mmol/L to non-numeric ([facility] in Serum, results) [place] Plasma or Blood Nephrology [facility]) Carbon dioxide 26 Normal (applies MEDGEN [VFr/PPres] in mmol/L to non-numeric ([facility] Gas delivery results) [place] [facility]) Urea nitrogen 18 mg/dL Normal (applies MEDGEN [Moles/volume] to non-numeric ([facility] in Blood results) [place] [facility]) Creatinine 0.96 Above high normal MEDGEN [Interpretation mg/dL ([place] ] in Urine [place] [facility]) BUN/CREATININE 19 Normal (applies MEDGEN RATIO (calc) to non-numeric ([facility] results) [place] [facility]) Calcium 10.2 Normal (applies MEDGEN [Moles/volume] mg/dL to non-numeric ([facility] in Urine results) [place] for Nephrology unspecified [facility]) duration PROTEIN, TOTAL 7.4 g/dL Normal (applies MEDGEN to non-numeric ([place] [facility]) [place] [facility]) Microalbumin 4.3 g/dL Normal (applies MEDGEN [Mass/time] in to non-numeric ([facility] Urine collected results) [place] for [facility] Nephrology duration [facility]) Globulin 3.1 g/dL Normal (applies MEDGEN [Mass/time] in (calc) to non-numeric ([facility] 24 hour Urine results) [place] [facility] ALBUMIN/GLOBULI 1.4 Normal (applies MEDGEN N RATIO (calc) to non-numeric ([facility] results) [place] [facility]) BILIRUBIN,TOTAL 0.2 Normal (applies MEDGEN mg/dL to non-numeric ([place] [facility]) [place] [facility]) Alkaline 93 U/L Normal (applies MEDGEN phosphatase to non-numeric ([facility] [Enzymatic results) [place] activity/volume Nephrology ] in Serum, [facility]) Plasma or Blood AST 12 U/L Normal (applies MEDGEN to non-numeric ([place] [facility]) [place] [facility]) ALT 12 U/L Normal (applies MEDGEN to non-numeric ([facility] results) [place] [facility]) EGFR NON AFR 57 Below low normal [facility] [place] mL/min/1 ([place] .73m2 [place] [facility]) EGFR 67 Normal (applies [facility]GEN [place] mL/min/1 to non-numeric ([place] .73m2 results) [place] [facility]) Glucose 76 mg/dL Normal (applies MEDGEN [Mass/volume] to non-numeric ([facility] in Urine results) [place] for Nephrology unspecified [facility]) duration Sodium 138 Normal (applies MEDGEN [Moles/volume] mmol/L to non-numeric ([facility] in Serum, results) [place] Plasma or Blood Nephrology [facility]) Potassium 4.5 Normal (applies MEDGEN [Mass/volume] mmol/L to non-numeric ([facility] in Blood results) [place] [facility]) Chloride 106 Normal (applies MEDGEN [Moles/volume] mmol/L to non-numeric ([facility] in Serum, results) [place] Plasma or Blood Nephrology [facility]) Carbon dioxide 24 Normal (applies MEDGEN [VFr/PPres] in mmol/L to non-numeric ([facility] Gas delivery results) [place] [facility]) Urea nitrogen 29 mg/dL Above high normal MEDGEN [Moles/volume] ([facility] in Blood [place] [facility]) Creatinine 1.01 Above high normal MEDGEN [Interpretation mg/dL ([facility] ] in Urine [place] [facility]) BUN/CREATININE 29 Above high normal MEDGEN RATIO (calc) ([facility] Nephrology [facility]) Calcium 9.7 Normal (applies MEDGEN [Moles/volume] mg/dL to non-numeric ([facility] in Urine results) [place] for Nephrology unspecified [facility]) duration PROTEIN, TOTAL 7.4 g/dL Normal (applies MEDGEN to non-numeric ([facility] results) [place] [facility]) Microalbumin 4.3 g/dL Normal (applies MEDGEN [Mass/time] in to non-numeric ([facility] Urine collected results) [place] for unspecified Nephrology duration [facility]) Globulin 3.1 g/dL Normal (applies MEDGEN [Mass/time] in (calc) to non-numeric ([facility] 24 hour Urine results) [place] [facility]) ALBUMIN/GLOBULI 1.4 Normal (applies MEDGEN N RATIO (calc) to non-numeric ([facility] results) [place] [facility]) BILIRUBIN,TOTAL 0.2 Normal (applies MEDGEN mg/dL to non-numeric ([facility] results) [place] [facility]) Alkaline 88 U/L Normal (applies MEDGEN phosphatase to non-numeric ([facility] [Enzymatic results) [place] activity/volume [facility]ph[facility] ] in Serum, [facility]) Plasma or Blood AST 13 U/L Normal (applies MEDGEN to non-numeric ([facility] results) [place] [facility]) ALT 12 U/L Normal (applies MEDGEN to non-numeric ([facility] results) [place] [facility]) EGFR NON AFR 54 Below low normal [facility] [place] mL/min/1 ([place] .73m2 [place] [facility]) EGFR 63 Normal (applies [facility] [place] mL/min/1 to non-numeric ([place] .73m2 results) [place] [facility]) Glucose 85 mg/dL Normal (applies MEDGEN [Mass/volume] to non-numeric ([facility] in Urine results) [place] collected for Nephrology unspecified [facility]) duration Sodium 138 Normal (applies MEDGEN [Moles/volume] mmol/L to non-numeric ([facility] in Serum, results) [place] Plasma or Blood Nephrology [facility]) Potassium 4.5 Normal (applies MEDGEN [Mass/volume] mmol/L to non-numeric ([facility] in Blood results) [place] [facility]) Chloride 103 Normal (applies MEDGEN [Moles/volume] mmol/L to non-numeric ([facility] in Serum, results) [place] Plasma or Blood [facility]phrology [facility]) Carbon dioxide 25 Normal (applies MEDGEN [VFr/PPres] in mmol/L to non-numeric ([facility] Gas delivery results) [place] [facility]) Urea nitrogen 22 mg/dL Normal (applies MEDGEN [Moles/volume] to non-numeric ([facility] in Blood results) [place] [facility]) Creatinine 1.02 Above high normal MEDGEN [Interpretation mg/dL ([facility] ] in Urine [place] [facility]) BUN/CREATININE 22 Normal (applies MEDGEN RATIO (calc) to non-numeric ([facility] results) [place] [facility]) Calcium 10.5 Above high normal [facility]GEN [Moles/volume] mg/dL ([facility] in Urine [place] collected for Nephrology unspecified [facility]) duration PROTEIN, TOTAL 7.8 g/dL Normal (applies MEDGEN to non-numeric ([facility] results) [place] [facility]) Microalbumin 4.5 g/dL Normal (applies MEDGEN [Mass/time] in to non-numeric ([facility] Urine collected results) [place] for unspecified Nephrology duration [facility]) Globulin 3.3 g/dL Normal (applies MEDGEN [Mass/time] in (calc) to non-numeric ([facility] 24 hour Urine results) [place] [facility]) ALBUMIN/GLOBULI 1.4 Normal (applies MEDGEN N RATIO (calc) to non-numeric ([facility] results) [place] [facility]) BILIRUBIN,TOTAL 0.2 Normal (applies [facility]GEN mg/dL to non-numeric ([place] [facility]) [place] [facility]) Alkaline 91 U/L Normal (applies MEDGEN phosphatase to non-numeric ([facility] [Enzymatic results) [place] activity/volume [facility] ] in Serum, [facility]) Plasma or Blood AST 14 U/L Normal (applies MEDGEN to non-numeric ([facility] results) [place] [facility]) ALT 12 U/L Normal (applies MEDGEN to non-numeric ([place] [facility]) [place] [facility]) EGFR NON AFR 53 Below low normal [facility] [place] mL/min/1 ([place] .73m2 [place] [facility]) EGFR 62 Normal (applies [facility] [place] mL/min/1 to non-numeric ([place] .73m2 results) [place] 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 ( [facility] 12:00:00 AM EDT user experience analyst that that manages her [place] manages her property [facility] property Never smoked No ETOH use smoked No ETOH use Smoking 01/27/2020 Never smoked completed Never smoked [facility]GEN ([facility] 12:00:00 AM EDT [facility]) Smoking 12/27/2019 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 ( [facility] 12:00:00 AM EDT user experience analyst that that manages her [place] manages her property [facility] property Never smoked No ETOH use smoked No ETOH use Smoking 12/27/2019 Never smoked completed Never smoked [facility] ([facility] 12:00:00 AM EDT [facility]) Smoking 10/07/2019 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 ( [facility] 12:00:00 AM EDT user experience analyst that that manages her [place] [facility] manages her property [facility] property Never smoked No ETOH use smoked No ETOH use Smoking 10/07/2019 Never smoked completed Never smoked MEDGEN ([facility] 12:00:00 AM EDT [facility]) Smoking 10/01/2019 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 ( [facility] 12:00:00 AM EDT user experience analyst that that manages her [place] [facility] manages her property [facility] property Never smoked No ETOH use smoked No ETOH use Smoking 10/01/2019 Never smoked completed Never smoked MEDGEN ([facility] 12:00:00 AM EDT [facility]) Smoking 09/16/2019 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 ( [facility] 12:00:00 AM EDT user experience analyst that that manages her [place] manages her property [facility] property Never smoked No ETOH use smoked No ETOH use Smoking 09/16/2019 Never smoked completed Never smoked [facility] ([facility] 12:00:00 AM EDT [facility]) Vital Signs ID Date Data Source UNK Name Value Range Interpretation Code Description Data Source(s) Heart rate 78 /min 78 /min [facility] ([facility]) Body mass index 34.5 kg/m2 34.5 kg/m2 [facility] ([facility] (BMI) [Ratio] [facility]) Diastolic blood 78 mm[Hg] 78 mm[Hg] [facility] ([facility] pressure [facility]) Systolic blood 133 mm[Hg] 133 mm[Hg] [facility] ([facility]) Body weight 171 lb 171 lb MED[facility] ([facility]) Body height 59 in 59 in MEDGEN ([facility]) Heart rate 78 /min 78 /min [facility] ([facility]) Body mass index 34.5 kg/m2 34.5 kg/m2 [facility] ([facility] (BMI) [Ratio] [facility]) Diastolic blood 78 mm[Hg] 78 mm[Hg] [facility] ([facility]) Systolic blood 133 mm[Hg] 133 mm[Hg] MED[facility] ([facility]) Body weight 171 lb 171 lb MED[facility] ([facility]) [facility] Heart rate 73 /min 73 /min MED[facility] ([facility]) Body mass index 34.9 kg/m2 34.9 kg/m2 MEDGEN ([facility] (BMI) [Ratio] [facility]) Diastolic blood 74 mm[Hg] 74 mm[Hg] MED[facility] ([facility]) Systolic blood 158 mm[Hg] 158 mm[Hg] [facility] ([facility] Body weight 173 lb 173 lb [facility] ([facility] Body height 59 in 59 in [facility] ([facility]) Heart rate 73 /min 73 /min [facility] ([facility]) Body mass index 34.9 kg/m2 34.9 kg/m2 [facility] ([facility] (BMI) [Ratio] [facility]) Diastolic blood 74 mm[Hg] 74 mm[Hg] [facility] ([facility]) Systolic blood 158 mm[Hg] 158 mm[Hg] [facility] ([facility]) Body weight 173 lb 173 lb [facility] ([facility] Body height 59 in 59 in [facility] ([facility]) Heart rate 73 /min 73 /min [facility] ([facility]) Body mass index 34.9 kg/m2 34.9 kg/m2 [facility] ([facility] (BMI) [Ratio] [facility]) Diastolic blood 74 mm[Hg] 74 mm[Hg] [facility] ([facility]) Systolic blood 158 mm[Hg] 158 mm[Hg] [facility] ([facility]) Body weight 173 lb 173 lb [facility] ([facility]) Body height 59 in 59 in [facility] ([facility]) Heart rate 72 /min 72 /min [facility] ([facility]) Body mass index 35.1 kg/m2 35.1 kg/m2 [facility] ([facility] (BMI) [Ratio] [facility]) Diastolic blood 73 mm[Hg] 73 mm[Hg] [facility] ([facility]) Systolic blood 136 mm[Hg] 136 mm[Hg] [facility] ([facility]) Body weight 174 lb 174 lb [facility] ([facility]) Body height 59 in 59 in [facility] ([facility]) Heart rate 72 /min 72 /min [facility] ([facility]) Body mass index 35.1 kg/m2 35.1 kg/m2 [facility] ([facility] (BMI) [Ratio] [facility]) Diastolic blood 73 mm[Hg] 73 mm[Hg] [facility] ([facility]) Systolic blood 136 mm[Hg] 136 mm[Hg] [facility] ([facility]) Body weight 174 lb 174 lb [facility] ([facility]) Body height 59 in 59 in [facility] ([facility]) Heart rate 72 /min 72 /min [facility] ([facility]) Body mass index 35.1 kg/m2 35.1 kg/m2 [facility] ([facility] (BMI) [Ratio] [facility]) Diastolic blood 73 mm[Hg] 73 mm[Hg] [facility] ([facility]) Systolic blood 136 mm[Hg] 136 mm[Hg] [facility] ([facility]) Body weight 174 lb 174 lb [facility] ([facility]) Body height 59 in 59 in [facility] ([facility]) Heart rate 72 /min 72 /min [facility] ([facility]) Body mass index 35.1 kg/m2 35.1 kg/m2 [facility] ([facility] (BMI) [Ratio] [facility]) Diastolic blood 73 mm[Hg] 73 mm[Hg] [facility] ([facility]) Systolic blood 136 mm[Hg] 136 mm[Hg] [facility] ([facility]) Body weight 174 lb 174 lb [facility] ([facility]) Body height 59 in 59 in [facility] ([facility]) Heart rate 70 /min 70 /min [facility] ([facility]) Body mass index 35.1 kg/m2 35.1 kg/m2 [facility] ([facility] (BMI) [Ratio] [facility]) Diastolic blood 67 mm[Hg] 67 mm[Hg] [facility] ([facility]) Systolic blood 143 mm[Hg] 143 mm[Hg] [facility] ([facility]) Body weight 174 lb 174 lb [facility] ([facility]) Body height 59 in 59 in [facility] ([facility]) Body mass index 35.1 kg/m2 35.1 kg/m2 [facility] ([facility] (BMI) [Ratio] [facility]) Diastolic blood 67 mm[Hg] 67 mm[Hg] [facility] ([facility]) Systolic blood 143 mm[Hg] 143 mm[Hg] [facility] ([facility]) Body weight 174 lb 174 lb [facility] ([facility]) Body height 59 in 59 in [facility] ([facility]) Heart rate 70 /min 70 /min [facility] ([facility]) Heart rate 70 /min 70 /min [facility] ([facility]) Body mass index 35.1 kg/m2 35.1 kg/m2 [facility] ([facility] (BMI) [Ratio] [facility]) Diastolic blood 67 mm[Hg] 67 mm[Hg] [facility] ([facility]) Systolic blood 143 mm[Hg] 143 mm[Hg] [facility] ([facility]) Body weight 174 lb 174 lb [facility] ([facility]) Body height 59 in 59 in [facility] ([facility] Heart rate 70 /min 70 /min [facility] Body mass index 35.1 kg/m2 35.1 kg/m2 [facility] ([facility] (BMI) [Ratio] [facility]) Diastolic blood 67 mm[Hg] 67 mm[Hg] [facility] ([facility]) Systolic blood 143 mm[Hg] 143 mm[Hg] [facility] Body weight 174 lb 174 lb [facility] ([facility] Body height 59 in 59 in [facility] ([facility]) Heart rate 70 /min 70 /min [facility] Body mass index 35.1 kg/m2 35.1 kg/m2 [facility] ([facility] (BMI) [Ratio] [facility]) Diastolic blood 67 mm[Hg] 67 mm[Hg] [facility] ([facility]) Systolic blood 143 mm[Hg] 143 mm[Hg] [facility] ([facility]) Body weight 174 lb 174 lb [facility] ([facility]) Body height 59 in 59 in [facility] ([facility]) Heart rate 83 /min 83 /min [facility] ([facility]) Body mass index 35.5 kg/m2 35.5 kg/m2 [facility] ([facility] (BMI) [Ratio] [facility]) Diastolic blood 79 mm[Hg] 79 mm[Hg] [facility] ([facility]) Systolic blood 165 mm[Hg] 165 mm[Hg] [facility] ([facility]) Body weight 176 lb 176 lb [facility] ([facility]) Body height 59 in 59 in [facility] ([facility]) Heart rate 83 /min 83 /min [facility] ([facility]) Body mass index 35.5 kg/m2 35.5 kg/m2 [facility] ([facility] (BMI) [Ratio] [facility]) Diastolic blood 79 mm[Hg] 79 mm[Hg] [facility] ([facility]) Systolic blood 165 mm[Hg] 165 mm[Hg] [facility] ([facility]) Body weight 176 lb 176 lb [facility] ([facility]) Body height 59 in 59 in [facility] ([facility]) Heart rate 83 /min 83 /min [facility] ([facility]) Body mass index 35.5 kg/m2 35.5 kg/m2 [facility] ([facility] (BMI) [Ratio] [facility]) Diastolic blood 79 mm[Hg] 79 mm[Hg] [facility] ([facility]) Systolic blood 165 mm[Hg] 165 mm[Hg] [facility] ([facility]) Body weight 176 lb 176 lb [facility] ([facility]) Body height 59 in 59 in [facility] ([facility]) Heart rate 83 /min 83 /min [facility] ([facility]) Body mass index 35.5 kg/m2 35.5 kg/m2 [facility] ([facility] (BMI) [Ratio] [facility]) Diastolic blood 79 mm[Hg] 79 mm[Hg] [facility] ([facility]) Systolic blood 165 mm[Hg] 165 mm[Hg] [facility] ([facility]) Body weight 176 lb 176 lb [facility] ([facility]) Body height 59 in 59 in [facility] ([facility]) Heart rate 83 /min 83 /min [facility] ([facility]) Body mass index 35.5 kg/m2 35.5 kg/m2 [facility] ([facility]BMI) [facility]Ratio] [facility] Diastolic blood 79 mm[Hg] 79 mm[Hg] [facility] ([facility]) Systolic blood 165 mm[Hg] 165 mm[Hg] [facility] ([facility]) Body weight 176 lb 176 lb [facility] ([facility]) Body height 59 in 59 in [facility] ([facility]) Heart rate 83 /min 83 /min [facility] ([facility]) Body mass index 35.5 kg/m2 35.5 kg/m2 [facility] ([facility] (BMI) [Ratio] [facility]) Diastolic blood 79 mm[Hg] 79 mm[Hg] [facility] ([facility]) Systolic blood 165 mm[Hg] 165 mm[Hg] [facility] ([facility]) Body weight 176 lb 176 lb [facility] ([facility]) Body height 59 in 59 in [facility] ([facility]) Heart rate 72 /min 72 /min [facility] ([facility]) Body mass index 35.1 kg/m2 35.1 kg/m2 [facility] ([facility] (BMI) [Ratio] [facility]) Diastolic blood 67 mm[Hg] 67 mm[Hg] [facility] ([facility]) Systolic blood 141 mm[Hg] 141 mm[Hg] [facility] ([facility]) Body weight 174 lb 174 lb [facility] ([facility]) Body height 59 in 59 in [facility] ([facility]) Heart rate 72 /min 72 /min [facility] ([facility]) Body mass index 35.1 kg/m2 35.1 kg/m2 [facility] ([facility] (BMI) [Ratio] [facility]) Diastolic blood 67 mm[Hg] 67 mm[Hg] [facility] ([facility]) Systolic blood 141 mm[Hg] 141 mm[Hg] [facility] ([facility]) Body weight 174 lb 174 lb [facility] ([facility]) Body height 59 in 59 in [facility] ([facility]) Heart rate 72 /min 72 /min [facility] ([facility]) Body mass index 35.1 kg/m2 35.1 kg/m2 [facility] ([facility] (BMI) [Ratio] [facility]) Diastolic blood 67 mm[Hg] 67 mm[Hg] [facility] ([facility]) Systolic blood 141 mm[Hg] 141 mm[Hg] [facility] ([facility]) Body weight 174 lb 174 lb [facility] ([facility]) Body height 59 in 59 in [facility] ([facility]) Heart rate 72 /min 72 /min [facility] ([facility]) Body mass index 35.1 kg/m2 35.1 kg/m2 [facility] ([facility] (BMI) [Ratio] [facility]) Diastolic blood 67 mm[Hg] 67 mm[Hg] [facility] ([facility]) Systolic blood 141 mm[Hg] 141 mm[Hg] [facility] ([facility]) Body weight 174 lb 174 lb [facility] ([facility]) Body height 59 in 59 in [facility] ([facility]) Heart rate 72 /min 72 /min [facility] ([facility]) Body mass index 35.1 kg/m2 35.1 kg/m2 [facility] ([facility] (BMI) [Ratio] [facility]) Diastolic blood 67 mm[Hg] 67 mm[Hg] [facility] ([facility]) Systolic blood 141 mm[Hg] 141 mm[Hg] [facility] ([facility]) Body weight 174 lb 174 lb [facility] ([facility]) Body height 59 in 59 in [facility] Heart rate 72 /min 72 /min [facility] ([facility]) Body mass index 35.1 kg/m2 35.1 kg/m2 [facility] ([facility] (BMI) [Ratio] [facility]) Diastolic blood 67 mm[Hg] 67 mm[Hg] [facility] ([facility]) Systolic blood 141 mm[Hg] 141 mm[Hg] [facility] ([facility]) Body weight 174 lb 174 lb [facility] ([facility]) Body height 59 in 59 in [facility] ([facility] Heart rate 84 /min 84 /min [facility] ([facility]) Body mass index 34.3 kg/m2 34.3 kg/m2 [facility] ([facility] (BMI) [Ratio] [facility]) Diastolic blood 75 mm[Hg] 75 mm[Hg] [facility] ([facility]) Systolic blood 120 mm[Hg] 120 mm[Hg] [facility] ([facility]) Body weight 170 lb 170 lb [facility] ([facility]) Body height 59 in 59 in [facility] ([facility] Heart rate 84 /min 84 /min [facility] ([facility]) Body mass index 34.3 kg/m2 34.3 kg/m2 [facility] ([facility] (BMI) [Ratio] [facility]) Diastolic blood 75 mm[Hg] 75 mm[Hg] [facility] ([facility]) Systolic blood 120 mm[Hg] 120 mm[Hg] [facility] ([facility]) Body weight 170 lb 170 lb [facility] ([facility]) Body height 59 in 59 in [facility] ([facility]) Heart rate 84 /min 84 /min [facility] ([facility]) Body mass index 34.3 kg/m2 34.3 kg/m2 [facility] ([facility] (BMI) [Ratio] [facility] Diastolic blood 75 mm[Hg] 75 mm[Hg] [facility] ([facility]) Systolic blood 120 mm[Hg] 120 mm[Hg] [facility] ([facility]) Body weight 170 lb 170 lb [facility] ([facility]) Body height 59 in 59 in [facility] ([facility] Heart rate 84 /min 84 /min [facility] ([facility]) Body mass index 34.3 kg/m2 34.3 kg/m2 [facility] ([facility] (BMI) [Ratio] [facility]) Diastolic blood 75 mm[Hg] 75 mm[Hg] [facility] ([facility]) Systolic blood 120 mm[Hg] 120 mm[Hg] [facility] ([facility]) Body weight 170 lb 170 lb [facility] ([facility]) Body height 59 in 59 in [facility] ([facility]) Heart rate 84 /min 84 /min [facility] ([facility]) Body mass index 34.3 kg/m2 34.3 kg/m2 [facility] ([facility] (BMI) [Ratio] [facility]) Diastolic blood 75 mm[Hg] 75 mm[Hg] [facility] ([facility]) Systolic blood 120 mm[Hg] 120 mm[Hg] [facility] ([facility]) Body weight 170 lb 170 lb [facility] ([facility]) Body height 59 in 59 in [facility] ([facility] Heart rate 84 /min 84 /min [facility] ([facility]) Body mass index 34.3 kg/m2 34.3 kg/m2 [facility] ([facility] (BMI) [Ratio] [facility]) Diastolic blood 75 mm[Hg] 75 mm[Hg] [facility] ([facility]) Systolic blood 120 mm[Hg] 120 mm[Hg] [facility] ([facility]) Body weight 170 lb 170 lb [facility] ([facility]) Body height 59 in 59 in [facility] ([facility] Heart rate 66 /min 66 /min [facility] ([facility]) Body mass index 35.1 kg/m2 35.1 kg/m2 [facility] ([facility] (BMI) [Ratio] [facility] Diastolic blood 66 mm[Hg] 66 mm[Hg] [facility] ([facility]) Systolic blood 145 mm[Hg] 145 mm[Hg] [facility] ([facility]) Body weight 174 lb 174 lb [facility] ([facility]) Body height 59 in 59 in [facility] ([facility] Heart rate 66 /min 66 /min [facility] ([facility]) Body mass index 35.1 kg/m2 35.1 kg/m2 [facility] ([facility] (BMI) [Ratio] [facility]) Diastolic blood 66 mm[Hg] 66 mm[Hg] [facility] ([facility]) Systolic blood 145 mm[Hg] 145 mm[Hg] [facility] ([facility]) Body weight 174 lb 174 lb [facility] ([facility]) Body height 59 in 59 in [facility] ([facility] Heart rate 66 /min 66 /min [facility] ([facility]) Body mass index 35.1 kg/m2 35.1 kg/m2 [facility] ([facility] (BMI) [Ratio] [facility]) Diastolic blood 66 mm[Hg] 66 mm[Hg] [facility] ([facility]) Systolic blood 145 mm[Hg] 145 mm[Hg] [facility] ([facility]) Body weight 174 lb 174 lb [facility] ([facility]) Body height 59 in 59 in [facility] ([facility] Heart rate 66 /min 66 /min [facility] ([facility]) Body mass index 35.1 kg/m2 35.1 kg/m2 [facility] ([facility] (BMI) [Ratio] [facility]) Diastolic blood 66 mm[Hg] 66 mm[Hg] [facility] ([facility]) Systolic blood 145 mm[Hg] 145 mm[Hg] [facility] Body weight 174 lb 174 lb [facility] ([facility] Body height 59 in 59 in [facility] ([facility] Heart rate 66 /min 66 /min [facility] ([facility]) Body mass index 35.1 kg/m2 35.1 kg/m2 [facility] ([facility] (BMI) [Ratio] [facility]) Diastolic blood 66 mm[Hg] 66 mm[Hg] [facility] ([facility]) Systolic blood 145 mm[Hg] 145 mm[Hg] [facility] ([facility]) Body weight 174 lb 174 lb [facility] ([facility]) Body height 59 in 59 in [facility] ([facility] Heart rate 66 /min 66 /min [facility] ([facility]) Body mass index 35.1 kg/m2 35.1 kg/m2 [facility] ([facility] (BMI) [Ratio] [facility]) Diastolic blood 66 mm[Hg] 66 mm[Hg] [facility] ([facility]) Systolic blood 145 mm[Hg] 145 mm[Hg] [facility] ([facility]) Body weight 174 lb 174 lb [facility] ([facility]) Body height 59 in 59 in [facility] ([facility] Heart rate 84 /min 84 /min [facility] ([facility]) Body mass index 34.5 kg/m2 34.5 kg/m2 [facility] ([facility] (BMI) [Ratio] [facility]) Diastolic blood 64 mm[Hg] 64 mm[Hg] [facility] ([facility]) Systolic blood 140 mm[Hg] 140 mm[Hg] [facility] ([facility]) Body weight 171 lb 171 lb [facility] ([facility]) Body height 59 in 59 in [facility] ([facility] Heart rate 84 /min 84 /min [facility] ([facility]) Body mass index 34.5 kg/m2 34.5 kg/m2 [facility] ([facility] (BMI) [Ratio] [facility]) Diastolic blood 64 mm[Hg] 64 mm[Hg] [facility] ([facility]) Systolic blood 140 mm[Hg] 140 mm[Hg] [facility] ([facility]) Body weight 171 lb 171 lb [facility] ([facility]) Body height 59 in 59 in [facility] ([facility] Heart rate 84 /min 84 /min [facility] ([facility] Body mass index 34.5 kg/m2 34.5 kg/m2 [facility] ([facility] (BMI) [Ratio] [facility]) Diastolic blood 64 mm[Hg] 64 mm[Hg] [facility] ([facility]) Systolic blood 140 mm[Hg] 140 mm[Hg] [facility] ([facility]) Body weight 171 lb 171 lb [facility] ([facility]) Body height 59 in 59 in [facility] ([facility] Heart rate 84 /min 84 /min [facility] ([facility] Body mass index 34.5 kg/m2 34.5 kg/m2 [facility] ([facility] (BMI) [Ratio] [facility]) Diastolic blood 64 mm[Hg] 64 mm[Hg] [facility] ([facility]) Systolic blood 140 mm[Hg] 140 mm[Hg] [facility] ([facility] Body weight 171 lb 171 lb [facility] ([facility] Body height 59 in 59 in [facility] ([facility] Heart rate 84 /min 84 /min [facility] ([facility] Body mass index 34.5 kg/m2 34.5 kg/m2 [facility] ([facility] (BMI) [Ratio] [facility]) Diastolic blood 64 mm[Hg] 64 mm[Hg] [facility] ([facility]) Systolic blood 140 mm[Hg] 140 mm[Hg] [facility] ([facility] Body weight 171 lb 171 lb [facility] ([facility] Body height 59 in 59 in [facility] ([facility] Heart rate 84 /min 84 /min [facility] ([facility] Body mass index 34.5 kg/m2 34.5 kg/m2 [facility] ([facility] (BMI) [Ratio] [facility]) Diastolic blood 64 mm[Hg] 64 mm[Hg] [facility] ([facility]) Systolic blood 140 mm[Hg] 140 mm[Hg] [facility] ([facility] Body weight 171 lb 171 lb [facility] ([facility] Body height 59 in 59 in [facility] ([facility] Heart rate 76 /min 76 /min [facility] ([facility] Body mass index 34.5 kg/m2 34.5 kg/m2 [facility] ([facility] (BMI) [Ratio] [facility]) Diastolic blood 54 mm[Hg] 54 mm[Hg] [facility] ([facility]) Systolic blood 139 mm[Hg] 139 mm[Hg] [facility] ([facility] Body weight 171 lb 171 lb [facility] ([facility]) Body height 59 in 59 in [facility] ([facility] Heart rate 76 /min 76 /min [facility] ([facility] Body mass index 34.5 kg/m2 34.5 kg/m2 [facility] ([facility] (BMI) [Ratio] [facility]) Diastolic blood 54 mm[Hg] 54 mm[Hg] [facility] ([facility]) Systolic blood 139 mm[Hg] 139 mm[Hg] [facility] ([facility] Body weight 171 lb 171 lb [facility] ([facility] Body height 59 in 59 in [facility] ([facility] Heart rate 76 /min 76 /min [facility] ([facility] Body mass index 34.5 kg/m2 34.5 kg/m2 [facility] ([facility] (BMI) [Ratio] [facility]) Diastolic blood 54 mm[Hg] 54 mm[Hg] [facility] ([facility]) Systolic blood 139 mm[Hg] 139 mm[Hg] [facility] ([facility] Body weight 171 lb 171 lb [facility] ([facility] Body height 59 in 59 in [facility] ([facility]) Heart rate 76 /min 76 /min [facility] ([facility] Body mass index 34.5 kg/m2 34.5 kg/m2 [facility] ([facility] (BMI) [Ratio] [facility]) Diastolic blood 54 mm[Hg] 54 mm[Hg] [facility] ([facility]) Systolic blood 139 mm[Hg] 139 mm[Hg] [facility] ([facility] Body weight 171 lb 171 lb [facility] ([facility] Body height 59 in 59 [facility] Heart rate 76 /min 76 /min [facility] ([facility] [facility]) Body mass index 34.5 kg/m2 34.5 kg/m2 [facility] ([facility] (BMI) [Ratio] [facility] Diastolic blood 54 mm[Hg] 54 mm[Hg] [facility] ([facility] pressure [facility]) Systolic blood 139 mm[Hg] 139 mm[Hg] [facility] ([facility]) Body weight 171 lb 171 lb [facility] ([facility] Body height 59 in 59 in [facility] ([facility]) Heart rate 76 /min 76 /min [facility] ([facility] Body mass index 34.5 kg/m2 34.5 kg/m2 [facility] ([facility] (BMI) [Ratio] [facility]) Diastolic blood 54 mm[Hg] 54 mm[Hg] [facility] ([facility]) Systolic blood 139 mm[Hg] 139 mm[Hg] [facility] ([facility] Body weight 171 lb 171 lb [facility] ([facility]) Body height 59 in 59 in [facility] ([facility]) Diastolic blood 70 mm[Hg] 70 mm[Hg] [facility] ([facility] pressure [facility]) Systolic blood 133 mm[Hg] 133 mm[Hg] [facility] ([facility]) Body weight 171 lb 171 lb [facility] Body height 58.5 in 58.5 in [facility] ([facility]) Heart rate 86 /min 86 /min [facility] ([facility]) Body mass index 35.1 kg/m2 35.1 kg/m2 [facility] ([facility] (BMI) [Ratio] [facility]) Heart rate 86 /min 86 /min [facility] ([facility]) Body mass index 35.1 kg/m2 35.1 kg/m2 [facility] ([facility] (BMI) [Ratio] [facility]) Diastolic blood 70 mm[Hg] 70 mm[Hg] [facility] ([facility]) Systolic blood 133 mm[Hg] 133 mm[Hg] [facility] ([facility]) Body weight 171 lb 171 lb [facility] ([facility] Heart rate 86 /min 86 /min [facility] ([facility] Body mass index 35.1 kg/m2 35.1 kg/m2 [facility] ([facility] (BMI) [Ratio] [facility]) Diastolic blood 70 mm[Hg] 70 mm[Hg] [facility] ([facility]) Systolic blood 133 mm[Hg] 133 mm[Hg] [facility] ([facility]) Body weight 171 lb 171 lb [facility] Body height 58.5 in 58.5 in [facility] ([facility]) Heart rate 86 /min 86 /min [facility] ([facility] Body mass index 35.1 kg/m2 35.1 kg/m2 [facility] ([facility] (BMI) [Ratio] [facility]) Diastolic blood 70 mm[Hg] 70 mm[Hg] [facility] ([facility]) Systolic blood 133 mm[Hg] 133 mm[Hg] [facility] ([facility]) Body weight 171 lb 171 lb [facility] ([facility] Body height 58.5 in 58.5 in [facility] ([facility]) Heart rate 86 /min 86 /min [facility] ([facility]) Body mass index 35.1 kg/m2 35.1 kg/m2 [facility] ([facility] (BMI) [Ratio] [facility]) Diastolic blood 70 mm[Hg] 70 mm[Hg] [facility] ([facility]) Systolic blood 133 mm[Hg] 133 mm[Hg] [facility] ([facility] Body weight 171 lb 171 lb [facility].5 in 58.5 [facility] Heart rate 86 /min 86 /min [facility] ([facility] Body mass index 35.1 kg/m2 35.1 kg/m2 [facility] ([facility] (BMI) [Ratio] [facility] Diastolic blood 70 mm[Hg] 70 mm[Hg] [facility] ([facility] pressure [facility]) Systolic blood 133 mm[Hg] 133 mm[Hg] [facility] ([facility] Body weight 171 lb 171 lb [facility] Body height 58.5 in 58.5 [facility]
[2020-01-31] MEDS ORDERED: KETOROLAC TROMETHAMINE 30 MG/1 ML VIAL IM ONE (13:54)
[2020-01-31] MEDS ORDERED: KETOROLAC TROMETHAMINE 30 MG/1 ML VIAL ONE (13:57)
--- NOTE | 2020-01-31 14:05 | PDOC ---
History of Present Illness - General Chief Complaint: Pain Stated Complaint: BACK PAIN Time Seen by Provider: 01/31/20 12:54 - History of Present Illness Initial Comments: 01/31/20 13:59 79-year-old female with a past medical history of diabetes hypertension hypothyroidism presents for evaluation of exacerbation of lower back pain without radicular symptoms. No loss of bowel or bladder function saddle paresthesias or systemic symptoms. Past History - Medical History Allergies/Adverse Reactions: Allergies Allergy/AdvReac Type Severity Reaction Status Date / Time No Known Allergies Allergy Verified 05/19/18 15:10 Home Medications: Ambulatory Orders Amlodipine Besylate [Norvasc -] 10 mg PO DAILY 05/19/18 Aspirin [Aspirin EC] 81 mg PO DAILY 05/19/18 Azilsartan Medoxomil [Edarbi] 80 mg PO DAILY 05/19/18 Budesonide/Formeterol Fumarate [SYMBICORT 160/4.5mcg -] 1 inh PO BID 05/19/18 Chlorthalidone 25 mg PO DAILY 05/19/18 Ezetimibe [Zetia] 10 mg PO DAILY 05/19/18 Levothyroxine [Synthroid -] 88 mcg PO DAILY 05/19/18 metFORMIN HCL [Metformin HCl ER] 500 mg PO BID 05/19/18 Hydrocodone/Acetaminophen [Hydrocodone-Acetamin 5-325 mg] 1 - 2 tab PO TID PRN #40 tablet MDD 6 05/20/18 Anemia: Yes Asthma: No Cancer: No Cardiac Disorders: No 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 Audit-10AR): Negative In the last yr the pt used illegal drug/Rx for NonMed reason: No Score: Yes response is considered Positive: 0 Screen Result (Positive result requires Nsg. DAST-10): Negative Review of Systems - Review of Systems Constitutional: No: Fever : No: Dysuria, Incontinence Musculoskeletal: Yes: Back Pain Neurological: No: Numbness, Paresthesia, Tingling *Physical Exam - Vital Signs Last Vital Signs Temp Pulse Resp BP Pulse Ox 98.1 F 75 16 146/44 L 99 01/31/20 12:34 01/31/20 12:34 01/31/20 12:34 01/31/20 12:58 01/31/20 12:34 - Physical Exam 01/31/20 14:00 My lumbar spine exam Bilateral lower extremity pulses in both dorsal pedal and posterior tibial are equal symmetric 2+ ED Treatment Course - RADIOLOGY Radiology Studies Ordered: Category Date Time Status SPINE-LUMBAR SACRAL [RAD] Stat Radiology 01/31/20 13:08 Taken - Medications Given in the ED: ED Medications Discontinued Medications Generic Name Dose Route Start Last Admin Trade Name Freq PRN Reason Stop Dose Admin Ketorolac Tromethamine 30 mg 01/31/20 13:54 01/31/20 13:59 Toradol Injection - IM 01/31/20 13:55 30 mg ONCE ONE Administration Medical Decision Making - Medical Decision Making 01/31/20 14:01 Mild relief with Toradol. Exacerbation of lower back pain. Follow-up with Ortho. Tylenol at home for pain. Toradol given for breakthrough. Instructed patient to avoid anti-inflammatories. One-time dose of Toradol in the emergency room for breakthrough. Patient states blood pressure is normally widened as I discussed with her. She says it happens when she is in pain. I do not suspect any dissection she has equal and symmetric pulses bilaterally distal without gross deficits. I have reviewed the pathophysiology with the patient. They are in agreement with the treatment plan all questions were answered to their satisfaction. Understanding for follow-up without fail was also conveyed to the patient. Again they are in agreement. Discharge - Discharge Information Problems reviewed: Yes Clinical Impression/Diagnosis: Back muscle spasm Condition: Stable Disposition: HOME - Admission No - Follow up/Referral Referrals: Anam Mendoza MD [Primary Care Provider] - Ramesh Jose MD, FAANS [Staff Physician] - - Patient Discharge Instructions Additional Instructions: Return to the emergency room for worsening symptoms and without fail follow-up with neurosurgery in 1 to 2 days for further evaluation and treatment options. You were given a injection of a long-acting inflammatory in the emergency room. This is a one-time dose to get you out of pain. At home please take Tylenol as directed. Avoid Motrin Advil Aleve and ibuprofen as these are anti- inflammatories. Continue with your regular medication as discussed. - Post Discharge Activity
== END 2020-01-31 14:13 | disposition home or self-care (01) ==
LOC: JERFT 12:15
PROC: 3E0233Z Introduction of Anti-inflammatory into Muscle, Percutaneous Approach (ICD-10-PCS; principal; 2020-01-31)
DX: M62.830 Muscle spasm of back (principal)
CPT/HCPCS: 72100-TC-FY; 99284-25

== ENCOUNTER 2023-10-12 09:15 | Emergency (ER) | payer OTHER, MEDICARE ==
[2023-10-12 09:20] VITALS: BP 179/74; PULSE 75; RESP 18; TEMP 97.9; BMI 33.3
[2023-10-12] MEDS ORDERED: ACETAMINOPHEN 500 MG TABLET (FP) ONE (10:11)
[2023-10-12] MEDS ORDERED: LIDOCAINE 4% PATCH TP ONE (10:11)
[2023-10-12] MEDS ORDERED: KETOROLAC TROMETHAMINE 15 MG/ML VIAL ONE (10:11)
[2023-10-12] MEDS: KETOROLAC TROMETHAMINE 15 MG/ML VIAL IM ONE (10:21)
[2023-10-12] MEDS: ACETAMINOPHEN 500 MG TABLET (FP) PO ONE (10:21)
[2023-10-12] MEDS: LIDOCAINE 4% PATCH TP ONE (10:21)
[2023-10-12 11:08] LABS: EPI CELLS 2 /uL (0-25.1); HYALINE CASTS 0 /uL (0-3.1); URINE APPEARANCE CLEAR; URINE BACTERIA 14 /uL (0-1359); URINE BILIRUBIN NEGATIVE (NEGATIVE); URINE COLOR YELLOW; URINE GLUCOSE (UA) NEGATIVE (NEGATIVE); URINE KETONE NEGATIVE (NEGATIVE); URINE LEUK ESTERASE NEGATIVE (NEGATIVE); URINE NITRITE NEGATIVE (NEGATIVE); URINE PROTEIN NEGATIVE (NEGATIVE); URINE RBC 8 /uL (0-23.9); URINE UROBILINOGEN 0.2 mg/dL (0.2-1.0); URINE WBC 4 /uL (0-25.8)
[2023-10-12] MEDS ORDERED: LIDOCAINE PATCH REMOVAL MC SCH (22:00)
== END 2023-10-12 11:26 | disposition home or self-care (01) ==
LOC: JER 09:15 → JERFT 09:15
PROC: 3E0233Z Introduction of Anti-inflammatory into Muscle, Percutaneous Approach (ICD-10-PCS; principal; 2023-10-12)
DX: M54.50 Low back pain, unspecified (principal); M62.830 Muscle spasm of back
CPT/HCPCS: 81003; 87086; 99284-25